=== PATIENT | female | born 1975 | race Two or more races ===

== ENCOUNTER 2020-05-09 12:37 | Outpatient (REF) | payer MEDICARE, MEDICAID, SELFPAY ==
--- NOTE | ~2020-05-09 | US_ITS ---
EXAMINATION: US PELVIS, COMPLETE CLINICAL INFORMATION: Right lower quadrant pain. History of ovarian cyst. COMPARISON: 04/09/2017 TECHNIQUE: Transabdominal and transvaginal imaging was performed. FINDINGS: LMP: 05/03/2020 Uterus is anteverted, measuring 13.8 x 5.7 x 7.1 cm. Slight heterogeneity of the uterine echotexture. Three hypoechoic foci within the uterine myometrium having a maximum measurement of 1.8 cm, 1.3 cm, and 1 cm respectively, probable fibroids. Additional fibroid seen on the prior study is not evident on today's study. Endometrial thickness 1 cm. Nabothian cysts in the cervix are noted. Right ovary measures 3.5 x 1.9 x 2.3 cm. Volume 8 mL. Left ovary measures 2.6 x 2 x 1.2 cm. Volume 3.3 mL. Bilateral ovaries appear unremarkable. No free fluid in the cul-de-sac. US/US pelvic complete IMPRESSION: Three hypoechoic foci in the uterine myometrium, largest measuring 1.8 cm, as detailed above. These probably reflect fibroids.
--- NOTE | ~2020-05-09 | US_ITS ---
EXAMINATION: US PELVIS, COMPLETE CLINICAL INFORMATION: Right lower quadrant pain. History of ovarian cyst. COMPARISON: 04/09/2017 TECHNIQUE: Transabdominal and transvaginal imaging was performed. FINDINGS: LMP: 05/03/2020 Uterus is anteverted, measuring 13.8 x 5.7 x 7.1 cm. Slight heterogeneity of the uterine echotexture. Three hypoechoic foci within the uterine myometrium having a maximum measurement of 1.8 cm, 1.3 cm, and 1 cm respectively, probable fibroids. Additional fibroid seen on the prior study is not evident on today's study. Endometrial thickness 1 cm. Nabothian cysts in the cervix are noted. Right ovary measures 3.5 x 1.9 x 2.3 cm. Volume 8 mL. Left ovary measures 2.6 x 2 x 1.2 cm. Volume 3.3 mL. Bilateral ovaries appear unremarkable. No free fluid in the cul-de-sac. US/US transvaginal IMPRESSION: Three hypoechoic foci in the uterine myometrium, largest measuring 1.8 cm, as detailed above. These probably reflect fibroids.
--- NOTE | ~2020-05-09 | US_ITS ---
EXAMINATION: US RETROPERITONEAL LIMITED (RENAL ONLY) CLINICAL INFORMATION: Malignant neoplasm of kidney. COMPARISON: Renal ultrasound 01/18/2019. CT abdomen and pelvis 11/24/2017. Ultrasound kidneys and bladder 07/19/2014. TECHNIQUE: Real-time imaging of the kidneys. FINDINGS: RIGHT KIDNEY: 11.5 x 5.2 x 6.3 cm (SAG x AP x TRV). The kidney is normal in size, contour, and echogenicity. Renal cortical thickness is normal. No calculi or focal parenchymal lesions. No hydronephrosis. LEFT KIDNEY: 10.5 x 4.9 x 4.2 cm (SAG x AP x TRV). The kidney is normal in size, contour, and echogenicity. Redemonstrated is focal cortical thinning in the upper pole of the left kidney. Similar appearance of focal hypoechoic area in the adjacent perinephric fat. These findings may reflect sequela of prior cryoablation. No renal calculi. No focal parenchymal lesions otherwise. No hydronephrosis. US/US renal BI IMPRESSION: Cortical thinning in the upper pole left kidney, with a focal hypoechoic area in the adjacent perinephric fat. No significant interval change as compared to previous, with findings suggestive of sequela of prior cryoablation. No renal mass is otherwise seen.
== END 2020-05-09 12:38 | disposition home or self-care (01) ==
LOC: HO.US 12:37
PROVIDERS: PCP Internal Medicine; Visit Provider Internal Medicine
DX: R10.31 Right lower quadrant pain (principal); C64.2 Malignant neoplasm of left kidney, except renal pelvis
CPT/HCPCS: 76775; 76830; 76856

== ENCOUNTER 2020-05-31 15:41 | Outpatient (REF) | payer MEDICARE, MEDICAID, SELFPAY ==
--- NOTE | ~2020-05-31 | US_ITS ---
EXAMINATION: US VENOUS ULTRASOUND WITH DOPPLER LOWER EXTREMITY, LEFT CLINICAL INFORMATION: Pain COMPARISON: None TECHNIQUE: Ultrasound of the deep veins is performed from the hip to the calf with compression sonography and color and pulse Doppler assessment. Spectral analysis with color-flow imaging is performed. FINDINGS: There is normal venous compression and respiratory variation and augmented flow. The visualized common femoral vein, superficial femoral vein, profunda femoral vein, popliteal vein, and the trifurcation region shows no evidence of deep venous thrombosis. There is no significant popliteal fossa cyst. US/US venous duplex LE LT IMPRESSION: No DVT demonstrated in the left lower extremity.
== END 2020-05-31 15:42 | disposition home or self-care (01) ==
LOC: HO.US 15:41
PROVIDERS: Visit Provider Nurse Practitioner Primary Care
DX: M79.662 Pain in left lower leg (principal); M79.89 Other specified soft tissue disorders; E78.5 Hyperlipidemia, unspecified; F17.200 Nicotine dependence, unspecified, uncomplicated
CPT/HCPCS: 93971

== ENCOUNTER 2020-07-13 09:06 | Outpatient (REF) | payer MEDICARE, MEDICAID, SELFPAY ==
--- NOTE | ~2020-07-13 | CT_ITS ---
EXAMINATION: CT ABDOMEN AND PELVIS WITH CONTRAST CLINICAL INFORMATION: Right lower quadrant pain COMPARISON: Previous CT of the abdomen and pelvis November 2017, renal ultrasound and pelvic ultrasound April 2020 TECHNIQUE: Multidetector volumetric images were obtained from the superior aspect of the liver through the pubic symphysis following administration 85 mL of Omnipaque 350 intravenous contrast. Sagittal and coronal reformatted images were obtained on the technologist's workstation. Oral contrast: Yes This CT examination was performed using dose optimization techniques as appropriate, variously including the following: *Automated exposure control *Adjustment of mA and/or kV according to patient size (this includes techniques or standardized protocols for targeted exams where dose is matched to indication/reason for exam; i.e. extremities or head) *Use of iterative reconstruction technique DLP: 517 mGy-cm FINDINGS: LUNG BASES: The visualized lung bases are unremarkable. LIVER, GALLBLADDER, AND BILIARY TREE: The liver is low in attenuation suggestive of fatty infiltration. The liver is otherwise normal. The gallbladder is unremarkable with no evidence of radiopaque gallstones, gallbladder wall thickening, or obvious pericholecystic inflammatory changes. There is no biliary duct dilatation. PANCREAS: Unremarkable. SPLEEN: Unremarkable. ADRENAL GLANDS: Unremarkable. KIDNEYS AND URETERS: The kidneys are normal in size, shape, and attenuation. No hydronephrosis, hydroureter, or calculi seen. No perinephric stranding. BLADDER: Unremarkable. GASTROINTESTINAL TRACT: The small and large bowel are unremarkable. The appendix is unremarkable. The stomach is unremarkable. ABDOMINAL WALL: No significant hernia is appreciated. LYMPH NODES: Normal. VASCULAR: Unremarkable. PELVIC VISCERA: The uterus is prominent. The uterus is heterogeneous in attenuation probably representing fibroids. OSSEOUS STRUCTURES: Unremarkable. CT/CT abdomen pelvis w con IMPRESSION: Fatty liver. Slightly enlarged heterogeneous appearing uterus probably related to fibroids. Otherwise unremarkable exam.
[2020-07-13] MEDS: iohexoL 350 MG/ML 100 ML INFUS..BTL IV (12:21)
== END 2020-07-13 09:07 | disposition home or self-care (01) ==
LOC: HO.CT 09:06
PROVIDERS: PCP Internal Medicine; Visit Provider Internal Medicine
DX: R10.31 Right lower quadrant pain (principal)
CPT/HCPCS: 74177; Q9967

== ENCOUNTER → 2020-07-21 10:24 | Outpatient (REF) | payer MEDICARE, MEDICAID, SELFPAY ==
--- NOTE | 2020-07-21 10:30 | CA_ITS ---
Transthoracic Echocardiogram Patient (Last, First, Middle): Laila Ortiz, Gender: Female Date of : 1975 Age: 45 Procedure Date: 07/21/2020 Procedure Type: Transthoracic Echocardiogram Location: OP Height: 154.94 cm Weight: 89.36 kg BSA: 1.88 m2 Heart Rate: bpm BP: 124 / 76 mmHg Baffle Installer: Referring MD: Chiquis Martins MD Symptoms: R06.00 [place] Study Quality: Fair ECG Rhythm: Sinus Conclusions: - The left ventricular systolic function is normal. The visually estimated ejection fraction is between 60-65%. - Evidence suggests grade I (mild) diastolic dysfunction. - No obvious valvular pathology seen on this study. Findings Left Ventricle Normal left ventricular cavity size. There is mildly increased left ventricular wall thickness. The left ventricular systolic function is normal. The visually estimated ejection fraction is between 60-65%. There is no evidence of regional wall motion abnormalities. E/E prime ratio is between 8 and 15 consistent with indeterminate filling pressures. Evidence suggests grade I (mild) diastolic dysfunction. Right Ventricle Normal right ventricular cavity size and systolic function. Atria The left atrium is normal in size. The right atrium is normal in size. Aortic Valve There is a normal trileaflet aortic valve. There is no aortic valve stenosis. There is no aortic valve regurgitation. Mitral Valve The mitral valve appears normal. There is trace mitral valve regurgitation. There is no mitral valve stenosis. Pulmonic Valve The pulmonic valve was not well visualized. There is trace pulmonic valve regurgitation. Tricuspid Valve There is trace tricuspid valve regurgitation. The pulmonary artery systolic pressure is normal. Great Vessels The aortic annulus, sinuses of valsalva, and asc aorta are normal in size. Venous The inferior vena cava is normal in size and collapses greater than 50% with inspiration. Pericardium/Pleural There is no evidence of pericardial effusion. Prior Study Comparison No prior study available for comparison. Recommendations, Care & Conclusions No obvious valvular pathology seen on this study. Measurements 2D Linear Measurements RVIDd: 2.65 RVIDd Index: 1.41 IVSd: 1.14 0.6-0.9/0.6-1.0 cm LVIDd: 5.14 3.9-5.3/4.2-5.9 cm LVIDd Index: 2.73 2.4-3.2/2.2-3.1 cm/m2 LVIDs: 3.67 2.0-3.6 cm LVPWd: 0.98 0.7-1.1 cm Ao Root: 2.90 2.1-3.5 cm LA Diam: 3.30 2.7-3.8/3.0-4.0 cm LAIDs Index: 1.76 1.5-2.3 cm/m2 LV Mass: 255.91 67-162/88-224 g LV Mass Index: 136.12 43-95/49-115 g/m2 LVOT Diam: 2.00 3.0+(-)1.3 cm 2D Systolic Function EF 4C: 64.20 >55% EF 2C: 66.40 >55% EF BiP: 64.20 >55% Mitral Valve MV Pk E: 0.64 MV PK A: 0.81 MV Decel Time: 197.00 E/A: 0.80 E'Lateral: 8.41 E'Medial: 4.84 E/E' Med: 13.20 E/E' Lat: 7.60 Aortic Valve AoV Pk Terrell: 1.21 AoV Mn Terrell: 0.94 AoV VTI: 0.21 AoV Pk Grad: 6.00 Aov Mn Grad: 4.00 YOKO Cont.VTI: 2.42 LVOT LVOT Pk Terrell: 1.12 LVOT Mn Terrell: 0.66 LVOT VTI: 0.16 LVOT Pk Grad: 5.00 LVOT Mn Grad: 2.00 LVOT Diam: 2.00 LVOT Area: 3.14 Diastolic Function MV Pk E: 0.64 MV Pk A: 0.81 E/A: 0.80 E'Medial: 4.84 E/E' Med: 13.20 E' Laterial: 8.41 E/E' Lat: 7.60 Tricuspid Valve TR Pk Terrell: 2.32 TR Pk Grad: 22.00 Great Vessels Aorta Ao Root-2D: 2.90 2.0-3.7 cm Ao Asc: 3.20 2.1-3.4 cm Ao Arch: 2.90 Updated in Other Vendor System with Status of Final True Kaur MD electronically signed on 07/22/2020 3:44:16 PM with status of Final
== END ==
LOC: HO.CARD 10:24
PROVIDERS: PCP Internal Medicine; Visit Provider Internal Medicine
DX: R06.00 Dyspnea, unspecified (principal)
CPT/HCPCS: 93306

== ENCOUNTER → 2020-08-24 11:15 | Outpatient (BNVA) | payer MEDICARE, MEDICAID, SELFPAY | PROVIDERS: PCP Internal Medicine; Visit Provider Obstetrics & Gynecology | DX: N93.9 Abnormal uterine and vaginal bleeding, unspecified (principal) | CPT/HCPCS: 99202 ==

== ENCOUNTER 2020-08-28 12:19 | Outpatient (REF) | payer MEDICARE, MEDICAID, SELFPAY ==
--- NOTE | ~2020-08-28 | MM_ITS ---
EXAMINATION: MM SCREENING DIGITAL BREAST TOMOSYNTHESIS, BILATERAL CLINICAL INFORMATION: Screening. Asymptomatic. The lifetime risk of breast cancer based on the Tyrer-Cuzick Model is 8%. COMPARISON: Mammography: 04/17/2018, 12/02/2016 (baseline). TECHNIQUE: Digital breast tomosynthesis is performed in both the craniocaudal and mediolateral oblique views along with computer-aided detection (CAD). Synthesized 2D images are generated from the tomosynthesis. FINDINGS: The breasts are heterogeneously dense, which may obscure small masses (ACR BI-RADS breast composition Category c). There are no significant masses, abnormal calcifications, or other abnormalities. Parenchymal pattern is similar to prior exams. No developing density. Skin contours are smooth. MM/MM tomosynthesis screening BI IMPRESSION: No mammographic evidence of malignancy. ASSESSMENT: BI-RADS 1: Negative RECOMMENDATION: Routine annual mammography screening. This patient's information was entered into a reminder system with a target due date for their next mammogram.
== END 2020-08-28 12:20 | disposition home or self-care (01) ==
LOC: HO.MAMMO 12:19
PROVIDERS: Visit Provider Advanced Practice Midwife
DX: Z12.31 Encounter for screening mammogram for malignant neoplasm of breast (principal)
CPT/HCPCS: 77063; 77067

== ENCOUNTER 2020-09-06 13:32 | Outpatient (REF) | payer MEDICARE, MEDICAID, SELFPAY | END 2020-09-06 13:33 | disposition home or self-care (01) | LOC: HO.LAB 13:32 | PROVIDERS: PCP Internal Medicine; Visit Provider Obstetrics & Gynecology | DX: N93.9 Abnormal uterine and vaginal bleeding, unspecified (principal) | CPT/HCPCS: 58100; 88305 ==

== ENCOUNTER → 2020-09-13 11:22 | Outpatient (BNVA) | payer MEDICARE, MEDICAID, SELFPAY | PROVIDERS: PCP Internal Medicine; Visit Provider Obstetrics & Gynecology | DX: N93.9 Abnormal uterine and vaginal bleeding, unspecified (principal) | CPT/HCPCS: Q3014 ==

== ENCOUNTER 2020-11-20 01:12 | Emergency (ER) | payer MEDICARE, MEDICAID, SELFPAY ==
--- NOTE | ~2020-11-20 | XR_ITS ---
EXAMINATION: XR CHEST CLINICAL INFORMATION: Dyspnea. Chest pain. COMPARISON: None TECHNIQUE: Frontal view of the chest was obtained. FINDINGS: No significant abnormality is noted involving the heart, lungs, mediastinum, bony thorax or soft tissues. XR/XR chest 1V IMPRESSION: Unremarkable examination.
[2020-11-20 01:33] VITALS: BP 164/104; PULSE 115; RESP 18; TEMP 36.9; O2SAT 99; BMI 36.8
--- NOTE | 2020-11-20 01:39 | ECG_ITS ---
Test Reason : CHEST PAIN Blood Pressure : / mmHG Vent. Rate : 113 BPM Atrial Rate : 113 BPM P-R Int : 130 ms QRS Dur : 086 ms QT Int : 340 ms P-R-T Axes : 057 011 068 degrees QTc Int : 466 ms Sinus tachycardia Otherwise normal ECG No previous ECGs available Referred By: Generic ED Physician Electronically Signed By:SADIA WALL
[2020-11-20 02:00] VITALS: BP 151/101; PULSE 114; RESP 16; O2SAT 100
--- NOTE | 2020-11-20 02:06 | ED_ITS ---
HPI - Chest Pain General Chief Complaint: Chest Pain Stated Complaint: SOB/chest pain Time Seen by Provider: 11/20/20 01:53 Source: patient Mode of arrival: ambulatory Limitations: no limitations History of Present Illness HPI narrative: Patient comes emergency room complaining of chest pain. Patient states she was walking up the stairs, then had sudden onset of chest pressure. All this started approximately 4 hours ago. At this time, patient states that she feels better. States that the chest pain was still present when she was in triage but now it is nearly resolved. Patient denies shortness of breath, no coughing, no vomiting or diarrhea, no recent illnesses. Patient states that prior to arrival she took a tablet of amlodipine which she usually takes at bedtime. Related Data Previous Rx's Medication Instructions Recorded ibuprofen 800 mg tablet 800 mg PO Q8H #90 tab 08/24/20 Allergies Allergy/AdvReac Type Severity Reaction Status Date / Time cat dander [CATS] Allergy Unknown UNKNOWN Verified 11/20/20 01:33 haloperidol [From HALDOL] Allergy Unknown SWELLING Verified 11/20/20 01:33 risperidone [From RISPERDAL] Allergy Unknown HIVES Verified 11/20/20 01:33 shrimp Allergy Unknown UNKNOWN Verified 11/20/20 01:33 COCKROACHES Allergy Unknown UNKNOWN Uncoded 12/02/19 14:56 Review of Systems Review of Systems: Constitutional : No Weight loss, No Fever, No Chills, No Night Sweats, No Fatigue, No Malaise ENT/Mouth : No Hearing loss, No Ear Pain, No Nasal Congestion, No Sinus Pain, No Hoarseness, No sore throat, No Rhinorrhea, No Swallowing Difficulty Eyes: No Eye Pain, No Swelling, No Redness, No Foreign Body, No Discharge, No Vision Changes Cardiovascular : Complaining of chest pressure, No SOB, No Dyspnea on Exertion, No Orthopnea, No Edema, No Palpitations Respiratory : No Cough, No Sputum, No Wheezing, No Smoke Exposure, No Dyspnea Gastrointestinal : No Nausea, No Vomiting, No Diarrhea, No Constipation, No abdominal Pain, No Hematochezia, No Melena Genitourinary : no irregular bleeding, No Dysuria, No Urinary Frequency, No Hematuria, No Urinary Incontinence, No Urgency, No Flank Pain, No Urinary Flow Changes, No Hesitancy Musculoskeletal : No joint pain, No Myalgias, No Joint Swelling Skin : No Skin Lesions, No rash Neuro : No Weakness, No Numbness, No Paresthesias, No Loss of Consciousness, No Dizziness, No Headache Psych : No Anxiety/Panic, No Depression, No SI/HI/AH/VH, No Social Issues, Heme/Lymph: No Bruising, No Bleeding,No Lymphadenopathy Endocrine : No Polyuria, No Polydipsia, No Temperature Intolerance [facility] Past Medical History Medical History Fibromyalgia High cholesterol Surgical History History of bilateral tubal ligation History of carpal tunnel surgery of right wrist History of loop electrical excision procedure (LEEP) Family History Family History Mother Kidney failure Diabetes COPD (chronic obstructive pulmonary disease) Heart disease Father Colon cancer Social History Social History Advance Directives: No Physical Exam Vital Signs: Vital Signs: Last Vital Signs Temp 98.5 F 11/20/20 01:33 Pulse 114 H 11/20/20 02:00 Resp 16 11/20/20 02:00 BP 151/101 H 11/20/20 02:00 Pulse Ox 100 11/20/20 02:00 Body Mass Index 36.8 Const: Other: Appearance: Alert. Oriented X3. No acute distress. Eyes: Pupils equal, round and reactive to light. ENT: Pharynx normal. Neck: Normal inspection. Neck supple. No lymph nodes noted. No crepitus CVS: Normal heart rate and rhythm. Pulses normal. Normal S1 and S2 Respiratory: No respiratory distress. Breath sounds normal. No Wheezing. No rales Abdomen: Soft and nontender. No rigidity. No distention. good BS x4 Skin: Skin warm and dry. Normal skin color. Normal skin turgor. Extremities: +1 nonpitting edema. No Lacerations. No Rash Neuro: Oriented X 3. No motor deficit. No sensory deficit. Moving all extermities. No slurred speech. Course Course Course Narrative: I discussed with the patient that the swelling in her legs is likely secondary a side effect from the amlodipine. I discussed with the patient that I recommend to get a 2nd set of troponin. Patient states that she does not want to wait for a 2nd set of troponin, patient will follow-up with her PCP tomorrow. At this time, patient is asymptomatic, states she feels back to normal. MDM - Chest Pain Lab Data Result diagrams: 11/20/20 02:14 11/20/20 02:14 Labs: Lab Results 11/20/20 11/20/20 11/20/20 Range/Units 02:14 02:14 02:14 WBC 9.1 (4.8-10.8) X10*3/uL RBC 3.91 L (4.20-5.50) X10*6/uL Hgb 10.3 L (12.0-16.0) g/dl Hct 32.8 L (37-47) % MCV 83.9 (80-98) fL MCH 26.3 L (27.0-33.0) pg MCHC 31.4 (31.0-35.0) g/dl RDW 13.9 (11.0-16.0) % Plt Count 321 (160-400) X10*3/uL MPV 9.4 (9.4-12.3) fL Immature Gran % (Auto) 0.3 (0.0-0.4) % Neut % (Auto) 63.0 (45-73) % Lymph % (Auto) 28.3 (20-40) % [place] % (Auto) 6.4 (2-11) % Eos % (Auto) 1.3 (0-4) % Baso % (Auto) 0.7 (0-2) % Lymph # (Auto) 2.6 (1.2-4.9) X10*3/uL [place] # (Auto) 0.6 (0.1-1.2) X10*3/uL Eos # (Auto) 0.1 (0.0-0.4) X10*3/uL Baso # (Auto) 0.1 (0.0-0.2) X10*3/uL Abs Immat Gran (auto) 0.03 (0.00-0.03) X10*3/uL Absolute Neuts (auto) 5.7 (2.0-8.3) X10*3/uL Absolute Nucleated RBC 0.000 (0.0-0.012) X10*3/uL Nucleated RBC % (auto) 0.0 (0.0-0.2) /100WBC Sodium 136 (135-145) mmol/L Potassium 4.1 (3.3-5.1) mmol/L Chloride 102 (96-108) mmol/L Carbon Dioxide 25 (22-29) mmol/L Anion Gap 13 (12-20) BUN 16 (9-16) mg/dL Creatinine 0.97 (0.5-1.4) mg/dL Estim Creat Clear Calc 74.8 Estimated GFR > 60 Random Glucose 91 (60-115) mg/dL Calcium 9.0 (8.4-10.2) mg/dL Troponin I High Sens < 3.5 (<3.5-17.0) ng/L B-Natriuretic Peptide (<100) pg/mL Urine Color Urine Appearance Urine pH (5.0-8.0) Ur Specific [place] (1.005-1.025) Urine Protein (NEG-TRACE) MG/DL Urine Glucose (UA) (NEG) MG/DL Urine Ketones (NEG) MG/DL Urine Blood (NEG) Urine Nitrite (NEG) Ur Leukocyte Esterase (NEG) 11/20/20 11/20/20 Range/Units 02:14 02:59 WBC (4.8-10.8) X10*3/uL RBC (4.20-5.50) X10*6/uL Hgb (12.0-16.0) g/dl Hct (37-47) % MCV (80-98) fL MCH (27.0-33.0) pg MCHC (31.0-35.0) g/dl RDW (11.0-16.0) % Plt Count (160-400) X10*3/uL MPV (9.4-12.3) fL Immature Gran % (Auto) (0.0-0.4) % Neut % (Auto) (45-73) % Lymph % (Auto) (20-40) % [place] % (Auto) (2-11) % Eos % (Auto) (0-4) % Baso % (Auto) (0-2) % Lymph # (Auto) (1.2-4.9) X10*3/uL [place] # (Auto) (0.1-1.2) X10*3/uL Eos # (Auto) (0.0-0.4) X10*3/uL Baso # (Auto) (0.0-0.2) X10*3/uL Abs Immat Gran (auto) (0.00-0.03) X10*3/uL Absolute Neuts (auto) (2.0-8.3) X10*3/uL Absolute Nucleated RBC (0.0-0.012) X10*3/uL Nucleated RBC % (auto) (0.0-0.2) /100WBC Sodium (135-145) mmol/L Potassium (3.3-5.1) mmol/L Chloride (96-108) mmol/L Carbon Dioxide (22-29) mmol/L Anion Gap (12-20) BUN (9-16) mg/dL Creatinine (0.5-1.4) mg/dL Estim Creat Clear Calc Estimated GFR Random Glucose (60-115) mg/dL Calcium (8.4-10.2) mg/dL Troponin I High Sens (<3.5-17.0) ng/L B-Natriuretic Peptide 15 (<100) pg/mL Urine Color YELLOW Urine Appearance CLEAR Urine pH 6.0 (5.0-8.0) Ur Specific R[place]y 1.020 (1.005-1.025) Urine Protein NEG (NEG-TRACE) MG/DL Urine Glucose (UA) NEG (NEG) MG/DL Urine Ketones NEG (NEG) MG/DL Urine Blood NEG (NEG) Urine Nitrite NEG (NEG) Ur Leukocyte Esterase NEG (NEG) ECG Data ECG #1: Attestation: I personally reviewed and interpreted this ECG as follows: (Sinus tachycardia, heart rate 113, no ST segment depression or elevation, no T- wave inversion, QTC 466) Discharge Plan Discharge Clinical Impression: Atypical chest pain Patient Disposition: Home, Self-Care Instructions: Chest Pain (ED) Additional Instructions: Please follow-up with your primary care physician tomorrow. If you have any worsening or new symptoms, please return to the emergency room or call 911 Prescriptions: No Action ibuprofen 800 mg tablet 800 mg PO Q8H Qty: 90 RF: 3
[2020-11-20 02:19] LABS: Basophils Absolute Auto 0.1 X10*3/uL (0.0-0.2); Basophils Percent Auto 0.7 % (0-2); Eosinophils Absolute Auto 0.1 X10*3/uL (0.0-0.4); Eosinophils Percent Auto 1.3 % (0-4); Hematocrit 32.8 % (37-47); Hemoglobin 10.3 g/dl (12.0-16.0); Imm Gran Abs Auto 0.03 X10*3/uL (0.00-0.03); Imm Gran Pct Auto 0.3 % (0.0-0.4); Lymphocytes Absolute Auto 2.6 X10*3/uL (1.2-4.9); Lymphocytes Percent Auto 28.3 % (20-40); MANUAL DIFF FLAG NO; Mean Corpuscular HGB Conc 31.4 g/dl (31.0-35.0); Mean Corpuscular Hemoglobin 26.3 pg (27.0-33.0); Mean Corpuscular Volume 83.9 fL (80-98); Mean Platelet Volume 9.4 fL (9.4-12.3); Monocytes Absolute Auto 0.6 X10*3/uL (0.1-1.2); Monocytes Percent Auto 6.4 % (2-11); Neutrophils Absolute Auto 5.7 X10*3/uL (2.0-8.3); Platelet Count 321 X10*3/uL (160-400); Red Blood Count 3.91 X10*6/uL (4.20-5.50); Red Cell Distribution Width 13.9 % (11.0-16.0); White Blood Count 9.1 X10*3/uL (4.8-10.8)
[2020-11-20] MEDS: Aspirin Enteric Coated 325 MG TABLET.DR PO (02:19)
[2020-11-20 02:34] LABS: Anion Gap 13 (12-20); Blood Urea Nitrogen 16 mg/dL (9-16); Carbon Dioxide 25 mmol/L (22-29); Chloride 102 mmol/L (96-108); Creatinine Clr Calc Pharmacy 74.8; Estimated Glomerular Filt Rate > 60; Glucose Random 91 mg/dL (60-115); Potassium 4.1 mmol/L (3.3-5.1); Sodium 136 mmol/L (135-145)
[2020-11-20 02:42] LABS: B Type Natriuretic Peptide 15 pg/mL (<100)
[2020-11-20 02:44] LABS: Troponin-I High Sensitivity < 3.5 ng/L (<3.5-17.0)
[2020-11-20 03:05] LABS: Glucose Urine UA NEG (NEG); Leukocyte Esterase Urine NEG (NEG); Nitrite Urine NEG (NEG); Urine Blood NEG (NEG); Urine Ketones NEG (NEG); Urine Protein NEG (NEG-TRACE)
[2020-11-20 03:06] LABS: Appearance Urine CLEAR; Color Urine YELLOW
== END 2020-11-20 03:41 | disposition home or self-care (01) ==
PROVIDERS: Emergency Provider Emergency Medicine; PCP Internal Medicine
DX: R07.89 Other chest pain (principal)
CPT/HCPCS: 36415; 71045; 80048; 81003; 83880; 84484; 85025; 93005; 99284

== ENCOUNTER 2021-01-31 12:59 | Outpatient (REF) | payer MEDICARE, MEDICAID, SELFPAY ==
--- NOTE | ~2021-01-31 | XR_ITS ---
EXAMINATION: XR KNEE, LEFT CLINICAL INFORMATION: Pain. COMPARISON: Right knee 01/31/2021 TECHNIQUE: 2 views of the left knee. FINDINGS: Bones and soft tissues are normal. No fracture or joint effusion. Alignment is anatomic. Joint spaces are well maintained. No abnormal soft tissue calcification. XR/XR knee LT 2V IMPRESSION: Normal left knee.
--- NOTE | ~2021-01-31 | XR_ITS ---
EXAMINATION: XR ELBOW, RIGHT CLINICAL INFORMATION: Pain. COMPARISON: None TECHNIQUE: AP, lateral, and oblique views of the right elbow. FINDINGS: No fracture. No dislocation. No joint effusion. Small bony exostosis /enthesopathy at the medial and lateral humeral epicondyles. XR/XR elbow RT 2V IMPRESSION: Normal right elbow.
--- NOTE | ~2021-01-31 | XR_ITS ---
EXAMINATION: XR KNEE, RIGHT CLINICAL INFORMATION: Pain. COMPARISON: Left knee 01/31/2021 TECHNIQUE: Two views of the right knee. FINDINGS: Bones and soft tissues are normal. No fracture or joint effusion. Alignment is anatomic. Joint spaces are well maintained. No abnormal soft tissue calcification. XR/XR knee RT 2V IMPRESSION: Normal right knee.
[2021-01-31 14:39] LABS: Erythrocyte Sedimentation Rate 40 MM/HR (0-20)
[2021-02-02 13:15] LABS: Lyme Abs Screen <0.90 index
[2021-02-03 12:07] LABS: Anti Nuclear Antibody Screen NEGATIVE (NEGATIVE)
== END 2021-01-31 13:00 | disposition home or self-care (01) ==
LOC: HO.XRAY 12:59
PROVIDERS: PCP Nurse Practitioner Primary Care; Visit Provider Psychiatry & Neurology Neurology
DX: M54.9 Dorsalgia, unspecified (principal); M25.561 Pain in right knee; M25.562 Pain in left knee; M25.521 Pain in right elbow
CPT/HCPCS: 36415; 73070; 73560; 82550; 85652; 86038; 86039; 86617; 86618

== ENCOUNTER 2021-02-12 01:35 | Emergency (ER) | payer MEDICARE, MEDICAID, SELFPAY ==
--- NOTE | 2021-02-12 01:39 | ECG_ITS ---
Test Reason : CP Blood Pressure : / mmHG Vent. Rate : 104 BPM Atrial Rate : 104 BPM P-R Int : 140 ms QRS Dur : 086 ms QT Int : 362 ms P-R-T Axes : 000 184 114 degrees QTc Int : 476 ms Sinus tachycardia Right superior axis deviation Abnormal ECG When compared with ECG of 20-NOV-2020 02:06, Questionable change in QRS axis suspect limb lead reversal suggest repeat study Referred By: Generic ED Physician Electronically Signed By:JORGE SHARMA MD
[2021-02-12 01:56] VITALS: BP 171/104; PULSE 103; RESP 18; TEMP 36.8; O2SAT 99; BMI 37.4
[2021-02-12 02:13] LABS: Basophils Percent Auto 0.4 % (0-2); Eosinophils Absolute Auto 0.1 X10*3/uL (0.0-0.4); Eosinophils Percent Auto 1.3 % (0-4); Hematocrit 35.4 % (37.0-47.0); Hemoglobin 11.1 g/dl (12.0-16.0); Imm Gran Abs Auto 0.02 X10*3/uL (0.00-0.03); Imm Gran Pct Auto 0.2 % (0.0-0.4); Lymphocytes Absolute Auto 2.5 X10*3/uL (1.2-4.9); Lymphocytes Percent Auto 27.5 % (20-40); MANUAL DIFF FLAG NO; Mean Corpuscular HGB Conc 31.4 g/dl (31.0-35.0); Mean Corpuscular Hemoglobin 28.2 pg (27.0-33.0); Mean Corpuscular Volume 90.1 fL (80.0-98.0); Mean Platelet Volume 9.3 fL (9.4-12.3); Monocytes Absolute Auto 0.6 X10*3/uL (0.1-1.2); Monocytes Percent Auto 6.4 % (2-11); Neutrophils Absolute Auto 5.8 x10*3/uL (2.0-8.3); Neutrophils Percent Auto 64.2 % (45-73); Platelet Count 293 X10*3/uL (160-400); Red Blood Count 3.93 X10*6/uL (4.20-5.50); Red Cell Distribution Width 16.2 % (11.0-16.0)
[2021-02-12 02:35] LABS: Anion Gap 15 (12-20); Blood Urea Nitrogen 16 mg/dL (9-16); Calcium 8.7 mg/dL (8.4-10.2); Carbon Dioxide 20 mmol/L (22-29); Chloride 105 mmol/L (96-108); Creatinine Clr Calc Pharmacy 90.5; Estimated Glomerular Filt Rate > 60; Glucose Random 121 mg/dL (60-115); Potassium 3.4 mmol/L (3.3-5.1); Sodium 137 mmol/L (135-145)
[2021-02-12 02:39] LABS: Troponin-I High Sensitivity 3.5 ng/L (<3.5-17.0)
[2021-02-12 03:03] VITALS: BP 152/91; PULSE 103; RESP 19; O2SAT 98
[2021-02-12 03:22] LABS: UPreg QC Valid YES; Urine Pregnancy NEGATIVE (NEGATIVE)
[2021-02-12 03:23] LABS: Appearance Urine CLEAR; Color Urine YELLOW; Glucose Urine UA NEG (NEG); Leukocyte Esterase Urine NEG (NEG); Nitrite Urine NEG (NEG); Specific Gravity - Urine >= 1.030 (1.005-1.025); Urine Blood NEG (NEG); Urine Ketones NEG (NEG); Urine Protein TRACE MG/DL (NEG-TRACE)
[2021-02-12 03:24] LABS: UACC Culture Trigger NO
[2021-02-12 04:00] VITALS: BP 144/96; PULSE 104; RESP 21; O2SAT 96
--- NOTE | 2021-02-12 04:35 | ED_ITS ---
HPI - Chest Pain General Chief Complaint: Chest Pain Stated Complaint: Chest pain Time Seen by Provider: 02/12/21 04:15 Source: patient Mode of arrival: ambulatory History of Present Illness HPI narrative: 46-year-old female with history of GERD/acid reflux presents after being awoken from sleep at midnight with burning tightness into her epigastric lower chest area without associated dizziness, headache, nausea, sweating, or shortness of breath. The pain has since passed and patient states that she is supposed to be taking famotidine. Otherwise, she denies any fever, chills, nausea/vomiting or symptoms. Related Data Previous Rx's Medication Instructions Recorded ibuprofen 800 mg tablet 800 mg PO Q8H #90 tab 08/24/20 sucralfate 100 mg/mL oral 10 ml PO BID #420 ml 02/12/21 suspension (Carafate) Allergies Allergy/AdvReac Type Severity Reaction Status Date / Time cat dander [CATS] Allergy Unknown UNKNOWN Verified 02/12/21 03:22 haloperidol [From HALDOL] Allergy Unknown SWELLING Verified 02/12/21 03:22 risperidone [From RISPERDAL] Allergy Unknown HIVES Verified 02/12/21 03:22 shrimp Allergy Unknown UNKNOWN Verified 02/12/21 03:22 COCKROACHES Allergy Unknown UNKNOWN Uncoded 02/12/21 03:22 Review of Systems Review of Systems: Pertinent positives and negatives as stated in HPI 10 point review systems is otherwise negative. [facility] Past Medical History Source: nursing notes reviewed Medical History Fibromyalgia High cholesterol Surgical History History of bilateral tubal ligation History of carpal tunnel surgery of right wrist History of loop electrical excision procedure (LEEP) Family History Family History Mother Kidney failure Diabetes COPD (chronic obstructive pulmonary disease) Heart disease Father Colon cancer Social History Social History Advance Directives: No Advance Directives Information Provided: No Patient : No Physical Exam Vital Signs: Vital Signs: Last Vital Signs Temp 98.3 F 02/12/21 01:56 Pulse 104 H 02/12/21 04:00 Resp 21 H 02/12/21 04:00 BP 144/96 H 02/12/21 04:00 Pulse Ox 96 02/12/21 04:00 Body Mass Index 37.4 VITAL SIGNS: Reviewed. GENERAL: Well developed, well nourished, in no acute distress. HEAD: Normocephalic/atraumatic EYES: PERRLA, EOMI OROPHARYNX: no oral lesions noted, posterior pharynx clear NECK: Supple, no adenopathy LUNGS: Normal breath sounds. No adventitious sounds or accessory muscle use. SpO2<96> CARDIOVASCULAR: Regular rate and rhythm without noted murmurs, no JVD or lower extremity edema. ABDOMEN: Soft, non-tender, non-distended with bowel sounds. NEUROLOGIC: Alert and oriented x 4. Course Course Course Narrative: This is a 46-year-old female with history and clinical presentation consistent with likely acid reflux as patient had had ibuprofen prior to going to sleep as well. Patient is currently asymptomatic and EKG does not show acute changes. On review of all investigations there are no acute findings and serial troponins are otherwise negative. Patient received a GI cocktail and had complete resolution of all discomfort and was otherwise discharged home in stable condition with instructions to follow-up with her [facility] care provider. MDM - Chest Pain Lab Data Result diagrams: 02/12/21 02:08 02/12/21 02:08 Labs: Lab Results 02/12/21 02/12/21 02/12/21 Range/Units 02:08 02:08 02:08 WBC 9.0 (4.8-10.8) X10*3/uL RBC 3.93 L (4.20-5.50) X10*6/uL Hgb 11.1 L (12.0-16.0) g/dl Hct 35.4 L (37.0-47.0) % MCV 90.1 (80.0-98.0) fL MCH 28.2 (27.0-33.0) pg MCHC 31.4 (31.0-35.0) g/dl RDW 16.2 H (11.0-16.0) % Plt Count 293 (160-400) X10*3/uL MPV 9.3 L (9.4-12.3) fL Immature Gran % (Auto) 0.2 (0.0-0.4) % Neut % (Auto) 64.2 (45-73) % Lymph % (Auto) 27.5 (20-40) % Delta % (Auto) 6.4 (2-11) % Eos % (Auto) 1.3 (0-4) % Baso % (Auto) 0.4 (0-2) % Lymph # (Auto) 2.5 (1.2-4.9) X10*3/uL Delta # (Auto) 0.6 (0.1-1.2) X10*3/uL Eos # (Auto) 0.1 (0.0-0.4) X10*3/uL Baso # (Auto) 0.0 (0.0-0.2) X10*3/uL Abs Immat Gran (auto) 0.02 (0.00-0.03) X10*3/uL Absolute Neuts (auto) 5.8 (2.0-8.3) x10*3/uL Absolute Nucleated RBC 0.000 (0.0-0.012) X10*3/uL Nucleated RBC % (auto) 0.0 (0.0-0.2) /100WBC Sodium 137 (135-145) mmol/L Potassium 3.4 (3.3-5.1) mmol/L Chloride 105 (96-108) mmol/L Carbon Dioxide 20 L (22-29) mmol/L Anion Gap 15 (12-20) BUN 16 (9-16) mg/dL Creatinine 0.80 (0.5-1.4) mg/dL Estim Creat Clear Calc 90.5 Estimated GFR > 60 Random Glucose 121 H (60-115) mg/dL Calcium 8.7 (8.4-10.2) mg/dL Troponin I High Sens 3.5 (<3.5-17.0) ng/L Urine Color Urine Appearance Urine pH (5.0-8.0) Ur Specific [place] (1.005-1.025) Urine Protein (NEG-TRACE) MG/DL Urine Glucose (UA) (NEG) MG/DL Urine Ketones (NEG) MG/DL Urine Blood (NEG) Urine Nitrite (NEG) Ur Leukocyte Esterase (NEG) Urine Test (NEGATIVE) 11/29/21 11/29/21 11/29/21 Range/Units 03:14 03:14 04:55 WBC (4.8-10.8) X10*3/uL RBC (4.20-5.50) X10*6/uL Hgb (12.0-16.0) g/dl Hct (37.0-47.0) % MCV (80.0-98.0) fL MCH (27.0-33.0) pg MCHC (31.0-35.0) g/dl RDW (11.0-16.0) % Plt Count (160-400) X10*3/uL MPV (9.4-12.3) fL Immature Gran % (Auto) (0.0-0.4) % Neut % (Auto) (45-73) % Lymph % (Auto) (20-40) % Delta % (Auto) (2-11) % Eos % (Auto) (0-4) % Baso % (Auto) (0-2) % Lymph # (Auto) (1.2-4.9) X10*3/uL Delta # (Auto) (0.1-1.2) X10*3/uL Eos # (Auto) (0.0-0.4) X10*3/uL Baso # (Auto) (0.0-0.2) X10*3/uL Abs Immat Gran (auto) (0.00-0.03) X10*3/uL Absolute Neuts (auto) (2.0-8.3) x10*3/uL Absolute Nucleated RBC (0.0-0.012) X10*3/uL Nucleated RBC % (auto) (0.0-0.2) /100WBC Sodium (135-145) mmol/L Potassium (3.3-5.1) mmol/L Chloride (96-108) mmol/L Carbon Dioxide (22-29) mmol/L Anion Gap (12-20) BUN (9-16) mg/dL Creatinine (0.5-1.4) mg/dL Estim Creat Clear Calc Estimated GFR Random Glucose (60-115) mg/dL Calcium (8.4-10.2) mg/dL Troponin I High Sens < 3.5 (<3.5-17.0) ng/L Urine Color YELLOW Urine Appearance CLEAR Urine pH 6.0 (5.0-8.0) Ur Specific [place] >= 1.030 H (1.005-1.025) Urine Protein TRACE (NEG-TRACE) MG/DL Urine Glucose (UA) NEG (NEG) MG/DL Urine Ketones NEG (NEG) MG/DL Urine Blood NEG (NEG) Urine Nitrite NEG (NEG) Ur Leukocyte Esterase NEG (NEG) Urine Test NEGATIVE (NEGATIVE) ECG Data ECG #1: Attestation: I personally reviewed and interpreted this ECG as follows: Interpretation: Sinus tachycardia, HR-104, no STEMI Discharge Plan Discharge Clinical Impression: GERD (gastroesophageal reflux disease), Atypical chest pain Patient Disposition: Home, Self-Care Instructions: Diet for Stomach Ulcers and Gastritis (ED), Gastroesophageal Reflux Disease (ED) Additional Instructions: 1. Resume all home medications, recommend limiting the use of ibuprofen, Motrin, Aleve, naproxen as this will continue to worsen your acid reflux. 2. Follow-up with your primary care provider in the next 1-2 days for re- evaluation and further outpatient management. Return to the ER for worsening symptoms. Prescriptions: New sucralfate [Carafate] 100 mg/mL suspension 10 ml PO BID Qty: 420 RF: 0 No Action ibuprofen 800 mg tablet 800 mg PO Q8H Qty: 90 RF: 3
[2021-02-12] MEDS: Magnesium Hydrox/Alum Hydrox 30 ML ORAL.SUSP PO (04:48)
[2021-02-12] MEDS: Lidocaine HCl Viscous 2 % 15 ML SOLUTION 10 ML MUCOUS MEM (04:48)
--- NOTE | 2021-02-12 05:18 | PC.NURSE ---
Pt rang in to report that that lidocaine is a miracle, stating I can move my right arm and leg now. You know how I said that I couldn't before because of fibromyalgia? Now I can.
[2021-02-12 05:37] LABS: Troponin-I High Sensitivity < 3.5 ng/L (<3.5-17.0)
[2021-02-12 07:59] VITALS: BP 119/73; PULSE 93; RESP 18; O2SAT 98
== END 2021-02-12 08:13 | disposition home or self-care (01) ==
PROVIDERS: Emergency Provider Student in an Organized Health Care Education/Training Program
DX: R07.9 Chest pain, unspecified (principal); K21.9 Gastro-esophageal reflux disease without esophagitis; Z79.899 Other long term (current) drug therapy
CPT/HCPCS: 36415; 80048; 81003; 81025; 84484; 85025; 93005; 99283; 99284

== ENCOUNTER 2021-02-14 04:05 | Emergency (ER) | payer MEDICARE, MEDICAID, SELFPAY ==
[2021-02-14 04:15] VITALS: BP 148/86; PULSE 116; RESP 16; TEMP 37; O2SAT 98; BMI 37.4
--- NOTE | 2021-02-14 04:30 | PC.NURSE ---
OBSERVED PROVIDER SPEAKING TO PT IN A RESPECTFUL MANNER AND ADDRESSING HER CONCERNS. PT BECOMING VERBALLY AGGRESSIVE, PROVIDER PROFESSION WALKING AWAY FROM BEDSIDE AND ATTENDING TO OTHER PT.
--- NOTE | 2021-02-14 04:57 | PC.NURSE ---
patient in her bed, provider dr. rodriguez attempting to evaluate patient. patient refusing to leave but refusing to be seen. i don't have a fucking ride so i am not leaving . yelling down the halls. offering to talk with patient not you, I wanna see the person for the whole fucking place patient shouting down the lopez at the md, calling out there is that bitch that fucking bi (talking about dr. rodriguez) fuck this place all i want is some fucking respect . staff attempting to deescalate patient. patient stating to this rn i will talk to you because you were nice to me (informing patient she will have to leave if not seeking treatment and just verbally abusing staff) of the fucking big one in the [facility] shirt, i am writing all of you up the nursing apartment maintenance supervisor was called to talk with the patient but due to patients behaviors patient was asked to leave the property if she was refusing to be seen by the doctor and stay for treatment. then get me a fucking wheelchair. patient leaving with security.
--- NOTE | 2021-02-14 04:58 | PC.NURSE ---
pt is rude, using abusive language, Calling the provider a fucking bi and a bitch. this field underwriter requested that she not speak in the manner due to patient being around her. Requested security help to navigate behavior and notified charge nurse.
--- NOTE | 2021-02-14 04:58 | PC.NURSE ---
Pt refusing to be seen, i don't want to be seen until I talk to nursing batch plant supervisor. pt is yelling and swearing at staff loudly. Pt states fuck this place, I get no fucking help, Im going to fucking [facility] so i can get fucking help, pt threatening staff and threatening licenses. Pt called charge nurse you are just a big one in the [place]gundy shirt. Nursing batch plant supervisor was called but d/t pt's behavior batch plant supervisor does not want to talk with pt. Pt very rude and disrespectful and yelling loudly. When security arrived pt would not listen but only talked over staff. Security escorted pt out to the waiting room.
--- NOTE | 2021-02-14 05:10 | PC.NURSE ---
PATIENT WAS SEEN BY PROVIDER DR. CUEVA AND PROVIDER PLACING ORDERS FOR LABS AND MEDICATIONS IN THE COMPUTER AFTER EVALUATING PATIENT. PATIENT BECOMING VERBALLY AGGRESSIVE AND ABUSIVE ONCE MD LEFT THE BEDSIDE. SEE ADDITIONAL NURSES NOTES ABOUT PATIENTS ACTIONS AND INTERACTIONS WITH STAFF. AT THIS TIME MD REMOVED HER NAME FROM THE CHART AND STATED SHE WAS NOT DOING A NOTE THAT SEE SAW AND SPOKE WITH PATIENT, INFORMED THIS RN TO MAKE THE PATIENT A LEFT WITHOUT BEING SEEN PATIENT AND PLACE THEM UNDER MD SLADE NAME.
== END 2021-02-14 05:00 | disposition left against medical advice (07) ==
PROVIDERS: Emergency Provider Emergency Medicine; PCP Nurse Practitioner Primary Care
DX: M25.561 Pain in right knee (principal); M25.562 Pain in left knee; M54.50 Low back pain, unspecified
CPT/HCPCS: 99281; 99282

== ENCOUNTER → 2021-04-16 14:48 | Outpatient (BNVA) | payer MEDICARE, MEDICAID, SELFPAY | PROVIDERS: PCP Nurse Practitioner Primary Care; Referring Provider Nurse Practitioner Primary Care; Visit Provider Nurse Practitioner Family | DX: K21.9 Gastro-esophageal reflux disease without esophagitis (principal); N93.9 Abnormal uterine and vaginal bleeding, unspecified; Z79.899 Other long term (current) drug therapy | CPT/HCPCS: 99202 ==

== ENCOUNTER → 2021-04-23 09:37 | Outpatient (BNVA) | payer MEDICARE, MEDICAID, SELFPAY | PROVIDERS: PCP Nurse Practitioner Primary Care; Referring Provider Nurse Practitioner Primary Care; Visit Provider Internal Medicine | DX: R07.2 Precordial pain (principal); I10 Essential (primary) hypertension; E78.00 Pure hypercholesterolemia, unspecified | CPT/HCPCS: 99202 ==

== ENCOUNTER → 2021-05-17 08:27 | Outpatient (REF) | payer MEDICARE, MEDICAID, SELFPAY ==
--- NOTE | ~2021-05-17 | NM_ITS ---
Myocardial perfusion study Indication: Precordial chest pain to evaluate for myocardial ischemia Technique: The patient was brought in for a Lexiscan perfusion study on 05/17/2021. Patient performed low-level exercise and was injected 0.4 mg of Lexiscan intravenously. Within a minute of injection, 30 mCi of sestamibi was given intravenously. Images were obtained using the SPECT gamma camera interlaced with the gating device. Images were obtained in supine position. Resting perfusion study was performed on 05/18/2021. Patient was administered 30 mCi of sestamibi intravenously at rest. Images were then obtained in supine position. Images obtained with and without CT attenuation. Total DLP 163 mGy-cm. Images were processed with the software and compared side to side in short axis, horizontal long axis and vertical long axis views. Findings: The stress perfusion study showed non attenuated images show normal uptake of radiotracer in all segments of LV myocardium. Attenuated corrected images show moderately reduced uptake in the anterior, distal septum and mildly reduced uptake in the apex of the LV myocardium.. The gated study shows normal LV systolic function with calculated LVEF of 61%. LV cavity is normal in size. The gated study shows normal systolic wall thickening and contraction of segments. Resting study shows no change in perfusion pattern compared to study. Gating at rest reveals normal systolic wall motion with ejection fraction at 57%. The findings are consistent with normal myocardial perfusion. NM/NM cardiolite stress test Impression: 1. Myocardial perfusion imaging study shows likely normal myocardial perfusion 2. Gated LVEF is 61% 3. Transient ischemic dilatation not present EKG is nondiagnostic for ischemia
--- NOTE | 2021-05-17 08:38 | CA_ITS ---
Acquisition Time: 2021-05-17 09:39:56 Total Exercise Time: 00:02:00 Test Indications: Chest Pain Medications: SEE H Protocol: LEXISCAN Max HR: 121 BPM 69% of Pred: 175 BPM Max BP: 112/074 mmHG Max Work Load: 1.0 METS Pharmacological stress test with Lexiscan injection, while sitting and kicking her legs, without anginal symptoms, without arrythmia, with mildly hypotensive response to injection with low BP 102/60, with nondiagnostic EKG for ischemia. In recovery she reported mild lightheadedness and nausea that was treated with Aminophylline 75mg IVP to reverse Lexiscan with resolution of symptoms. Nuclear images pending. Test reviewed with Dr Byers. Referred By: True Kaur Overread By: ADAN DODD
== END ==
LOC: HO.CARD 08:27
PROVIDERS: PCP Nurse Practitioner Primary Care; Visit Provider Internal Medicine
DX: R07.2 Precordial pain (principal)
CPT/HCPCS: 78452; 93017; A9500; J0280; J2785

== ENCOUNTER → 2021-05-21 08:47 | Outpatient (BNVA) | payer MEDICARE, MEDICAID, SELFPAY | PROVIDERS: PCP Nurse Practitioner Primary Care; Referring Provider Nurse Practitioner Primary Care; Visit Provider Nurse Practitioner Family | DX: Z12.11 Encounter for screening for malignant neoplasm of colon (principal); K58.2 Mixed irritable bowel syndrome; K21.9 Gastro-esophageal reflux disease without esophagitis; Z86.19 Personal history of other infectious and parasitic diseases | CPT/HCPCS: 99212 ==

== ENCOUNTER 2021-06-26 10:05 | Day surgery (SDC) | payer MEDICARE, MEDICAID, SELFPAY ==
[2021-06-21 10:07] VITALS: BMI 37.0
--- NOTE | 2021-06-21 13:04 | HO.ANESPROP2 ---
Documented by User: Viktoria Verduzco NP 06/21/21 13:06 HPI - Anesthesia Eval Consult details Narrative: 46yo F for Upper Endoscopy and Colonoscopy Recent normal echo and stress for atypical CP PMFSH Active Problems Active Problems: All Active Problems (Updated 06/21/21 @ 10:21 by Yuly Clemons, RN) Fibromyalgia (Acute) Uterine fibroid (Acute) Precordial chest pain (Acute) Hypercholesteremia (Acute) Essential hypertension (Acute) Past Medical History Medical History (Updated 06/21/21 @ 10:21 by Yuly Clemons, RN) Ambulates with cane Anxiety and depression Bipolar disorder Fibromyalgia High cholesterol History of seizure Hx of malignant neoplasm of kidney Knee pain, bilateral Low back pain Family History Family History Mother Kidney failure Diabetes COPD (chronic obstructive pulmonary disease) Heart disease Father Colon cancer Surgical History Surgical History History of bilateral tubal ligation History of carpal tunnel surgery of right wrist History of loop electrical excision procedure (LEEP) Social History Social History Are you a primary palliative care nurse practitioner to a significant other at home: No Do you presently have visiting nurse or other home services: No Patient Tobacco Use Status: Current everyday Tobacco user Tobacco use type: Cigarette Cigarettes Per Day: 4 Meds Allergies Allergy/AdvReac Type Severity Reaction Status Date / Time cat dander [CATS] Allergy Intermediate Itching Verified 06/21/21 10:05 haloperidol [From HALDOL] Allergy Intermediate SWELLING, Verified 06/21/21 10:05 hives risperidone [From RISPERDAL] Allergy Intermediate HIVES, Verified 06/21/21 10:05 swelling shrimp Allergy Intermediate Swelling Verified 06/21/21 10:05 COCKROACHES Allergy Intermediate Itching Uncoded 06/21/21 10:05 Home Medications Medication Instructions Recorded Confirmed Last Taken Type atorvastatin 20 mg tablet 20 mg PO BEDTIME 04/16/21 06/21/21 Unknown History cholecalciferol (vitamin D3) 1,250 1,250 mcg PO QWEEK 04/16/21 06/21/21 Unknown History mcg (50,000 unit) capsule duloxetine 60 mg capsule,delayed 60 mg PO BID 04/16/21 06/21/21 Unknown History release gabapentin 300 mg capsule 300 mg PO TID 04/16/21 06/21/21 Unknown History hydrochlorothiazide 25 mg tablet 25 mg PO DAILY 04/16/21 06/21/21 Unknown History lamotrigine 200 mg tablet 200 mg PO DAILY 04/16/21 06/21/21 Unknown History lamotrigine 25 mg tablet,extended 25 mg PO DAILY 04/16/21 06/21/21 Unknown History release 24 hr lisinopril 10 mg tablet 10 mg PO DAILY 04/16/21 06/21/21 Unknown History Exam Exam Date and Time: June 21, 2021 1304 Height,Weight and Vital Signs: Height 5 ft 1 in Weight 88.904 kg Narrative Narrative: EKG 01/2021 Vent. Rate : 104 BPM ? ? Atrial Rate : 104 BPM ?? P-R Int : 140 ms? QRS Dur : 086 ms ? ? QT Int : 362 ms ? ? ? P-R-T Axes : 000 184 114 degrees ?? QTc Int : 476 ms ? Sinus tachycardia Right superior axis deviation Abnormal ECG When compared with ECG of 20-NOV-2020 02:06, Questionable change in QRS axis suspect limb lead reversal suggest repeat study NM cardiolite stress test 05/2021 Impression: ? 1.? Myocardial perfusion imaging study shows likely normal myocardial perfusion 2.? Gated LVEF is 61% 3. Transient ischemic dilatation not present ? EKG is nondiagnostic for ischemia ECHO 07/2020 Conclusions: - The left ventricular systolic function is normal.? The visually estimated ejection fraction is between 60-65%. ? - Evidence suggests grade I (mild) diastolic dysfunction.? - No obvious valvular pathology seen on this study.? Assessment and Plan Assessment Anesthesia Assessment: Chart Reviewed Documented by User: Jay Tanner MD 06/26/21 17:07 [facility] Past Medical History Medical History (Updated 06/21/21 @ 10:21 by Yuly Clemons RN) Ambulates with cane Anxiety and depression Bipolar disorder Fibromyalgia High cholesterol History of seizure Hx of malignant neoplasm of kidney Knee pain, bilateral Low back pain Functional capacity: uses cane/walker Family History Family History Mother Kidney failure Diabetes COPD (chronic obstructive pulmonary disease) Heart disease Father Colon cancer Family history of problems with anesthesia: No Surgical History Surgical History History of bilateral tubal ligation History of carpal tunnel surgery of right wrist History of loop electrical excision procedure (LEEP) History of Problems with Anesthesia: No Social History Social History Are you a primary palliative care nurse practitioner to a significant other at home: No Do you presently have visiting nurse or other home services: No Patient Tobacco Use Status: Current everyday Tobacco user Tobacco use type: Cigarette Cigarettes Per Day: 4 Meds Allergies Allergy/AdvReac Type Severity Reaction Status Date / Time cat dander [CATS] Allergy Intermediate Itching Verified 06/21/21 10:05 haloperidol [From HALDOL] Allergy Intermediate SWELLING, Verified 06/21/21 10:05 hives risperidone [From RISPERDAL] Allergy Intermediate HIVES, Verified 06/21/21 10:05 swelling shrimp Allergy Intermediate Swelling Verified 06/21/21 10:05 COCKROACHES Allergy Intermediate Itching Uncoded 06/21/21 10:05 Home Medications Medication Instructions Recorded Confirmed Last Taken Type atorvastatin 20 mg tablet 20 mg PO BEDTIME 04/16/21 06/21/21 Unknown History cholecalciferol (vitamin D3) 1,250 1,250 mcg PO QWEEK 04/16/21 06/21/21 Unknown History mcg (50,000 unit) capsule duloxetine 60 mg capsule,delayed 60 mg PO BID 04/16/21 06/21/21 Unknown History release gabapentin 300 mg capsule 300 mg PO TID 04/16/21 06/21/21 Unknown History hydrochlorothiazide 25 mg tablet 25 mg PO DAILY 04/16/21 06/21/21 Unknown History lamotrigine 200 mg tablet 200 mg PO DAILY 04/16/21 06/21/21 Unknown History lamotrigine 25 mg tablet,extended 25 mg PO DAILY 04/16/21 06/21/21 Unknown History release 24 hr lisinopril 10 mg tablet 10 mg PO DAILY 04/16/21 06/21/21 Unknown History Exam Airway Mallampati Class: III Neck ROM: Full Loose/Missing/Broken Teeth: Yes (Front teeth chipped) Heart: S1, S2 Lungs: b/l breath sounds Assessment and Plan Assessment Anesthesia Assessment: Anesthesia Plan Discussed Final Anesthetic Review Family History of Problems with Anesthesia: No History of Problems with Anesthesia: No NPO: Yes ASA Class: II Final Preanesthetic Review: Meds/Allgs Chart Reviewed, Consent Obtained/Reviewed and Anes Risks/Benef Reviewed Patient Risk: Intermediate Procedure Risk: Intermediate Anesthetic Plan Anesthetic Plan: MAC: Disposition: Standard PACU
[2021-06-26 11:09] VITALS: BP 151/75; PULSE 101; RESP 16; TEMP 36.6; O2SAT 99
[2021-06-26] MEDS: Lactated Ringers 1,000 ML 100 ML IVCONT (11:17)
--- NOTE | 2021-06-26 11:17 | MHC.SHP ---
Pre-Procedural Eval Section A Date of Service: 06/26/21 Section B Chief Complaint: reflux disease, screening Details of Present Illness: father with CRC in 60's Relevant Family History (Specify if Yes): Yes Relevant Social History: Tobacco Use Present Medications: see Short Stay Collaborative assessment Medical History: Significant History (Ambulates with cane Anxiety and depression Bipolar disorder Fibromyalgia High cholesterol History of seizure Hx of malignant neoplasm of kidney Knee pain, bilateral Low back pain) History of Previous Operations: Relevant previous surgery/procedure and date(s) (History of bilateral tubal ligation History of carpal tunnel surgery of right wrist History of loop electrical excision procedure (LEEP)) Allergies: Allergies Allergy/AdvReac Type Severity Reaction Status Date / Time cat dander [CATS] Allergy Intermediate Itching Verified 06/21/21 10:05 haloperidol [From HALDOL] Allergy Intermediate SWELLING, Verified 06/21/21 10:05 hives risperidone [From RISPERDAL] Allergy Intermediate HIVES, Verified 06/21/21 10:05 swelling shrimp Allergy Intermediate Swelling Verified 06/21/21 10:05 COCKROACHES Allergy Intermediate Itching Uncoded 06/21/21 10:05 Review of Systems Sugical H&P ROS: Negative: Constitution, Cardiovascular, Respiratory, Neurological, Psychiatric, Hem-Onc, Allergic/Immunologic, Gastrointestinal, Genitourinary, Musculoskeletal, Integumentary, Endocrine and Eyes/Ears/Nose/Throat Exam Surgical H&P Exam: Normal: HEENT, Normal: Heart, Normal: Lungs, Normal: Extremities, Normal: Abdomen, Normal: Skin and Normal: Neurological Plan Diagnosis/Plan: Unchanged I have reviewed the history and physical and performed a pertinent physical examination on my patient. No changes have occurred unless specified.
--- NOTE | 2021-06-26 12:14 | PM.OP ---
Brief Operative Note Date of Service: 06/26/21 Pre-op diagnosis: gerd, screening colonoscopy Post-op diagnosis: same Procedure: see op note Surgeon: Franky Cummins MD Anesthesia: MAC Was an Marketing Regional Consultant used for this Procedure?: No Estimated blood loss (mL): 0 Condition: stable Disposition: PACU
--- NOTE | 2021-06-26 12:15 | P.OP_ITS ---
Operative Note Operative Note Date of Service: 06/26/21 Narrative: Operative Information Procedure Description: EGD, Colonoscopy Indication: gerd, screening colonoscopy Anesthesia: MAC FLEXIBLE TRANSORAL UPPER GASTROINTESTINAL ENDOSCOPY AND COLONOSCOPY PROCEDURE NOTE UPPER ENDOSCOPY Consent: Indications for the procedure and potential complications of bleeding, perforation, reaction to medications and missed diagnosis were discussed with the patient and informed consent was obtained. Instrument: Olympus GIF H 190 J mid size upper endoscope Monitoring: Vital signs and clinical assessment, continuous EKG monitoring, Pulse oximetry, Carbon Dioxide monitoring and blood pressure monitoring were done throughout the procedure. Procedure: The patient was placed in the left lateral decubitis position and pre-procedure medications were administered and a bite block was placed. The endoscope was inserted into the mouth and advanced under direct vision to the third part of duodenum. A careful inspection was made as the upper endoscope was withdrawn including a retroflexed examination of the proximal stomach; Findings and interventions are described below. Findings: Larynx:normal Esophagus: GE junction at 38 cm, diaphragm hiatus at 38 cm, LA grade B erosive esophagitis with one erosive streak seen for about 2 cm and bogginess and edema at the GEJ, bx taken. small esophageal inlet patch seen. Stomach: Mild erythema. Biopsies were obtained. Grade 2 flap valve on retroflexed examination of the cardia. Duodenum: Patchy bulbar erythema, bx taken Intervention: Biopsies as noted above COLONOSCOPY Instrument: Olympus variable stiffness pediatric scope 190L Colonoscopy Monitoring: Vital signs and clinical assessment, continuous EKG monitoring, Pulse oximetry, Carbon Dioxide monitoring and blood pressure monitoring were done throughout the procedure. Colon withdrawal time was 12 minutes. Procedure: The patient was placed in the left lateral decubitis position and pre-procedure medications were administered. After a digital rectal examination of the ano-rectum, the video colonoscope was inserted into the rectum and advanced through the colon to the cecum/TI. The colonoscope was slowly withdrawn in a retrograde panoramic fashion and the colon mucosa was carefully examined including a retroflexed view of the rectum. Findings and interventions are described below. Procedure Difficulty: easy Findings: Terminal Ileum-normal Cecum:normal Ascending Colon: normal Transverse Colon -normal Descending Colon:normal Sigmoid Colon: normal Rectum: Retroflexion with small internal hemorrhoids, grade I- x 2 sessile polyps 10 mm removed with cold snare and retrieved Anorectum - normal Colon preparation: [place] Bowel Preparation Scale Right colon; 2 Transverse colon: 2 Left colon; 2 (0 = Unprepared colon segment with mucosa not seen due to solid stool that cannot be cleared. 1 = Portion of mucosa of the colon segment seen, but other areas of the colon segment not well seen due to staining, residual stool and/or opaque liquid. 2 = Minor amount of residual staining, small fragments of stool and/or opaque liquid, but mucosa of colon segment seen well. 3 = Entire mucosa of colon segment seen well with no residual staining, small fragments of stool or opaque liquid) Impression and Post Procedure Diagnosis: Endoscopy Findings: erosive esophagitis duodenitis inlet path of esophagus Colonoscopy Findings: polyps internal hemorrhoids Plan: Await Pathology results Repeat Colonoscopy in 5 years due to polyps and FH of CRC or earlier if clinically indicated High fiber diet leaflet avoid straining at stool, epsom salts and sitz bath, anusol supps or cream review PPI usage and compliance, timing --if taking correct can consider changing PPI Above findings were reviewed with the patient and relevant handouts were provided if indicated.
[2021-06-26 12:40] VITALS: BP 116/82; PULSE 115; RESP 16; TEMP 36.7; O2SAT 96
[2021-06-26 12:54] VITALS: BP 141/97; PULSE 94; RESP 18; TEMP 36.1; O2SAT 98
== END 2021-06-26 13:16 | disposition home or self-care (01) ==
PROVIDERS: PCP Nurse Practitioner Primary Care; Visit Provider Internal Medicine Gastroenterology
PROC: (CPT 45385; principal; 2021-06-26 11:50)
DX: Z12.11 Encounter for screening for malignant neoplasm of colon (principal); Z80.0 Family history of malignant neoplasm of digestive organs; K62.1 Rectal polyp; K64.0 First degree hemorrhoids; K21.9 Gastro-esophageal reflux disease without esophagitis; K20.80 Other esophagitis without bleeding; Q39.8 Other congenital malformations of esophagus; K29.80 Duodenitis without bleeding; K44.9 Diaphragmatic hernia without obstruction or gangrene; K58.2 Mixed irritable bowel syndrome; E78.00 Pure hypercholesterolemia, unspecified; M79.7 Fibromyalgia; Z79.899 Other long term (current) drug therapy; Z88.8 Allergy status to other drugs, medicaments and biological substances; Z86.19 Personal history of other infectious and parasitic diseases; F17.210 Nicotine dependence, cigarettes, uncomplicated
CPT/HCPCS: 45385; 43239; 88305; 88342

== ENCOUNTER → 2021-07-10 11:26 | Outpatient (BNVA) | payer MEDICARE, MEDICAID, SELFPAY | PROVIDERS: PCP Nurse Practitioner Primary Care; Referring Provider Nurse Practitioner Primary Care; Visit Provider Nurse Practitioner Family | DX: K58.0 Irritable bowel syndrome with diarrhea (principal); K21.9 Gastro-esophageal reflux disease without esophagitis; Z98.890 Other specified postprocedural states | CPT/HCPCS: 99212 ==

== ENCOUNTER 2021-09-20 18:29 | Emergency (ER) | payer MEDICARE, MEDICAID, SELFPAY ==
--- NOTE | 2021-09-20 | ECG_ITS ---
Test Reason : fall Blood Pressure : / mmHG Vent. Rate : 093 BPM Atrial Rate : 093 BPM P-R Int : 142 ms QRS Dur : 084 ms QT Int : 378 ms P-R-T Axes : 047 -03 078 degrees QTc Int : 469 ms Normal sinus rhythm Normal ECG When compared with ECG of 12-FEB-2021 01:46, QRS axis Shifted right Referred By: Generic ED Physician Electronically Signed By:Ross Byers
[2021-09-20 18:36] VITALS: BP 144/79; PULSE 95; RESP 20; TEMP 36.7; O2SAT 97; BMI 34.9
[2021-09-20 19:00] LABS: MANUAL DIFF FLAG NO
[2021-09-20 19:03] LABS: Basophils Percent Auto 0.4 % (0-2); Eosinophils Absolute Auto 0.1 X10*3/uL (0.0-0.4); Eosinophils Percent Auto 0.5 % (0-4); Hematocrit 36.7 % (37.0-47.0); Hemoglobin 11.8 g/dl (12.0-16.0); Imm Gran Abs Auto 0.05 X10*3/uL (0.00-0.03); Imm Gran Pct Auto 0.5 % (0.0-0.4); Lymphocytes Absolute Auto 1.7 X10*3/uL (1.2-4.9); Lymphocytes Percent Auto 15.3 % (20-40); Mean Corpuscular HGB Conc 32.2 g/dl (31.0-35.0); Mean Corpuscular Hemoglobin 27.3 pg (27.0-33.0); Mean Platelet Volume 9.3 fL (9.4-12.3); Monocytes Absolute Auto 0.5 X10*3/uL (0.1-1.2); Monocytes Percent Auto 4.2 % (2-11); Neutrophils Absolute Auto 8.6 x10*3/uL (2.0-8.3); Neutrophils Percent Auto 79.1 % (45-73); Platelet Count 333 X10*3/uL (160-400); Red Blood Count 4.32 X10*6/uL (4.20-5.50); Red Cell Distribution Width 13.4 % (11.0-16.0); White Blood Count 10.8 X10*3/uL (4.8-10.8)
[2021-09-20 19:14] LABS: Anion Gap 15 (12-20); Blood Urea Nitrogen 10 mg/dL (9-16); Calcium 9.5 mg/dL (8.4-10.2); Carbon Dioxide 22 mmol/L (22-29); Chloride 101 mmol/L (96-108); Estimated Glomerular Filt Rate > 60; Glucose Random 86 mg/dL (60-115); Potassium 3.8 mmol/L (3.3-5.1); Sodium 134 mmol/L (135-145)
[2021-09-20 20:48] VITALS: BP 138/85; PULSE 92; RESP 18; TEMP 36.7; O2SAT 98
--- NOTE | 2021-09-20 20:48 | PC.NURSE ---
patient a&ox3, c/o generalized pain 08/24, vss, pt awaiting provider, will continue to monitor
--- NOTE | 2021-09-20 21:18 | ED.GENADULT ---
HPI - General Adult General Chief complaint: Weakness Stated complaint: fall x2 times Time Seen by Provider: 09/20/21 20:53 Source: patient Mode of arrival: ambulatory (Walker and sometimes wheelchair) History of Present Illness HPI narrative: 46-year-old female who presents with having fallen twice today without head strike but she states that her family, her daughter is her REACTOR TECHNICIAN, states she was shaking and initially was taken to [facility] by ambulance. However, patient noted that the weight was 25 hours and decided to come to the [place] [facility]. Patient states that she is feeling much better and says that she has a longstanding history fibromyalgia as well as insomnia and denies any current fever chills but states that she has continued to have difficulty with range of motion at bilateral shoulders as well as requiring a cane for walking and states that her bilateral knees have been causing her pain on the ?inner aspect as well as outer aspect?. She states that both of her lower legs feel heavy, and that her knees are at their baseline pains without noted erythema or swelling but it feels like ?a bruise when you push on it?. Patient denies any new back pain, groin numbness bowel or bladder difficulty in states she is currently on her menstrual period. She otherwise denies shortness of breath. Related Data Home Medications Medication Instructions Recorded Confirmed atorvastatin 20 mg tablet 20 mg PO BEDTIME 04/16/21 06/21/21 cholecalciferol (vitamin D3) 1,250 1,250 mcg PO QWEEK 04/16/21 06/21/21 mcg (50,000 unit) capsule duloxetine 60 mg capsule,delayed 60 mg PO BID 04/16/21 06/21/21 release gabapentin 300 mg capsule 300 mg PO TID 04/16/21 06/21/21 hydrochlorothiazide 25 mg tablet 25 mg PO DAILY 04/16/21 06/21/21 lamotrigine 200 mg tablet 200 mg PO DAILY 04/16/21 06/21/21 lamotrigine 25 mg tablet,extended 25 mg PO DAILY 04/16/21 06/21/21 release 24 hr lisinopril 10 mg tablet 10 mg PO DAILY 04/16/21 06/21/21 duloxetine 30 mg capsule,delayed 30 mg PO DAILY 07/10/21 release Previous Rx's Medication Instructions Recorded methylcellulose (laxative) 500 mg 500 mg PO DAILY #90 tabs 07/10/21 tablet (Citrucel) pantoprazole 40 mg tablet,delayed 40 mg PO BID #180 tabs 07/10/21 release sennosides 8.6 mg tablet (Natural 8.6 mg PO BEDTIME constipation #90 07/10/21 Senna Laxative) tabs sucralfate 1 gram tablet 1 g PO BEDTIME 30 days #90 tabs 07/10/21 Allergies Allergy/AdvReac Type Severity Reaction Status Date / Time cat dander [CATS] Allergy Intermediate Itching Verified 07/10/21 11:38 haloperidol [From HALDOL] Allergy Intermediate SWELLING, Verified 07/10/21 11:38 hives risperidone [From RISPERDAL] Allergy Intermediate HIVES, Verified 07/10/21 11:38 swelling shrimp Allergy Intermediate Swelling Verified 07/10/21 11:38 COCKROACHES Allergy Intermediate Itching Uncoded 07/10/21 11:38 Review of Systems Review of Systems: Pertinent positives and negatives as stated in HPI 10 review of systems is otherwise negative. [facility] Past Medical History Source: nursing notes reviewed Medical History Ambulates with cane Anxiety and depression Bipolar disorder Fibromyalgia High cholesterol History of seizure Hx of malignant neoplasm of kidney Knee pain, bilateral Low back pain Surgical History History of bilateral tubal ligation History of carpal tunnel surgery of right wrist History of esophagogastroduodenoscopy (EGD) History of loop electrical excision procedure (LEEP) Hx of colonoscopy Family History Family History Mother Kidney failure Diabetes COPD (chronic obstructive pulmonary disease) Heart disease Father Colon cancer Social History Social History Are you a primary healthcare corporate account director to a significant other at home: No Do you presently have visiting nurse or other home services: No Alcohol intake: never Patient Tobacco Use Status: Never used Tobacco Tobacco use type: Cigarette Cigarettes Per Day: 4 Use of substances other than those prescribed or required for medical reasons: No Advance Directives: No Advance Directives Information Provided: Yes Patient : No Physical Exam ED Vital Signs: Vital Signs - 24 hr 09/20/21 18:36 09/20/21 20:48 09/20/21 22:00 Temperature 98.0 F 98.0 F 98.1 F Pulse Rate 95 92 100 Respiratory Rate 20 18 18 Blood Pressure 144/79 H 138/85 128/78 Pulse Oximetry 97 98 97 Oxygen Delivery Method Room Air Room Air Room Air BMI result Body Mass Index 34.9 VITAL SIGNS: Reviewed. GENERAL: Well developed, well nourished, in no acute distress. HEAD: Normocephalic/atraumatic EYES: PERRLA, EOMI EARS: Ext canals without abnormality OROPHARYNX: no oral lesions noted, posterior pharynx clear LUNGS: Normal breath sounds. No adventitious sounds or accessory muscle use. SpO2<97> CARDIOVASCULAR: Regular rate and rhythm without noted murmurs, no JVD or lower extremity edema. ABDOMEN: Soft, non-tender, non-distended with bowel sounds. PELVIS: Stable, nontender MUSCULOSKELETAL: No tenderness, deformities, or effusions noted on gross inspection; BILATERAL KNEES: There is no erythema/induration/swelling, there is tenderness to palpation without noted deformities or ecchymosis to the MCL as well as LCL areas, palpable DP/PT symmetrical, bilateral feet are warm to touch. EXTREMITIES: No cyanosis, clubbing or edema. SKIN: Inspection of the skin reveals no rashes, ulcerations, jaundice, pallor, or petechiae. NEUROLOGIC: Alert and oriented x 4. Strength and sensation to light touch were grossly intact x 4,DTRs intact, bilateral knee flexion is symmetrical and 5/5, both plantar/dorsiflexion at the ankle is symmetrical and 5/5 there is no noted abnormality with flexion at bilateral hips although patient states she cannot lift them very high. Course Course Course Narrative: 46-year-old female with history and clinical presentation mildly suggestive of mechanical fall, although patient's reports shaking after the falls is of unclear etiology, patient does not have recent history of viral illness, no concerning symptoms for cauda equina and on repeated discussion with the patient she appears to be at her baseline status with chronic bilateral knee discomfort that is currently under investigation with the care of her primary care provider. There is no evidence of infection or history/clinical suggestion of an acute neurologic etiology. On review of all investigations there are no acute findings to otherwise explain patient's symptoms in suspect her falls are likely secondary to underlying arthralgias/fibromyalgia. Of note, both the CRP/ESR are noted to be elevated and given the distribution of patient's joint pain symptoms the possibility exists of PMR. The elevated inflammatory markers heard not consistent with fibromyalgia there is no evidence to suggest a Lyme pathology and no suspicion for gout. Patient was provided with all results and findings and otherwise discharged home in stable condition with instructions to follow-up with her primary care provider to discuss further outpatient workup. Patient on re-evaluation states that she is feeling much better and she was ambulated and noted to be at her baseline with the cane as well as relying significantly on the wheelchair. These are unchanged. Medical Decision Making Lab Data Result diagrams: 09/20/21 18:50 09/20/21 18:50 Labs: Lab Results 09/20/21 09/20/21 09/20/21 Range/Units 18:50 18:50 18:50 WBC 10.8 (4.8-10.8) X10*3/uL RBC 4.32 (4.20-5.50) X10*6/uL Hgb 11.8 L (12.0-16.0) g/dl Hct 36.7 L (37.0-47.0) % MCV 85.0 (80.0-98.0) fL MCH 27.3 (27.0-33.0) pg MCHC 32.2 (31.0-35.0) g/dl RDW 13.4 (11.0-16.0) % Plt Count 333 (160-400) X10*3/uL MPV 9.3 L (9.4-12.3) fL Immature Gran % (Auto) 0.5 H (0.0-0.4) % Neut % (Auto) 79.1 H (45-73) % Lymph % (Auto) 15.3 L (20-40) % [place] % (Auto) 4.2 (2-11) % Eos % (Auto) 0.5 (0-4) % Baso % (Auto) 0.4 (0-2) % Lymph # (Auto) 1.7 (1.2-4.9) X10*3/uL [place] # (Auto) 0.5 (0.1-1.2) X10*3/uL Eos # (Auto) 0.1 (0.0-0.4) X10*3/uL Baso # (Auto) 0.0 (0.0-0.2) X10*3/uL Abs Immat Gran (auto) 0.05 H (0.00-0.03) X10*3/uL Absolute Neuts (auto) 8.6 H (2.0-8.3) x10*3/uL Absolute Nucleated RBC 0.000 (0.0-0.012) X10*3/uL Nucleated RBC % (auto) 0.0 (0.0-0.2) /100WBC ESR 48 H (0-20) MM/HR Sodium 134 L (135-145) mmol/L Potassium 3.8 (3.3-5.1) mmol/L Chloride 101 (96-108) mmol/L Carbon Dioxide 22 (22-29) mmol/L Anion Gap 15 (12-20) BUN 10 (9-16) mg/dL Creatinine 0.84 (0.5-1.4) mg/dL Estim Creat Clear Calc 83.0 Estimated GFR > 60 Random Glucose 86 (60-115) mg/dL Calcium 9.5 D (8.4-10.2) mg/dL C-Reactive Protein 2.32 H (< or = 0.50) mg/dL Urine Color Urine Appearance Urine pH (5.0-8.0) Ur Specific Jbphh (1.005-1.025) Urine Protein (NEG-TRACE) MG/DL Urine Glucose (UA) (NEG) MG/DL Urine Ketones (NEG) MG/DL Urine Blood (NEG) Urine Nitrite (NEG) Ur Leukocyte Esterase (NEG) Urine RBC (0) /HPF Urine WBC (0-4) /HPF Ur Squamous Epith Cells /LPF Urine Bacteria /LPF 09/20/21 Range/Units 21:45 WBC (4.8-10.8) X10*3/uL RBC (4.20-5.50) X10*6/uL Hgb (12.0-16.0) g/dl Hct (37.0-47.0) % MCV (80.0-98.0) fL MCH (27.0-33.0) pg MCHC (31.0-35.0) g/dl RDW (11.0-16.0) % Plt Count (160-400) X10*3/uL MPV (9.4-12.3) fL Immature Gran % (Auto) (0.0-0.4) % Neut % (Auto) (45-73) % Lymph % (Auto) (20-40) % [place] % (Auto) (2-11) % Eos % (Auto) (0-4) % Baso % (Auto) (0-2) % Lymph # (Auto) (1.2-4.9) X10*3/uL [place] # (Auto) (0.1-1.2) X10*3/uL Eos # (Auto) (0.0-0.4) X10*3/uL Baso # (Auto) (0.0-0.2) X10*3/uL Abs Immat Gran (auto) (0.00-0.03) X10*3/uL Absolute Neuts (auto) (2.0-8.3) x10*3/uL Absolute Nucleated RBC (0.0-0.012) X10*3/uL Nucleated RBC % (auto) (0.0-0.2) /100WBC ESR (0-20) MM/HR Sodium (135-145) mmol/L Potassium (3.3-5.1) mmol/L Chloride (96-108) mmol/L Carbon Dioxide (22-29) mmol/L Anion Gap (12-20) BUN (9-16) mg/dL Creatinine (0.5-1.4) mg/dL Estim Creat Clear Calc Estimated GFR Random Glucose (60-115) mg/dL Calcium (8.4-10.2) mg/dL C-Reactive Protein (< or = 0.50) mg/dL Urine Color YELLOW Urine Appearance CLEAR Urine pH 6.0 (5.0-8.0) Ur Specific Jbphh 1.010 (1.005-1.025) Urine Protein NEG (NEG-TRACE) MG/DL Urine Glucose (UA) NEG (NEG) MG/DL Urine Ketones 5 (NEG) MG/DL Urine Blood 3+ H (NEG) Urine Nitrite NEG (NEG) Ur Leukocyte Esterase NEG (NEG) Urine RBC TNTC H (0) /HPF Urine WBC 0-2 (0-4) /HPF Ur Squamous Epith Cells TRACE /LPF Urine Bacteria NONE /LPF ECG Data Attestation: I personally reviewed and interpreted this ECG as follows: Prior ECG tracings: available for review Interpretation: Normal sinus rhythm, HR-93, no STEMI, MA/QRS/QTC are within normal limits. Discharge Plan Discharge Clinical Impression: Polyarthralgia, Bilateral knee pain Patient Disposition: Home, Self-Care Instructions: Knee Pain (ED), Arthralgia (ED) Additional Instructions: 1. Resume all home medications as prescribed. 2. Follow-up with your primary care provider to discuss the possibility of further evaluation for polymyalgia rheumatica, as well as possible referral for more in-depth workup of your knee pain. Of note both your CRP and ESR were elevated at this visit without evidence of underlying infection. Return to the ER for worsening symptoms. Prescriptions: No Action hydrochlorothiazide 25 mg tablet 25 mg PO DAILY cholecalciferol (vitamin D3) 1,250 mcg (50,000 unit) capsule 1,250 mcg PO QWEEK duloxetine 60 mg capsule,delayed release(DR/EC) 60 mg PO BID gabapentin 300 mg capsule 300 mg PO TID lamotrigine 25 mg tablet extended release 24hr 25 mg PO DAILY Label Comments: total dose 225 q am lamotrigine 200 mg tablet 200 mg PO DAILY Label Comments: total dose 225 q am lisinopril 10 mg tablet 10 mg PO DAILY atorvastatin 20 mg tablet 20 mg PO BEDTIME duloxetine 30 mg capsule,delayed release(DR/EC) 30 mg PO DAILY sucralfate 1 gram tablet 1 g PO BEDTIME 30 Days Qty: 90 3RF pantoprazole 40 mg tablet,delayed release (DR/EC) 40 mg PO BID Qty: 180 4RF Citrucel 500 mg tablet 500 mg PO DAILY Qty: 90 2RF Rx Instructions: take it with full glass of water sennosides [Natural Senna Laxative] 8.6 mg tablet 8.6 mg PO BEDTIME Qty: 90 3RF Referrals: Glendy Sutton NP [Primary Care Provider] -
[2021-09-20 21:41] LABS: C Reactive Protein 2.32 mg/dL (< or = 0.50)
[2021-09-20 21:51] LABS: Appearance Urine CLEAR; Color Urine YELLOW; Glucose Urine UA NEG (NEG); Leukocyte Esterase Urine NEG (NEG); Nitrite Urine NEG (NEG); UACC Culture Trigger NO; Urine Blood 3+ (NEG); Urine Ketones 5 MG/DL (NEG); Urine Protein NEG (NEG-TRACE)
[2021-09-20 22:00] VITALS: BP 128/78; PULSE 100; RESP 18; TEMP 36.7; O2SAT 97
[2021-09-20 22:10] LABS: Erythrocyte Sedimentation Rate 48 MM/HR (0-20)
[2021-09-20 22:13] LABS: RBC Urine TNTC /HPF (0); Squamous Epithelial Cell Urine TRACE /LPF; WBC Urine 0-2 /HPF (0-4)
== END 2021-09-20 23:12 | disposition home or self-care (01) ==
PROVIDERS: Emergency Provider Student in an Organized Health Care Education/Training Program; PCP Nurse Practitioner Primary Care
DX: M25.561 Pain in right knee (principal); M25.562 Pain in left knee; R53.1 Weakness; Z79.899 Other long term (current) drug therapy
CPT/HCPCS: 36415; 80048; 81001; 85025; 85652; 86140; 93005; 99284

== ENCOUNTER 2021-10-31 12:23 | Outpatient (REF) | payer MEDICARE, MEDICAID, SELFPAY ==
--- NOTE | ~2021-10-31 | MM_ITS ---
EXAMINATION: MM SCREENING DIGITAL BREAST TOMOSYNTHESIS, BILATERAL CLINICAL INFORMATION: Screening. Asymptomatic. The lifetime risk of breast cancer based on the Tyrer-Cuzick Model is 8%. COMPARISON: Mammography: 08/28/2020, 04/17/2018, 12/02/2016 TECHNIQUE: Digital breast tomosynthesis is performed in both the craniocaudal and mediolateral oblique views along with computer-aided detection (CAD). Synthesized 2D images are generated from the tomosynthesis. FINDINGS: The breasts are heterogeneously dense, which may obscure small masses (ACR BI-RADS breast composition Category c). There are no significant masses, abnormal calcifications, or other abnormalities. No significant changes from prior exams. No developing density or architectural abnormality. MM/MM tomosynthesis screening BI IMPRESSION: No mammographic evidence of malignancy. ASSESSMENT: BI-RADS 1: Negative RECOMMENDATION: Routine annual mammography screening. This patient's information was entered into a reminder system with a target due date for their next mammogram.
== END 2021-10-31 12:24 | disposition home or self-care (01) ==
LOC: HO.MAMMO 12:23
PROVIDERS: PCP Nurse Practitioner Primary Care; Visit Provider Registered Nurse Community Health
DX: Z12.31 Encounter for screening mammogram for malignant neoplasm of breast (principal)
CPT/HCPCS: 77063; 77067

== ENCOUNTER 2022-01-11 11:53 | Outpatient (REF) | payer MEDICARE, MEDICAID, SELFPAY ==
[2022-01-11 13:58] LABS: TSH reflex Free T4 1.46 uIU/mL (0.32-4.0)
[2022-01-11 14:23] LABS: Folate 12.1 ng/mL (> or = 4.0); Vitamin B12 236 pg/mL (200-900)
[2022-01-17 11:12] LABS: Vitamin D 25-OH, D2 9 ng/mL; Vitamin D 25-OH, D3 19 ng/mL; Vitamin D 25-OH, Total 28 ng/mL (30-100)
== END 2022-01-11 11:54 | disposition home or self-care (01) ==
LOC: HO.LAB 11:53
PROVIDERS: PCP Nurse Practitioner Primary Care; Visit Provider Nurse Practitioner Family
DX: R19.7 Diarrhea, unspecified (principal); K59.00 Constipation, unspecified; E55.9 Vitamin D deficiency, unspecified
CPT/HCPCS: 36415; 82306; 82607; 82746; 84443; 99212

== ENCOUNTER 2022-01-30 12:09 | Outpatient (REF) | payer MEDICARE, MEDICAID, SELFPAY ==
[2022-01-30 14:59] LABS: Lipase 30 U/L (8-78)
[2022-02-10 18:51] LABS: Pancreatic Elastase-1 >500 mcg/g
== END 2022-01-30 12:10 | disposition home or self-care (01) ==
LOC: HO.LAB 12:09
PROVIDERS: PCP Nurse Practitioner Primary Care; Visit Provider Nurse Practitioner Family
DX: R10.9 Unspecified abdominal pain (principal)
CPT/HCPCS: 36415; 82656; 83690

== ENCOUNTER → 2022-02-11 11:15 | Outpatient (BNVA) | payer MEDICARE, MEDICAID, SELFPAY | PROVIDERS: PCP Nurse Practitioner Primary Care; Visit Provider Nurse Practitioner Family | DX: K58.1 Irritable bowel syndrome with constipation (principal); K21.00 Gastro-esophageal reflux disease with esophagitis, without bleeding; K59.04 Chronic idiopathic constipation | CPT/HCPCS: 99212 ==

== ENCOUNTER 2022-05-22 13:26 | Outpatient (REF) | payer MEDICARE, MEDICAID, SELFPAY ==
--- NOTE | ~2022-05-22 | XR_ITS ---
EXAMINATION: XR chest 2V CLINICAL INFORMATION: Reason for Exam SHORTNESS OF BREATH COMPARISON: Chest radiograph 11/20/2020 TECHNIQUE: 2 views of the chest FINDINGS: Clear lungs. No pneumothorax or pleural effusion. Normal cardiomediastinal silhouette. XR/XR chest 2V Impression: * Clear lungs.
== END 2022-05-22 13:27 | disposition home or self-care (01) ==
LOC: HO.XRAY 13:26
PROVIDERS: PCP Nurse Practitioner Primary Care; Visit Provider Nurse Practitioner Primary Care
DX: R06.02 Shortness of breath (principal)
CPT/HCPCS: 71046

== ENCOUNTER → 2022-06-05 08:55 | Outpatient (BNVA) | payer MEDICARE, MEDICAID, SELFPAY | PROVIDERS: PCP Nurse Practitioner Primary Care; Visit Provider Nurse Practitioner Family | DX: K21.9 Gastro-esophageal reflux disease without esophagitis (principal); R10.13 Epigastric pain | CPT/HCPCS: 99212 ==

== ENCOUNTER 2022-06-12 13:41 | Outpatient (REF) | payer MEDICARE, MEDICAID, SELFPAY ==
--- NOTE | ~2022-06-12 | US_ITS ---
EXAMINATION: US RETROPERITONEAL LIMITED (RENAL ONLY) CLINICAL INFORMATION: Renal mass. Status post renal ablation/cryotherapy in 2015. COMPARISON: CT abdomen and pelvis with contrast 07/13/[address] dating back to 04/30/2013. Ultrasound retroperitoneal limited (renal only) 05/09/2020 and 01/18/2019. TECHNIQUE: Real-time imaging of the kidneys. FINDINGS: RIGHT KIDNEY: 11.8 x 5.2 x 5.7 cm (SAG x AP x TRV). The kidney is normal in size, contour, and echogenicity. Renal cortical thickness is normal. No calculi or focal parenchymal lesions. No hydronephrosis. LEFT KIDNEY: 11.2 x 5.5 x 5.0 cm (SAG x AP x TRV). The kidney is normal in size, contour, and echogenicity. Renal cortical thickness is normal. No renal calculi or focal parenchymal lesions. The small enhancing mass seen at the time of the 2013 CT scan at the left upper pole is not identified, and there is no evidence of recurrence. BLADDER: Bilateral ureteral jets are demonstrated. ADDITIONAL FINDINGS: Incidental note made of multiple benign-appearing cysts in the left ovary versus a multiseptated cyst. US/US renal BI IMPRESSION: 1. No evidence of recurrence of the previously treated mass at the upper pole of the left kidney. No renal masses are seen. 2. Incidental note made of multiple cysts in the left ovary versus a multiseptated cyst. A dedicated pelvic ultrasound is recommended for further evaluation.
== END 2022-06-12 13:42 | disposition home or self-care (01) ==
LOC: HO.US 13:41
PROVIDERS: PCP Nurse Practitioner Primary Care; Visit Provider Nurse Practitioner Primary Care
DX: N28.89 Other specified disorders of kidney and ureter (principal)
CPT/HCPCS: 76775

== ENCOUNTER 2022-08-15 15:12 | Outpatient (REF) | payer MEDICARE, MEDICAID, SELFPAY ==
--- NOTE | ~2022-08-15 | US_ITS ---
EXAMINATION: US PELVIS COMPLETE CLINICAL INFORMATION: Left ovarian cyst COMPARISON: Pelvic ultrasound 05/09/2020 TECHNIQUE: Transabdominal and transvaginal imaging was performed. FINDINGS: The uterus is mildly enlarged measuring 10.3 x 6.5 x 6.5 cm. A regular homogeneous endometrium is identified measuring 0.8 cm. Nabothian cysts in the cervix. A 1.3 cm intramural myoma in the posterior body previously measured 1.0 cm minimally increased and a 1.9 cm subserosal myoma in the fundus of the uterus previously measured 1.8 cm similar to prior. A third previously seen small myoma was not definitively identified on today's exam. Both ovaries are of normal echogenicity. The right measures 2.1 x 1.5 x 1.1 cm for a volume of 1.8 mL. The left measures 4.4 x 2.5 x 3.1 cm for a volume of 17.9 mL and is enlarged with a 3.2 cm simple unilocular cyst. There is trace simple physiologic volume pelvic free fluid. US/US pelvic and transvaginal IMPRESSION: 1. A 3.2 cm simple unilocular left ovarian cyst, almost certainly benign. No follow-up imaging recommended. 2. A 1.3 cm intramural myoma previously measured 1.0 cm minimally increased and a 1.9 cm subserosal myoma in the fundus of the uterus similar to prior. A third previously seen small myoma was not definitively identified on today's exam.
== END 2022-08-15 15:13 | disposition home or self-care (01) ==
LOC: HO.US 15:12
PROVIDERS: PCP Nurse Practitioner Primary Care; Visit Provider Nurse Practitioner Primary Care
DX: N83.202 Unspecified ovarian cyst, left side (principal)
CPT/HCPCS: 76830; 76856

== ENCOUNTER → 2022-09-05 09:01 | Outpatient (BNV) | payer MEDICARE, MEDICAID, SELFPAY | PROVIDERS: PCP Nurse Practitioner Primary Care; Visit Provider Internal Medicine Medical Oncology | DX: R79.82 Elevated C-reactive protein (CRP) (principal); M35.3 Polymyalgia rheumatica | CPT/HCPCS: 99204; 99213 ==

== ENCOUNTER 2022-09-05 10:40 | Day surgery (SDC) | payer MEDICARE, MEDICAID, SELFPAY ==
[2022-09-05 12:38] VITALS: BMI 37.6
[2022-09-05 12:39] VITALS: BP 111/66; PULSE 86; RESP 16; TEMP 36.6; O2SAT 98
--- NOTE | 2022-09-05 13:29 | P.CONAN_ITS ---
[facility] Active Problems Active Problems: All Active Problems (Updated 09/05/22 @ 12:25 by Evangelina Shell MD) Fibromyalgia (Acute) Uterine fibroid (Acute) Precordial chest pain (Acute) Hypercholesteremia (Acute) Essential hypertension (Acute) High C-reactive protein (Acute) Past Medical History Medical History Ambulates with cane Anxiety and depression Bipolar disorder Fibromyalgia High cholesterol History of seizure Hx of malignant neoplasm of kidney Knee pain, bilateral Low back pain PMR (polymyalgia rheumatica) Family History Family History Mother Kidney failure Diabetes COPD (chronic obstructive pulmonary disease) Heart disease Father Colon cancer Family history of problems with anesthesia: No Surgical History Surgical History History of bilateral tubal ligation History of carpal tunnel surgery of right wrist History of esophagogastroduodenoscopy (EGD) History of loop electrical excision procedure (LEEP) Hx of colonoscopy History of Problems with Anesthesia: No Social History Social History Are you a primary customer care professional to a significant other at home: No Do you presently have visiting nurse or other home services: No Alcohol intake: never Patient Tobacco Use Status: Current everyday Tobacco user Tobacco use type: Cigarette Cigarettes Per Day: 3 Date Education Initiated: 09/05/22 Use of substances other than those prescribed or required for medical reasons: No Are you DNR?: No Advance Directives: No Advance Directives Information Provided: Yes service: No Current occupational status: disabled Meds Allergies Allergy/AdvReac Type Severity Reaction Status Date / Time cat dander [CATS] Allergy Intermediate Itching Verified 09/05/22 09:20 haloperidol [From HALDOL] Allergy Intermediate SWELLING, Verified 09/05/22 09:20 hives risperidone [From RISPERDAL] Allergy Intermediate HIVES, Verified 09/05/22 09:20 swelling shrimp Allergy Intermediate Swelling Verified 09/05/22 09:20 COCKROACHES Allergy Intermediate Itching Uncoded 09/05/22 09:20 Home Medications Medication Instructions Recorded Confirmed Last Taken Type atorvastatin 20 mg tablet 20 mg PO BEDTIME 04/16/21 09/05/22 Unknown History duloxetine 60 mg capsule,delayed 60 mg PO BID 04/16/21 09/05/22 09/05/22 History release hydrochlorothiazide 25 mg tablet 25 mg PO DAILY 04/16/21 09/05/22 09/05/22 History lamotrigine 200 mg tablet 200 mg PO DAILY 04/16/21 09/05/22 Unknown History lamotrigine 25 mg tablet,extended 25 mg PO DAILY 04/16/21 09/05/22 09/05/22 History release 24 hr lisinopril 10 mg tablet 10 mg PO DAILY 04/16/21 09/05/22 Unknown History cholecalciferol (vitamin D3) 1,250 1,250 mcg PO QWEEK 01/30/22 09/05/22 Unknown History mcg (50,000 unit) capsule furosemide 20 mg tablet 20 mg PO QAM PRN Edema 09/05/22 09/05/22 Unknown History pregabalin 75 mg capsule 75 mg PO BID 09/05/22 09/05/22 09/05/22 History Exam Exam Date and Time: September 05, 2022 1329 Height,Weight and Vital Signs: Height 5 ft 1 in Weight 90.265 kg Last Vital Signs Temp 97.9 F 09/05/22 12:39 Pulse 86 09/05/22 12:39 Resp 16 09/05/22 12:39 BP 111/66 09/05/22 12:39 Pulse Ox 98 09/05/22 12:39 O2 Del Method Room Air 09/05/22 12:39 Airway Mallampati Class: III TM Dist: >3cm Neck ROM: Full Loose/Missing/Broken Teeth: No Heart: RRR Lungs: CTA Assessment and Plan Assessment Anesthesia Assessment: Anesthesia Plan Discussed and Chart Reviewed Final Anesthetic Review Family History of Problems with Anesthesia: No History of Problems with Anesthesia: No NPO: Yes ASA Class: II Final Preanesthetic Review: Meds/Allgs Chart Reviewed, Consent Obtained/Reviewed and Anes Risks/Benef Reviewed Patient Risk: Low Procedure Risk: Intermediate Anesthetic Plan Anesthetic Plan: MAC: Disposition: Standard PACU
--- NOTE | 2022-09-05 13:39 | MHC.SHP ---
Pre-Procedural Eval Section A Date of Service: 09/05/22 Section B Chief Complaint: GERD, Epigastric pain Details of Present Illness: PMH: Anxiety and depression Bipolar disorder Fibromyalgia High cholesterol History of seizure Hx of malignant neoplasm of kidney Knee pain, bilateral Low back pain Surgical History History of bilateral tubal ligation History of carpal tunnel surgery of right wrist History of esophagogastroduodenoscopy (EGD) History of loop electrical excision procedure (LEEP) Hx of colonoscopy Family History Mother Kidney failure Diabetes COPD (chronic obstructive pulmonary disease) Heart disease Father Colon cancer Present Medications: see Short Stay Collaborative assessment Allergies: Allergies Allergy/AdvReac Type Severity Reaction Status Date / Time cat dander [CATS] Allergy Intermediate Itching Verified 09/05/22 09:20 haloperidol [From HALDOL] Allergy Intermediate SWELLING, Verified 09/05/22 09:20 hives risperidone [From RISPERDAL] Allergy Intermediate HIVES, Verified 09/05/22 09:20 swelling shrimp Allergy Intermediate Swelling Verified 09/05/22 09:20 COCKROACHES Allergy Intermediate Itching Uncoded 09/05/22 09:20 Review of Systems Review of Systems Comment: 10 point ROS negative Exam Exam Comment: Gen appear: No acute distress HEENT: no icterus Chest: No overt resp distress Abd: soft, nontender, nondistended Psych: Stable affect, answering questions appropriately Neuro: A/Ox3 noted to move all extremities spontaneously Ext: no peripheral edema Plan Diagnosis/Plan: Unchanged I have reviewed the history and physical and performed a pertinent physical examination on my patient. No changes have occurred unless specified. Time Spent With Patient Time: Total time managing care of this patient today ____ minutes.
--- NOTE | 2022-09-05 14:08 | P.OP_ITS ---
Operative Note Operative Note Date of Service: 09/05/22 Narrative: Procedure: Esophagogastroduodenoscopy Endoscopist: Julia Roger MD Indication: Epigastric pain Anesthesia Provider: Natalia Garsia Anesthesia Type: MAC ?? EGD Procedure:?? The procedure, indications, preparation and potential complications were r eviewed with the patient, who indicated understanding and gave written informed consent to proceed. A physical exam was performed. The endoscope was introduced through the mouth, and advanced to the second part of duodenum. The mucosa was carefully examined on slow withdrawal of the endoscope. The patient tolerated the procedure well. There were no immediate complications.? ? EGD Findings:? * Esophagus:? The Z line was at 38 cm and irregular with a salmon pink mucosa extending up to 35 cm. GE junction biopsies were taken to rule out Galarza's esophagus. A small erosion was noted at GEJ consistent with grade A esophagitis. * Stomach:? Normal mucosa was noted in the stomach. * Duodenum:? Normal mucosa was noted in the whole of the examined duodenum. ? EGD Impressions:? * LA Grade A esophagitis * Irregular Z line and SCM suspicious for Galarza's esophagus * Normal stomach * Normal duodenum ?? Recommendations:?? * Follow biopsy results. Our office will call or send a letter with results within 7-10 days. * Continue PPI therapy. * Avoid NSAIDs and smoking Above has been reviewed with the patient.
[2022-09-05 14:14] VITALS: BP 102/56; PULSE 96; RESP 16; TEMP 36.3; O2SAT 96
[2022-09-05 14:29] VITALS: BP 116/84; PULSE 101; RESP 20; TEMP 36.6; O2SAT 97
== END 2022-09-05 15:19 | disposition home or self-care (01) ==
PROVIDERS: PCP Nurse Practitioner Primary Care; Visit Provider Internal Medicine
PROC: 0DJ08ZZ Inspection of Upper Intestinal Tract, Via Natural or Artificial Opening Endoscopic (ICD-10-PCS; CPT 43235; principal; 2022-09-05 14:50)
DX: K21.9 Gastro-esophageal reflux disease without esophagitis (principal); R10.13 Epigastric pain; K20.80 Other esophagitis without bleeding; K22.89 Other specified disease of esophagus; F41.8 Other specified anxiety disorders; I10 Essential (primary) hypertension; M79.7 Fibromyalgia; M35.3 Polymyalgia rheumatica; E78.00 Pure hypercholesterolemia, unspecified; R79.82 Elevated C-reactive protein (CRP); Z85.528 Personal history of other malignant neoplasm of kidney; Z79.899 Other long term (current) drug therapy; Z99.89 Dependence on other enabling machines and devices; Z88.8 Allergy status to other drugs, medicaments and biological substances; F17.210 Nicotine dependence, cigarettes, uncomplicated; Z98.890 Other specified postprocedural states
CPT/HCPCS: 43239; 88305

== ENCOUNTER 2022-11-09 18:23 | Emergency (ER) | payer MEDICARE, MEDICAID, SELFPAY ==
--- NOTE | ~2022-11-09 | CT_ITS ---
EXAMINATION: CT ABDOMEN AND PELVIS WITH CONTRAST CLINICAL INFORMATION: Right lower quadrant pain COMPARISON: 07/13/2020 TECHNIQUE: Multidetector volumetric images were obtained from the superior aspect of the liver through the pubic symphysis following administration 85 mL of Omnipaque 350 intravenous contrast. Sagittal and coronal reformatted images were obtained on the technologist's workstation. Oral contrast: No This CT examination was performed using dose optimization techniques as appropriate, variously including the following: *Automated exposure control *Adjustment of mA and/or kV according to patient size (this includes techniques or standardized protocols for targeted exams where dose is matched to indication/reason for exam; i.e. extremities or head) *Use of iterative reconstruction technique DLP: 633 mGy-cm FINDINGS: LUNG BASES: The visualized lung bases are unremarkable. LIVER, GALLBLADDER, AND BILIARY TREE: Changes of hepatic steatosis. No discrete lesion. No biliary ductal dilatation. The gallbladder is unremarkable with no evidence of radiopaque gallstones, gallbladder wall thickening, or obvious pericholecystic inflammatory changes. PANCREAS: Unremarkable. SPLEEN: Unremarkable. ADRENAL GLANDS: Unremarkable. KIDNEYS AND URETERS: The kidneys are normal in size, shape, and attenuation. No hydronephrosis, hydroureter, or calculi seen. No perinephric stranding. BLADDER: Decompressed and difficult to assess. GASTROINTESTINAL TRACT: The small and large bowel are unremarkable. The appendix is unremarkable. ABDOMINAL WALL: No significant hernia is appreciated. LYMPH NODES: Normal. VASCULAR: Unremarkable. PELVIC VISCERA: Fibroid uterus again noted. Tubal ligation rings noted. OSSEOUS STRUCTURES: Unremarkable. CT/CT abdomen pelvis w IV con IMPRESSION: Normal appendix. No focal abnormality to explain patient's symptoms. Incidental findings as above. Fleischner guidelines were followed.
[2022-11-09 18:24] VITALS: BP 148/89; PULSE 120; RESP 20; TEMP 36.6; O2SAT 99; BMI 36.7
[2022-11-09 18:37] VITALS: BP 147/96; PULSE 122; RESP 18; TEMP 37.2; O2SAT 99
--- NOTE | 2022-11-09 18:42 | PC.NURSE ---
pt a&ox3, vss, pt verbalizing 8/10 RLQ abdominal pain that started last night. denies radiation. verbalizes nausea but denies any other sx. pt states that she feels constipated and took 4, 8oz of miralax w/o any relief. abdomen tender upon palpation. normoactive bs noted upon auscultation. call sinclair placed w/in reach.
--- NOTE | 2022-11-09 19:08 | ED.ABDPAIN ---
HPI - Abdominal Pain General Chief Complaint: Abdominal Pain Stated Complaint: R lower right side pain Time Seen by Provider: 11/09/22 18:42 Source: patient Mode of arrival: ambulatory Limitations: no limitations History of Present Illness HPI narrative: 47-year-old female with history of fibromyalgia, hypertension, hyperlipidemia presents to the ER with complaints of right lower quadrant abdominal pain which began today around noon. Patient reports is associated with nausea. No vomiting. No urinary symptoms, fevers or chills. Patient reports she has not moved her bowels since yesterday and she did take some MiraLax yesterday. Related Data Home Medications Medication Instructions Recorded Confirmed atorvastatin 20 mg tablet 20 mg PO BEDTIME 04/16/21 09/05/22 duloxetine 60 mg capsule,delayed 60 mg PO BID 04/16/21 09/05/22 release hydrochlorothiazide 25 mg tablet 25 mg PO DAILY 04/16/21 09/05/22 lamotrigine 200 mg tablet 200 mg PO DAILY 04/16/21 09/05/22 lamotrigine 25 mg tablet,extended 25 mg PO DAILY 04/16/21 09/05/22 release 24 hr lisinopril 10 mg tablet 10 mg PO DAILY 04/16/21 09/05/22 cholecalciferol (vitamin D3) 1,250 1,250 mcg PO QWEEK 01/30/22 09/05/22 mcg (50,000 unit) capsule furosemide 20 mg tablet 20 mg PO QAM PRN Edema 09/05/22 09/05/22 pregabalin 75 mg capsule 75 mg PO BID 09/05/22 09/05/22 Previous Rx's Medication Instructions Recorded sucralfate 1 gram tablet 1 g PO BEDTIME 30 days #90 tabs 07/10/21 docusate sodium 100 mg capsule 100 mg PO BEDTIME #90 caps 01/11/22 sennosides 8.6 mg tablet (Natural 17.2 mg PO BEDTIME constipation 01/11/22 Senna Laxative) #180 tabs omeprazole 40 mg capsule,delayed 40 mg PO BID #60 caps 02/11/22 release Allergies Allergy/AdvReac Type Severity Reaction Status Date / Time cat dander [CATS] Allergy Intermediate Itching Verified 11/09/22 18:29 haloperidol [From HALDOL] Allergy Intermediate SWELLING, Verified 11/09/22 18:29 hives risperidone [From RISPERDAL] Allergy Intermediate HIVES, Verified 11/09/22 18:29 swelling shrimp Allergy Intermediate Swelling Verified 11/09/22 18:29 COCKROACHES Allergy Intermediate Itching Uncoded 11/09/22 18:29 Review of Systems Review of Systems Yes all other systems are reviewed and are negative Constitutional: Reports no additional constitutional complaints, Denies body ache(s), Denies chills, Denies fever(s), Denies headache(s) and Denies weakness Eyes: Reports no additional eye complaints and Denies change in vision Reports system reviewed and no additional complaints, except as documented, Denies dizziness, Denies headache(s), Denies nasal congestion, Denies nasal discharge and Denies neck pain Cardiovascular: Reports no additional cardiovascular complaints, Denies chest pain, Denies leg edema and Denies dyspnea Respiratory: Reports no additional respiratory complaints, Denies cough and Denies dyspnea Gastrointestinal: Reports no additional gastrointestinal complaints, Reports abdominal pain, Reports constipation, Denies diarrhea, Reports nausea and Denies vomiting Genitourinary: Reports no additional female genitourinary complaints and Denies urinary incontinence Musculoskeletal: Reports no additional musculoskeletal complaints, Denies back pain, Denies arthralgias, Denies joint swelling, Denies neck pain, Denies numbness and Denies tingling Skin/Breast: Reports system reviewed and no additional complaints, except as docu and Denies rash Reports system reviewed and no additional complaints, except as documented, Denies dizziness, Denies headache(s), Denies numbness, Denies tingling and Denies weakness PMFSH Past Medical History Attestation statement: The following information was validated with the patient. Source: old records reviewed and nursing notes reviewed Medical History Ambulates with cane Anxiety and depression Bipolar disorder Fibromyalgia High cholesterol History of seizure Hx of malignant neoplasm of kidney Knee pain, bilateral Low back pain PMR (polymyalgia rheumatica) Surgical History History of bilateral tubal ligation History of carpal tunnel surgery of right wrist History of esophagogastroduodenoscopy (EGD) History of loop electrical excision procedure (LEEP) Hx of colonoscopy Family History Family History Mother Kidney failure Diabetes COPD (chronic obstructive pulmonary disease) Heart disease Father Colon cancer Social History Social History Are you a primary transitions rn care coordinator to a significant other at home: No Do you presently have visiting nurse or other home services: No Alcohol intake: never Patient Tobacco Use Status: Current everyday Tobacco user Tobacco use type: Cigarette Cigarettes Per Day: 3 Smoked in Last 30 Days: Yes Advance Directives: No Advance Directives Information Provided: Yes Patient : No service: No Current occupational status: disabled Physical Exam ED Vital Signs: Vital Signs - 24 hr 11/09/22 18:24 11/09/22 18:37 11/09/22 19:54 Temperature 97.9 F 98.9 F 98.6 F Pulse Rate 120 H 122 H 110 H Respiratory Rate 20 18 16 Blood Pressure 148/89 H 147/96 H 152/84 H Pulse Oximetry 99 99 98 Oxygen Delivery Method Room Air Room Air Room Air 11/09/22 22:00 Temperature 98.5 F Pulse Rate 96 Respiratory Rate 16 Blood Pressure 127/84 Pulse Oximetry 98 Oxygen Delivery Method Room Air BMI result Body Mass Index 36.7 Const General: cooperative, healthy appearing, comfortable and no acute distress Orientation/consciousness: patient oriented x3 Limitations: no limitations HENMT Head: Yes normal to inspection Ears: hearing grossly normal bilaterally Eyes General: appearance normal, both eyes and all related structures Pupils: Equal, round and reactive pupils present Neck Neck: Yes normal visual inspection, Yes full ROM and Yes no lymphadenopathy Chest Chest palpation & inspection: normal inspection of the chest Resp Effort & Inspection: normal respiratory effort Auscultation: clear to auscultation bilaterally Cardio Rate: regular rate Rhythm: regular rhythm Peripheral pulses: Peripheral pulses 2+ throughout GI Inspection: Yes normal to inspection Palpation (GI): Soft to palpation, Tenderness to palpation present (GI) in the RLQ; with no rebound tenderness and no guarding Auscultation: normal bowel sounds General: Yes no CVA tenderness Back/Spine/Pelvis Back: no CVA tenderness Skin General skin exam: no rashes or lesions noted Neuro General: patient oriented x3 and moves all extremities Cranial nerves: Yes Equal, round and reactive pupils present Cognition (Neuro): normal cognition Gait exam (Neuro): Normal gait present Extrem General: Yes normal to inspection Course Course Course Narrative: Labs are unremarkable. UA shows no evidence of infection. CT shows no acute finding. Patient is tolerating p.o.. Plan for discharge home with recommendations return for any worsening symptoms. Reviewed worrisome signs and symptoms and when to return to the emergency room. Comfortable plan for discharge home. Medical Decision Making Medical Decision Making [facility] Narrative: 47-year-old female here with complaints of right lower quadrant abdominal pain, nausea and constipation. On exam patient has tenderness the right lower quadrant with no rebound or guarding. Vitals are stable. Will check labs, UA, CT abdomen pelvis Will give PIV, IV fluids, antiemetic analgesia Differential Diagnosis Differential Diagnoses: The differential diagnosis associated with the presentation includes Renal colic, pyelonephritis, appendicitis Ovarian torsion, ovarian cyst Admission/Observation Consideration of admission/observation: Escalation of care including admission/observation considered See course of care Lab Data [facility] Lab Attestation statement: I reviewed the patient's lab results. Unremarkable 11/09/22 19:42 11/09/22 19:42 Labs: Lab Results 11/09/22 11/09/22 11/09/22 Range/Units 19:42 19:42 19:57 WBC 9.7 (4.8-10.8) X10*3/uL RBC 4.91 (4.20-5.50) X10*6/uL Hgb 11.9 L (12.0-16.0) g/dl Hct 38.6 (37.0-47.0) % MCV 78.6 L (80.0-98.0) fL MCH 24.2 L (27.0-33.0) pg MCHC 30.8 L (31.0-35.0) g/dl RDW 17.0 H (11.0-16.0) % Plt Count 380 (160-400) X10*3/uL MPV 9.3 L (9.4-12.3) fL Immature Gran % (Auto) 0.3 (0.0-0.4) % Neut % (Auto) 69.5 (45-73) % Lymph % (Auto) 23.0 (20-40) % [place] % (Auto) 6.1 (2-11) % Eos % (Auto) 0.6 (0-4) % Baso % (Auto) 0.5 (0-2) % Lymph # (Auto) 2.2 (1.2-4.9) X10*3/uL [place] # (Auto) 0.6 (0.1-1.2) X10*3/uL Eos # (Auto) 0.1 (0.0-0.4) X10*3/uL Baso # (Auto) 0.1 (0.0-0.2) X10*3/uL Abs Immat Gran (auto) 0.03 (0.00-0.03) X10*3/uL Absolute Neuts (auto) 6.7 (2.0-8.3) x10*3/uL Absolute Nucleated RBC 0.000 (0.0-0.012) X10*3/uL Nucleated RBC % (auto) 0.0 (0.0-0.2) /100WBC Sodium 136 (135-145) mmol/L Potassium 3.9 (3.3-5.1) mmol/L Chloride 99 (96-108) mmol/L Carbon Dioxide 24 (22-29) mmol/L Anion Gap 17 (12-20) BUN 17 H (9-16) mg/dL Creatinine 0.97 (0.5-1.4) mg/dL Estim Creat Clear Calc 73.0 Estimated GFR > 60 Random Glucose 84 (60-115) mg/dL Calcium 10.2 D (8.4-10.2) mg/dL Total Bilirubin 0.3 (0.0-1.0) mg/dL Direct Bilirubin 0.1 (0.0-0.5) mg/dL AST 17 (5-31) U/L ALT 26 (0-31) U/L Alkaline Phosphatase 81 (39-117) U/L Total Protein 8.7 H (6.5-8.0) g/dL Albumin 4.6 (3.5-5.0) g/dL Urine Color Yellow Urine Appearance Clear Urine pH 5.5 (5.0-9.0) Ur Specific [place] 1.015 (1.005-1.025) Urine Protein Negative (Neg-Trace) mg/dL Urine Glucose (UA) Negative (Negative) mg/dL Urine Ketones Negative (Negative) mg/dL Urine Blood Negative (Negative) Urine Nitrite Negative (Negative) Ur Leukocyte Esterase Negative (Negative) Urine Test (NEGATIVE) 11/09/22 Range/Units 19:57 WBC (4.8-10.8) X10*3/uL RBC (4.20-5.50) X10*6/uL Hgb (12.0-16.0) g/dl Hct (37.0-47.0) % MCV (80.0-98.0) fL MCH (27.0-33.0) pg MCHC (31.0-35.0) g/dl RDW (11.0-16.0) % Plt Count (160-400) X10*3/uL MPV (9.4-12.3) fL Immature Gran % (Auto) (0.0-0.4) % Neut % (Auto) (45-73) % Lymph % (Auto) (20-40) % [place] % (Auto) (2-11) % Eos % (Auto) (0-4) % Baso % (Auto) (0-2) % Lymph # (Auto) (1.2-4.9) X10*3/uL [place] # (Auto) (0.1-1.2) X10*3/uL Eos # (Auto) (0.0-0.4) X10*3/uL Baso # (Auto) (0.0-0.2) X10*3/uL Abs Immat Gran (auto) (0.00-0.03) X10*3/uL Absolute Neuts (auto) (2.0-8.3) x10*3/uL Absolute Nucleated RBC (0.0-0.012) X10*3/uL Nucleated RBC % (auto) (0.0-0.2) /100WBC Sodium (135-145) mmol/L Potassium (3.3-5.1) mmol/L Chloride (96-108) mmol/L Carbon Dioxide (22-29) mmol/L Anion Gap (12-20) BUN (9-16) mg/dL Creatinine (0.5-1.4) mg/dL Estim Creat Clear Calc Estimated GFR Random Glucose (60-115) mg/dL Calcium (8.4-10.2) mg/dL Total Bilirubin (0.0-1.0) mg/dL Direct Bilirubin (0.0-0.5) mg/dL AST (5-31) U/L ALT (0-31) U/L Alkaline Phosphatase (39-117) U/L Total Protein (6.5-8.0) g/dL Albumin (3.5-5.0) g/dL Urine Color Urine Appearance Urine pH (5.0-9.0) Ur Specific [place] (1.005-1.025) Urine Protein (Neg-Trace) mg/dL Urine Glucose (UA) (Negative) mg/dL Urine Ketones (Negative) mg/dL Urine Blood (Negative) Urine Nitrite (Negative) Ur Leukocyte Esterase (Negative) Urine Test NEGATIVE (NEGATIVE) Independent Interpretation I performed an independent interpretation of an: CT Scan Interpretation: I indepedentely reviewed the CT scan reviewed the radiology report Radiology Impression Discussion of test interpretation with radiology: I have reviewed the radiologist's reading. Radiologist Impression: Launch?Image [place] [id number] CT Scan Report Signed Patient: Laila Ortiz MR#: [id number] : 1975 Acct:[id number] Age/Sex: 47 / F ADM Date: 11/09/22 Loc: .ED Attending Dr: Ordering Physician: Iris Sparks NP Date of Service: 11/09/22 Procedure(s): CT abdomen pelvis w IV con Accession Number(s): [id number] cc: Iris Sparks NP~ EXAMINATION: CT ABDOMEN AND PELVIS WITH CONTRAST? CLINICAL INFORMATION: Right lower quadrant pain? COMPARISON: 07/13/2020 TECHNIQUE: Multidetector volumetric images were obtained from the superior aspect of the liver through the pubic symphysis following administration 85 mL of Omnipaque 350 intravenous contrast. Sagittal and coronal reformatted images were obtained on the technologist's workstation.? Oral contrast: No This CT examination was performed using dose optimization techniques as appropriate, variously including the following: *Automated exposure control *Adjustment of mA and/or kV according to patient size (this includes techniques or standardized protocols for targeted exams where dose is matched to indication/reason for exam; i.e. extremities or head) *Use of iterative reconstruction technique DLP: 633 mGy-cm FINDINGS: LUNG BASES: The visualized lung bases are unremarkable.? LIVER, GALLBLADDER, AND BILIARY TREE: Changes of hepatic steatosis. No discrete lesion. No biliary ductal dilatation. The gallbladder is unremarkable with no evidence of radiopaque gallstones, gallbladder wall thickening, or obvious pericholecystic inflammatory changes.? PANCREAS: Unremarkable.? SPLEEN: Unremarkable.? ADRENAL GLANDS: Unremarkable.? KIDNEYS AND URETERS: The kidneys are normal in size, shape, and attenuation. No hydronephrosis, hydroureter, or calculi seen. No perinephric stranding. ? BLADDER: Decompressed and difficult to assess.? GASTROINTESTINAL TRACT: The small and large bowel are unremarkable. The appendix is unremarkable.? ABDOMINAL WALL: No significant hernia is appreciated.? LYMPH NODES: Normal. VASCULAR: Unremarkable. PELVIC VISCERA: Fibroid uterus again noted. Tubal ligation rings noted. ? OSSEOUS STRUCTURES: Unremarkable.? CT/CT abdomen pelvis w IV con IMPRESSION: Normal appendix. No focal abnormality to explain patient's symptoms. Incidental findings as above. ? Fleischner guidelines were followed. Medications Administered Discontinued Medications Generic Name Dose Route Start Last Admin Trade Name Freq PRN Reason Stop Dose Admin Sodium Chloride 1,000 mls @ 999 mls/hr 11/09/22 19:16 11/09/22 19:42 Ns IV 11/09/22 20:16 999 mls/hr .Q1H1M STA Administration Iohexol 100 ml 11/09/22 21:53 11/09/22 21:53 Iohexol 350 Mg/Ml 100 Ml Infus..Btl IV 11/09/22 21:54 85 ml ONCE ONE Administration Morphine Sulfate 4 mg 11/09/22 19:16 11/09/22 19:50 Morphine Sulfate 4 Mg/Ml Cartridge IVPUSH 11/09/22 19:17 4 mg ONCE ONE Administration Protocol Ondansetron HCl 4 mg 11/09/22 19:16 11/09/22 19:50 Ondansetron Hcl 4 Mg/2 Ml Vial IVPUSH 11/09/22 19:17 4 mg ONCE ONE Administration Discharge Plan Discharge Clinical Impression: Abdominal pain Patient Disposition: Home, Self-Care Instructions: Abdominal Pain (ED) Additional Instructions: Your CT scan shows no acute finding Your lab work and urine testing are unremarkable. You may take Motrin or Tylenol for pain as needed Return for worsening symptoms. Prescriptions: No Action furosemide 20 mg tablet 20 mg PO QAM PRN (Reason: Edema) pregabalin 75 mg capsule 75 mg PO BID hydrochlorothiazide 25 mg tablet 25 mg PO DAILY duloxetine 60 mg capsule,delayed release(DR/EC) 60 mg PO BID lamotrigine 25 mg tablet extended release 24hr 25 mg PO DAILY Patient Comments: total dose 225 q am lamotrigine 200 mg tablet 200 mg PO DAILY Patient Comments: total dose 225 q am lisinopril 10 mg tablet 10 mg PO DAILY atorvastatin 20 mg tablet 20 mg PO BEDTIME sennosides [Natural Senna Laxative] 8.6 mg tablet 17.2 mg PO BEDTIME Qty: 180 3RF docusate sodium 100 mg capsule 100 mg PO BEDTIME Qty: 90 3RF cholecalciferol (vitamin D3) 1,250 mcg (50,000 unit) capsule 1,250 mcg PO QWEEK sucralfate 1 gram tablet 1 g PO BEDTIME 30 Days Qty: 90 3RF omeprazole 40 mg capsule,delayed release(DR/EC) 40 mg PO BID Qty: 60 2RF Referrals: Glendy Sutton, [employer] [Primary Care Provider] - 1 week
[2022-11-09] MEDS: 0.9 % Sodium Chloride 1,000 ML 999 ML IV (19:42)
[2022-11-09] MEDS: ondansetron HCL 4 MG/2 ML VIAL IVPUSH (19:50)
[2022-11-09] MEDS: Morphine Sulfate 4 MG/ML CARTRIDGE IVPUSH (19:50)
[2022-11-09 19:54] VITALS: BP 152/84; PULSE 110; RESP 16; TEMP 37; O2SAT 98
[2022-11-09 19:54] LABS: MANUAL DIFF FLAG NO
[2022-11-09 19:58] LABS: Basophils Absolute Auto 0.1 X10*3/uL (0.0-0.2); Basophils Percent Auto 0.5 % (0-2); Eosinophils Absolute Auto 0.1 X10*3/uL (0.0-0.4); Eosinophils Percent Auto 0.6 % (0-4); Hematocrit 38.6 % (37.0-47.0); Hemoglobin 11.9 g/dl (12.0-16.0); Imm Gran Abs Auto 0.03 X10*3/uL (0.00-0.03); Imm Gran Pct Auto 0.3 % (0.0-0.4); Lymphocytes Absolute Auto 2.2 X10*3/uL (1.2-4.9); Mean Corpuscular HGB Conc 30.8 g/dl (31.0-35.0); Mean Corpuscular Hemoglobin 24.2 pg (27.0-33.0); Mean Corpuscular Volume 78.6 fL (80.0-98.0); Mean Platelet Volume 9.3 fL (9.4-12.3); Monocytes Absolute Auto 0.6 X10*3/uL (0.1-1.2); Monocytes Percent Auto 6.1 % (2-11); Neutrophils Absolute Auto 6.7 x10*3/uL (2.0-8.3); Neutrophils Percent Auto 69.5 % (45-73); Platelet Count 380 X10*3/uL (160-400); Red Blood Count 4.91 X10*6/uL (4.20-5.50); White Blood Count 9.7 X10*3/uL (4.8-10.8)
--- NOTE | 2022-11-09 19:58 | PC.NURSE ---
IV # 20 placed in L-arm, fluids running and meds given as ordered. Labs drawn and urine sent
--- NOTE | 2022-11-09 20:02 | MHC.EDTECH ---
PT URINE SAMPLE COLLECTED AND SENT TO LAB ,VITALS SIGN TAKEN PT RESTING WAITING TO GO TO CT -SCAN .
[2022-11-09 20:06] LABS: Appearance Urine Clear; Color Urine Yellow; Glucose Urine UA Negative (Negative); Leukocyte Esterase Urine Negative (Negative); Nitrite Urine Negative (Negative); PH 5.5 (5.0-9.0); Specific Gravity - Urine 1.015 (1.005-1.025); Urine Blood Negative (Negative); Urine Ketones Negative (Negative); Urine Protein Negative (Neg-Trace)
[2022-11-09 20:08] LABS: UPreg QC Valid YES; Urine Pregnancy NEGATIVE (NEGATIVE)
[2022-11-09 20:12] LABS: Alanine Aminotransferase 26 U/L (0-31); Albumin Level 4.6 g/dL (3.5-5.0); Alkaline Phosphatase 81 U/L (39-117); Anion Gap 17 (12-20); Aspartate Amino Transferase 17 U/L (5-31); Bilirubin Direct 0.1 mg/dL (0.0-0.5); Bilirubin Total 0.3 mg/dL (0.0-1.0); Blood Urea Nitrogen 17 mg/dL (9-16); Calcium 10.2 mg/dL (8.4-10.2); Carbon Dioxide 24 mmol/L (22-29); Chloride 99 mmol/L (96-108); Estimated Glomerular Filt Rate > 60; Glucose Random 84 mg/dL (60-115); Potassium 3.9 mmol/L (3.3-5.1); Sodium 136 mmol/L (135-145); Total Protein 8.7 g/dL (6.5-8.0)
[2022-11-09] MEDS: iohexoL 350 MG/ML 100 ML INFUS..BTL IV (21:53)
[2022-11-09 22:00] VITALS: BP 127/84; PULSE 96; RESP 16; TEMP 36.9; O2SAT 98
--- NOTE | 2022-11-09 22:01 | MHC.EDTECH ---
2200 rounding done ,vitals sign taken pt resting quietly in bed .
== END 2022-11-09 23:38 | disposition home or self-care (01) ==
PROVIDERS: Nurse Practitioner Family; Emergency Provider Emergency Medicine; PCP Nurse Practitioner Primary Care
DX: R10.31 Right lower quadrant pain (principal); I10 Essential (primary) hypertension; E78.00 Pure hypercholesterolemia, unspecified; F17.210 Nicotine dependence, cigarettes, uncomplicated
CPT/HCPCS: 36415; 74177; 80048; 80076; 81003; 81025; 85025; 96374; 96375; 99284; J2270; J2405; Q9967

== ENCOUNTER 2022-12-30 15:00 | Outpatient (REF) | payer MEDICARE, MEDICAID, SELFPAY ==
[2022-12-31 07:53] LABS: HIV AB/AG Nonreactive (Nonreactive); HIV Num 1 0.05 S/CO (0.00-0.99); ~HepC Num1 0.05 S/CO (0.00-0.79); ~Hepatitis C Antibody Nonreactive (Nonreactive)
[2022-12-31 07:56] LABS: Syphilis Screen Nonreactive (Nonreactive)
[2023-01-01 16:49] LABS: TS Negative Control Passed; TS Panel A 0; TS Panel B 0; TS Positive Control Passed; TSpotTB Negative (Negative)
== END 2022-12-30 15:01 | disposition home or self-care (01) ==
LOC: HO.LAB 15:00
PROVIDERS: PCP Nurse Practitioner Primary Care; Visit Provider Internal Medicine
DX: Z11.1 Encounter for screening for respiratory tuberculosis (principal); Z11.4 Encounter for screening for human immunodeficiency virus [HIV]; R79.82 Elevated C-reactive protein (CRP)
CPT/HCPCS: 36415; 86481; 86780; 86803; 87389

== ENCOUNTER 2022-12-30 15:00 | Outpatient (AMB) | payer MEDICARE, MEDICAID, SELFPAY ==
[2022-12-30 15:28] VITALS: BP 156/90; PULSE 120; O2SAT 98; BMI 38.2
--- NOTE | 2022-12-30 15:28 | A.OFFVIS_ITS ---
Intake Vital Signs 12/30/22 15:28 Height 5 ft 1 in Weight 202 lb BMI 38.2 BP 156/90 H Blood Pressure Location Lt brachial Position Sitting Pulse 120 H Pulse Source Pulse Oximeter Pulse Oximetry (%) 98 Intake Visit Reasons: Ref., elevated sed& CPR levels Allergies cat dander [CATS] Allergy (Intermediate, Verified 12/30/22 15:29) Itching haloperidol [From HALDOL] Allergy (Intermediate, Verified 12/30/22 15:29) SWELLING, hives risperidone [From RISPERDAL] Allergy (Intermediate, Verified 12/30/22 15:29) HIVES, swelling shrimp Allergy (Intermediate, Verified 12/30/22 15:29) Swelling COCKROACHES Allergy (Intermediate, Uncoded 12/06/22 14:58) Itching HPI Ref., elevated sed& CPR levels HPI Details She has fatigue and lower extremity numbness over last several years. She has had elevated ESR but most are in 30s. Lyme serology is negative. She has lived in [place] and [place]. She has no ill pets . No one else is ill. [facility], [facility] Medical History PMR (polymyalgia rheumatica) Knee pain, bilateral Low back pain Ambulates with cane Hx of malignant neoplasm of kidney History of seizure Bipolar disorder Anxiety and depression Fibromyalgia High cholesterol Surgical History History of esophagogastroduodenoscopy (EGD) Hx of colonoscopy History of loop electrical excision procedure (LEEP) History of carpal tunnel surgery of right wrist History of bilateral tubal ligation Family History Mother Kidney failure Diabetes COPD (chronic obstructive pulmonary disease) Heart disease Father Colon cancer Social History Are you a primary rn managed care to a significant other at home: No Do you presently have visiting nurse or other home services: No Alcohol intake: never Patient Tobacco Use Status: Current everyday Tobacco user Tobacco use type: Cigarette service: No Current occupational status: disabled Review of Systems Const All systems reviewed & are unremarkable except as noted in HPI and below Physical Exam Vital Signs: Last Vital Signs Pulse 120 H 12/30/22 15:28 BP 156/90 H 12/30/22 15:28 Pulse Ox 98 12/30/22 15:28 BMI result Body Mass Index 38.2 Const General: cooperative Orientation/consciousness: patient oriented x3 HEENT Head: Yes normal to inspection Mouth: Normal oral and palatal mucosa present Eyes General: appearance normal, both eyes and all related structures Pupils: Equal, round and reactive pupils present Resp Effort & Inspection: normal respiratory effort Cardio Rate: regular rate Rhythm: regular rhythm GI Palpation (GI): Soft to palpation and nontender Back/Spine/Pelvis Other: weakness LE ,walks with cane Skin General skin exam: no rashes or lesions noted Neuro General: patient oriented x3 Cranial nerves: Yes CN's II-XII intact bilaterally and Yes Equal, round and reactive pupils present Extrem General: Yes normal to inspection Psych Appearance: grossly normal Assessment & Plan Assessment & Plan (1) High C-reactive protein: Comment: Most elevations are low Code(s): R79.82 - Elevated C-reactive protein (CRP) Plan Check for common chronic infection. Re see Neurology. See back if needed. Orders: Orders HIV Ab/Ag Today R79.82 - Elevated C-reactive protein (CRP) Hepatitis C Antibody Today R79.82 - Elevated C-reactive protein (CRP) Syphilis Screen Today R79.82 - Elevated C-reactive protein (CRP) T Spot TB Today R79.82 - Elevated C-reactive protein (CRP) Coding Level of Care Code New Pt Level 3 (93412) Diagnoses High C-reactive protein R79.82
== END 2022-12-30 16:55 | disposition home or self-care (01) ==
PROVIDERS: PCP Nurse Practitioner Primary Care; Visit Provider Internal Medicine
DX: R79.82 Elevated C-reactive protein (CRP) (principal)
CPT/HCPCS: 99203

== ENCOUNTER 2023-01-14 10:02 | Outpatient (REF) | payer MEDICARE, MEDICAID, SELFPAY | END 2023-01-14 10:03 | disposition home or self-care (01) | LOC: HO.MAMMO 10:02 | PROVIDERS: Visit Provider Advanced Practice Midwife | DX: Z12.31 Encounter for screening mammogram for malignant neoplasm of breast (principal) | CPT/HCPCS: 77063; 77067; 93005; 99212 ==

== ENCOUNTER → 2023-01-14 10:15 | Outpatient (BNV) | payer MEDICARE, MEDICAID, SELFPAY | PROVIDERS: Visit Provider Radiology Diagnostic Radiology | DX: Z12.31 Encounter for screening mammogram for malignant neoplasm of breast (principal) | CPT/HCPCS: 77063; 77067 ==

== ENCOUNTER 2023-01-14 15:32 | Outpatient (AMB) | payer MEDICARE, MEDICAID, SELFPAY ==
--- NOTE | 2023-01-14 15:34 | A.OFFVIS_ITS ---
Intake Vital Signs 01/14/23 15:35 Height 5 ft 1 in Weight 197 lb 8.547 oz BMI 37.3 BP 148/90 H Blood Pressure Location Lt brachial Position Sitting Pulse 111 H Pulse Source Pulse Oximeter Pulse Oximetry (%) 97 Oxygen Delivery Method Room Air Intake Visit Reasons: F/U Intake Note: Pt presents to the office today for a follow up. Pt states she is feeling well and denies any cardiac concerns at this time. Allergies cat dander [CATS] Allergy (Intermediate, Verified 01/15/23 15:45) Itching haloperidol [From HALDOL] Allergy (Intermediate, Verified 01/15/23 15:45) SWELLING, hives risperidone [From RISPERDAL] Allergy (Intermediate, Verified 01/15/23 15:45) HIVES, swelling shrimp Allergy (Intermediate, Verified 01/15/23 15:45) Swelling COCKROACHES Allergy (Intermediate, Uncoded 01/15/23 15:45) Itching Medication List - Last Reconciled 01/14/23 by ALICIA Miranda atorvastatin 20 mg PO BEDTIME cholecalciferol (vitamin D3) 1,250 mcg PO QWEEK docusate sodium 100 mg PO BEDTIME duloxetine 60 mg PO BID furosemide 20 mg PO QAM PRN hydrochlorothiazide 25 mg PO DAILY lamotrigine 200 mg PO DAILY lamotrigine ER 25 mg PO DAILY lisinopril 10 mg PO DAILY omeprazole 40 mg PO BID pregabalin 75 mg PO BID sennosides (Natural Senna Laxative) 17.2 mg (2 x 8.6 mg) PO BEDTIME sucralfate 10 mL PO DAILY HPI F/U HPI Details Laila is a 47-year-old female with past medical history of hypertension, hyperlipidemia, obesity, fibromyalgia, chest discomfort who presents for follow-up. Her last prior visit to cardiology was 04/23/2021. Today read she reports that she still has been getting intermittent pains in her chest. She has had recent episodes with stair climbing, once with sitting and twice when waking up in the morning. She cannot bring on the discomfort with physical activity. She expresses concern as her mother had an OK in her 50s. No shortness of breath, palpitations, presyncope, syncope, PND, orthopnea or edema. Good activity tolerance. Taking meds as directed. [facility] Medical History PMR (polymyalgia rheumatica) Knee pain, bilateral Low back pain Ambulates with cane Hx of malignant neoplasm of kidney History of seizure Bipolar disorder Anxiety and depression Fibromyalgia High cholesterol Surgical History History of esophagogastroduodenoscopy (EGD) Hx of colonoscopy History of loop electrical excision procedure (LEEP) History of carpal tunnel surgery of right wrist History of bilateral tubal ligation Family History Mother Kidney failure Diabetes COPD (chronic obstructive pulmonary disease) Heart disease Father Colon cancer Social History Are you a primary children's zoo caretaker to a significant other at home: No Do you presently have visiting nurse or other home services: No Alcohol intake: never Patient Tobacco Use Status: Current everyday Tobacco user Tobacco use type: Cigarette Cigarettes Per Day: 3 service: No Current occupational status: disabled Review of Systems Const All systems reviewed & are unremarkable except as noted in HPI and below Card Reports chest pain, Reports chest pain at rest, Reports chest pain with activity and Reports dyspnea on exertion Resp Reports dyspnea on exertion Musc Details: body pain - fibromyalgia Reports abnormal gait (uses cane) Neuro Reports abnormal gait (uses cane) Physical Exam Vital Signs: Last Vital Signs Pulse 111 H 01/14/23 15:35 BP 148/90 H 01/14/23 15:35 Pulse Ox 97 01/14/23 15:35 Oxygen Delivery Method Room Air 01/14/23 15:35 BMI result Body Mass Index 37.3 Const General: cooperative, healthy appearing, comfortable and no acute distress Orientation/consciousness: patient oriented x3 Neck Neck: Yes normal visual inspection Resp Effort & Inspection: normal respiratory effort Auscultation: clear to auscultation bilaterally, no crackles, no rales, no rhonchi and no wheezes Cardio Jugular venous distension: no JVD Rate: regular rate Rhythm: regular rhythm Heart sounds: S1 normal heart sound present, S2 normal heart sound present, no murmurs and no rubs Skin General skin exam: no rashes or lesions noted Neuro General: patient oriented x3 Extrem General: Yes normal to inspection Psych Appearance: grossly normal Mental Status: mental status grossly normal Speech and movement: Normal speech and movement present Office Procedures EKG Details: Today, read by me sinus tach, possible left atrial enlargement, T-wave abnormality, unchanged from prior EKG, rate 103, QTC 476 milliseconds [id number], Complete Assessment & Plan Assessment & Plan (1) Precordial chest pain: Code(s): R07.2 - Precordial pain Plan: Reports of sharp anterior chest discomfort lasting several minutes on various occasions including activity and rest. Overall atypical for angina. Prior nuclear stress test done 05/17/2022 showed normal myocardial perfusion imaging. Echocardiogram done 07/21/2020 showed EF 60-65%, no regional wall motion abn ormalities. She does have cardiac risk factors of hypertension, hyperlipidemia, obesity and family history. Mother had OK in her 50s. She does have history of fibromyalgia which may contribute to her symptoms. Will further evaluate with repeat echocardiogram and a CTA of the coronary arteries. She does have a shrimp allergy but tells me last time she had a CT scan she did not require premedication. Verified with the CT scan department. Signs and symptoms of angina reviewed. Cardiology follow-up in 4-6 weeks to go over results. Emergency care if ever needed for symptoms. (2) Essential hypertension: Code(s): I10 - Essential (primary) hypertension Plan: Elevated initially this visit. Recheck 140/90. Remains elevated. She is on hydrochlorothiazide and lisinopril 10 mg daily. Labs done 12/06/2022 shows potassium 3.7, creatinine 0.81. Will increase her lisinopril up to 20 mg daily. Plan for recheck of blood pressure next visit. Orders: Orders CT Cardiac Coronary Angio 01/14/23 E78.00 - Pure hypercholesterolemia, unspecified, I10 - Essential (primary) hypertension, R07.2 - Precordial pain CA echo transthoracic complete 01/14/23 I10 - Essential (primary) hypertension, R07.2 - Precordial pain Basic Metabolic Panel 01/14/23 R07.2 - Precordial pain Medications: New lisinopril 20 mg PO DAILY 90 days 90 tabs 1RF Coding Level of Care Code Est Pt Level 4 (46967) Diagnoses Precordial chest pain R07.2 Essential hypertension I10 CPT Codes EKG - CPT: 44749-[id number], Complete ([id number]) Time Spent (min) 26
[2023-01-14 15:35] VITALS: BP 148/90; PULSE 111; O2SAT 97; BMI 37.3
== END 2023-01-14 16:29 | disposition home or self-care (01) ==
PROVIDERS: PCP Nurse Practitioner Primary Care; Visit Provider Nurse Practitioner Family
DX: R00.0 Tachycardia, unspecified (principal); R94.31 Abnormal electrocardiogram [ECG] [EKG]
CPT/HCPCS: 93010; 99214

== ENCOUNTER → 2023-01-15 15:42 | Outpatient (BNVA) | payer MEDICARE, MEDICAID, SELFPAY | PROVIDERS: PCP Nurse Practitioner Primary Care; Visit Provider Nurse Practitioner Family | DX: K21.00 Gastro-esophageal reflux disease with esophagitis, without bleeding (principal); R10.13 Epigastric pain; Z79.899 Other long term (current) drug therapy | CPT/HCPCS: 99212 ==

== ENCOUNTER 2023-01-15 15:43 | Outpatient (AMB) | payer MEDICARE, MEDICAID, SELFPAY ==
[2023-01-15 15:44] VITALS: BP 169/83; PULSE 101; O2SAT 98; BMI 37.2
--- NOTE | 2023-01-15 15:44 | A.OFFVIS_ITS ---
Intake Vital Signs 01/15/23 15:44 Height 5 ft 1 in Weight 197 lb BMI 37.2 BP 169/83 H Blood Pressure Location Lt brachial Position Sitting Pulse 101 H Pulse Source Pulse Oximeter Pulse Oximetry (%) 98 Oxygen Delivery Method Room Air Intake Visit Reasons: Abd. Pain Intake Note: Pt presents to the office today for a follow up. Pt states she is feeling better and denies any GI concerns at this time. Allergies cat dander [CATS] Allergy (Intermediate, Verified 01/15/23 15:45) Itching haloperidol [From HALDOL] Allergy (Intermediate, Verified 01/15/23 15:45) SWELLING, hives risperidone [From RISPERDAL] Allergy (Intermediate, Verified 01/15/23 15:45) HIVES, swelling shrimp Allergy (Intermediate, Verified 01/15/23 15:45) Swelling COCKROACHES Allergy (Intermediate, Uncoded 01/15/23 15:45) Itching HPI Abd. Pain HPI Details LAST VISIT GERD (gastroesophageal reflux disease) Discussed with patient the importance of avoiding dietary triggers and late night snacking. Staying upright for minimum 3 hours after meals discussed with patient. Continue current treatment. Patient will be sent for upper endoscopy. She has been on the same treatment for almost a year and she continues to have occasional symptoms. If patient continues with symptoms and gastritis, esophagitis identified patient maybe should go for Tomas study Epigastric discomfort Epigastric discomfort postprandially. Patient reports that it does not happen all the time only occasionally. Upper endoscopy will be ordered. Patient will be seen after the procedure. She verbalizes understanding of instructions and is agreeable to plan of care. She was given the opportunity to ask questions and all questions answered. ? UPPER ENDOSCOPY: EGD Findings:? * Esophagus:? The Z line was at 38 cm and irregular with a salmon pink mucosa extending up to 35 cm. GE junction biopsies were taken to rule out Galarza's esophagus. A small erosion was noted at GEJ consistent with grade A esophagitis. * Stomach:? Normal mucosa was noted in the stomach. * Duodenum:? Normal mucosa was noted in the whole of the examined duodenum. ? EGD Impressions:? * LA Grade A esophagitis * Irregular Z line and SCM suspicious for Galarza's esophagus * Normal stomach * Normal duodenum ?? Recommendations:?? * Follow biopsy results. Our office will call or send a letter with results within 7-10 days. * Continue PPI therapy. * Avoid NSAIDs and smoking PATHOLOGY RESULTS: Diagnosis Gastroesophageal junction, biopsy: Squamous mucosa with hyperplasia and focal intraepithelial neutrophils consistent with reflux esophagitis, and columnar mucosa with mild chronic inflammation; negative for intestinal metaplasia and dysplasia TODAY'S VISIT Patient is here today for follow-up and to discuss upper endoscopy results. Patient reports that since the procedure she has been feeling well. She states that she was taking omeprazole twice a day, however she reports that she takes it once a day now. Patient denies any dyspepsia, dysphagia odynophagia. Denies any nausea or vomiting. Patient also is avoiding dietary triggers. Avoiding food that it spicy or fried. Patient denies any other GI concerning symptoms. [facility] Medical History PMR (polymyalgia rheumatica) Knee pain, bilateral Low back pain Ambulates with cane Hx of malignant neoplasm of kidney History of seizure Bipolar disorder Anxiety and depression Fibromyalgia High cholesterol Surgical History History of esophagogastroduodenoscopy (EGD) Hx of colonoscopy History of loop electrical excision procedure (LEEP) History of carpal tunnel surgery of right wrist History of bilateral tubal ligation Family History Mother Kidney failure Diabetes COPD (chronic obstructive pulmonary disease) Heart disease Father Colon cancer Social History Are you a primary child care coordinator to a significant other at home: No Do you presently have visiting nurse or other home services: No Alcohol intake: never Patient Tobacco Use Status: Current everyday Tobacco user Tobacco use type: Cigarette Cigarettes Per Day: 3 service: No Current occupational status: disabled Physical Exam Vital Signs: Last Vital Signs Pulse 101 H 01/15/23 15:44 BP 169/83 H 01/15/23 15:44 Pulse Ox 98 01/15/23 15:44 Oxygen Delivery Method Room Air 01/15/23 15:44 BMI result Body Mass Index 37.2 Const General: healthy appearing, no acute distress and well developed Nutritional Appearance: obese Orientation/consciousness: patient oriented x3 HEENT Head: Yes normal to inspection, Yes normocephalic and Yes atraumatic Face and sinus: Yes normal facial exam Mouth: Normal oral and palatal mucosa present Throat: Yes posterior oropharynx normal, Yes tonsils normal and Yes uvula midline Eyes General: appearance normal, both eyes and all related structures Neck Neck: Yes normal visual inspection, Yes full ROM and Yes trachea midline Thyroid: Thyroid normal Resp Effort & Inspection: normal respiratory effort, able to speak in complete sentences, no tracheal deviation and symmetric chest movement Auscultation: clear to auscultation bilaterally Cardio Rate: regular rate Heart sounds: S1 normal heart sound present and S2 normal heart sound present GI Inspection: Yes normal to inspection, No distended and Yes obesity Palpation (GI): Soft to palpation, not firm, nontender and No hepatosplenomegaly present Auscultation: normal bowel sounds General: Yes no CVA tenderness Back/Spine/Pelvis Back: no CVA tenderness Skin General skin exam: elasticity normal, turgor normal and dry skin Neuro General: patient oriented x3 Psych Appearance: grossly normal Mental Status: mental status grossly normal Assessment & Plan Assessment & Plan (1) GERD (gastroesophageal reflux disease): Code(s): K21.9 - Gastro-esophageal reflux disease without esophagitis Qualifiers: Esophagitis presence: with esophagitis Esophagitis bleeding: without hemorrhage Qualified Code(s): K21.00 - Gastro-esophageal reflux disease with esophagitis, without bleeding (2) Epigastric discomfort: Code(s): R10.13 - Epigastric pain Plan Continue current treatment with omeprazole 40 mg half an hour before breakfast. Discussed with patient the importance of avoiding dietary triggers in late night snacking. Staying upright for minimum 3 hours after meals discussed with patient. Patient was encouraged to avoid NSAIDs. I will see patient in 6 months, sooner on as needed basis. She is agreeable to this plan and verbalizes understanding of instructions. She was given the opportunity to ask questions and all questions answered. Thank you for allowing me to participate in her care Medications: Changed From omeprazole 40 mg PO BID 60 caps 2RF K21.9 - Gastro-esophageal reflux disease without esophagitis To omeprazole 40 mg PO DAILY 90 caps 2RF K21.9 - Gastro-esophageal reflux disease without esophagitis Coding Level of Care Code Est Pt Level 3 (43870) Diagnoses Gastroesophageal reflux disease with esophagitis without hemorrhage K21.00 Esophagitis presence: with esophagitis Esophagitis bleeding: without hemorrhage Epigastric discomfort R10.13 Time Spent (min) 25 Comment 15 minutes spent with patient and additional 10 minutes spent reviewing her records
== END 2023-01-15 16:15 | disposition home or self-care (01) ==
PROVIDERS: PCP Nurse Practitioner Primary Care; Visit Provider Nurse Practitioner Family
DX: K21.00 Gastro-esophageal reflux disease with esophagitis, without bleeding (principal); R10.13 Epigastric pain
CPT/HCPCS: 99213

== ENCOUNTER → 2023-02-13 10:03 | Outpatient (REF) | payer MEDICARE, MEDICAID, SELFPAY ==
--- NOTE | 2023-02-13 10:05 | CA_ITS ---
Transthoracic Echocardiogram Patient (Last, First, Middle): Laila Ortiz, Gender: Female Date of : 1975 Age: 48 Procedure Date: 02/13/2023 Procedure Type: Transthoracic Echocardiogram Location: OP Height: 154.94 cm Weight: 90.72 kg BSA: 1.89 m2 Heart Rate: bpm BP: 140 / 88 mmHg Tennis Centre Manager: TO Referring MD: Federica VARGAS Cooky Machine Operator: Anand Mendez MD Symptoms: R07.2 - Precordial pain Study Quality: Fair/Contrast ECG Rhythm: Sinus Conclusions: - 1. Normal LV ejection fraction 55-60% with impaired relaxation filling pattern 2. Normal cardiac valvular Doppler 3. Upper limits of normal ascending aortic size 4. Normal RV systolic pressure 5. No gross pericardial effusion Findings Procedure Information Contrast agent, definity, is being given per protocol without apparent complications. Left Ventricle Normal left ventricular size, thickness, and systolic function. The visually estimated ejection fraction is between 55-60%. Spectral Doppler is indicative of an impaired relaxation filling pattern. E/E prime ratio is between 8 and 15 consistent with indeterminate filling pressures. Possible basal inferior and basal inferoseptal wall motion abnormality, could be accentuated because of slightly off axis views Right Ventricle Normal right ventricular cavity size and systolic function. Atria The left atrium is normal in size. Interatrial shunt cannot be excluded. The right atrium is normal in size. Aortic Valve Normal aortic valve structure and function. There is no aortic valve stenosis. There is no aortic valve regurgitation. Mitral Valve Normal mitral valve structure and function. There is trace mitral valve regurgitation. There is no mitral valve stenosis. Pulmonic Valve The pulmonic valve is likely normal. Tricuspid Valve Normal tricuspid valve structure. There is trace tricuspid valve regurgitation. The right ventricular systolic pressure is normal. The right ventricular systolic pressure is 18 mmHg. Normal right atrial pressure. There is no evidence of pulmonary hypertension. Great Vessels The pulmonary artery was not well visualized. Venous The inferior vena cava is normal in size and collapses greater than 50% with inspiration. Pericardium/Pleural There is no evidence of pericardial effusion. Prior Study Comparison No significant change compared to prior study dated: 07/21/2020. Measurements 2D Linear Measurements IVSd: 0.95 0.6-0.9/0.6-1.0 cm LVIDd: 4.98 3.9-5.3/4.2-5.9 cm LVIDd Index: 2.63 2.4-3.2/2.2-3.1 cm/m2 LVIDs: 3.21 2.0-3.6 cm LVPWd: 0.83 0.7-1.1 cm LA Diam: 2.90 2.7-3.8/3.0-4.0 cm LAIDs Index: 1.53 1.5-2.3 cm/m2 LV Mass: 193.97 67-162/88-224 g LV Mass Index: 102.63 43-95/49-115 g/m2 LVOT Diam: 2.00 3.0+(-)1.3 cm 2D Systolic Function EF 4C: 55.10 >55% EF 2C: 55.60 >55% EF BiP: 55.60 >55% Mitral Valve MV VTI: 0.18 MV Pk Terrell: 0.89 MV Mn Terrell: 0.62 MV Pk Grad: 3.00 MV Mn Grad: 2.00 MV Pk E: 0.72 MV PK A: 0.75 MV Decel Time: 151.00 E/A: 1.00 E'Lateral: 7.18 E'Medial: 5.11 E/E' Med: 14.00 E/E' Lat: 10.00 PHT: 44.00 MVA PHT: 5.00 MVA Continuity: 3.14 Decel [place]: 4.75 Aortic Valve AoV Pk Terrell: 1.23 AoV Mn Terrell: 0.82 AoV VTI: 0.24 AoV Pk Grad: 6.00 Aov Mn Grad: 3.00 YOKO Cont.VTI: 2.35 LVOT LVOT Pk Terrell: 0.99 LVOT Mn Terrell: 0.64 LVOT VTI: 0.18 LVOT Pk Grad: 4.00 LVOT Mn Grad: 2.00 LVOT Diam: 2.00 LVOT Area: 3.14 Diastolic Function MV Pk E: 0.72 MV Pk A: 0.75 E/A: 1.00 E'Medial: 5.11 E/E' Med: 14.00 E' Laterial: 7.18 E/E' Lat: 10.00 Right Ventricle TAPSE (mm): 18.40 TVS' Terrell: 10.40 Tricuspid Valve TR Pk Terrell: 1.91 TR Pk Grad: 15.00 RA Press: 3.00 RVSP: 18.00 Great Vessels Aorta Sinus of Valsalva: 3.34 2.0-3.5 cm Ao Asc: 3.60 2.1-3.4 cm Ao Arch: 3.00 Updated in Other Vendor System with Status of Final Anand Mendez MD electronically signed on 02/14/2023 3:26:23 PM with status of Final
== END ==
LOC: HO.CARD 10:03
PROVIDERS: Visit Provider Nurse Practitioner Family
DX: R07.2 Precordial pain (principal); I10 Essential (primary) hypertension
CPT/HCPCS: 93306; Q9957

== ENCOUNTER → 2023-02-13 10:05 | Outpatient (BNV) | payer MEDICARE, MEDICAID, SELFPAY | PROVIDERS: Visit Provider Internal Medicine Cardiovascular Disease | DX: R07.2 Precordial pain (principal) | CPT/HCPCS: 93306 ==

== ENCOUNTER 2023-02-18 10:57 | Outpatient (REF) | payer MEDICARE, MEDICAID, SELFPAY ==
--- NOTE | ~2023-02-18 | XR_ITS ---
EXAMINATION: XR ABDOMEN COMPLETE CLINICAL INDICATION: Abdominal distention, fatigue and cramping COMPARISON: None available. TECHNIQUE: 2 views of the abdomen. FINDINGS: No radiographic evidence of bowel obstruction. Solid visceral outlines are obscured. Pelvic soft tissue density likely bladder. Phleboliths. Possible basilar opacities. Bony structures are intact. XR/XR abdomen 3V IMPRESSION: Nonobstructive bowel pattern. Possible increased markings lung bases, right greater than left. Consider chest radiograph.
[2023-02-18 13:27] LABS: MANUAL DIFF FLAG NO
[2023-02-18 13:33] LABS: Basophils Absolute Auto 0.1 X10*3/uL (0.0-0.2); Basophils Percent Auto 0.7 % (0-2); Eosinophils Percent Auto 0.3 % (0-4); Hematocrit 40.5 % (37.0-47.0); Hemoglobin 11.9 g/dl (12.0-16.0); Imm Gran Abs Auto 0.02 X10*3/uL (0.00-0.03); Imm Gran Pct Auto 0.2 % (0.0-0.4); Lymphocytes Absolute Auto 1.8 X10*3/uL (1.2-4.9); Lymphocytes Percent Auto 21.1 % (20-40); Mean Corpuscular HGB Conc 29.4 g/dl (31.0-35.0); Mean Corpuscular Hemoglobin 23.9 pg (27.0-33.0); Mean Corpuscular Volume 81.5 fL (80.0-98.0); Monocytes Absolute Auto 0.5 X10*3/uL (0.1-1.2); Neutrophils Absolute Auto 6.3 x10*3/uL (2.0-8.3); Neutrophils Percent Auto 71.7 % (45-73); Platelet Count 429 X10*3/uL (160-400); Red Blood Count 4.97 X10*6/uL (4.20-5.50); Red Cell Distribution Width 16.1 % (11.0-16.0); White Blood Count 8.7 X10*3/uL (4.8-10.8)
[2023-02-18 14:31] LABS: Alanine Aminotransferase 35 U/L (0-31); Albumin Level 4.5 g/dL (3.5-5.0); Alkaline Phosphatase 91 U/L (39-117); Anion Gap 15 (12-20); Aspartate Amino Transferase 21 U/L (5-31); Bilirubin Total 0.3 mg/dL (0.0-1.0); Blood Urea Nitrogen 19 mg/dL (9-16); Carbon Dioxide 26 mmol/L (22-29); Chloride 98 mmol/L (96-108); Estimated Glomerular Filt Rate > 60; Glucose Random 75 mg/dL (60-115); Potassium 3.9 mmol/L (3.3-5.1); Sodium 135 mmol/L (135-145); Total Protein 8.8 g/dL (6.5-8.0)
== END 2023-02-18 10:58 | disposition home or self-care (01) ==
LOC: HO.HHCL 10:57
PROVIDERS: Visit Provider Internal Medicine
DX: R14.0 Abdominal distension (gaseous) (principal)
CPT/HCPCS: 36415; 74021; 80053; 85025

== ENCOUNTER 2023-02-19 17:40 | Emergency (ER) | payer MEDICARE, MEDICAID, SELFPAY ==
--- NOTE | ~2023-02-19 | CT_ITS ---
EXAMINATION: CT ABDOMEN AND PELVIS WITHOUT CONTRAST CLINICAL INFORMATION: Abdominal pain COMPARISON: CT abdomen and pelvis 11/09/2022 TECHNIQUE: Multidetector volumetric imaging was performed from the superior aspect of the liver through the pubic symphysis. Sagittal and coronal reformatted images were obtained on the technologist's workstation. This CT examination was performed using dose optimization techniques as appropriate, variously including the following: *Automated exposure control *Adjustment of mA and/or kV according to patient size (this includes techniques or standardized protocols for targeted exams where dose is matched to indication/reason for exam; i.e. extremities or head) *Use of iterative reconstruction technique DLP: 646 mGy-cm FINDINGS: LUNG BASES: The visualized lung bases are unremarkable. There is noncalcified 2 mm subpleural calcified nodules in both lower lobes likely small heart size is normal. Granulomas. LIVER, GALLBLADDER, AND BILIARY TREE: The liver is normal in size, shape, and attenuation. No focal hepatic lesion or biliary ductal dilatation is present. The gallbladder is unremarkable with no evidence of radiopaque gallstones, gallbladder wall thickening, or obvious pericholecystic inflammatory changes. PANCREAS: Unremarkable. SPLEEN: Unremarkable. ADRENAL GLANDS: Unremarkable. KIDNEYS AND URETERS: The kidneys are normal in size, shape, and attenuation. No hydronephrosis, hydroureter, or calculi seen. No perinephric stranding. BLADDER: Unremarkable. GASTROINTESTINAL TRACT: The small and large bowel are unremarkable. The appendix is unremarkable. ABDOMINAL WALL: No significant hernia is appreciated. LYMPH NODES: Normal. VASCULAR: Unremarkable. PELVIC VISCERA: The uterus is anteverted with 4 cm left ovarian cyst posterior to the uterus. There is no free fluid. No abnormal adenopathy or mass OSSEOUS STRUCTURES: Unremarkable. CT/CT abdomen pelvis wo IV con IMPRESSION: 1. No acute intra-abdominal process seen. 2. 4 cm left ovarian cyst. 3. There is noncalcified 2 mm subpleural calcified nodules in both lower lobes likely small heart size is normal. Fleischner guidelines were followed.
--- NOTE | 2023-02-19 18:28 | ED_ITS ---
HPI - Abdominal Pain General Chief Complaint: Abdominal Pain Stated Complaint: fluid rtn in stomach, contractions? meds no work Related Data Home Medications Medication Instructions Recorded Confirmed atorvastatin 20 mg tablet 20 mg PO BEDTIME 04/16/21 01/14/23 duloxetine 60 mg capsule,delayed 60 mg PO BID 04/16/21 01/14/23 release hydrochlorothiazide 25 mg tablet 25 mg PO DAILY 04/16/21 01/14/23 lamotrigine 200 mg tablet 200 mg PO DAILY 04/16/21 01/14/23 lamotrigine 25 mg tablet,extended 25 mg PO DAILY 04/16/21 01/14/23 release 24 hr cholecalciferol (vitamin D3) 1,250 1,250 mcg PO QWEEK 01/30/22 01/14/23 mcg (50,000 unit) capsule sucralfate 100 mg/mL oral 10 ml PO DAILY 12/06/22 01/14/23 suspension pregabalin 75 mg capsule 150 mg PO BID 01/15/23 Previous Rx's Medication Instructions Recorded docusate sodium 100 mg capsule 100 mg PO BEDTIME #90 caps 01/11/22 sennosides 8.6 mg tablet (Natural 17.2 mg (2 x 8.6 mg) PO BEDTIME 01/11/22 Senna Laxative) constipation #180 tabs omeprazole 40 mg capsule,delayed 40 mg PO DAILY #90 caps 01/15/23 release lisinopril 20 mg tablet 20 mg PO DAILY 90 days #90 tabs 01/17/23 metoprolol succinate 25 mg 25 mg PO DAILY #30 tabs 02/04/23 tablet,extended release 24 hr furosemide 20 mg tablet 20 mg PO QAM PRN Edema #7 tabs 02/10/23 Allergies Allergy/AdvReac Type Severity Reaction Status Date / Time cat dander [CATS] Allergy Intermediate Itching Verified 02/19/23 18:32 haloperidol [From HALDOL] Allergy Intermediate SWELLING, Verified 02/19/23 18:32 hives risperidone [From RISPERDAL] Allergy Intermediate HIVES, Verified 02/19/23 18:32 swelling shrimp Allergy Intermediate Swelling Verified 02/19/23 18:32 COCKROACHES Allergy Intermediate Itching Uncoded 01/15/23 15:45 PMFSH Past Medical History Medical History PMR (polymyalgia rheumatica) Knee pain, bilateral Low back pain Ambulates with cane Hx of malignant neoplasm of kidney History of seizure Bipolar disorder Anxiety and depression Fibromyalgia High cholesterol Surgical History History of esophagogastroduodenoscopy (EGD) Hx of colonoscopy History of loop electrical excision procedure (LEEP) History of carpal tunnel surgery of right wrist History of bilateral tubal ligation Family History Family History Mother Kidney failure Diabetes COPD (chronic obstructive pulmonary disease) Heart disease Father Colon cancer Social History Social History Are you a primary animal care attendant to a significant other at home: No Do you presently have visiting nurse or other home services: No Alcohol intake: never Patient Tobacco Use Status: Current everyday Tobacco user Tobacco use type: Cigarette Cigarettes Per Day: 3 Advance Directives: No Advance Directives Information Provided: No service: No Current occupational status: disabled Physical Exam ED Vital Signs: BMI result Body Mass Index 36.1 Course Course Course Narrative: This is an RME: Additional HPI, ROS, PE not included below will be deferred to primary provider. This is a 48-year-old female, with a history of PMR, seizure disorder, bipolar disorder, presenting to the emergency department, complaints of abdominal distension and abdominal pain. Plan: Labs, CT abdomen, UA Reevaluation(s) Reevaluation #1: pt eloped prior to completing treatment Medical Decision Making Lab Data 02/19/23 19:11 02/19/23 19:11 Labs: Lab Results 02/19/23 Range/Units 19:11 WBC 10.1 (4.8-10.8) X10*3/uL RBC 4.97 (4.20-5.50) X10*6/uL Hgb 11.9 L (12.0-16.0) g/dl Hct 39.0 (37.0-47.0) % MCV 78.5 L (80.0-98.0) fL MCH 23.9 L (27.0-33.0) pg MCHC 30.5 L (31.0-35.0) g/dl RDW 15.7 (11.0-16.0) % Plt Count 415 H (160-400) X10*3/uL MPV 9.3 L (9.4-12.3) fL Immature Gran % (Auto) 0.2 (0.0-0.4) % Neut % (Auto) 68.7 (45-73) % Lymph % (Auto) 24.6 (20-40) % [place] % (Auto) 5.0 (2-11) % Eos % (Auto) 0.7 (0-4) % Baso % (Auto) 0.8 (0-2) % Lymph # (Auto) 2.5 (1.2-4.9) X10*3/uL [place] # (Auto) 0.5 (0.1-1.2) X10*3/uL Eos # (Auto) 0.1 (0.0-0.4) X10*3/uL Baso # (Auto) 0.1 (0.0-0.2) X10*3/uL Abs Immat Gran (auto) 0.02 (0.00-0.03) X10*3/uL Absolute Neuts (auto) 6.9 (2.0-8.3) x10*3/uL Absolute Nucleated RBC 0.000 (0.0-0.012) X10*3/uL Nucleated RBC % (auto) 0.0 (0.0-0.2) /100WBC Sodium 137 (135-145) mmol/L Potassium 3.9 (3.3-5.1) mmol/L Chloride 101 (96-108) mmol/L Carbon Dioxide 26 (22-29) mmol/L Anion Gap 14 (12-20) BUN 14 (9-16) mg/dL Creatinine 0.85 (0.5-1.4) mg/dL Estim Creat Clear Calc 81.8 Estimated GFR > 60 Random Glucose 84 (60-115) mg/dL Calcium 10.1 (8.4-10.2) mg/dL Total Bilirubin 0.2 (0.0-1.0) mg/dL Direct Bilirubin < 0.2 (0.0-0.5) mg/dL AST 20 (5-31) U/L ALT 38 H (0-31) U/L Alkaline Phosphatase 93 (39-117) U/L Total Protein 8.7 H (6.5-8.0) g/dL Albumin 4.5 (3.5-5.0) g/dL Lipase 22 (8-78) U/L Urine Color Yellow Urine Appearance Clear Urine pH 6.5 (5.0-9.0) Ur Specific [place] 1.010 (1.005-1.025) Urine Protein Negative (Neg-Trace) mg/dL Urine Glucose (UA) Negative (Negative) mg/dL Urine Ketones Negative (Negative) mg/dL Urine Blood Large (3+) H (Negative) Urine Nitrite Negative (Negative) Ur Leukocyte Esterase Negative (Negative) Urine RBC >20 H (0-2) /HPF Urine WBC 0-5 (0-5) /HPF Ur Squamous Epith Cells 3-5 (0-2) /HPF Urine Bacteria None Seen (None Seen) Hyaline Casts 0-2 (0-2) /LPF Discharge Plan Discharge Clinical Impression: Abdominal pain Patient Disposition: Left W/O Completing Treatment Prescriptions: No Action metoprolol succinate 25 mg tablet extended release 24 hr 25 mg PO DAILY Qty: 30 2RF furosemide 20 mg tablet 20 mg PO QAM PRN (Reason: Edema) Qty: 7 0RF sucralfate 100 mg/mL suspension 10 ml PO DAILY pregabalin 75 mg capsule 150 mg PO BID hydrochlorothiazide 25 mg tablet 25 mg PO DAILY duloxetine 60 mg capsule,delayed release(DR/EC) 60 mg PO BID lamotrigine 25 mg tablet extended release 24hr 25 mg PO DAILY Patient Comments: total dose 225 q am lamotrigine 200 mg tablet 200 mg PO DAILY Patient Comments: total dose 225 q am atorvastatin 20 mg tablet 20 mg PO BEDTIME sennosides [Natural Senna Laxative] 8.6 mg tablet 17.2 mg PO BEDTIME Qty: 180 3RF docusate sodium 100 mg capsule 100 mg PO BEDTIME Qty: 90 3RF cholecalciferol (vitamin D3) 1,250 mcg (50,000 unit) capsule 1,250 mcg PO QWEEK lisinopril 20 mg tablet 20 mg PO DAILY 90 Days Qty: 90 1RF omeprazole 40 mg capsule,delayed release(DR/EC) 40 mg PO DAILY Qty: 90 2RF Discharge Date/Time: 02/20/23 01:03
[2023-02-19 18:29] VITALS: BP 144/86; PULSE 82; RESP 20; TEMP 36.7; O2SAT 99; BMI 36.1
--- NOTE | 2023-02-19 19:13 | MHC.EDTECH ---
Patient brought in from waiting room,labs and a urine were obtained and sent to lab. Patient brought back to .
[2023-02-19 19:18] LABS: MANUAL DIFF FLAG NO
[2023-02-19 19:19] LABS: Basophils Absolute Auto 0.1 X10*3/uL (0.0-0.2); Basophils Percent Auto 0.8 % (0-2); Eosinophils Absolute Auto 0.1 X10*3/uL (0.0-0.4); Eosinophils Percent Auto 0.7 % (0-4); Hemoglobin 11.9 g/dl (12.0-16.0); Imm Gran Abs Auto 0.02 X10*3/uL (0.00-0.03); Imm Gran Pct Auto 0.2 % (0.0-0.4); Lymphocytes Absolute Auto 2.5 X10*3/uL (1.2-4.9); Lymphocytes Percent Auto 24.6 % (20-40); Mean Corpuscular HGB Conc 30.5 g/dl (31.0-35.0); Mean Corpuscular Hemoglobin 23.9 pg (27.0-33.0); Mean Corpuscular Volume 78.5 fL (80.0-98.0); Mean Platelet Volume 9.3 fL (9.4-12.3); Monocytes Absolute Auto 0.5 X10*3/uL (0.1-1.2); Neutrophils Absolute Auto 6.9 x10*3/uL (2.0-8.3); Neutrophils Percent Auto 68.7 % (45-73); Platelet Count 415 X10*3/uL (160-400); Red Blood Count 4.97 X10*6/uL (4.20-5.50); Red Cell Distribution Width 15.7 % (11.0-16.0); White Blood Count 10.1 X10*3/uL (4.8-10.8)
[2023-02-19 19:23] LABS: Appearance Urine Clear; Color Urine Yellow; Glucose Urine UA Negative (Negative); Leukocyte Esterase Urine Negative (Negative); Nitrite Urine Negative (Negative); PH 6.5 (5.0-9.0); UMIC TRIGGER UACC YES; Urine Blood Large (3+) (Negative); Urine Ketones Negative (Negative); Urine Protein Negative (Neg-Trace)
[2023-02-19 19:28] LABS: Bacteria Urine None Seen (None Seen); Hyaline Casts Urine 0-2 /LPF (0-2); RBC Urine >20 /HPF (0-2); WBC Urine 0-5 /HPF (0-5)
[2023-02-19 19:54] LABS: Alanine Aminotransferase 38 U/L (0-31); Albumin Level 4.5 g/dL (3.5-5.0); Alkaline Phosphatase 93 U/L (39-117); Anion Gap 14 (12-20); Aspartate Amino Transferase 20 U/L (5-31); Bilirubin Direct < 0.2 mg/dL (0.0-0.5); Bilirubin Total 0.2 mg/dL (0.0-1.0); Blood Urea Nitrogen 14 mg/dL (9-16); Calcium 10.1 mg/dL (8.4-10.2); Carbon Dioxide 26 mmol/L (22-29); Chloride 101 mmol/L (96-108); Creatinine Clr Calc Pharmacy 81.8; Estimated Glomerular Filt Rate > 60; Glucose Random 84 mg/dL (60-115); Lipase 22 U/L (8-78); Potassium 3.9 mmol/L (3.3-5.1); Sodium 137 mmol/L (135-145); Total Protein 8.7 g/dL (6.5-8.0)
== END 2023-02-20 01:03 | disposition left against medical advice (07) ==
PROVIDERS: Physician Assistant Medical; Emergency Provider Emergency Medicine; PCP Nurse Practitioner Primary Care
DX: R10.9 Unspecified abdominal pain (principal); I10 Essential (primary) hypertension; E78.00 Pure hypercholesterolemia, unspecified; F17.210 Nicotine dependence, cigarettes, uncomplicated; Z79.899 Other long term (current) drug therapy; Z79.02 Long term (current) use of antithrombotics/antiplatelets
CPT/HCPCS: 36415; 74176; 80048; 80076; 81001; 83690; 85025; 99282; 99284

== ENCOUNTER 2023-03-20 09:08 | Outpatient (AMB) | payer MEDICARE, MEDICAID, SELFPAY ==
[2023-03-20 09:34] VITALS: BP 120/72; PULSE 80; BMI 36.2
--- NOTE | 2023-03-20 09:34 | MHC.OFFVIS ---
Intake Vital Signs 03/20/23 09:34 Height 5 ft 1 in Weight 191 lb 12.835 oz BMI 36.2 BP 120/72 Blood Pressure Location Lt brachial Position Sitting Pulse 80 Pulse Source Pulse Oximeter Intake Visit Reasons: Follow up post echo & CTA Intake Note: f/up post echo & Cta pt its feeling fine. Computational Biologist Required: No Accompanied by: Self / Same As Patient Allergies cat dander [CATS] Allergy (Intermediate, Verified 02/19/23 18:32) Itching haloperidol [From HALDOL] Allergy (Intermediate, Verified 02/19/23 18:32) SWELLING, hives risperidone [From RISPERDAL] Allergy (Intermediate, Verified 02/19/23 18:32) HIVES, swelling shrimp Allergy (Intermediate, Verified 02/19/23 18:32) Swelling COCKROACHES Allergy (Intermediate, Uncoded 01/15/23 15:45) Itching Medication List - Last Reconciled 03/20/23 by DENZEL MirandaC atorvastatin 20 mg PO BEDTIME cholecalciferol (vitamin D3) 1,250 mcg PO QWEEK docusate sodium 100 mg PO BEDTIME duloxetine 60 mg PO BID furosemide 20 mg PO QAM PRN hydrochlorothiazide 25 mg PO DAILY lamotrigine 200 mg PO DAILY lamotrigine ER 25 mg PO DAILY lisinopril 20 mg PO DAILY 90 days metoprolol succinate ER 25 mg PO DAILY omeprazole 40 mg PO DAILY pregabalin 150 mg PO BID sennosides (Natural Senna Laxative) 17.2 mg (2 x 8.6 mg) PO BEDTIME sucralfate 10 mL PO DAILY HPI Follow up post echo & CTA HPI Details Laila is a 48-year-old female with past medical history hypertension, hyperlipidemia, obesity, fibromyalgia who had reported sharp chest discomfort and underwent a CTA of the coronary arteries as well as echocardiogram and now presents for follow-up. Today she reports the sharp pains in her chest have lessened. She only has had it on a few occasions but it does cause her much concern. She has no clear chest discomfort brought on by physical activity. She has various joint and muscle pains over her body which she relates to her fibromyalgia. She is currently using a cane for steady ambulation. Mild shortness of breath with activity but admits to being mostly sedentary. No concerning palpitations, presyncope, syncope, PND, orthopnea or edema. Taking all meds as directed. [facility]LY [facility] Medical History PMR (polymyalgia rheumatica) Knee pain, bilateral Low back pain Ambulates with cane Hx of malignant neoplasm of kidney History of seizure Bipolar disorder Anxiety and depression Fibromyalgia High cholesterol Surgical History History of esophagogastroduodenoscopy (EGD) Hx of colonoscopy History of loop electrical excision procedure (LEEP) History of carpal tunnel surgery of right wrist History of bilateral tubal ligation Family History Mother Kidney failure Diabetes COPD (chronic obstructive pulmonary disease) Heart disease Father Colon cancer Social History Are you a primary healthcare recruiter to a significant other at home: No Do you presently have visiting nurse or other home services: No Alcohol intake: never Patient Tobacco Use Status: Current everyday Tobacco user Tobacco use type: Cigarette Cigarettes Per Day: 3 service: No Current occupational status: disabled Review of Systems Const All systems reviewed & are unremarkable except as noted in HPI and below Denies chills, Denies fatigue, Denies fever(s), Denies frequent falls, Denies weakness, Denies weight gain and Denies weight loss ENT Denies dizziness Card Denies chest pain, Denies leg edema, Denies lightheadedness, Denies palpitations, Denies dyspnea and Denies dyspnea on exertion Resp Reports cough, Denies dyspnea and Denies dyspnea on exertion GI Reports hematochezia Musc Details: joint aches and pains - which she relates to fibromyalgia. uses cane for ambulation Reports abnormal gait, Reports myalgias, Reports arthralgias, Denies muscle weakness, Denies numbness, Denies radiating pain into limb and Denies tingling Neuro Reports abnormal gait, Denies dizziness, Denies frequent falls, Denies numbness, Denies tingling and Denies weakness Endo Denies fatigue and Denies palpitations Physical Exam Vital Signs: Last Vital Signs Pulse 80 03/20/23 09:34 BP 120/72 03/20/23 09:34 BMI result Body Mass Index 36.2 Const General: cooperative, healthy appearing, comfortable and no acute distress Orientation/consciousness: patient oriented x3 Neck Neck: Yes normal visual inspection and Yes no JVD Chest Chest palpation & inspection: normal inspection of the chest Resp Effort & Inspection: normal respiratory effort Auscultation: clear to auscultation bilaterally, no rales and no rhonchi Cardio Jugular venous distension: no JVD Rate: regular rate Rhythm: regular rhythm Heart sounds: S1 normal heart sound present, S2 normal heart sound present, no murmurs and no rubs Neuro General: patient oriented x3 Extrem General: Yes normal to inspection, No no pedal edema and No calf tenderness Psych Appearance: grossly normal Mental Status: mental status grossly normal Speech and movement: Normal speech and movement present Assessment & Plan Assessment & Plan (1) Precordial chest pain: Code(s): R07.2 - Precordial pain Plan: On last visit Reported of sharp anterior chest discomfort lasting several minutes on various occasions including activity and rest. Overall atypical for angina. Prior nuclear stress test done 05/17/2022 showed normal myocardial perfusion imaging. Echocardiogram done 07/21/2020 showed EF 60-65%, no regional wall motion abnormalities. She does have cardiac risk factors of hypertension, hyperlipidemia, obesity and family history. Mother had [place] in her 50s. She does have history of fibromyalgia which may contribute to her symptoms. For further evaluation she had an echocardiogram done on 02/13/2023 showing EF 55-60%, no valve abnormalities. A CTA of the coronary arteries was done on 03/12/2023 showing no significant coronary artery disease, incidentall finding of patent [place]. Reviewed results with her. Has not had this sharp chest discomfort recently. Informed this is likely noncardiac in nature. Offered reassurance. Signs and symptoms of true angina reviewed. Cardiology follow-up as needed. (2) Essential hypertension: Code(s): I10 - Essential (primary) hypertension Plan: Well controlled at this time. No medication changes made. Continue hydrochlorothiazide, lisinopril and metoprolol. Labs 02/19/2023 showed potassium 3.9, creatinine 0.85. Can be further managed by her PCP. Plan Time spent on chart review, documentation, interview and assessment Coding Level of Care Code Est Pt Level 3 (54585) Diagnoses Precordial chest pain R07.2 Essential hypertension I10 Time Spent (min) 22
== END 2023-03-20 10:00 | disposition home or self-care (01) ==
PROVIDERS: PCP Nurse Practitioner Primary Care; Visit Provider Nurse Practitioner Family
DX: R07.2 Precordial pain (principal); I10 Essential (primary) hypertension
CPT/HCPCS: 99213

== ENCOUNTER → 2023-03-20 09:08 | Outpatient (BNVA) | payer MEDICARE, MEDICAID, SELFPAY | PROVIDERS: PCP Nurse Practitioner Primary Care; Visit Provider Nurse Practitioner Family | DX: R07.2 Precordial pain (principal); I10 Essential (primary) hypertension | CPT/HCPCS: 99212 ==

== ENCOUNTER 2023-03-21 09:48 | Outpatient (REF) | payer MEDICARE, MEDICAID, SELFPAY | END 2023-03-21 09:49 | disposition home or self-care (01) | LOC: HO.US 09:48 | PROVIDERS: PCP Nurse Practitioner Primary Care; Visit Provider Internal Medicine | DX: R14.0 Abdominal distension (gaseous) (principal) | CPT/HCPCS: 76700 ==

== ENCOUNTER 2023-05-08 09:36 | Outpatient (REF) | payer MEDICARE, MEDICAID, SELFPAY ==
[2023-05-08 11:57] LABS: Anion Gap 13 (12-20); Blood Urea Nitrogen 26 mg/dL (9-16); Calcium 10.6 mg/dL (8.4-10.2); Carbon Dioxide 29 mmol/L (22-29); Chloride 102 mmol/L (96-108); Estimated Glomerular Filt Rate > 60; Glucose Random 93 mg/dL (60-115); Potassium 4.3 mmol/L (3.3-5.1); Sodium 140 mmol/L (135-145)
[2023-05-08 12:13] LABS: Creatinine Urine 183.52 mg/dL; Microalbum/Creatinine Ratio Ur 10.8 ug/mg cr (<30)
== END 2023-05-08 09:37 | disposition home or self-care (01) ==
LOC: HO.HHCL 09:36
PROVIDERS: Visit Provider Nurse Practitioner Primary Care
DX: I10 Essential (primary) hypertension (principal); N17.9 Acute kidney failure, unspecified
CPT/HCPCS: 36415; 80048; 82043; 82570

== ENCOUNTER 2024-01-18 03:01 | Emergency (ER) | payer MEDICARE, MEDICAID, SELFPAY ==
[2024-01-18 03:02] VITALS: BP 136/94; PULSE 113; RESP 20; TEMP 36.7; O2SAT 99; BMI 35.9
--- NOTE | 2024-01-18 03:23 | ED_ITS ---
HPI - General Adult General Chief complaint: Fall Stated complaint: Fall Time Seen by Provider: 01/18/24 03:22 Source: patient Mode of arrival: ambulatory Limitations: no limitations History of Present Illness ED Provider: andi GARCIA narrative: Patient with History of fibromyalgia polymyalgia rheumatica limited mobility use his cane because of pain woke up from sleep get of the bed and fell to the floor landed on the right side picked up by the EMS and taken to [facility] left against medical last advised as because of poor care complaining of pain in the right shoulder lower extremity and lower back Related Data Home Medications ?Medication ?Instructions ?Recorded ?Confirmed atorvastatin 20 mg tablet 20 mg PO BEDTIME 04/16/21 03/20/23 duloxetine 60 mg capsule,delayed 60 mg PO BID 04/16/21 03/20/23 release hydrochlorothiazide 25 mg tablet 25 mg PO DAILY 04/16/21 03/20/23 lamotrigine 200 mg tablet 200 mg PO DAILY 04/16/21 03/20/23 lamotrigine 25 mg tablet,extended 25 mg PO DAILY 04/16/21 03/20/23 release 24 hr cholecalciferol (vitamin D3) 1,250 1,250 mcg PO QWEEK 01/30/22 03/20/23 mcg (50,000 unit) capsule sucralfate 100 mg/mL oral 10 ml PO DAILY 12/06/22 03/20/23 suspension pregabalin 75 mg capsule 150 mg PO BID 01/15/23 03/20/23 Previous Rx's ?Medication ?Instructions ?Recorded docusate sodium 100 mg capsule 100 mg PO BEDTIME #90 caps 01/11/22 omeprazole 40 mg capsule,delayed 40 mg PO DAILY #90 caps 01/15/23 release furosemide 20 mg tablet 20 mg PO QAM PRN Edema #7 tabs 02/10/23 sennosides 8.6 mg tablet (Natural 17.2 mg (2 x 8.6 mg) PO BEDTIME 03/20/23 Senna Laxative) constipation #180 tabs metoprolol succinate 25 mg 25 mg PO DAILY #90 tabs 05/01/23 tablet,extended release 24 hr lisinopril 20 mg tablet 20 mg PO DAILY 90 days #90 tabs 08/21/23 Allergies Allergy/AdvReac Type Severity Reaction Status Date / Time cat dander [CATS] Allergy Intermediate Itching Verified 01/18/24 03:07 haloperidol [From HALDOL] Allergy Intermediate SWELLING, Verified 01/18/24 03:07 hives risperidone [From RISPERDAL] Allergy Intermediate HIVES, Verified 01/18/24 03:07 swelling shrimp Allergy Intermediate Swelling Verified 01/18/24 03:07 COCKROACHES Allergy Intermediate Itching Uncoded 01/15/23 15:45 Review of Systems Review of Systems: Yes all other systems are reviewed and are negative PMFSH Past Medical History Medical History PMR (polymyalgia rheumatica) Knee pain, bilateral Low back pain Ambulates with cane Hx of malignant neoplasm of kidney History of seizure Bipolar disorder Anxiety and depression Fibromyalgia High cholesterol Surgical History History of esophagogastroduodenoscopy (EGD) Hx of colonoscopy History of loop electrical excision procedure (LEEP) History of carpal tunnel surgery of right wrist History of bilateral tubal ligation Family History Family History Mother Kidney failure Diabetes COPD (chronic obstructive pulmonary disease) Heart disease Father Colon cancer Social History Social History Are you a primary career transition specialist to a significant other at home: No Do you presently have visiting nurse or other home services: No Alcohol intake: never Patient Tobacco Use Status: Current everyday Tobacco user Tobacco use type: Cigarette Cigarettes Per Day: 3 Smoked in Last 30 Days: Yes Use of substances other than those prescribed or required for medical reasons: No Advance Directives: No Advance Directives Information Provided: No Do you have a plan to hurt others: No Plan service: No Current occupational status: disabled Physical Exam ED Vital Signs: Vital Signs - 24 hr 01/18/24 03:02 Temperature 98.1 F Pulse Rate 113 H Respiratory Rate 20 Blood Pressure 136/94 H Pulse Oximetry 99 Oxygen Delivery Method Room Air BMI result Body Mass Index 35.9 Appearance: Alert. Oriented X3. No acute distress. Sleepy Eyes: PERRLA, No Nystagmus ENT: Pharynx normal. Oral Mucosa moist Neck: Normal inspection. Neck supple. CVS: Normal heart rate and rhythm. Pulses normal. Respiratory: No respiratory distress. Equal air entry bilateral, no wheezing/rales/rhonchi Abdomen: Soft and nontender. Bowel sounds are present, no mass palpable, no CVA tenderness Skin: Skin warm and dry. Normal skin color. Normal skin turgor. Extremities: No lower extremity edema. No calf tenderness diffuse muscular pain in right shoulder with good range of movement lower spine nontender tenderness around the and right paraspinal area SLR negative patient able to stand and walk Neuro: Oriented X 3. No motor deficit. No sensory deficit.No cerebellar signs , cranial nerves II-XII intact Medications Administered Discontinued Medications Generic Name Dose Route Start Last Admin Trade Name Freq PRN Reason Stop Dose Admin Ketorolac Tromethamine 60 mg 01/18/24 03:46 01/18/24 03:52 Ketorolac Tromethamine 60 Mg/2 Ml Vial IM 01/18/24 03:47 60 mg ONCE ONE Administration Medical Decision Making Medical Decision Making [facility] Narrative: Patient is status post mechanical fall asking for alcohol or drug screening test as her DOCUMENT IMAGING SPECIALIST care needs to be sure that she not using alcohol or drug which was negative no signs of significant injury patient is ambulatory will discharge patient home Lab Data [facility] Lab Attestation statement: I reviewed the patient's lab results. Labs: Lab Results 01/18/24 01/18/24 Range/Units 03:51 04:27 Urine Opiates Screen Not Detected (Not Detect) Ur Buprenorphine Scrn Not Detected (Not Detect) ng/mL Ur Oxycodone Screen Not Detected (Not Detect) ng/mL Urine Methadone Screen Not Detected (Not Detect) ng/mL Urine Fentanyl Screen Not Detected (Not Detect) Ur Barbiturates Screen Not Detected (Not Detect) Ur Phencyclidine Scrn Not Detected (Not Detect) Ur Amphetamines Screen Not Detected (Not Detect) U Benzodiazepines Scrn Not Detected (Not Detect) Urine Cocaine Screen Not Detected (Not Detect) U Marijuana (THC) Screen Not Detected (Not Detect) Ethyl Alcohol < 10 mg/dL Discharge Plan Discharge Clinical Impression: Contusion, Fibromyalgia Patient Disposition: Home, Self-Care Instructions: Fibromyalgia (ED), Musculoskeletal Pain (ED) Additional Instructions: Continue take your medication as prescribed by your PCP Care and cautions as advised Prescriptions: No Action furosemide 20 mg tablet 20 mg PO QAM PRN (Reason: Edema) Qty: 7 0RF sennosides [Natural Senna Laxative] 8.6 mg tablet 17.2 mg PO BEDTIME Qty: 180 3RF metoprolol succinate 25 mg tablet extended release 24 hr 25 mg PO DAILY Qty: 90 3RF lisinopril 20 mg tablet 20 mg PO DAILY 90 Days Qty: 90 1RF sucralfate 100 mg/mL suspension 10 ml PO DAILY pregabalin 75 mg capsule 150 mg PO BID hydrochlorothiazide 25 mg tablet 25 mg PO DAILY duloxetine 60 mg capsule,delayed release(DR/EC) 60 mg PO BID lamotrigine 25 mg tablet extended release 24hr 25 mg PO DAILY Patient Comments: total dose 225 q am lamotrigine 200 mg tablet 200 mg PO DAILY Patient Comments: total dose 225 q am atorvastatin 20 mg tablet 20 mg PO BEDTIME docusate sodium 100 mg capsule 100 mg PO BEDTIME Qty: 90 3RF cholecalciferol (vitamin D3) 1,250 mcg (50,000 unit) capsule 1,250 mcg PO QWEEK omeprazole 40 mg capsule,delayed release(DR/EC) 40 mg PO DAILY Qty: 90 2RF Interventions: ED Discharge Assessment Last Done: 01/18/24 04:56 Discharge Date/Time: 01/18/24 04:58 Print Language: Indonesian
[2024-01-18 03:25] VITALS: BP 140/84; PULSE 102; RESP 18; TEMP 36.7; O2SAT 98
[2024-01-18] MEDS: Ketorolac Tromethamine 60 MG/2 ML VIAL IM (03:52)
[2024-01-18 04:24] LABS: Ethanol < 10 mg/dL
[2024-01-18 04:45] LABS: Amphetamine Screen Urine Not Detected (Not Detect); Barbiturates, Urine Not Detected (Not Detect); Benzodiazepines Screen Urine Not Detected (Not Detect); Buprenorphine Scr Not Detected (Not Detect); Cannabinoid Screen Urine Not Detected (Not Detect); Cocaine Screen Urine Not Detected (Not Detect); Fentanyl, urine Not Detected (Not Detect); Methadone Screen, Urine Not Detected (Not Detect); Opiate Screen Urine Not Detected (Not Detect); Oxycodone Screen Urine Not Detected (Not Detect); Phencyclidine Screen Urine Not Detected (Not Detect)
[2024-01-18 04:56] VITALS: BP 138/78; PULSE 95; RESP 18; TEMP 36.8; O2SAT 98
== END 2024-01-18 04:58 | disposition home or self-care (01) ==
PROVIDERS: Emergency Provider Internal Medicine; PCP Nurse Practitioner Primary Care
DX: S39.92XA Unspecified injury of lower back, initial encounter (principal); W01.0XXA Fall on same level from slipping, tripping and stumbling without subsequent striking against object, initial encounter; Y93.89 Activity, other specified; Y92.89 Other specified places as the place of occurrence of the external cause; Y99.8 Other external cause status; Z51.81 Encounter for therapeutic drug level monitoring; Z79.899 Other long term (current) drug therapy
CPT/HCPCS: 36415; 80307; 96372; 99284; J1885

== ENCOUNTER 2024-01-19 10:15 | Outpatient (REF) | payer MEDICARE, MEDICAID, SELFPAY ==
--- NOTE | ~2024-01-19 | MM_ITS ---
EXAMINATION: MM SCREENING DIGITAL BREAST TOMOSYNTHESIS, BILATERAL CLINICAL INFORMATION: Screening. Asymptomatic. COMPARISON: Mammography: Comparison is made with available priors TECHNIQUE: Digital breast mammography with tomosynthesis is performed in both the craniocaudal and mediolateral oblique views along with computer-aided detection (CAD). FINDINGS: The breasts are heterogeneously dense, which may obscure small masses (ACR BI-RADS breast composition Category c). There are no significant masses, abnormal calcifications, or other abnormalities. MM/MM tomosynthesis screening BI IMPRESSION: No mammographic evidence of malignancy. ASSESSMENT: BI-RADS BI-RADS 1 - Negative RECOMMENDATION: Routine annual mammography screening. 1 year F/U This examination should not preclude the clinical evaluation of a suspicious palpable abnormality. This patient's information was entered into a reminder system with a target due date for their next mammogram. Electronically signed by: Michaela Alejo DO 01/27/2024 02:05 PM [facility]
== END 2024-01-19 10:16 | disposition home or self-care (01) ==
LOC: HO.MAMMO 10:15
PROVIDERS: PCP Nurse Practitioner Primary Care; Visit Provider Nurse Practitioner Primary Care
DX: Z12.31 Encounter for screening mammogram for malignant neoplasm of breast (principal)
CPT/HCPCS: 77063; 77067

== ENCOUNTER → 2024-01-19 10:30 | Outpatient (BNV) | payer MEDICARE, MEDICAID, SELFPAY | PROVIDERS: PCP Nurse Practitioner Primary Care; Visit Provider Internal Medicine | DX: Z12.31 Encounter for screening mammogram for malignant neoplasm of breast (principal) | CPT/HCPCS: 77063; 77067 ==

== ENCOUNTER 2024-03-19 11:13 | Outpatient (REF) | payer MEDICARE, MEDICAID, SELFPAY ==
[2024-03-19 13:44] LABS: Anion Gap 11 (12-20); Blood Urea Nitrogen 17 mg/dL (9-16); Carbon Dioxide 24 mmol/L (22-29); Chloride 107 mmol/L (96-108); Estimated Glomerular Filt Rate > 60; Glucose Random 75 mg/dL (60-115); Potassium 4.1 mmol/L (3.3-5.1); Sodium 138 mmol/L (135-145)
[2024-03-19 13:53] LABS: Creatinine Urine 42.75 mg/dL; Microalbumin Urine < 5.0 mg/L
== END 2024-03-19 11:14 | disposition home or self-care (01) ==
LOC: HO.HHCL 11:13
PROVIDERS: Visit Provider Nurse Practitioner Primary Care
DX: N17.9 Acute kidney failure, unspecified (principal)
CPT/HCPCS: 36415; 80048; 82043; 82570

== ENCOUNTER 2024-03-25 09:57 | Outpatient (AMB) | payer MEDICARE, MEDICAID, SELFPAY ==
[2024-03-25 10:15] VITALS: BP 142/80; PULSE 85; O2SAT 98; BMI 34.5
--- NOTE | 2024-03-25 10:15 | A.OFFVIS_ITS ---
Vital Signs 03/25/24 10:15 Height 5 ft 1 in Weight 182 lb 8 oz BMI 34.5 BP 142/80 H Blood Pressure Location Lt brachial Position Sitting Pulse 85 Pulse Source Pulse Oximeter Pulse Oximetry (%) 98 Oxygen Delivery Method Room Air Intake Visit Reasons: Shoulder Pain Intake Note: Patient presents for l shoulder pain today, the right one hurts, too but not as much. Allergies cat dander [CATS] Allergy (Intermediate, Verified 03/25/24 10:18) Itching haloperidol [From HALDOL] Allergy (Intermediate, Verified 03/25/24 10:18) SWELLING, hives risperidone [From RISPERDAL] Allergy (Intermediate, Verified 03/25/24 10:18) HIVES, swelling shrimp Allergy (Intermediate, Verified 03/25/24 10:18) Swelling COCKROACHES Allergy (Intermediate, Uncoded 03/25/24 10:18) Itching HPI HPI Shoulder Pain: Details: She was tackled January 20 by police officers in her building during a manic episode. Her [facility] meds have been adjusted. Celebrex d/c due to PILAR per patient due to dehydration. 03/19/2024 labs with normal creatinine. [facility] Medical History PMR (polymyalgia rheumatica) Knee pain, bilateral Low back pain Ambulates with cane Hx of malignant neoplasm of kidney History of seizure Bipolar disorder Anxiety and depression Fibromyalgia High cholesterol Surgical History History of esophagogastroduodenoscopy (EGD) Hx of colonoscopy History of loop electrical excision procedure (LEEP) History of carpal tunnel surgery of right wrist History of bilateral tubal ligation Family History Mother Kidney failure Diabetes COPD (chronic obstructive pulmonary disease) Heart disease Father Colon cancer Social History Are you a primary client care manager to a significant other at home: No Do you presently have visiting nurse or other home services: No Alcohol intake: never Patient Tobacco Use Status: Current everyday Tobacco user Tobacco use type: Cigarette Cigarettes Per Day: 3 service: No Current occupational status: disabled Review of Systems Const All systems reviewed & are unremarkable except as noted in HPI and below Physical Exam Vital Signs: Last Vital Signs Pulse 85 03/25/24 10:15 BP 142/80 H 03/25/24 10:15 Pulse Ox 98 03/25/24 10:15 Oxygen Delivery Method Room Air 03/25/24 10:15 BMI result Body Mass Index 34.5 Const Other: General: Comfortable Skin: No lesions seen MSK: Left anterior shoulder tenderness on palpation. No effusion seen. Left shoulder abduction 90 degrees actively, passive shoulder range of motion is intact 170 degrees with pain. She has limited internal and external rotation actively but it is preserved with passive range of motion. Right shoulder abduction actively is 110 degrees with pain with limited internal and external rotation but preserved with passive range of motion. Assessment & Plan Assessment & Plan (1) Tendinopathy of rotator cuff: Comment: Chronic with left shoulder pain exacerbation after an altercation with police when she was manic. We discussed conservative management. Code(s): M67.919 - Unspecified disorder of synovium and tendon, unspecified shoulder Category: Medical Qualifiers: Laterality: left Qualified Code(s): M67.912 - Unspecified disorder of synovium and tendon, left shoulder Plan: X-rays of bilateral shoulders ordered to evaluate for joint pathology contributing to her pain She agreed to start PT for strengthening and to improve range of motion Recent creatinine is normal. Start NSAID diclofenac 50 mg twice a day with food Return to clinic in 3 months Orders: Orders PT Evaluation and Treatment 03/25/24 M67.919 - Unspecified disorder of synovium and tendon, unspecified shoulder XR shoulder RT min 2V 03/25/24 M67.919 - Unspecified disorder of synovium and tendon, unspecified shoulder XR shoulder LT min 2V 03/25/24 M67.919 - Unspecified disorder of synovium and tendon, unspecified shoulder Medications: New diclofenac potassium Take with food 50 mg PO BID 60 tabs 2RF Coding Level of Care Code Est Pt Level 3 (42820) Complex EM visit Add On G2211 Diagnoses Tendinopathy of left rotator cuff M67.912 Laterality: left
== END 2024-03-25 11:02 | disposition home or self-care (01) ==
PROVIDERS: PCP Nurse Practitioner Primary Care; Visit Provider Internal Medicine Rheumatology
DX: M67.912 Unspecified disorder of synovium and tendon, left shoulder (principal)
CPT/HCPCS: 99213; G2211

== ENCOUNTER → 2024-03-25 09:57 | Outpatient (BNVA) | payer MEDICARE, MEDICAID, SELFPAY | PROVIDERS: PCP Nurse Practitioner Primary Care; Visit Provider Internal Medicine Rheumatology | DX: M67.912 Unspecified disorder of synovium and tendon, left shoulder (principal) | CPT/HCPCS: 99212 ==

== ENCOUNTER → 2024-04-14 12:05 | Outpatient (BNV) | payer MEDICARE, MEDICAID, SELFPAY | PROVIDERS: PCP Nurse Practitioner Primary Care; Visit Provider Radiology Diagnostic Radiology | DX: M67.911 Unspecified disorder of synovium and tendon, right shoulder (principal); M67.912 Unspecified disorder of synovium and tendon, left shoulder | CPT/HCPCS: 73030 ==

== ENCOUNTER 2024-05-05 14:00 | Outpatient (RCR) | payer MEDICARE, MEDICAID, SELFPAY ==
--- NOTE | 2024-04-14 17:27 | MHC.PT.EP ---
[facility] [place] Office [place] Office [place] Office [address] Kaila Leavitt [address] [phone] F: [phone] F: [phone] F: [phone] F: [phone] Physical Therapy Plan of Care Date of Evaluation: 04/14/24 Date of Surgery: Diagnosis: Unspecified disorder of synovium and tendon, unspecified shoulder, tendinopathy of RTC, Assessment: Pt is a 49 RHD y/o female with PMHx significant for PMR (polymyalgia rheumatica), B Knee pain, LBP, Hx of malignant neoplasm of kidney, History of seizure, Bipolar disorder, Fibromyalgia who is referred to PT for eval and treat of Unspecified disorder of synovium and tendon, unspecified shoulder, tendinopathy of RTC which is resulting in decreased tolerance for for reaching, lifting, performing HH chores, dressing pullovers, washing her hair and neck, as well as disturbed sleep secondary to multiple pain generators and syndromes, decreased B shoulder ROM and strength, sedentary lifestyle, and pain. Pt is deemed an appropriate candidate to receive skilled PT services to address their physical impairments in order to improve their functional ability. Frequency and Duration: The patient will be seen 2 x / wk x 4 wks. Short Term Goals: Initiate home program. Pt will improve B AROM flexion to at least 120 degrees; initial: 90 B. Retirement Goals: I with home program. Pt will improve SPADI outcome measure by at least 9 points. Pt will improve B ER strength by at least 1/2 MMT grade. Pt will be be able to wash her hair with at most 6/10 difficulty; initial: 10/10. Treatment Plan: Modalities to reduce pain, spasms and effusion. Manual therapy to restore motion and function. Therapeutic exercise to improve strength and flexibility. Neuromuscular re-education for posture and balance. Therapeutic activities to return to functional activities of daily living. Electronically signed by: David West PT. Please sign and return to therapist. Thank you for your referral.
--- NOTE | 2024-06-11 08:20 | MHC.PT.DC ---
[facility] [place] Office [place] Office [place] Office [address] Kaila Leavitt [address] [facility] [phone] F: [phone] F: [phone] F: [phone] F: [phone] Physical Therapy Discharge Report Diagnosis: Unspecified disorder of synovium and tendon, unspecified shoulder, tendinopathy of RTC, Date of Surgery: Date of Evaluation: 04/14/24 Date of Discharge: 06/11/24 Treatments to Date: 4 Cancellations to Date: 4 No Shows to Date: 2 Discharge Status: Visit Non-compliance Discharge Summary: . Electronically signed by: David West PT. Please sign and return to therapist. Thank you for your referral.
== END 2024-06-11 08:18 | disposition home or self-care (01) ==
LOC: HO.PT 14:00
PROVIDERS: PCP Nurse Practitioner Primary Care; Visit Provider Internal Medicine Rheumatology
DX: M67.919 Unspecified disorder of synovium and tendon, unspecified shoulder (principal)
CPT/HCPCS: 97014; 97110; 97161

== ENCOUNTER 2024-05-25 10:45 | Outpatient (REF) | payer MEDICARE, MEDICAID, SELFPAY ==
[2024-05-25 12:41] LABS: Erythrocyte Sedimentation Rate 21 MM/HR (0-20)
[2024-05-25 12:42] LABS: Rheumatoid Factor < 13.0 IU/mL (<15.0)
--- OUTSIDE RECORDS SUMMARY | 2024-05-25 13:01 | XMS_ITS | Encounter Summary ---
Author Organization [employer] Address [address] [facility] [address]t [place] [address] Care Team Providers Care Optimization Analyst Name Role Phone Glendy Sutton Primary Care Provider [phone] Encounter Details Date Type Department Care Team (Latest Contact Info) Description 05/20/2024 Travel Social History Tobacco Use Types Packs/Day Years Used Date Smoking Tobacco: Every Day Cigarettes Smokeless Tobacco: Never Alcohol Use Standard Drinks/Week Comments Not Currently 0 (1 standard drink = 0.6 oz pur e alcohol) Depression Answer Date Recorded Patient Health Questionnaire-9 Score 4 12/11/2023 Patient Health Questionnaire-9 Score 4 12/11/2023 Last PHQ-9: Questionnaire Data Not on file 0 12/11/2023 Housing Stability Answer Date Recorded What is your housing situation today? I have billy dixon 12/11/[address] you li ve. Do you have problems with any of the following? No or not working smoke detectors;None of the above 12/11/2023 Food Insecurity Answer Date Recorded Within the past 12 months, y ou worried that your food would run out before you got money to buy more: Never True 12/11/2023 Within the past 12 months,th e food you bought just didn't last and you didn't have enough money to get more: Never True Transportation Answer Date Recorded In the past 12 months, has l ack of transportation kept you from medical appts, meetings, work or from getting things needed for daily living? No 12/11/2023 Utilities Answer Date Recorded In the past 12 months, has t he electric, gas, oil or water company threatened to shut off services in your home? No 12/11/2023 Depression Answer Date Recorded Patient Health Questionnaire-2 Score 1 12/11/2023 Internet Access Answer Date Recorded Internet Access Q1 Yes 12/11/2023 Internet Access Q2 Not on file 12/11/2023 Comments No Sex and Gender Information Value Date Recorded Sex Assigned at Female 01/14/2022 10:14 AM EDT Legal Sex Female 10:14 AM EDT Gender Identity Female 01/14/2022 10:14 AM EDT Sexual Orientation Choose not to disclose 2021 10:14 AM EDT documented as of this encounter Plan of Treatment Not on file documented as of this encounter Visit Diagnoses Not on filedocumented in this encounter Additional Health Concerns Assessment Noted Time PHQ-9 Depression Total Score: 4 12/11/19 24 9:48 AM EDT documented as of this encounter Care Teams Optimization Analyst Relationship Specialty Start Date End Date Glendy Sutton ANP [address] [place] [address] PCP - General Family Medicine 11/28/20 documented as of this encounter
--- OUTSIDE RECORDS SUMMARY | 2024-05-25 13:01 | XMS_ITS | Encounter Summary ---
Author Organization [employer] Address [address] [facility] 7t [place] [address] Care Team Providers Care Hedge Fund Manager Name Role Phone Glendy Sutton Primary Care Provider [phone] Encounter Details Date Type Department Care Team (Late st Contact Info) Description 05/20/2024 10:00 AM EST Office Visit [facility] [address] [place], [place] [phone] Glendy Sutton ANP [address] [place] [address] PMR (polymyalgia rheumatica) ([facility]) (Primary Dx); Chronic pain of both shoulders; Limited range of motion (ROM) of shoulder; Polyarthralgia; Chronic fatigue; Vitamin D deficiency Social History Tobacco Use Types Packs/Day Years [...] your housing situation today? I have billy destiny 12/11/[address] you li [...] AM EDT documented as of this encounter Last Filed Vital Signs Vital Sign Reading Time Taken Comments Blood Pressure 122/88 05/20/2024 10:15 AM EST Pulse 92 05/20/2024 9:59 AM EST Temperature 36.8 ??C (98.2 ??F) 05/20/2024 9:59 AM ES T Respiratory Rate 21 05/20/2024 9:59 AM EST Oxygen Saturation 94% 05/20/2024 9:59 AM EST Inhaled Oxygen Concentration - - Weight 88.9 kg (196 lb) 05/20/2024 9:59 AM EST Height 154.9 cm (5' 1 ) 05/20/2024 9:59 AM EST Body Mass Index 37.03 05/20/2024 9:59 AM EST documented in this encounter Plan of Treatment Scheduled Orders Name Type Priority Associated Diagnoses Orde r Schedule Cyclic Citrullinated Peptide (CCP) Antibody (IgG) Lab Routine Polyarthralgia Expected: 05/20/2024 (Approximate), Expires: 05/20/2025 BANDAR Screen,IFA, with Reflex to Titer and Pattern Lab Routine Polyarthralgia Expected: 05/20/2024 (Approximate), Expires: 05/20/2025 TSH W/Reflex to FT4 Lab Routine Chronic fatigue Expected: 05/20/2024 (Approximate), Expires: 05/20/2025 Vitamin D, 25-Hydroxy, Total, Immunoassay Lab Routine Polyarthralgia Vitamin D deficiency Expected: 05/20/2024 (Approximate), Expires: 05/20/2025 documented as of this encounter Procedures Procedure Name Priority Date/Time Associated Diagnosis Comments SED RATE BY MODIFIED WESTERGREN Routine 05/25/2024 11:14 AM EDT PMR (polymyalgia rheumatica) ([facility]) RHEUMATOID FACTOR Routine 05/25/2024 11: 14 AM EDT Polyarthralgia documented in this encounter Results * Rheumatoid Factor (05/25/2024 11:14 AM EDT) Rheumatoid Factor <13.0 <15.0 IU/mL [facility] Blood Venous blood specimen / Unknown 05/25/2024 11:14 AM EDT 05/25/2024 11:14 AM EDT Glendy Sutton [facility] BLOOD ORDERABLES Final Resul t Performing Organization Address [facility] Co de Phone Number [facility] [address] [place] [phone] * (ABNORMAL) Sed Rate by Modified Hakeem (05/25/2024 11:14 AM EDT) Erythrocyte Sedimentation Rate 21(H) 0 - 20 MM/HR [facility] Comment:Patients with polycy themia and many hemoglobin abnormalitiesmay have depressed sed rates whereas patients with anemiamay have elevated sed rates. Blood Venous blood specimen / Unknown 05/25/2024 11:14 AM EDT 05/25/2024 11:14 AM EDT Glendy Sutton [facility] BLOOD ORDERABLES Final Resul t Performing Organization Address City/[facility]/ZIP Co de Phone Number [facility] [address] [place] [phone] documented in this encounter Visit Diagnoses Diagnosis PMR (polymyalgia rheumatica) (CMS/HCC)- Primary Polymyalgia rheumatica Chronic pain of both shoulders Limited range of motion (ROM) of shoulder Polyarthralgia Pain in joint, multiple sites Chronic fatigue Other malaise and fatigue Vitamin D deficiency documented in this encounter Additional Health Concerns Assessment Noted Time PHQ-9 Depression Total Score: 4 12/11/19 24 9:48 AM EDT documented as of this encounter Care Teams Hedge Fund Manager Relationship Specialty Start Date End Date Glendy Sutton ANP [address] [place] [address] PCP - General Family Medicine 11/28/20 documented as of this encounter
--- OUTSIDE RECORDS SUMMARY | 2024-05-25 13:01 | XMS_ITS | Encounter Summary ---
Author Organization [employer] Address [address] [facility] 7t [place] [address] Care Team Providers Care Auxiliary Powerplant Operator Name Role Phone Glendy Sutton Primary Care Provider [phone] Encounter Details Date Type Department Care Team (Late st Contact Info) Description 05/14/2023 Orders Only [facility]INE [address] [place], [place] [phone] Glendy Sutton ANP [address] [place], [place] [phone] Social History Tobacco Use Types Packs/Day Years Used Date Smoking Tobacco: Every Day Cigarettes Smokeless Tobacco: Never Alcohol Use Standard Drinks/Week Comments Not Currently 0 (1 standard drink = 0.6 oz pur e alcohol) Depression Answer Date Recorded Patient Health Questionnaire-9 Score 0 10/03/2022 Housing Stability Answer Date Recorded What is your housing situation today? I have billy dixon 12/30/[address] you li ve. Do you have problems with any of the following? None of the above 12/30/2022 Food Insecurity Answer Date Recorded Within the past 12 months, y ou worried that your food would run out before you got money to buy more: Never True 12/30/2022 Within the past 12 months,th e food you bought just didn't last and you didn't have enough money to get more: Never True Transportation Answer Date Recorded In the past 12 months, has l ack of transportation kept you from medical appts, meetings, work or from getting things needed for daily living? No 12/30/2022 Utilities Answer Date Recorded In the past 12 months, has t he electric, gas, oil or water company threatened to shut off services in your home? No 12/30/2022 Depression Answer Date Recorded Patient Health Questionnaire-2 Score 0 10/03/2022 Comments No Sex and Gender Information Value [...] Assessment Noted Time PHQ-9 Depression Total Score: 0 10/04/19 23 9:29 AM EDT documented as of this encounter Care Teams Auxiliary Powerplant Operator Relationship Specialty Start Date End Date Glendy Sutton ANP [address] [place] [address] PCP - General Family Medicine 11/28/20 documented as of this encounter
--- OUTSIDE RECORDS SUMMARY | 2024-05-25 13:01 | XMS_ITS | Encounter Summary ---
Author Organization [employer] Address [address] [facility] [address] [place] [address] Care Team Providers Care Christmas Bell Ringer Name Role Phone Glendy Sutton Primary Care Provider [phone] Reason for Visit * Reason Comments Care Coordination CHW outreach for SDO H PT-1 and food needs-LVM Encounter Details Date Type Department Care Team (Latest Contact Info) Description 05/05/2024 Patient Outreach [facility] [address] [place], [place] [phone] Glendy Sutton ANP [address] [place] [address] Care Coordination (CHW outreach for SDOH PT-1 and food needs-LVM ) Social History Tobacco Use Types Packs/Day Years [...] your housing situation today? I have billy sing 12/11/[address] you li [...] AM EDT documented as of this encounter Progress Notes * Enrique Sol - 05/05/2024 11:01 AM EST CHW Enrique Sol, placed outbound call to patient for assistance with SDOH as a referral was placed by the provider. Patient had screened positive for the following SDOH insecurities. No answer atthis time. Patient's name and were not confirmed. CHW left detailed message and provided contact information requesting return call for assistance. Patient educated on extended clinic hours on Mondays through Wednesdays, and Walk-In Urgent Care Located in [facility]. Patient provided with after-hours line for [facility], , which offer night time triage service and option to transfer toon call provider if needed. documented in this encounter Plan of Treatment Not on file documented as of this encounter Visit Diagnoses Not on filedocumented in this encounter Additional Health Concerns Assessment Noted Time PHQ-9 Depression Total Score: 4 12/11/19 24 9:48 AM EDT documented as of this encounter Care Teams Christmas Bell Ringer Relationship Specialty Start Date End Date Glendy Sutton ANP [address] [place] [address] PCP - General Family Medicine 11/28/20 documented as of this encounter
--- OUTSIDE RECORDS SUMMARY | 2024-05-25 13:01 | XMS_ITS | Encounter Summary ---
Author Organization [email or web address] Address [address] [facility] 7t [place] [address] Care Team Providers Care Glacing Machine Tender Name Role Phone Glendy Sutton Primary Care Provider [phone] Reason for Visit * Reason Onset Date Comments Hospital Follow-up 02/24/2024 Encounter Details Date Type Department Care Team ([facility] Contact Info) Description 02/24/2024 Telephone [facility] [address] [place], [place] [phone] Glendy Sutton ANP [address] [place] [address] Hospital Follow-up Social History Tobacco Use Types Packs/Day Years [...] AM EDT documented as of this encounter Miscellaneous Notes * Telephone Encounter - Javier Bardales - 02/24/2024 11:05 AM EST Tc from pt requesting a HDF appt. Hospital: [facility] Date of admission: 02/15 Discharge date: 02/17 Diagnosed: Crisis, Dehydrated, Kidney Damage. Contact pt at [phone] *Send message to [facility] Clinical Care Coordinators documented in this encounter Plan of Treatment Not on file documented as of this encounter Visit Diagnoses Not on filedocumented in this encounter Additional Health Concerns Assessment Noted Time PHQ-9 Depression Total Score: 4 12/11/19 24 9:48 AM EDT documented as of this encounter Care Teams Glacing Machine Tender Relationship Specialty Start Date End Date Glendy Sutton ANP [address] [place] [address] PCP - General Family Medicine 11/28/20 documented as of this encounter
--- OUTSIDE RECORDS SUMMARY | 2024-05-25 13:01 | XMS_ITS | Encounter Summary ---
Author Organization [employer] Address [address] [facility] [address]t [place] [address] Care Team Providers Care Bilingual Hr Generalist Name Role Phone Glendy Sutton Primary Care Provider [phone] Reason for Visit * Reason Comments Med Refill Encounter Details Date Type Department Care Team ([facility] st Contact Info) Description 04/25/2024 Refill [facility] [address] [place], [place] [phone] Glendy Sutton ANP [address] [place] [address] Essential hypertension Social History Tobacco Use Types Packs/Day Years [...] documented as of this encounter Visit Diagnoses Diagnosis Essential hypertension Unspecified essential hypertension documented in this encounter Additional Health Concerns Assessment Noted Time PHQ-9 Depression Total Score: 4 12/11/19 24 9:48 AM EDT documented as of this encounter Care Teams Bilingual Hr Generalist Relationship Specialty Start Date End Date Glendy Sutton ANP [address] [place] [address] PCP - General Family Medicine 11/28/20 documented as of this encounter
--- OUTSIDE RECORDS SUMMARY | 2024-05-25 13:01 | XMS_ITS | Encounter Summary ---
Author Organization [employer] Address [address] [facility] 7t [place] [address] Care Team Providers Care Med Asst Name Role Phone Glendy Sutton Primary Care Provider [phone] Reason for Visit * Reason Onset Date Comments Nurse Triage 07/08/2023 Encounter Details Date Type Department Care Team ([facility] st Contact Info) Description 07/08/2023 Telephone [facility] [address] [place], [place] [phone] Glendy Sutton ANP [address] [place] [address] Nurse Triage Social History Tobacco Use Types Packs/Day Years [...] encounter Miscellaneous Notes * Telephone Encounter - EVAN Alfaro - 07/14/2023 5:59 PM EDT Noted, have sent separate communication to team and increased lyrica dose * Telephone Encounter - So Valero RN - 07/08/2023 10:38 AM EDT Called pt. She states that she is requesting an increase on her Lyrica. She states that hip is increasing in pain and she uses cane but hip pain is increasiing again. Pt was increased on 06/05/23 to Lyrica 150mg Twice daily and is requesting dose increase. Please advise. * Telephone Encounter - Sherri Carrillo - 07/08/2023 10:31 AM EDT Tc from pt returning call and requesting a call back. * Telephone Encounter - iM Valderrama RN - 07/08/2023 9:07 AM EDT Call returned to Laila Ortiz for triage. No answer LVM to return call to [facility] triage line [phone]. * Telephone Encounter - Sherri Carrillo - 07/08/2023 8:40 AM EDT Symptom: Body Aches Outcome: Schedule an appointment to be seen within 3 days Reason: Pt is requesting to speak with PCP stated for body aches and something else, no further details provided. The caller accepted this outcome documented in this encounter Plan of Treatment Not on file documented as of this encounter Visit Diagnoses Not on filedocumented in this encounter Additional Health Concerns Assessment Noted Time PHQ-9 Depression Total Score: 0 10/04/19 23 9:29 AM EDT documented as of this encounter Care Teams Med Asst Relationship Specialty Start Date End Date Glendy Sutton ANP [address] [place] [address] PCP - General Family Medicine 11/28/20 documented as of this encounter
--- OUTSIDE RECORDS SUMMARY | 2024-05-25 13:01 | XMS_ITS | Encounter Summary ---
Author Organization [employer] Address [address] [facility] [address] [place] [address] Care Team Providers Care Director Of Learning Name Role Phone Glendy Sutton Primary Care Provider [phone] Reason for Visit * Reason Onset Date Comments Results 02/19/2023 Encounter Details Date Type Department Care Team ([facility] Contact Info) Description 02/19/2023 Telephone [facility] MEDICINE [address] [place], [place] [phone] Glendy Sutton ANP [address] [place] [address] Results Social History Tobacco Use Types Packs/Day Years [...] encounter Miscellaneous Notes * Telephone Encounter - Melissa Berry RN - 02/20/2023 9:54 AM EST T/C placed to pt for status check. Pt reports that she experienced some symptoms relief with Bentylwhich she has been taking tid. States severe cramps returned last night and she was evaluated in [facility] ED. States she left ED prior to receiving text results d/t long wait times. Pt states she is stillbloated and miserable and it is difficult to sleep. Reports that she hasn't menstruated x 3 months and is spotting now. Reassured pt that imaging did not indicate bowel obstruction. Pt reports BM daily with last BM this morning. States she is still having abdominal cramps but pain is improving. Denies severe pain now. Agrees to ED f/u with pcp 03/04/23 at 11:15a. Agrees to come to [facility] for evaluation if symptoms return. Advised request has been sent to ordering provider [facility] RN will attempt to obtain [facility] ED records. * Telephone Encounter - Anju Hawley - 02/19/2023 11:36 AM EST Tc from pt requesting a call in regards to lab results done yesterday (02/18). Please contact pt at [phone] documented in this encounter Plan of Treatment Not on file documented as of this encounter Visit Diagnoses Not on filedocumented in this encounter Additional Health Concerns Assessment Noted Time PHQ-9 Depression Total Score: 0 10/04/19 23 9:29 AM EDT documented as of this encounter Care Teams Director Of Learning Relationship Specialty Start Date End Date Glendy Sutton ANP [address] [place] [id number] PCP - General Family Medicine 11/28/20 documented as of this encounter
--- OUTSIDE RECORDS SUMMARY | 2024-05-25 13:01 | XMS_ITS | Encounter Summary ---
Author Organization [employer] Address [address] [facility] [address] [place] [address] Care Team Providers Care Academic Interventionist Name Role Phone Glendy Sutton Primary Care Provider [phone] Reason for Visit * Reason Comments Med Refill Encounter Details Date Type Department Care Team ([facility] st Contact Info) Description 04/02/2022 Refill [facility] MED & PEDS [address] [place] [address] Glendy Sutton ANP [address] [place] [address] Anemia, unspecified type Social History Tobacco Use Types Packs/Day Years Used Date Smoking Tobacco: Never Assessed Comments Unknown Sex and Gender Information Value Date Recorded Sex Assigned at Female 01/14/2022 10:14 AM EDT Legal Sex Female 10:14 AM EDT Gender Identity Female 01/14/2022 10:14 AM EDT Sexual Orientation Choose not to disclose 2021 10:14 AM EDT documented as of this encounter Plan of Treatment Not on file documented as of this encounter Visit Diagnoses Diagnosis Anemia, unspecified type documented in this encounter Care Teams Academic Interventionist Relationship Specialty Start Date End Date Glendy Sutton ANP [address] [place], [place] [phone] PCP - General Family Medicine 11/28/20 documented as of this encounter
--- OUTSIDE RECORDS SUMMARY | 2024-05-25 13:01 | XMS_ITS | Encounter Summary ---
Author Organization [employer] Address [address] [facility] [address] [place] [address] Care Team Providers Care Chainstitch Sewing Machine Operator Name Role Phone Glendy Sutton Primary Care Provider [phone] Reason for Visit * Reason Onset Date Comments Requested Call Back 07/23/2022 Encounter Details Date Type Department Care Team ([facility] st Contact Info) Description 07/23/2022 Telephone [facility] MEDICINE [address] [place], [place] [phone] Glendy Sutton ANP [address] [place] [address] Requested Call Back Social History Tobacco Use Types Packs/Day Years Used Date Smoking Tobacco: Some Days Cigarettes Smokeless Tobacco: Never Alcohol Use Standard Drinks/Week Comments Not Currently 0 (1 standard drink = 0.6 oz pur e alcohol) Comments Unknown Sex and Gender Information Value Date Recorded Sex Assigned at Female 01/14/2022 10:14 AM EDT Legal Sex Female 10:14 AM EDT Gender Identity Female 01/14/2022 10:14 AM EDT Sexual Orientation Choose not to disclose 2021 10:14 AM EDT documented as of this encounter Miscellaneous Notes * Telephone Encounter - Carie Cox - 07/29/2022 9:06 AM EDT Tc from pt requesting status on US order. Please contact at [phone] * Telephone Encounter - Licha Flor - 07/23/2022 12:31 PM EDT Tc from patient calling in regards to US order for left ovary. States [facility] doesn't have one. Technical Writer didn't see the order. documented in this encounter Plan of Treatment Not on file documented as of this encounter Visit Diagnoses Not on filedocumented in this encounter Care Teams Chainstitch Sewing Machine Operator Relationship Specialty Start Date End Date Glendy Sutton ANP [address] [place] [id number] PCP - General Family Medicine 11/28/20 documented as of this encounter
--- OUTSIDE RECORDS SUMMARY | 2024-05-25 13:01 | XMS_ITS | Clinical Summary ---
Author Organization [employer] Address [address] [place] [address] Care Team Providers Care Electromedical Equipment Repairer Name Role Phone Jory Lala EVAN Primary Care Provider [phone] Allergies Active Allergy Reactions Criticality Noted Date Comments Haloperidol 07/19/2020 Other reaction(s): tongue swells Other Reaction(s): Oral dystonia, tongue swells Meloxicam Swelling Medium 01/28/2023 facial swelling Risperidone Swelling 05/29/2010 Other reaction(s): tongue swells Flavoring Agent (Non-Screening) 11/14/2022 Medications cyclobenzaprine (Flexeril) 5 MG tablet TAKE 1 TABLET BY MOUTH AT BEDTIME 023 Active docusate sodium (Colace) 100 MG capsule TAKE 1 CAPSULE BY MOUTH AT BEDTIME 023 Active lamoTRIgine (LaMICtal) 200 MG tablet TAKE ONE TABLET BY MOUTH DAILY AT 9PM AT BEDTIME 023 Active senna (Senokot) 8.6 MG tablet TAKE 2 TABLETS BY MOUTH AT BEDTIME FOR CONSTIPATION 023 Active atorvastatin (Lipitor) 20 MG tablet TAKE 1 TABLET BY MOUTH EVERY DAY 90 tablet 1 023 Active DULoxetine (Cymbalta) [address] capsule Take 60 mg by mouth 2 times daily. 023 Active omeprazole (PriLOSEC) [address] capsule TAKE 1 CAPSULE BY MOUTH TWICE A DAY 180 capsule 1 023 Active sucralfate (Carafate) 1 g tablet TAKE ONE TABLET BY MOUTH DAILY AT 9PM AT BEDTIME 90 tablet 1 023 Active acetaminophen (Tylenol 8 Hour) 650 MG ER tablet TAKE 1 TO 2 TABLETS BY MOUTH EVERY 8 HOURS NEEDED. DO NOT BREAK, CRUSH, DISSOLVE OR CHEW Active metoprolol succinate XL (Toprol-XL) 25 MG 24 hr tablet Take 25 mg by mouth. 023 Active FeroSul 325 (65 Fe) MG tabletIndicatio ns:Anemia, unspecified type TAKE 1 TABLET BY MOUTH EVERY DAY WITH ORANGE JUICE 90 tablet 1 024 Active pregabalin (Lyrica) 200 MG capsuleIndicati ons:Other chronic pain Take 1 capsule (200 mg) by mouth 3 times daily. 90 capsule 5 024 Active lisinopril 20 MG tablet Take 20 mg by mouth Once per day. 024 Active zolpidem (Ambien) 10 MG tablet Take 10 mg by mouth if needed at bedtime for sleep. 024 Active sucralfate (Carafate) 1 GM/10ML suspension TAKE 10 ML BY MOUTH AT BEDTIME, MAY INCREASE TO 4 TIMES DAILY NEEDED 1260 mL 2 025 Active hydroCHLOROthia zide (HYDRODiuril) 25 MG tabletIndicatio ns:Essential hypertension TAKE 1 TABLET BY MOUTH EVERY DAY 90 tablet 1 025 Active diclofenac (Cataflam) 50 MG tablet Take 50 mg by mouth with breakfast and with evening meal. 025 Active ARIPiprazole (Abilify) 30 MG tablet Take 1 tablet by mouth Once per day. 025 Active lamoTRIgine (LaMICtal) 100 MG tablet Take 1 tablet by mouth Once per day. 025 Active prazosin (Minipress) 2 MG capsule Take 4 mg by mouth at bedtime. 025 Active QUEtiapine (SEROquel) 100 MG tablet Take 150 mg by mouth at bedtime. prn 025 Active ARIPiprazole (Abilify) 20 MG tablet TAKE 1 TABLET BY MOUTH AT NIGHT 023 2024 Discontinued(D ose adjustment) lamoTRIgine (LaMICtal) 25 MG tablet TAKE 1 TABLET BY MOUTH AT BEDTIME WITH 200mg TABLET 023 2024 Discontinued(D ose adjustment) meloxicam (Mobic) 15 MG tablet TAKE 1 TABLET BY MOUTH EVERY DAY WITH FOOD 023 2024 Discontinued(I neffective) prazosin (Minipress) 1 MG capsule 024 2024 Discontinued(D ose adjustment) QUEtiapine (SEROquel) 50 MG tablet 024 2024 Discontinued(D ose adjustment) hydroCHLOROthia zide (HYDRODiuril) 25 MG tabletIndicatio ns:Essential hypertension TAKE 1 TABLET BY MOUTH EVERY DAY 90 tablet 1 024 2024 Discontinued Active Problems Problem Noted Date Diagnosed Date Abdominal distension 02/17/2023 Assessment & Plan (02/17/2023 7:26 PM EST): ro intestinal obstruction/costipation? Order Abd Xray, labs to ro electrolyte abn. Only clear liquids tonight and advanced to Soups, soft diet tomorrow Use bentyl tid prn. I told her that both Lyrica and aripiprazole can cause Edema or weight gain, should fu with PCP. No evidence of leg or abd wall edema today. Polyarthralgia 10/03/2022 Overview (12/11/2023): Increased lyrica to 200mg BID, had been doing better w/ this, will plan to increase to TID pending renal lab review Did briefly have lock-jaw at initiation of lyrica but this resolved after we took hiatus and then re-started Gastroesophageal reflux dise ase with esophagitis without hemorrhage 10/03/2022 Overview (01/10/2023): Better w/ Omeprazole 40mg BID plus PO liquid carafate - has been helping a lot vs tabs. She follows w/ [facility] and has appt upcoming. Hypertensive heart disease with heart failure Assessment & Plan (09/03/2022 9:46 AM EDT): RO CHF, BP is slightly elevated and patient is sxs. Order BMP/BNP and start lasix x 5d, she will hold hczt, continue lisinopril Check BP at home and will rs cardio fu. Avoid salt intake, loose some weight. Swelling 09/03/2022 Assessment & Plan (09/03/2022 9:46 AM EDT): LE ro CHF PMR (polymyalgia rheumatica) 05/20/2022 Bipolar affective disorder, current episode depr essed 07/16/2018 Essential hypertension 07/16/2018 Overview (03/19/2024): Suspect elevated d/t pain. Remains elevated on repeat. Will monitor at home and call if remains > 150/90 Low salt diet Smoking cessation encouraged Cont hydrochlorothiazide 25mg daily Lisinopril 10mg daily (from cards) Metoprolol succinate 25 mg XL (from cards) BMI 36.0-36.9,adult 04/07/2018 Overview (03/19/2024): Weight loss medications would now be covered by insurance, however patient is not a good candidate for phentermine given bipolar disorder with frequent agitation. May benefit from GLP-1 however given recent instability in mental health and depression would not like to chance worsening this depression at all. Will discuss with her at follow-up. Tobacco dependence syndrome 04/07/2018 Anxiety 08/25/2017 Carpal tunnel syndrome 08/25/2017 Iron deficiency anemia 12/09/2016 Renal mass 09/21/2014 Overview (10/03/2022): US 05/2022: IMPRESSION: 1. No evidence of recurrence of the previously treated mass at the upper pole of the left kidney. No renal masses are seen. 2. Incidental note made of multiple cysts in the left ovary versus a multiseptated cyst. A dedicated pelvic ultrasound is recommended for further evaluation. (NOTE: f/u US on this showed L ovarian cyst and myomas without recommendation for additional imaging) Vitamin D deficiency 06/16/2013 Bipolar disorder 01/02/2012 Encounters Date Type Department Care Team Description 05/20/2024 10:00 AM EST Office Visit [facility] [address] [place] [phone] Jory Lala, EVAN PMR (polymyalgia rheumatica) ([facility]) (Primary Dx); Chronic pain of both shoulders; Limited range of motion (ROM) of shoulder; Polyarthralgia; Chronic fatigue; Vitamin D deficiency 05/20/2024 Travel 05/05/2024 Patient Outreach [facility] [address] [place] [phone] Jory Lala ANP Care Coordination (CHW outreach for SDOH PT-1 and food needs-LVM ) 05/04/[address] [address] Jory Lala ANP Prior Authorization 05/04/[address] [address] Jory Lala ANP PT-1 04/25/[address] [address] Jory Lala ANP Essential hypertension 04/16/2024 10:00 AM EST Telemedicine [address] [phone] Isamar Lakhani RN Essential hypertension 04/16/2024 Travel 04/16/[address] [address] Jory Lala ANP Appointment Confirmation 04/14/2024 Orders Only [facility] External Provider, [facility] 03/31/[address] [address] Jory Lala ANP 03/23/[address] [address] Jory Lala ANP 03/19/2024 10:30 AM EST Office Visit [address] [address] Jory Lala ANP PILAR (acute kidney injury) (CMS/HCC) (Primary Dx); Essential hypertension; Bipolar disorder, current episode mixed, moderate (CMS/HCC); BMI 36.0-36.9,adult; Hypertensive urgency 03/19/2024 Travel from Last 3 Months Immunizations Name Administration Dates Next Due Hep B, adult 04/16/2002,10/01/1996,08/05/1996 Influenza injectable quadriv alent preservative free 11/28/2022,01/19/2022,12/28/2020,08/18 Moderna Covid-19 Vaccine 12+ 10/15/2021,09/05/19 21,08/10/2020 Moderna Covid-19 Vaccine 6+ Bivalent 01/19/2022 Pneumococcal Conjugate PCV 20 05/20/2022 Pneumococcal Polysaccharide PPSV23 08/18/2014 TD (adult), 2 Lf tetanus tox oid, preservative free, adsorbed 10/03/2022,06/30/2002 Td (adult), 5 Lf tetanus tox oid, preservative free, adsorbed 10/03/2022 Tdap 10/08/2012 Varicella 08/16/1983 Family History Medical History Relation Name Comments Ovarian cancer Maternal Grandmother Ovarian cancer Paternal Grandmother Relation Name Status Comments Maternal Grandmother Paternal Grandmother Social History Tobacco Use Types Packs/Day Years Used Date Smoking Tobacco: Every Day Cigarettes Smokeless Tobacco: Never Tobacco Cessation:Ready to Q uit: Not Asked; Counseling Given: Not Answered Alcohol Use Standard Drinks/Week Comments Not Currently [...] not to disclose 2021 10:14 AM EDT Last Filed Vital Signs Vital Sign Reading [...] Mass Index 37.03 05/20/2024 9:59 AM EST Plan of Treatment Health Maintenance Due Date Last Done Comments CT Colonography 1975 FIT DNA/Cologuard 1975 FIT 1975 FOBT 1975 Sigmoidoscopy 1975 Family Planning (PISQ) 01/24/1991 COVID-19 Vaccine ( season) 2024 01/19/2022, 10/15/2021, 09/04/2020, Additional history exists Postponed from 11/16/2023 (Patient Refused) Depression Screening 12/10/2024 12/11/2023, 12/11/19 24 SDOH Screening 12/10/2024 12/11/2023 Alcohol/Substance Use Screening 05/20/2025 05/20/2024 Tobacco Screening 05/20/2025 05/20/2024 Cervical Cancer Screening 08/09/2025 HPV/Cotest 08/09/2025 08/09/2020 Pap Smear 08/09/2025 08/09/2020 Lipid Panel 11/29/2025 11/29/2020, 02/2 04/2020, 10/20/2019 Mammogram 01/18/2026 01/19/2024, 1106/2023, 01/14/2023, Additional history exists Zoster Vaccines (1 of 2) 01/24/2026 Colonoscopy 07/04/2026 07/04/2021 Colorectal Cancer Screening 07/04/2026 DTaP/Tdap/Td Vaccines (4 - Td or Tdap) 10/03/2032 10/03/2022, 10/03/2022, 10/08/2012, Additional history exists RSV Patients and Patients Aged 60 years or older (1 - 1-dose 75+ series) 01/24/2051 Hepatitis B Vaccines Completed 04/16/2002, 10/01/1996, 08/05/1996 Pneumococcal Vaccine: Pediatrics (0 to 5 Years) and At-Risk Patients (6 to 49) Years) Completed 05/20/2022, 08/18/2014 HIV Screening Completed 12/30/2022 Hepatitis C Screening Completed 12/30/2022, 021 Influenza Vaccine Completed 01/23/2024, , 11/28/2022, Additional history exists HIB Vaccines Aged Out No longer eligi ble based on patient's age to complete this topic HPV Vaccines Aged Out No longer eligi ble based on patient's age to complete this topic Hepatitis A Vaccines Aged Out No long er eligible based on patient's age to complete this topic IPV Vaccines Aged Out No longer eligi ble based on patient's age to complete this topic Meningococcal Vaccine Aged Out No renny richa eligible based on patient's age to complete this topic RSV under 20 months Aged Out No longe r eligible based on patient's age to complete this topic Rotavirus Vaccines Aged Out No longer eligible based on patient's age to complete this topic Procedures Procedure Name Priority Date/Time Associated Diagnosis Comments RHEUMATOID FACTOR Routine 05/25/2024 11: 14 AM EDT Polyarthralgia SED RATE BY MODIFIED WESTERGREN Routine 05/25/2024 11:14 AM EDT PMR (polymyalgia rheumatica) ([facility]) XR SHOULDER 2+ VIEWS RIGHT Routine 04/14/2024 12:15 PM EST XR SHOULDER 2+ VIEWS LEFT Routine 04/14/2024 12:15 PM EST BASIC METABOLIC PANEL Routine 03/19/2024 11:15 AM EST PILAR (acute kidney injury) (CMS/HCC) ALBUMIN, RANDOM URINE W/CREATININE Routine 03/19/2024 11:15 AM EST PILAR (acute kidney injury) (CMS/HCC) BI MAMMOGRAM SCREENING TOMOSYNTHESIS BILATERAL Routine 01/19/2024 10:30 AM EST HEPATITIS C ANTIBODY Routine 12/30/2022 4:01 PM EDT HIV ANTIBODY/ANTIGEN ([facility]) Routine 12/30/2022 4:01 PM EDT HM COLONOSCOPY Routine 07/04/2021 LIPID PANEL, STANDARD Routine 11/29/2020 10:01 AM EDT HPV MRNA E6/E7 Routine 08/09/2020 2:03 PM EDT THINPREP PAP Routine 08/09/2020 2:03 PM EDT from Last 3 Months or Most Recently Relevant to Health Maintenance Results * (ABNORMAL) Sed Rate by Modified Westergren (05/25/2024 11:14 AM EDT) Erythrocyte Sedimentation Rate 21(H) 0 - 20 MM/HR [facility] Comment:Patients with polycy themia and many hemoglobin abnormalitiesmay have depressed sed rates whereas patients with anemiamay have elevated sed rates. Blood Venous blood specimen / Unknown 05/25/2024 11:14 AM EDT 05/25/2024 11:14 AM EDT [facility] LAB BLOOD ORDERABLES Final Resul t Performing Organization Address [facility] de Phone Number [facility] [address] [place] [address] [phone] * Rheumatoid Factor (05/25/2024 11:14 AM EDT) Rheumatoid Factor <13.0 <15.0 IU/mL [facility] Blood Venous blood specimen / Unknown 05/25/2024 11:14 AM EDT 05/25/2024 11:14 AM EDT [facility] LAB BLOOD ORDERABLES Final Resul t Performing Organization Address [facility] de Phone Number [facility] [address] [place] [address] [phone] * XR Shoulder 2+ Views Right (04/14/2024 12:15 PM EST) Anatomical Region Laterality Modality Upper Extremities, Shoulder Right Radi ographic Imaging 04/14/2024 12:1 5 PM EST Narrative 04/15/2024 9:00 AM EST ? [facility] ?[address] ?[place] [address] ?XRay Report ? Signed ? Patient: Laila Ortiz ?MR#: [id number] ?? [id number] ? : 1975 ?Acct:[id number] ? Age/Sex: 49 / F ?ADM Date: 04/14/24 ? Loc: HO.XRAY ? Attending Dr: Abel Tee MD ? Ordering Physician: Abel Tee MD ?? Date of Service: 04/14/24 ?? Procedure(s): XR shoulder RT min 2V ?? Accession Number(s): [id number] ? cc: JORY LALA NP; Abel Tee MD ? EXAMINATION: ?? XR SHOULDER, RIGHT ? CLINICAL INFORMATION: ?? M67.919 - Unspecified disorder of synovium and tendon, unspecified ?? shoulder ? COMPARISON: ?? None available. ? TECHNIQUE: ?? Three views of the right shoulder. ? FINDINGS: ?? Normal bone mineralization. No fracture, dislocation, or suspicious ?? bone lesion. Normal alignment. ?? Mild osteoarthrosis in the glenohumeral joint with undersurface tiny ?? marginal osteophytes, but gross preservation of joint space. ?? Mild widening of the AC joint, possibly on the basis of prior ?? subacromial decompression procedure. Mild superior spurring of the ?? distal clavicle. No undersurface spurs. ?? Minimally downsloping lateral acromion without significant subacromial ?? spurring. ?? Preservation of the subacromial space. ? Remainder of the bony and soft tissue structures appear normal. ? XR/XR shoulder RT min 2V ?? IMPRESSION: ?? 1. No acute findings right shoulder. ?? 2. Mild glenohumeral joint osteoarthrosis. ?? 3. Widened AC joint suggesting prior postoperative changes. ? Electronically signed by: ??Enrique Vaca MD ??04/15/2024 08:57 AM EST RP ? Dictated By: ?Enrique Vaca MD ? Signed By: ?<Electronically signed by Enrique Vaca MD in OV> ?04/15/24 0857 ? DD/ 1215 ? TD/TT: 04/14/24 1226 ? Home Health Care Provider: ? Procedure Note Jelly, Birgit - 04/15/2024 [place] [address] XRay Report Signed Patient: Aury Ortiz#: [id number] : 1975Acct:[id number] Age/Sex: 49 / FADM Date: 04/14/24 Loc: [facility] Attending Dr: Abel Tee MD Ordering Physician: Abel Tee MD Date of Service: 04/14/24 Procedure(s): XR shoulder RT min 2V Accession Number(s): [id number] cc: JORY LALA NP; Abel Tee MD EXAMINATION: XR SHOULDER, RIGHT CLINICAL INFORMATION: M67.919 - Unspecified disorder of synovium and tendon, unspecified shoulder COMPARISON: None available. TECHNIQUE: Three views of the right shoulder. FINDINGS: Normal bone mineralization. No fracture, dislocation, or suspicious bone lesion. Normal alignment. Mild osteoarthrosis in the glenohumeral joint with undersurface tiny marginal osteophytes, but gross preservation of joint space. Mild widening of the AC joint, possibly on the basis of prior subacromial decompression procedure. Mild superior spurring of the distal clavicle. No undersurface spurs. Minimally downsloping lateral acromion without significant subacromial spurring. Preservation of the subacromial space. Remainder of the bony and soft tissue structures appear normal. XR/XR shoulder RT min 2V IMPRESSION: 1. No acute findings right shoulder. 2. Mild glenohumeral joint osteoarthrosis. 3. Widened AC joint suggesting prior postoperative changes. Electronically signed by: Enrique Vaca MD 04/15/2024 08:57 AM EST Dictated By: Enrique Vaca MD Signed By: <Electronically signed by Enrique Vaca MD in OV> 04/15/24 0857 DD/ 1215 TD/TT: 04/14/24 1226 Home Health Care Provider: [facility] External Provider IMG XR PROCEDURES Edited Result - Final * XR Shoulder 2+ Views Left (04/14/2024 12:15 PM EST) Anatomical Region Laterality Modality Upper Extremities, Shoulder Left Radi ographic Imaging 04/14/2024 12:1 5 PM EST Narrative 04/15/2024 8:58 AM EST ? [facility] ?[address] ?[place] [address] ?XRay Report ? Signed ? Patient: Angel,Laila ?MR#: [id number] ?? [id number] ? : 1975 ?Acct:[id number] ? Age/Sex: 49 / F ?ADM Date: 01/29/25 ? Loc: HO.XRAY ? Attending Dr: Abel Tee MD ? Ordering Physician: Abel Tee MD ?? Date of Service: 04/14/24 ?? Procedure(s): XR shoulder LT min 2V ?? Accession Number(s): [id number] ? cc: JORY LALA NP; Abel Tee MD ? EXAMINATION: ?? XR SHOULDER, LEFT ? CLINICAL INFORMATION: ?? M67.919 - Unspecified disorder of synovium and tendon, unspecified ?? shoulder ? COMPARISON: ?? None available. ? TECHNIQUE: ?? Three views of the left shoulder. ? FINDINGS: ?? Normal bone mineralization. No fracture, dislocation, or suspicious ?? bone lesion. Normal alignment. ?? Mild to moderate osteoarthrosis in the glenohumeral joint with ?? undersurface marginal osteophytes, and mild joint space narrowing. ?? Mild superior and undersurface spurring of the AC joint. ?? Minimally downsloping lateral acromion without significant subacromial ?? spurring. ?? Preservation of the subacromial space. ? Remainder of the bony and soft tissue structures appear normal. ? XR/XR shoulder LT min 2V ?? IMPRESSION: ?? 1. No acute findings left shoulder. ?? 2. [id number] glenohumeral joint and AC joint osteoarthrosis. ? Electronically signed by: ??Enrique Vaca MD ??04/15/2024 08:55 AM EST RP ? Dictated By: ?Enrique Vaca MD ? Signed By: ?<Electronically signed by Enrique Vaca MD in OV> ?04/15/24 0855 ? DD/ 1215 ? TD/TT: 04/14/24 1226 ? Home Health Care Provider: ? Procedure Note Donmacieter, Image - 04/15/2024 [place] [address] XRay Report Signed Patient: Aury Ortiz#: [id number] : 1975Acct:[id number] Age/Sex: 49 / FADM Date: 04/14/24 Loc: [facility] Attending Dr: Abel Tee MD Ordering Physician: Abel Tee MD Date of Service: 04/14/24 Procedure(s): XR shoulder LT min 2V Accession Number(s): [id number] cc: JORY LALA NP; Abel Tee MD EXAMINATION: XR SHOULDER, LEFT CLINICAL INFORMATION: M67.919 - Unspecified disorder of synovium and tendon, unspecified shoulder COMPARISON: None available. TECHNIQUE: Three views of the left shoulder. FINDINGS: Normal bone mineralization. No fracture, dislocation, or suspicious bone lesion. Normal alignment. Mild to moderate osteoarthrosis in the glenohumeral joint with undersurface marginal osteophytes, and mild joint space narrowing. Mild superior and undersurface spurring of the AC joint. Minimally downsloping lateral acromion without significant subacromial spurring. Preservation of the subacromial space. Remainder of the bony and soft tissue structures appear normal. XR/XR shoulder LT min 2V IMPRESSION: 1. No acute findings left shoulder. 2. [id number] glenohumeral joint and AC joint osteoarthrosis. Electronically signed by: Enrique Vaca MD 04/15/2024 08:55 AM EST RP Dictated By: Enrique Vaca MD Signed By: <Electronically signed by Enrique Vaca MD in OV> 04/15/24 0855 DD/ 1215 TD/TT: 04/14/24 1226 Home Health Care Provider: [facility] External Provider IMG XR PROCEDURES Edited Result - Final * Albumin, Random Urine W/Creatinine (03/19/2024 11:15 AM EST) Creatinine, Urine 42.75 mg/dL [facility] Microalbumin Urine <5.0 mg/L [facility] Microalbum Creatinine Ratio Ur TNP <30 ug/mg cr [facility] Comment:Unable to calculate albumin/creatinine ratio due to lowmicroalbumin or creatinine result. Urine 03/19/2024 11:1 5 AM EST 03/19/2024 12:52 PM EST [facility] LAB URINE ORDERABLES Final Resul t [facility] [address] [place] [address] [phone] * (ABNORMAL) Basic Metabolic Panel (03/19/2024 11:15 AM EST) Sodium 138 135 - 145 mmol/L [facility] Potassium 4.1 3.3 - 5.1 mmol/L [facility] Chloride 107 96 - 108 mmol/L [facility] Carbon Dioxide 24 22 - 29 mmol/L [facility] Anion Gap 11(L) 12 - 20 [facility] Urea Nitrogen (BUN) 17(H) 9 - 16 mg/dL [facility] Creatinine, Serum 0.83 0.5 - 1.4 mg/dL [facility] Estimated Glomerular Filt Rate >60 [facility] Comment:Chronic Kidney Disea se: Estimated GFR < 60 mL/min/1.88v4Hjmlyv Kidney Disease: Estimated GFR < 15 mL/min/1.73m2 Glucose 75 60 - 115 mg/dL [facility] Calcium 9.0 8.4 - 10.2 mg/dL [facility] Blood Venous blood specimen / Unknown 03/19/2024 11:15 AM EST 03/19/2024 1:07 PM EST us Jory Lala ANP LAB BLOOD ORDERABLES Final Resul t [facility] [address] [place] [phone] * BI Mammogram Screening Tomosynthesis Bilateral (01/19/2024 10:30 AM EST) Anatomical Region Laterality Modality Breast Bilateral Mammography 01/19/2024 10:3 0 AM EST Narrative 01/27/2024 2:08 PM EST ? [facility] [place] ? [address] ?[place] [address] ? Mammography Report ? Signed ? Patient: Angel,Laila ?MR#: [id number] ?? [id number] ? : 1975 ?Acct:[id number] ? Age/Sex: 48 / F ?ADM Date: 11/04/24 ? Loc: HO.MAMMO ? Attending Dr: Jory Lala RAILWAY SIGNALLING ENGINEER ? Ordering Physician: JORY LALA NP ?Results: 1Negative ? Date of Service: 01/19/24 ?Follow Up: 1 Year From Orig ?? inal Mammogram ? Procedure(s): MM tomosynthesis screening BI ?? Accession Number(s): [id number] ? cc: JORY LALA NP ? EXAMINATION: ?? MM SCREENING DIGITAL BREAST TOMOSYNTHESIS, BILATERAL ? CLINICAL INFORMATION: ? Screening. Asymptomatic. ? COMPARISON: ?? Mammography: Comparison is made with available priors ? TECHNIQUE: ?? Digital breast mammography with tomosynthesis is performed in both the ?? craniocaudal and mediolateral oblique views along with computer-aided ?? detection (CAD). ? FINDINGS: ?? The breasts are heterogeneously dense, which may obscure small masses ?? (ACR BI-RADS breast composition Category c). ? There are no significant masses, abnormal calcifications, or other ?? abnormalities. ? MM/MM tomosynthesis screening BI ?? IMPRESSION: ?? No mammographic evidence of malignancy. ? ASSESSMENT: ? BI-RADS BI-RADS 1 - Negative ? RECOMMENDATION: ?? Routine annual mammography screening. ? 1 year F/U ? This examination should not preclude the clinical evaluation of a ?? suspicious palpable abnormality. ? This patient's information was entered into a reminder system with a ?? target due date for their next mammogram. ? Electronically signed by: ??Michaela Alejo DO ??01/27/2024 02:05 PM EST ?? RP ? Dictated By: ?Michaela Alejo DO ? Signed By: ?<Electronically signed by Michaela Alejo, DO in OV> ? 01/27/24 1405 ? DD/ 1030 ? TD/TT: 01/19/24 1100 ? Home Health Care Provider: ? Procedure Note Donotuseinterpreter, Image - 01/27/2024 [facility] [address] [place] [address] Mammography Report Signed Patient: Aury Ortiz#: [id number] : 1975Acct:[id number] Age/Sex: 48 / FADM Date: 01/19/24 Loc: HO.MAMMO Attending Dr: Jory Lala NP Ordering Physician: JORY LALA NPResults: 1Negative Date of Service: 01/19/24Follow Up: 1 Year From Orig inal Mammogram Procedure(s): MM tomosynthesis screening BI Accession Number(s): [id number] cc: JORY LALA NP EXAMINATION: MM SCREENING DIGITAL BREAST TOMOSYNTHESIS, BILATERAL CLINICAL INFORMATION: Screening. Asymptomatic. COMPARISON: Mammography: Comparison is made with available priors TECHNIQUE: Digital breast mammography with tomosynthesis is performed in both the craniocaudal and mediolateral oblique views along with computer-aided detection (CAD). FINDINGS: The breasts are heterogeneously dense, which may obscure small masses (ACR BI-RADS breast composition Category c). There are no significant masses, abnormal calcifications, or other abnormalities. MM/MM tomosynthesis screening BI IMPRESSION: No mammographic evidence of malignancy. ASSESSMENT: BI-RADS BI-RADS 1 - Negative RECOMMENDATION: Routine annual mammography screening. 1 year F/U This examination should not preclude the clinical evaluation of a suspicious palpable abnormality. This patient's information was entered into a reminder system with a target due date for their next mammogram. Electronically signed by: Michaela Alejo DO 01/27/2024 02:05 PM [facility] Dictated By: Michaela Alejo DO Signed By: <Electronically signed by Michaela Alejo DO in OV> 01/27/24 1405 DD/ 1030 TD/TT: 01/19/24 1100 Home Health Care Provider: Jory GORDON IMArminda BI PROCEDURES Final Result * Hepatitis C Ab (12/30/2022 4:01 PM EDT) Hepatitis C Antibody Nonreactive Nonreactive [facility] Comment:Antibodies to HCV no t detected; does not exclude early acuteHCV infection. 12/30/2022 4:01 PM EDT 12/30/2022 4:01 PM EDT [facility] External Provider LAB BLO OD ORDERABLES Final Result Performing Organization Address [facility]/ZIP Co de Phone Number [facility] [address] [place] [phone] * HIV Ab/Ag ([facility]) (12/30/2022 4:01 PM EDT) HIV AB/AG Nonreactive Nonreactive [facility] Comment:HIV-1 p24 Ag and/or HIV-1/HIV-2 Ab not detected.A test result that is nonreactive does not exclude thepossibility of exposure to or infection with HIV-1 and/orHIV-2. Nonreactive results in this assay for individualswith prior exposure to HIV-1 and/or HIV-2 may be due toantigen and antibody levels that are below the limit ofdetection of this assay.[employer] HIV Ag/Ab Combo assay result andsupplemental assay results should be interpreted inconjunction with the patient's clinical presentation,history and other laboratory results. If the results areinconsistent with clinical evidence, additional testing issuggested to confirm the result. 12/30/2022 4:01 PM EDT 12/30/2022 4:01 PM EDT Generic External Data Provider LAB BLOOD ORDERAB LES Final Result Performing Organization Address City/[facility]/ZIP Co de Phone Number [facility] [address] [place] [address] [phone] * (ABNORMAL) Colonoscopy (07/04/2021) Pathologist [facility] Colonoscopy Abnormal(A ) Normal Historical Provider HEALTH MAINTENANCE Final Result * (ABNORMAL) LIPID PANEL, STANDARD (11/29/2020 10:01 AM EDT) Pathologist [facility] Chol/HDLC Ratio 5.6(H) <5.0 (calc) [facility] Cholesterol, Total 237(H) <200 mg/dL [facility] HDL Cholesterol 42(L) > OR = 50 mg/dL [facility] LDL Cholesterol 161(H) mg/dL (calc) [facility] Comment: Reference range: <100 ?? Desirable range <100 mg/dL for primary prevention; ?? <70 mg/dL for patients with CHD or diabetic patients ?? with > or = 2 CHD risk factors. ?? LDL-C is now calculated using the Cassandra ?? calculation, which is a validated novel method providing ?? better accuracy than the Friedewald equation in the ?? estimation of LDL-C. ?? Ed SS et al. MATTIE. 2013;310(19): 4004-2651 ?? (http://education.Patronpath/faq/VUH535) Non-HDL Cholesterol 195(H) <130 mg/dL (calc) [facility] Comment: For patients with diabetes plus 1 major ASCVD risk ?? factor, treating to a non-HDL-C goal of <100 mg/dL ?? (LDL-C of <70 mg/dL) is considered a therapeutic ?? option. Triglycerides 182(H) <150 mg/dL [facility] 11/29/2020 10:[address] [facility] Lala [facility] LAB BLOOD ORDERABLES Final Resul t [facility] [address] * THINPREP PAP (08/09/2020 2:03 PM EDT) Clinical Information: None given [facility] COMMENT SEE COMMENT [facility] Comment: EXPLANATORY NOTE: ? The Pap is a screening test for cervical cancer. It is ?? not a diagnostic test and is subject to false negative ?? and false positive results. It is most reliable when a ?? satisfactory sample, regularly obtained, is submitted ?? with relevant clinical findings and history, and when ?? the Pap result is evaluated along with historic and ?? current clinical information. ?? Antichecking Iron Worker : SEE COMMENT [facility] Comment: RK, CT(ASCP) CT screening location: [address] ??[address] Interpretation/R esult: Negative for intraepithelial lesion or malignancy. [facility] LMP: 07/29/20 [facility] Prev. BX: LEEP 2000 [facility] Prev. PAP: NIL 09/2015 [facility] SOURCE: None given [facility] Statement Of Adequacy: SEE COMMENT [facility] Comment: Satisfactory for evaluation. Endocervical/transformation zone component absent. 08/09/2020 2:0 3 PM EDT Yuly MURPHY LAB PATHOLOGY ORDERABLES Final Result [facility] [address] * HPV mRNA E6/E7 (08/09/2020 2:03 PM EDT) HPV nRNA E6/E7 Not Detected Not Detected [facility] Comment: Methodology: Assistant Toddler Teacher-Mediated Amplification This assay detects E6/E7 viral messenger RNA (mRNA) from 14 high-risk HPV types (16,18,31,33,35,39,45,51,52,56,58,59,66,68). ? The analytical performance characteristics of this assay have been determined by [employer]. The modifications have not been cleared or approved by the FDA. This assay has been validated pursuant to the CLIA regulations and is used for clinical purposes. ?? For additional information, please refer to http://education.Alt[employer].EntreMed/faq/FQS189z2 (This link if provided for information/ educational purposes only.) 08/09/2020 2:03 PM EDT us Yuly Mcfarlane CNM LAB BLOOD ORDERABLES Verena solomon Result [facility] [address] from Last 3 Months or Most Recently Relevant to Health Maintenance Insurance MEDICARE Member Subscriber Plan / Payer (Ef fective 2022-Present) Name:Laila Ortiz Member ID:[id number] Relation to Subscriber:Self Name:Laila Ortiz Subscriber ID:[id number] Payer ID:[id number] Group ID:Not on file Type:Medicare Address: [facility], [facility] [address] [address] [facility] STANDARD Care Teams Electromedical Equipment Repairer Relationship Specialty Start Date End Date Jory Lala ANP [address] [place] [address] PCP - General Family Medicine 11/28/20
--- OUTSIDE RECORDS SUMMARY | 2024-05-25 13:01 | XMS_ITS | Encounter Summary ---
Author Organization [employer] Address [address] [facility] [address] [place] [address] Care Team Providers Care Client Technologies Analyst Name Role Phone Glendy Sutton Primary Care Provider [phone] Reason for Visit * Reason Onset Date Comments PT-1 05/04/2024 Encounter Details Date Type Department Care Team ([facility] st Contact Info) Description 05/04/2024 Telephone [facility] MEDICINE [address] [place], [place] [phone] Glendy Sutton ANP [address] [place], [place] [phone] PT-1 Social History Tobacco Use Types Packs/Day Years [...] encounter Miscellaneous Notes * Telephone Encounter - Dhiraj Ortiz - 05/04/2024 10:24 AM EST Patient calling requesting PT1 1.)Home Address verified: Y/N: Yes Provider name or facility name: [facility] Facility Address: [address] [facility] Escort needed: Y/N: No Do you have a wheelchair: Y/N: No If yes- Manual or electric: Visits: 2-3 visits a month 2.)Home Address verified: Y/N: Yes Provider name or facility name: [facility] ([place]) Facility Address: [address] [place] [address] [address] [place] [address] Escort needed: Y/N: No Do you have a wheelchair: Y/N: No If yes- Manual or electric: Visits: Once a month 3.)Home Address verified: Y/N: Yes Provider name or facility name: [facility] (labs , [place], MRI) Facility Address: [address] [place] [address] Escort needed: Y/N: No Do you have a wheelchair: Y/N: No If yes- Manual or electric: Visits: 2-3 x a month documented in this encounter Plan of Treatment Not on file documented as of this encounter Visit Diagnoses Not on filedocumented in this encounter Additional Health Concerns Assessment Noted Time PHQ-9 Depression Total Score: 4 12/11/19 24 9:48 AM EDT documented as of this encounter Care Teams Client Technologies Analyst Relationship Specialty Start Date End Date Glendy Sutton ANP [address] [place] [address] PCP - General Family Medicine 11/28/20 documented as of this encounter
--- OUTSIDE RECORDS SUMMARY | 2024-05-25 13:01 | XMS_ITS | Encounter Summary ---
Author Organization [employer] Address [address] [facility] [address] [address] Care Team Providers Care Lens Shaper Grinder Name Role Phone Glendy Sutton Primary Care Provider [phone] Reason for Visit * Reason Onset Date Comments Prior Authorization 05/04/2024 Encounter Details Date Type Department Care Team ([facility] Contact Info) Description 05/04/2024 Telephone [facility] MEDICINE [address] [place], [place] [phone] Glendy Sutton ANP [address] [place], [place] [phone] Prior Authorization Social History Tobacco Use Types Packs/Day Years [...] encounter Miscellaneous Notes * Telephone Encounter - Subha Montilla - 05/12/2024 12:00 PM EST PA approval for Sucralfate received and scanned into media. * Telephone Encounter - Subha Montilla - 05/07/2024 3:59 PM EST PA initiated on Covermymeds for sucralfate (Carafate) 1 GM/10ML suspension. Approval/denial pending. * Telephone Encounter - Dhiraj Ortiz - 05/04/2024 10:27 AM EST Tc from pt stating sucralfate (Carafate) 1 GM/10ML suspension needs a PA. If any questions you can contact pt at [phone]. documented in this encounter Plan of Treatment Not on file documented as of this encounter Visit Diagnoses Not on filedocumented in this encounter Additional Health Concerns Assessment Noted Time PHQ-9 Depression Total Score: 4 12/11/19 24 9:48 AM EDT documented as of this encounter Care Teams Lens Shaper Grinder Relationship Specialty Start Date End Date Glendy Sutton ANP [address] [place] [address] PCP - General Family Medicine 11/28/20 documented as of this encounter
--- OUTSIDE RECORDS SUMMARY | 2024-05-25 13:01 | XMS_ITS | Encounter Summary ---
Author Organization [employer] Address [address] [facility] [address] [place] [address] Care Team Providers Care Gun Perforator Loader Name Role Phone Glendy Sutton Primary Care Provider [phone] Encounter Details Date Type Department Care Team (Late st Contact Info) Description 03/20/2022 Orders Only [facility] [address] [place], [place] [phone] Rachael Holguin LPN Social History Tobacco Use Types Packs/Day Years [...] on filedocumented in this encounter Care Teams Gun Perforator Loader Relationship Specialty Start Date End Date Glendy Sutton ANP [address] [place] [address] PCP - General Family Medicine 11/28/20 documented as of this encounter
[2024-05-25 13:13] LABS: TSH reflex Free T4 1.37 uIU/mL (0.32-4.0); Vitamin D 25-OH Total 14.6 ng/mL (>30)
[2024-05-27 11:37] LABS: Cyclic Citrullinated Peptide <16 UNITS
[2024-05-30 10:19] LABS: Anti Nuclear Antibody Pattern Nuclear, Homogeneous; Anti Nuclear Antibody Screen POSITIVE (NEGATIVE); Anti Nuclear Antibody Titer 1:40 titer
== END 2024-05-25 10:46 | disposition home or self-care (01) ==
LOC: HO.LAB 10:45
PROVIDERS: PCP Nurse Practitioner Primary Care; Visit Provider Nurse Practitioner Primary Care
DX: M25.50 Pain in unspecified joint (principal); M35.3 Polymyalgia rheumatica; R53.82 Chronic fatigue, unspecified; E55.9 Vitamin D deficiency, unspecified
CPT/HCPCS: 36415; 82306; 84443; 85652; 86038; 86039; 86200; 86431

== ENCOUNTER 2024-06-06 11:55 | Emergency (ER) | payer MEDICARE, MEDICAID, SELFPAY ==
--- NOTE | ~2024-06-06 | XR_ITS ---
CLINICAL HISTORY: sob Chest Radiographs, 2 views Comparison: 05/22/22 Findings: Enlarged cardiac silhouette, new. Normal mediastinal contours. No pneumothorax. Interstitial prominence versus peribronchial thickening. No pleural effusion. Normal upper abdomen. No acute fracture. Impression: New enlargement of the cardiac silhouette could be secondary to cardiomegaly or a pericardial effusion. Mild pulmonary edema is favored over bronchitis. This document has been electronically signed by: Shraddha Andrews MD on 06/06/2024 13:53:37
[2024-06-06 11:58] VITALS: BP 145/92; PULSE 85; RESP 18; TEMP 36.2; O2SAT 96; BMI 38.0
--- NOTE | 2024-06-06 12:02 | ECG_ITS ---
Test Reason : short of breath Blood Pressure : */* mmHG Vent. Rate : 85 BPM Atrial Rate : 85 BPM P-R Int : 168 ms QRS Dur : 92 ms QT Int : 390 ms P-R-T Axes : 49 -1 67 degrees QTcB Int : 464 ms Normal sinus rhythm Normal ECG When compared with ECG of 20-Sep-2021 18:39, No significant change was found Referred By: Sri Herrera Electronically Signed By: ANTHONY FISHER MD
--- NOTE | 2024-06-06 12:04 | ED_ITS ---
HPI - SOB/Dyspnea General Chief Complaint: General Medical Stated Complaint: SOB, nausea Time Seen by Provider: 06/06/24 13:21 Related Data Home Medications ?Medication ?Instructions ?Recorded ?Confirmed atorvastatin 20 mg tablet 20 mg PO BEDTIME 04/16/21 03/20/23 duloxetine 60 mg capsule,delayed 60 mg PO BID 04/16/21 03/20/23 release hydrochlorothiazide 25 mg tablet 25 mg PO DAILY 04/16/21 03/20/23 lamotrigine 200 mg tablet 200 mg PO DAILY 04/16/21 03/20/23 lamotrigine 25 mg tablet,extended 25 mg PO DAILY 04/16/21 03/20/23 release 24 hr cholecalciferol (vitamin D3) 1,250 1,250 mcg PO QWEEK 01/30/22 03/20/23 mcg (50,000 unit) capsule sucralfate 100 mg/mL oral 10 ml PO DAILY 12/06/22 03/20/23 suspension pregabalin 75 mg capsule 150 mg PO BID 01/15/23 03/20/23 Previous Rx's ?Medication ?Instructions ?Recorded docusate sodium 100 mg capsule 100 mg PO BEDTIME #90 caps 01/11/22 omeprazole 40 mg capsule,delayed 40 mg PO DAILY #90 caps 01/15/23 release furosemide 20 mg tablet 20 mg PO QAM PRN Edema #7 tabs 02/10/23 lisinopril 20 mg tablet 20 mg PO DAILY 90 days #90 tabs 08/21/23 diclofenac potassium 50 mg tablet 50 mg PO BID #60 tabs 03/25/24 metoprolol succinate 25 mg 25 mg PO DAILY #30 tabs 04/26/24 tablet,extended release 24 hr sennosides 8.6 mg tablet (senna) 17.2 mg (2 x 8.6 mg) PO BEDTIME 05/31/24 for constipation #180 tabs Allergies Allergy/AdvReac Type Severity Reaction Status Date / Time cat dander [CATS] Allergy Intermediate Itching Verified 06/06/24 12:03 haloperidol [From HALDOL] Allergy Intermediate SWELLING, Verified 06/06/24 12:03 hives risperidone [From RISPERDAL] Allergy Intermediate HIVES, Verified 06/06/24 12:03 swelling shrimp Allergy Intermediate Swelling Verified 06/06/24 12:03 COCKROACHES Allergy Intermediate Itching Uncoded 06/06/24 12:03 PMFSH Past Medical History Medical History PMR (polymyalgia rheumatica) Knee pain, bilateral Low back pain Ambulates with cane Hx of malignant neoplasm of kidney History of seizure Bipolar disorder Anxiety and depression Fibromyalgia High cholesterol Surgical History History of esophagogastroduodenoscopy (EGD) Hx of colonoscopy History of loop electrical excision procedure (LEEP) History of carpal tunnel surgery of right wrist History of bilateral tubal ligation Family History Family History Mother Kidney failure Diabetes COPD (chronic obstructive pulmonary disease) Heart disease Father Colon cancer Social History Social History Are you a primary special needs child caregiver to a significant other at home: No Do you presently have visiting nurse or other home services: No Alcohol intake: never Patient Tobacco Use Status: Current everyday Tobacco user Tobacco use type: Cigarette Cigarettes Per Day: 3 Advance Directives: No Advance Directives Information Provided: Yes service: No Current occupational status: disabled Physical Exam 2 Vital Signs: Vital Signs: Last Vital Signs Temp 97.9 F 06/06/24 13:55 Pulse 82 06/06/24 13:55 Resp 16 06/06/24 13:55 BP 125/79 06/06/24 13:55 Pulse Ox 97 06/06/24 13:55 O2 Del Method Room Air 06/06/24 13:55 BMI result Body Mass Index 38.0 Course Course Course Narrative: This is a Rapid Medical Examination (RME) performed by Sushil Herrera PA-C in triage. Full HPI, ROS, assessment and treatment plan per primary provider in the Main ED. Hx: 49 yo female current tobacco smoker (4-5 cigarettes daily), hx fibromyalgia, HTN, HDL here for eval of shortness of breath x5 days. assoc nausea and drooling which began today. no sick contacts. no recent travel. assoc chest tightness, no pain. PE/vitals: hypertensive. exam is nonfocal. no drooling noted. lungs clear. no respiratory distress. ambulating w/ steady gait assisted by cane. no calf tenderness. Plan: ekg, labs, cxr, further eval in back. Medical Decision Making Lab Data 06/06/24 12:32 06/06/24 12:32 Labs: Lab Results 06/06/24 06/06/24 Range/Units 12:32 14:00 WBC 6.0 (4.8-10.8) X10*3/uL RBC 4.30 (4.20-5.50) X10*6/uL Hgb 12.6 (12.0-16.0) g/dl Hct 37.9 (37.0-47.0) % MCV 88.1 (80.0-98.0) fL MCH 29.3 (27.0-33.0) pg MCHC 33.2 (31.0-35.0) g/dl RDW 12.9 (11.0-16.0) % Plt Count 239 D (160-400) X10*3/uL MPV 9.8 (9.4-12.3) fL Immature Gran % (Auto) 0.7 H (0.0-0.4) % Neut % (Auto) 63.3 (45-73) % Lymph % (Auto) 29.0 (20-40) % [place] % (Auto) 5.5 (2-11) % Eos % (Auto) 0.8 (0-4) % Baso % (Auto) 0.7 (0-2) % Lymph # (Auto) 1.7 (1.2-4.9) X10*3/uL [place] # (Auto) 0.3 (0.1-1.2) X10*3/uL Eos # (Auto) 0.1 (0.0-0.4) X10*3/uL Baso # (Auto) 0.0 (0.0-0.2) X10*3/uL Abs Immat Gran (auto) 0.04 H (0.00-0.03) X10*3/uL Absolute Neuts (auto) 3.8 (2.0-8.3) x10*3/uL Absolute Nucleated RBC 0.000 (0.0-0.012) X10*3/uL Nucleated RBC % (auto) 0.0 (0.0-0.2) /100WBC D-Dimer High Sensitivty < 150 NG/ML Sodium 139 (135-145) mmol/L Potassium 4.3 (3.3-5.1) mmol/L Chloride 108 (96-108) mmol/L Carbon Dioxide 24 (22-29) mmol/L Anion Gap 11 L (12-20) BUN 18 H (9-16) mg/dL Creatinine 0.67 (0.5-1.4) mg/dL Estim Creat Clear Calc 105.6 Estimated GFR > 60 Random Glucose 87 (60-115) mg/dL Calcium 9.1 (8.4-10.2) mg/dL Magnesium 2.2 (1.6-2.6) mg/dL Total Bilirubin 0.3 (0.0-1.0) mg/dL AST 23 (5-31) U/L ALT 35 H (0-31) U/L Alkaline Phosphatase 61 (39-117) U/L Troponin I High Sens < 2.7 (<3.5-17.0) ng/L B-Natriuretic Peptide 14 (<100) pg/mL Total Protein 7.7 (6.5-8.0) g/dL Albumin 4.0 (3.5-5.0) g/dL Lipase 27 (8-78) U/L Influenza Type A (PCR) NEGATIVE (Negative) Influenza Type B (PCR) NEGATIVE (Negative) RSV RNA Qual (PCR) NEGATIVE (Negative) SARS-CoV-2 RNA (RT-PCR) NEGATIVE (Negative) Discharge Plan Discharge Prescriptions: No Action furosemide 20 mg tablet 20 mg PO QAM PRN (Reason: Edema) Qty: 7 0RF lisinopril 20 mg tablet 20 mg PO DAILY 90 Days Qty: 90 1RF metoprolol succinate 25 mg tablet extended release 24 hr 25 mg PO DAILY Qty: 30 0RF Rx Instructions: If you are not returning to cardiology, please have pcp fill scripts. If you are then please make a follow up appointment to continue refills. Any questions please call. [phone] option 1 sennosides [senna] 8.6 mg tablet 17.2 mg PO BEDTIME Qty: 180 3RF sucralfate 100 mg/mL suspension 10 ml PO DAILY pregabalin 75 mg capsule 150 mg PO BID hydrochlorothiazide 25 mg tablet 25 mg PO DAILY duloxetine 60 mg capsule,delayed release(DR/EC) 60 mg PO BID lamotrigine 25 mg tablet extended release 24hr 25 mg PO DAILY Patient Comments: total dose 225 q am lamotrigine 200 mg tablet 200 mg PO DAILY Patient Comments: total dose 225 q am atorvastatin 20 mg tablet 20 mg PO BEDTIME docusate sodium 100 mg capsule 100 mg PO BEDTIME Qty: 90 3RF cholecalciferol (vitamin D3) 1,250 mcg (50,000 unit) capsule 1,250 mcg PO QWEEK diclofenac potassium 50 mg tablet 50 mg PO BID Qty: 60 2RF Rx Instructions: Take with food omeprazole 40 mg capsule,delayed release(DR/EC) 40 mg PO DAILY Qty: 90 2RF Print Language: Argentine
[2024-06-06 12:38] LABS: MANUAL DIFF FLAG NO
[2024-06-06 12:40] LABS: Basophils Percent Auto 0.7 % (0-2); Eosinophils Absolute Auto 0.1 X10*3/uL (0.0-0.4); Eosinophils Percent Auto 0.8 % (0-4); Hematocrit 37.9 % (37.0-47.0); Hemoglobin 12.6 g/dl (12.0-16.0); Imm Gran Abs Auto 0.04 X10*3/uL (0.00-0.03); Imm Gran Pct Auto 0.7 % (0.0-0.4); Lymphocytes Absolute Auto 1.7 X10*3/uL (1.2-4.9); Mean Corpuscular HGB Conc 33.2 g/dl (31.0-35.0); Mean Corpuscular Hemoglobin 29.3 pg (27.0-33.0); Mean Corpuscular Volume 88.1 fL (80.0-98.0); Mean Platelet Volume 9.8 fL (9.4-12.3); Monocytes Absolute Auto 0.3 X10*3/uL (0.1-1.2); Monocytes Percent Auto 5.5 % (2-11); Neutrophils Absolute Auto 3.8 x10*3/uL (2.0-8.3); Neutrophils Percent Auto 63.3 % (45-73); Platelet Count 239 X10*3/uL (160-400); Red Cell Distribution Width 12.9 % (11.0-16.0)
[2024-06-06 12:58] LABS: Alanine Aminotransferase 35 U/L (0-31); Alkaline Phosphatase 61 U/L (39-117); Anion Gap 11 (12-20); Aspartate Amino Transferase 23 U/L (5-31); Bilirubin Total 0.3 mg/dL (0.0-1.0); Blood Urea Nitrogen 18 mg/dL (9-16); Calcium 9.1 mg/dL (8.4-10.2); Carbon Dioxide 24 mmol/L (22-29); Chloride 108 mmol/L (96-108); Creatinine Clr Calc Pharmacy 105.6; Estimated Glomerular Filt Rate > 60; Glucose Random 87 mg/dL (60-115); Lipase 27 U/L (8-78); Magnesium 2.2 mg/dL (1.6-2.6); Potassium 4.3 mmol/L (3.3-5.1); Sodium 139 mmol/L (135-145); Total Protein 7.7 g/dL (6.5-8.0)
[2024-06-06 13:04] LABS: B Type Natriuretic Peptide 14 pg/mL (<100)
[2024-06-06 13:18] LABS: Influenza A PCR NEGATIVE (Negative); Influenza B PCR NEGATIVE (Negative); Resp Syncy Virus RNA Qual PCR NEGATIVE (Negative); SARS COV2 PCR INHOUSE NEGATIVE (Negative)
[2024-06-06 13:24] LABS: Troponin-I High Sensitivity < 2.7 ng/L (<3.5-17.0)
--- NOTE | 2024-06-06 13:32 | ED.GENADULT ---
HPI - General Adult General Chief complaint: General Medical Stated complaint: SOB, nausea Time Seen by Provider: 06/06/24 13:21 Source: patient Mode of arrival: ambulatory Limitations: no limitations History of Present Illness HPI narrative: This is 49 years old the patient with a history of fibromyalgia, BP MR, bipolar disorder, smoker presented to the emergency department complaining of nausea shortness of breath for about 5 days. Denies any fever chills vomiting. She is ambulatory to the emergency department Onset (ago): day(s) (5) Radiation: non-radiation Severity: mild Pain Consistency: constant Relieving factors: none Exacerbating factors: none Related Data Home Medications ?Medication ?Instructions ?Recorded ?Confirmed atorvastatin 20 mg tablet 20 mg PO BEDTIME 04/16/21 03/20/23 duloxetine 60 mg capsule,delayed 60 mg PO BID 04/16/21 03/20/23 release hydrochlorothiazide 25 mg tablet 25 mg PO DAILY 04/16/21 03/20/23 lamotrigine 200 mg tablet 200 mg PO DAILY 04/16/21 03/20/23 lamotrigine 25 mg tablet,extended 25 mg PO DAILY 04/16/21 03/20/23 release 24 hr cholecalciferol (vitamin D3) 1,250 1,250 mcg PO QWEEK 01/30/22 03/20/23 mcg (50,000 unit) capsule sucralfate 100 mg/mL oral 10 ml PO DAILY 12/06/22 03/20/23 suspension pregabalin 75 mg capsule 150 mg PO BID 01/15/23 03/20/23 Previous Rx's ?Medication ?Instructions ?Recorded docusate sodium 100 mg capsule 100 mg PO BEDTIME #90 caps 01/11/22 omeprazole 40 mg capsule,delayed 40 mg PO DAILY #90 caps 01/15/23 release furosemide 20 mg tablet 20 mg PO QAM PRN Edema #7 tabs 02/10/23 lisinopril 20 mg tablet 20 mg PO DAILY 90 days #90 tabs 08/21/23 diclofenac potassium 50 mg tablet 50 mg PO BID #60 tabs 03/25/24 metoprolol succinate 25 mg 25 mg PO DAILY #30 tabs 04/26/24 tablet,extended release 24 hr sennosides 8.6 mg tablet (senna) 17.2 mg (2 x 8.6 mg) PO BEDTIME 05/31/24 for constipation #180 tabs Allergies Allergy/AdvReac Type Severity Reaction Status Date / Time cat dander [CATS] Allergy Intermediate Itching Verified 06/06/24 12:03 haloperidol [From HALDOL] Allergy Intermediate SWELLING, Verified 06/06/24 12:03 hives risperidone [From RISPERDAL] Allergy Intermediate HIVES, Verified 06/06/24 12:03 swelling shrimp Allergy Intermediate Swelling Verified 06/06/24 12:03 COCKROACHES Allergy Intermediate Itching Uncoded 06/06/24 12:03 Review of Systems Constitutional: Constitutional: Reports no additional constitutional complaints Cardiovascular: Cardiovascular: Reports dyspnea Respiratory: Respiratory: Reports dyspnea Musculoskeletal: Musculoskeletal: Reports no additional musculoskeletal complaints PMFSH Past Medical History Medical History PMR (polymyalgia rheumatica) Knee pain, bilateral Low back pain Ambulates with cane Hx of malignant neoplasm of kidney History of seizure Bipolar disorder Anxiety and depression Fibromyalgia High cholesterol Surgical History History of esophagogastroduodenoscopy (EGD) Hx of colonoscopy History of loop electrical excision procedure (LEEP) History of carpal tunnel surgery of right wrist History of bilateral tubal ligation Family History Family History Mother Kidney failure Diabetes COPD (chronic obstructive pulmonary disease) Heart disease Father Colon cancer Social History Social History Are you a primary managed care provider to a significant other at home: No Do you presently have visiting nurse or other home services: No Alcohol intake: never Patient Tobacco Use Status: Current everyday Tobacco user Tobacco use type: Cigarette Cigarettes Per Day: 3 Advance Directives: No Advance Directives Information Provided: Yes service: No Current occupational status: disabled Physical Exam ED Vital Signs: Vital Signs - 24 hr 06/06/24 11:58 06/06/24 13:55 Temperature 97.2 F 97.9 F Pulse Rate 85 82 Respiratory Rate 18 16 Blood Pressure 145/92 H 125/79 Pulse Oximetry 96 97 Oxygen Delivery Method Room Air BMI result Body Mass Index 38.0 Not acute distress comfortable in the stretcher Const General: cooperative Nutritional Appearance: obese Orientation/consciousness: patient oriented x3 Limitations: no limitations HENMT Head: Yes normal to inspection General nose exam: Normal external nose present Face and sinus: Yes normal facial exam Mouth: Normal oral and palatal mucosa present Throat: Yes posterior oropharynx normal Neck Neck: Yes normal visual inspection Chest Chest palpation & inspection: normal inspection of the chest Resp Effort & Inspection: normal respiratory effort Auscultation: clear to auscultation bilaterally Cardio Jugular venous distension: no JVD Rate: regular rate Rhythm: regular rhythm GI Inspection: Yes normal to inspection Palpation (GI): Soft to palpation, not firm, nontender and no guarding Percussion: Yes normal to percussion Skin General skin exam: no rashes or lesions noted and elasticity normal Lesions: no lesions Rashes: no rashes Neuro General: patient oriented x3 Cranial nerves: Yes CN's II-XII intact bilaterally Course Reevaluation(s) Reevaluation #1: WORKUP HAS BEEN COMPLETED LABS ESSENTIALLY NORMAL INCLUDING D-DIMER BNP HIGH SENSITIVE TROPONIN. CHEST X-RAY WAS READ POSSIBLE PULMONARY EDEMA AND PERICARDIAL EFFUSION HOWEVER CLINICALLY THE PATIENT HAS NO IN PULMONARY EDEMA THE BNP IS NORMAL, I DID A BEDSIDE ECHO THERE IS NO PERICARDIAL EFFUSION WHATSOEVER. AT THIS POINT I THINK THE PATIENT CAN BE DISCHARGED SHE HAS STABLE VITAL SIGNS O2 SAT IS 97% ON ROOM AIR SHE IS BREATHING AT 16 MINUTES Time: 15:53 Medical Decision Making Medical Decision Making [facility] Narrative: Patient presented with shortness of breath we will obtain a chest x-ray labs EKG 15:57 THE PATIENT IS DOING WELL, LABS NORMAL TROPONIN NEGATIVE, D-DIMER NEGATIVE BNP NORMAL. CHEST X-RAY WAS READ BY THE RADIOLOGY A POSSIBLE CHF CARDIOMEGALY. HOWEVER THE BNP IS NORMAL I DO NOT THINK THE PATIENT IS IS IN CHF. I DID A BEDSIDE ECHO THERE IS NO EVIDENCE OF PERICARDIAL EFFUSION, GOOD WALL MOTION Differential Diagnosis Differential Diagnoses: The differential diagnosis associated with the presentation includes Pneumonia/anxiety/pneumothorax Admission/Observation Consideration of admission/observation: Escalation of care including admission/observation considered Lab Data MDM Lab Attestation statement: I reviewed the patient's lab results. 06/06/24 12:32 06/06/24 12:32 Labs: Lab Results 06/06/24 06/06/24 Range/Units 12:32 14:00 WBC 6.0 (4.8-10.8) X10*3/uL RBC 4.30 (4.20-5.50) X10*6/uL Hgb 12.6 (12.0-16.0) g/dl Hct 37.9 (37.0-47.0) % MCV 88.1 (80.0-98.0) fL MCH 29.3 (27.0-33.0) pg MCHC 33.2 (31.0-35.0) g/dl RDW 12.9 (11.0-16.0) % Plt Count 239 D (160-400) X10*3/uL MPV 9.8 (9.4-12.3) fL Immature Gran % (Auto) 0.7 H (0.0-0.4) % Neut % (Auto) 63.3 (45-73) % Lymph % (Auto) 29.0 (20-40) % [place] % (Auto) 5.5 (2-11) % Eos % (Auto) 0.8 (0-4) % Baso % (Auto) 0.7 (0-2) % Lymph # (Auto) 1.7 (1.2-4.9) X10*3/uL [place] # (Auto) 0.3 (0.1-1.2) X10*3/uL Eos # (Auto) 0.1 (0.0-0.4) X10*3/uL Baso # (Auto) 0.0 (0.0-0.2) X10*3/uL Abs Immat Gran (auto) 0.04 H (0.00-0.03) X10*3/uL Absolute Neuts (auto) 3.8 (2.0-8.3) x10*3/uL Absolute Nucleated RBC 0.000 (0.0-0.012) X10*3/uL Nucleated RBC % (auto) 0.0 (0.0-0.2) /100WBC D-Dimer High Sensitivty < 150 NG/ML Sodium 139 (135-145) mmol/L Potassium 4.3 (3.3-5.1) mmol/L Chloride 108 (96-108) mmol/L Carbon Dioxide 24 (22-29) mmol/L Anion Gap 11 L (12-20) BUN 18 H (9-16) mg/dL Creatinine 0.67 (0.5-1.4) mg/dL Estim Creat Clear Calc 105.6 Estimated GFR > 60 Random Glucose 87 (60-115) mg/dL Calcium 9.1 (8.4-10.2) mg/dL Magnesium 2.2 (1.6-2.6) mg/dL Total Bilirubin 0.3 (0.0-1.0) mg/dL AST 23 (5-31) U/L ALT 35 H (0-31) U/L Alkaline Phosphatase 61 (39-117) U/L Troponin I High Sens < 2.7 (<3.5-17.0) ng/L B-Natriuretic Peptide 14 (<100) pg/mL Total Protein 7.7 (6.5-8.0) g/dL Albumin 4.0 (3.5-5.0) g/dL Lipase 27 (8-78) U/L Influenza Type A (PCR) NEGATIVE (Negative) Influenza Type B (PCR) NEGATIVE (Negative) RSV RNA Qual (PCR) NEGATIVE (Negative) SARS-CoV-2 RNA (RT-PCR) NEGATIVE (Negative) Independent Interpretation I performed an independent interpretation of an: EKG and Plain X-Ray Interpretation: Normal sinus rhythm rate [address]-T changes normal EKG TO MY REVIEW OF THE CHEST X-RAY IS ESSENTIALLY NORMAL Radiology Impression Discussion of test interpretation with radiology: I have reviewed the radiologist's reading. Radiologist Impression: RADIOLOGY INTERPRETED THE CHEST X-RAY A PULMONARY EDEMA AND CARDIOMEGALY Discharge Plan Discharge Clinical Impression: Shortness of breath Patient Disposition: Home, Self-Care Instructions: Shortness of Breath (ED) Additional Instructions: PLEASE FOLLOW-UP WITH YOUR PRIMARY CARE PHYSICIAN CALL IN A.M. AND MAKE AN APPOINTMENT RETURN TO THE EMERGENCY ROOM IF YOU WORSE YOUR BLOOD WORK WAS NORMAL INCLUDING THE BLOOD TEST FOR HEART ATTACK AND THE BLOOD TEST FOR BLOOD CLOT Prescriptions: No Action furosemide 20 mg tablet 20 mg PO QAM PRN (Reason: Edema) Qty: 7 0RF lisinopril 20 mg tablet 20 mg PO DAILY 90 Days Qty: 90 1RF metoprolol succinate 25 mg tablet extended release 24 hr 25 mg PO DAILY Qty: 30 0RF Rx Instructions: If you are not returning to cardiology, please have pcp fill scripts. If you are then please make a follow up appointment to continue refills. Any questions please call. [phone] option 1 sennosides [senna] 8.6 mg tablet 17.2 mg PO BEDTIME Qty: 180 3RF sucralfate 100 mg/mL suspension 10 ml PO DAILY pregabalin 75 mg capsule 150 mg PO BID hydrochlorothiazide 25 mg tablet 25 mg PO DAILY duloxetine 60 mg capsule,delayed release(DR/EC) 60 mg PO BID lamotrigine 25 mg tablet extended release 24hr 25 mg PO DAILY Patient Comments: total dose 225 q am lamotrigine 200 mg tablet 200 mg PO DAILY Patient Comments: total dose 225 q am atorvastatin 20 mg tablet 20 mg PO BEDTIME docusate sodium 100 mg capsule 100 mg PO BEDTIME Qty: 90 3RF cholecalciferol (vitamin D3) 1,250 mcg (50,000 unit) capsule 1,250 mcg PO QWEEK diclofenac potassium 50 mg tablet 50 mg PO BID Qty: 60 2RF Rx Instructions: Take with food omeprazole 40 mg capsule,delayed release(DR/EC) 40 mg PO DAILY Qty: 90 2RF Referrals: Glendy Sutton PROJECT CONTROL OFFICER [Primary Care Provider] - 1 day Print Language: Croatian
[2024-06-06 13:55] VITALS: BP 125/79; PULSE 82; RESP 16; TEMP 36.6; O2SAT 97
[2024-06-06 14:20] LABS: D Dimer High Sensitivity < 150 NG/ML
[2024-06-06 16:00] VITALS: BP 133/90; PULSE 77; RESP 18; TEMP 36.8; O2SAT 97
== END 2024-06-06 16:06 | disposition home or self-care (01) ==
PROVIDERS: Physician Assistant Medical; Emergency Provider Emergency Medicine; PCP Nurse Practitioner Primary Care
DX: R06.02 Shortness of breath (principal); R11.0 Nausea; M35.3 Polymyalgia rheumatica; Z79.899 Other long term (current) drug therapy
CPT/HCPCS: 0241U; 36415; 71046; 80053; 83690; 83735; 83880; 84484; 85025; 85379; 93005; 99283

== ENCOUNTER → 2024-06-06 12:02 | Outpatient (BNV) | payer MEDICARE, MEDICAID, SELFPAY | PROVIDERS: Emergency Provider Emergency Medicine; PCP Nurse Practitioner Primary Care; Visit Provider Radiology Diagnostic Radiology | DX: R06.02 Shortness of breath (principal) | CPT/HCPCS: 71046 ==

== ENCOUNTER → 2024-06-06 12:02 | Outpatient (BNV) | payer MEDICARE, MEDICAID, SELFPAY | PROVIDERS: Emergency Provider Emergency Medicine; PCP Nurse Practitioner Primary Care; Visit Provider Internal Medicine Cardiovascular Disease | DX: R06.02 Shortness of breath (principal) | CPT/HCPCS: 93010 ==

== ENCOUNTER 2024-06-14 07:48 | Outpatient (AMB) | payer MEDICARE, MEDICAID, SELFPAY ==
[2024-06-14 07:51] VITALS: BP 106/66; PULSE 84; O2SAT 97; BMI 37.2
--- NOTE | 2024-06-14 07:51 | MHC.OFFVIS ---
Vital Signs 06/14/24 07:51 Height 5 ft 1 in Weight 197 lb BMI 37.2 BP 106/66 Blood Pressure Location Lt brachial Position Sitting Pulse 84 Pulse Oximetry (%) 97 Oxygen Delivery Method Room Air Intake Visit Reasons: Gastroesophageal reflux disease (GERD) Intake Note: Patient follow up for GERD last ov was 01/2023. Patient cc: GERD on and off, gassy, abdominal bloating, and swallowing difficulty with solid food. 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 Accompanied by: Self / Same As Patient Allergies cat dander [CATS] Allergy (Intermediate, Verified 06/14/24 07:50) Itching haloperidol [From HALDOL] Allergy (Intermediate, Verified 06/14/24 07:50) SWELLING, hives risperidone [From RISPERDAL] Allergy (Intermediate, Verified 06/14/24 07:50) HIVES, swelling shrimp Allergy (Intermediate, Verified 06/14/24 07:50) Swelling COCKROACHES Allergy (Intermediate, Uncoded 06/06/24 12:03) Itching HPI HPI Gastroesophageal reflux disease (GERD): Details: LAST VISIT 01/15/2023 GERD (gastroesophageal reflux disease) Epigastric discomfort Plan Continue current treatment with omeprazole 40 mg half an hour before breakfast. Discussed with patient the importance of avoiding dietary triggers in late night snacking. Staying upright for minimum 3 hours after meals discussed with patient. Patient was encouraged to avoid NSAIDs. I will see patient in 6 months, sooner on as needed basis. She is agreeable to this plan and verbalizes understanding of instructions. She was given the opportunity to ask questions and all questions answered. ? Thank you for allowing me to participate in her care Medications Changed Changed From omeprazole 40 mg PO BID 60 caps 2RF K21.9 Changed To omeprazole 40 mg PO DAILY 90 caps 2RF K21.9 TODAY'S VISIT Patient is here today for requested visit. Last visit in January of 2023. Patient had suffers from PTSD and had couple outbreaks where she had to be hospitalized. Some of her medications were changed. She was placed on Abilify 30 mg and since last seen patient has been reporting of trouble swallowing. Patient reports that she feels like solid food gets stuck in her throat. Has to frequently clear her throat. Feels mucus in her throat. Patient has to drink liquid whenever she eats solid food. Patient no longer is taking omeprazole. She is taking sucralfate 4 times a day and reports that it has been helpful. Patient denies dyspepsia or odynophagia. Reports that she is moving her bowels well without any issues. Recently was placed on vitamin-D 3 56489 units weekly as her vitamin-D level was low. Patient denies any melena, hematochezia. She continues to smoke cigarettes with patient denies any nausea or vomiting. [facility] Medical History PMR (polymyalgia rheumatica) Knee pain, bilateral Low back pain Ambulates with cane Hx of malignant neoplasm of kidney History of seizure Bipolar disorder Anxiety and depression Fibromyalgia High cholesterol Surgical History History of esophagogastroduodenoscopy (EGD) Hx of colonoscopy History of loop electrical excision procedure (LEEP) History of carpal tunnel surgery of right wrist History of bilateral tubal ligation Family History Mother Kidney failure Diabetes COPD (chronic obstructive pulmonary disease) Heart disease Father Colon cancer Social History Are you a primary care transition manager to a significant other at home: No Do you presently have visiting nurse or other home services: No Alcohol intake: never Patient Tobacco Use Status: Current everyday Tobacco user Tobacco use type: Cigarette Cigarettes Per Day: 3 service: No Current occupational status: disabled Review of Systems Const Denies weight gain and Denies weight loss ENT Reports no additional complaints, Reports dysphagia and Denies odynophagia Card Reports no additional complaints Resp Reports no additional complaints GI Denies abdominal pain, Denies belching, Denies melena, Denies bloating, Denies change in bowel habits, Reports dysphagia, Denies excessive flatus, Denies dyspepsia, Reports heartburn, Denies diarrhea, Denies loose stools, Denies nausea, Denies odynophagia and Denies vomiting Reports no additional complaints Musc Reports no additional complaints Neuro Reports no additional complaints Psych Reports no additional complaints Endo Reports no additional complaints Physical Exam Vital Signs: Oxygen Delivery Method Room Air 06/14/24 07:51 Const General: healthy appearing, no acute distress and well developed Nutritional Appearance: well nourished Orientation/consciousness: patient oriented x3 Resp Effort & Inspection: normal respiratory effort, able to speak in complete sentences, no tracheal deviation and symmetric chest movement Auscultation: clear to auscultation bilaterally Cardio Rate: regular rate GI Inspection: Yes normal to inspection and No distended Palpation (GI): Soft to palpation, not firm, nontender and No hepatosplenomegaly present Auscultation: normal bowel sounds General: Yes no CVA tenderness Back/Spine/Pelvis Back: no CVA tenderness Skin General skin exam: elasticity normal, turgor normal and dry skin Neuro General: patient oriented x3 Psych Appearance: grossly normal Mental Status: mental status grossly normal Assessment & Plan Assessment & Plan (1) GERD (gastroesophageal reflux disease): Code(s): K21.9 - Gastro-esophageal reflux disease without esophagitis Qualifiers: Esophagitis presence: esophagitis presence not specified Qualified Code(s): K21.9 - Gastro-esophageal reflux disease without esophagitis (2) Epigastric discomfort: Code(s): R10.13 - Epigastric pain (3) Dysphagia: Code(s): R13.10 - Dysphagia, unspecified Qualifiers: Dysphagia type: pharyngoesophageal phase Qualified Code(s): R13.14 - Dysphagia, pharyngoesophageal phase Plan Patient will start taking Nexium every morning half an hour before breakfast. Continue taking sucralfate twice a day at 14:00 and at bedtime. Avoid dietary triggers and late night snacking. Staying upright for minimum 3 hours after meals discussed with patient. Patient will go for upper GI with barium swallow. Patient continues to smoke cigarettes. Smoking cessation advised. Follow-up in 3 months, sooner on as needed basis. Patient is agreeable to this plan and verbalizes understanding of instructions. She was given the opportunity to ask questions and all questions answered. Thank you for allowing me to participate in her care Orders: Orders [place] upper GI w Ba Swallow Today K21.9 - Gastro-esophageal reflux disease without esophagitis Medications: New esomeprazole magnesium (Nexium) 40 mg PO DAILY 30 caps 3RF K21.9 - Gastro-esophageal reflux disease without esophagitis Changed From sucralfate 10 mL PO DAILY To sucralfate At 14:00 and at bedtime 10 mL PO BID 1,000 mL 0RF Refilled docusate sodium 100 mg PO BEDTIME 90 caps 3RF K59.00 - Constipation, unspecified Discontinued omeprazole Discontinued Reason: Doctor's Order 40 mg PO DAILY 90 caps 2RF K21.9 - Gastro-esophageal reflux disease without esophagitis Coding Level of Care Code Est Pt Level 4 (18116) Complex EM visit Add On G2211 Diagnoses Gastroesophageal reflux disease, unspecified whether esophagitis present K21.9 Esophagitis presence: esophagitis presence not specified Epigastric discomfort R10.13 Pharyngoesophageal dysphagia R13.14 Dysphagia type: pharyngoesophageal phase Time Spent (min) 40 Comment 30 minutes spent with patient and additional 10 minutes spent reviewing her records
== END 2024-06-14 08:33 | disposition home or self-care (01) ==
LOC: HO.HGI 07:49
PROVIDERS: PCP Nurse Practitioner Primary Care; Visit Provider Nurse Practitioner Family
DX: K21.9 Gastro-esophageal reflux disease without esophagitis (principal); R10.13 Epigastric pain; R13.14 Dysphagia, pharyngoesophageal phase
CPT/HCPCS: 99214; G2211

== ENCOUNTER → 2024-06-14 07:48 | Outpatient (BNVA) | payer MEDICARE, MEDICAID, SELFPAY | PROVIDERS: PCP Nurse Practitioner Primary Care; Visit Provider Nurse Practitioner Family | DX: K21.9 Gastro-esophageal reflux disease without esophagitis (principal); K59.00 Constipation, unspecified; R10.13 Epigastric pain; R13.14 Dysphagia, pharyngoesophageal phase | CPT/HCPCS: 99212 ==

== ENCOUNTER 2024-06-22 08:26 | Outpatient (AMB) | payer MEDICARE, MEDICAID, SELFPAY ==
[2024-06-22 08:29] VITALS: BP 100/62; PULSE 85; BMI 38.7
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
--- OUTSIDE RECORDS SUMMARY | 2024-06-22 08:47 | XMS_ITS | Encounter Summary ---
Author Organization [employer] Address [address] [facility] [address] [place] [address] Care Team Providers Care Assurance Manager Name Role Phone Glendy Sutton Primary Care Provider [phone] Reason for Visit * Reason Onset Date Comments Nurse Triage 07/08/2023 Encounter Details Date Type Department Care Team ([facility] st Contact Info) Description 07/08/2023 Telephone [facility] MEDICINE [address] [place], [place] [phone] Glendy Sutton ANP [address] [place] [address] Nurse Triage Social History Tobacco Use Types [...] a call back. * Telephone Encounter - Mi Valderrama RN - 07/08/2023 9:07 AM EDT Call returned to Laila Ortiz for triage. No answer LVM to return call to [facility] triage line [phone]. * Telephone Encounter - Sherri Carrillo - 07/08/2023 8:40 AM EDT Symptom: Body Aches Outcome: Schedule an appointment to be seen within 3 days Reason: Pt is requesting to speak with PCP stated for body aches and something else, no further details provided. The caller accepted this outcome documented in this encounter Plan of Treatment Upcoming Encounters Date Type Department Care Team (Late st Contact Info) Description 10/01/2024 10:00 AM EDT Office Visit [facility] OPTOMETRY [address] [place] [address] Vishnu, Kerline, OD [address] [place] [address] documented as of this encounter Visit Diagnoses Not on filedocumented in this encounter Additional Health Concerns Assessment Noted Time PHQ-9 Depression Total Score: 0 10/04/19 23 9:29 AM EDT documented as of this encounter Care Teams Assurance Manager Relationship Specialty Start Date End Date Glendy Sutton ANP [address] [place] [address] PCP - General Family Medicine 11/28/20 documented as of this encounter
--- OUTSIDE RECORDS SUMMARY | 2024-06-22 08:47 | XMS_ITS | Encounter Summary ---
Author Organization [employer] Address [address] [facility] [address] [place] [address] Care Team Providers Care Inletter Name Role Phone Glendy Sutton Primary Care Provider [phone] Reason for Visit * Reason Comments Med Refill Encounter Details Date Type Department Care Team ([facility] Contact Info) Description 04/02/2022 Refill [facility] CHC MED & PEDS [address] [place] [address] Glendy Sutton ANP [address] [place] [address] Anemia, unspecified type Social History Tobacco Use [...] as of this encounter Plan of Treatment Upcoming Encounters Date Type Department Care Team ([facility] Contact Info) Description 10/01/2024 10:00 AM EDT Office Visit [facility] OPTOMETRY [address] [place] [address] Vishnu, Kerline, OD [address] [place] [address] documented as of this encounter Visit Diagnoses Diagnosis Anemia, unspecified type documented in this encounter Care Teams Inletter Relationship Specialty Start Date End Date Glendy Sutton ANP [address] [place] [address] PCP - General Family Medicine 11/28/20 documented as of this encounter
--- OUTSIDE RECORDS SUMMARY | 2024-06-22 08:47 | XMS_ITS | Encounter Summary ---
Author Organization [employer] Address [address] [facility] [address] [place] [address] Care Team Providers Care Set Up Mechanic Name Role Phone Glendy Sutton Primary Care Provider [phone] Reason for Visit * Reason Onset Date Comments Hospital Follow-up 02/24/2024 Encounter Details Date Type Department Care Team ([facility] Contact Info) Description 02/24/2024 Telephone [facility] MEDICINE [address] [place], [place] [phone] Glendy Sutton ANP [address] [place] [address] Hospital Follow-up Social History Tobacco Use Types [...] from pt requesting a HDF appt. Hospital: [facility] Date of admission: 02/15 Discharge date: 02/17 Diagnosed: Crisis, Dehydrated, Kidney Damage. Contact pt at [phone] *Send message to [place] Clinical Care Coordinators documented in this encounter Plan of Treatment Upcoming Encounters Date Type Department Care Team (Late st Contact Info) Description 10/01/2024 10:00 AM EDT Office Visit [facility] OPTOMETRY [address] [place] [address] Kerline Mares, OD [address] [place] [address] documented as of this encounter Visit Diagnoses Not on filedocumented in this encounter Additional Health Concerns Assessment Noted Time PHQ-9 Depression Total Score: 4 12/11/19 24 9:48 AM EDT documented as of this encounter Care Teams Set Up Mechanic Relationship Specialty Start Date End Date Glendy Sutton ANP [address] [place] [address] PCP - General Family Medicine 11/28/20 documented as of this encounter
--- OUTSIDE RECORDS SUMMARY | 2024-06-22 08:47 | XMS_ITS | Encounter Summary ---
Author Organization [employer] Address [address] [facility] [address] [place] [address] Care Team Providers Care Wad Blanking Press Adjuster Name Role Phone Glendy Sutton Primary Care Provider [phone] Encounter Details Date Type Department Care Team (Late st Contact Info) Description 03/20/2022 Orders Only [facility] CHC MED & PEDS [address] [place] [address] Rachael Holguin LPN Social History Tobacco Use [...] Description 10/01/2024 10:00 AM EDT Office Visit [facility] OPTOMETRY [address] [place] [address] Kerline Mares, OD [address] [place] [address] documented as of this encounter Visit Diagnoses Not on filedocumented in this encounter Care Teams Wad Blanking Press Adjuster Relationship Specialty Start Date End Date Glendy Sutton ANP [address] [place] [address] PCP - General Family Medicine 11/28/20 documented as of this encounter
--- OUTSIDE RECORDS SUMMARY | 2024-06-22 08:47 | XMS_ITS | Encounter Summary ---
Author Organization [employer] Address [address] [facility] [address] [place] [address] Care Team Providers Care Family Program Specialist Name Role Phone Glendy Sutton Primary Care Provider [phone] Reason for Visit * Reason Onset Date Comments PT-1 05/04/2024 Encounter Details Date Type Department Care Team ([facility] st Contact Info) Description 05/04/2024 Telephone [facility] MEDICINE [address] [place], [place] [phone] Glendy Sutton ANP [address] [place], [place] [phone] PT-1 Social History Tobacco Use Types Packs/Day [...] Y/N: Yes Provider name or facility name: [facility] Facility Address: [address] [facility] Escort needed: Y/N: No Do you have a wheelchair: Y/N: No If yes- Manual or electric: Visits: 2-3 visits a month 2.)Home Address verified: Y/N: Yes Provider name or facility name: [facility] ([place] Facility Address: [address] [place] [address] [address] [place] [address] Escort needed: Y/N: No Do you have a wheelchair: Y/N: No If yes- Manual or electric: Visits: Once a month 3.)Home Address verified: Y/N: Yes Provider name or facility name: [facility] (labs , [place], [facility]) Facility Address: [address] [place] [address] Escort needed: Y/N: No Do you have a wheelchair: Y/N: No If yes- Manual or electric: Visits: 2-3 x a month documented in this encounter Plan of Treatment Upcoming Encounters Date Type Department Care Team ([facility] st Contact Info) Description 10/01/2024 10:00 AM EDT Office Visit [facility] OPTOMETRY [address] [place] [address] Kerline Mares OD [address] [place] [address] documented as of this encounter Visit Diagnoses Not on filedocumented in this encounter Additional Health Concerns Assessment Noted Time PHQ-9 Depression Total Score: 4 12/11/19 24 9:48 AM EDT documented as of this encounter Care Teams Family Program Specialist Relationship Specialty Start Date End Date Glendy Sutton ANP [address] [place] [address] PCP - General Family Medicine 11/28/20 documented as of this encounter
--- OUTSIDE RECORDS SUMMARY | 2024-06-22 08:47 | XMS_ITS | Clinical Summary ---
Author Organization [employer] Address [address] [facility] 7[address] [place] [address] Care Team Providers Care Lithopone Charger Name Role Phone Jory Lala EVAN Primary Care Provider [phone] Allergies Active Allergy Reactions Criticality Noted Date [...] DO NOT BREAK, CRUSH, DISSOLVE OR CHEW 024 Active pregabalin (Lyrica) 200 MG capsuleIndicati ons:Other chronic pain Take 1 capsule (200 mg) by mouth 3 times daily. 90 capsule 5 024 Active zolpidem (Ambien) 10 MG tablet Take 10 mg by mouth if needed at bedtime for sleep. 024 Active sucralfate (Carafate) 1 GM/10ML suspension TAKE 10 ML BY MOUTH AT BEDTIME, MAY INCREASE TO 4 TIMES DAILY NEEDED 1260 mL 2 025 Active diclofenac (Cataflam) 50 MG tablet [...] by mouth at bedtime. prn 025 Active cholecalciferol (Vitamin D-3) 1.25 MG (37497 UT) capsuleIndicati ons:Vitamin D deficiency Take 1 capsule (50,000 Units) by mouth 1 (one) time per week. 12 capsule 025 Active Ferrous Sulfate (iron) 325 (65 Fe) MG tabletIndicatio ns:Anemia, unspecified type TAKE 1 TABLET BY MOUTH EVERY DAY WITH ORANGE JUICE 90 tablet 1 025 Active metoprolol succinate XL (Toprol-XL) 25 MG 24 hr tabletIndicatio ns:Essential hypertension Take 1 tablet (25 mg) by mouth Once per day. 90 tablet 3 025 Active lisinopril-hydr oCHLOROthiazide 20-25 MG tabletIndicatio ns:Essential hypertension Take 1 tablet by mouth Once per day. 90 tablet 3 025 2025 Active metoprolol succinate XL (Toprol-XL) 25 MG 24 hr tablet Take 25 mg by mouth. 023 2024 Discontinued(R eorder (will not trigger notification to Pharmacy)) FeroSul 325 (65 Fe) MG tabletIndicatio ns:Anemia, unspecified type TAKE 1 TABLET BY MOUTH EVERY DAY WITH ORANGE JUICE 90 tablet 1 024 2024 Discontinued lisinopril 20 MG tablet Take 20 mg by mouth Once per day. 024 2024 Discontinued(A lternate therapy) hydroCHLOROthia zide (HYDRODiuril) 25 MG tabletIndicatio ns:Essential hypertension TAKE 1 TABLET BY MOUTH EVERY DAY 90 tablet 1 025 2024 Discontinued(A lternate therapy) Active Problems Problem Noted Date Diagnosed Date Family history of myocardial infarction 06/11/19 History of seizure 06/10/2024 Posttraumatic stress disorder 06/10/2024 Severe obesity (BMI 35.0-39.9) with comorbidity 06/10/2024 Fibromyalgia 05/27/2024 Chronic fatigue 05/27/2024 Chronic pain of both shoulders 05/27/2024 Abdominal distension 02/17/2023 Assessment & Plan (02/17/2023 [...] helping a lot vs tabs. She follows / [facility] and has appt upcoming. Hypertensive heart [...] Encounters Date Type Department Care Team Description 06/15/2024 Patient Outreach [facility] [place] [address] Enrique Sol Care Coordination (CHW outreach for SDOH PT-1 - LVM ) 06/15/2024 Telephone [facility] [place] [address] Jory Lala ANP PT1 06/14/2024 Telephone [facility] [place] [address] Jory Lala ANP Referral 06/10/2024 11:30 AM EDT Office Visit [facility] [place] [address] Jory Lala ANP Cardiomegaly (Primary Dx); Shortness of breath; [place] (dyspnea on exertion); Tear of left glenoid labrum, subsequent encounter; Chronic pain of both shoulders 06/10/2024 Telephone [facility] [place] [address] Jory Lala ANP Appointment Request 06/10/2024 Travel 06/07/2024 Telephone [facility] [place] [address] Jory Lala ANP Nurse Triage; ER Follow-up 06/06/2024 Orders Only GENERIC EXTERNAL DATA DEPARTMENT Provider, Generic External Data 05/31/2024 Telephone [facility] [address] Jory Lala ANP FYI 05/30/2024 Refill [facility] [place] [address] Jory Lala ANP Anemia, unspecified type 05/28/2024 Refill [facility] [place] [address] Jory Lala ANP 05/28/2024 Population Health Risk Score Community [facility] ([facility]) Department [address] [place] [phone] Provider, Population Health Generic 05/25/[address] [address] Jory Lala ANP Results 05/25/2024 Orders Only [facility] [place] [address] Jory Lala ANP Vitamin D deficiency (Primary Dx) 05/20/2024 10:00 AM EST Office Visit [facility] [place] [address] Jory Lala ANP PMR (polymyalgia rheumatica) ([facility]) (Primary Dx); Chronic pain of both shoulders; Limited range of motion (ROM) of shoulder; Polyarthralgia; Chronic fatigue; Vitamin D deficiency; Fibromyalgia 05/20/2024 Travel 05/05/2024 Patient Outreach [facility] [place] [address] Jory Lala ANP Care Coordination (CHW outreach for SDOH PT-1 and food needs-LVM ) 05/04/[address] [address] Jory Lala ANP Prior Authorization 05/04/2024 [address] [place] [address] Jory Lala ANP PT-1 04/25/2024 Refill [facility] [place] [address] Jory Lala ANP Essential hypertension 04/16/2024 10:00 AM EST Telemedicine [facility] [place] [address] Isamar Lakhani RN Essential hypertension 04/16/2024 Travel 04/16/[address] [address] Jory Lala ANP Appointment Confirmation 04/14/2024 Orders Only [facility] External Provider, [facility] 03/31/2024 Refill [facility] [place] [address] Jory Lala ANP from Last 3 Months Immunizations Name Administration [...] Sign Reading Time Taken Comments Blood Pressure 132/94 06/10/2024 11:35 AM EDT Pulse 78 06/10/2024 11:35 AM EDT Temperature 36.7 ??C (98.1 ??F) 06/10/2024 11:35 AM E DT Respiratory Rate 18 06/10/2024 11:35 AM EDT Oxygen Saturation 97% 06/10/2024 11:35 AM EDT Inhaled Oxygen Concentration - - Weight 92.6 kg (204 lb 3.2 oz) 06/10/2024 11:35 AM EDT Height 154.9 cm (5' 1 ) 06/10/2024 11:35 AM EDT Body Mass Index 38.58 06/10/2024 11:35 AM EDT Plan of Treatment Upcoming Encounters Date Type Department Care Team (Late st Contact Info) Description 10/01/2024 10:00 AM EDT Office Visit [facility] OPTOMETRY [address] [place] [address] Vishnu, Kerline, OD [address] [place] [address] Health Maintenance Due Date Last Done Comments CT Colonography 1975 FIT DNA/Cologuard 1975 FIT 1975 FOBT 1975 Sigmoidoscopy 1975 Family Planning (PISQ) 01/24/1991 COVID-19 Vaccine ( season) 2024 01/19/2022, 10/15/2021, 09/04/2020, Additional history exists Postponed from 11/16/2023 (Patient Refused) Depression Screening 12/10/2024 12/11/2023, 12/11/19 SDOH Screening 12/10/2024 12/11/2023 Alcohol/Substance Use Screening 05/20/2025 05/20/2024 Tobacco Screening 06/10/2025 06/10/2024 Cervical Cancer Screening 08/09/2025 HPV/Cotest 08/09/2025 08/09/2020 Pap Smear 08/09/2025 08/09/2020 Lipid Panel 11/29/2025 11/29/2020, 04/18, 10/20/2019 Mammogram 01/18/2026 01/19/2024, 1106/2023, 01/14/2023, Additional [...] Procedure Name Priority Date/Time Associated Diagnosis Comments D DIMER HIGH SENSITIVITY Routine 06/06/2024 2:00 PM EDT XR CHEST 2 VIEWS Routine 06/06/2024 1:53 PM EDT HIGH SENSITIVITY TROPONIN I Routine 06/06/2024 12:32 PM EDT B TYPE NATRIURETIC PEPTIDE (BNP) Routine 06/06/2024 12:32 PM EDT LIPASE Routine 06/06/2024 12:32 PM EDT MAGNESIUM Routine 06/06/2024 12:32 PM EDT COMPREHENSIVE METABOLIC PANEL Routine 06/06/2024 12:32 PM EDT CBC WITH AUTO DIFFERENTIAL Routine 06/06/2024 12:32 PM EDT SARS COV2/INFLUENZA A/B AND RSV RNA QL NAAT Routine 06/06/2024 12:32 PM EDT VITAMIN D,25-OH,TOTAL,IA Routine 05/25/2024 11:14 AM EDT Polyarthralgia Vitamin D deficiency TSH W/REFLEX TO FT4 Routine 05/25/2024 1 1:14 AM EDT Chronic fatigue BANDAR SCREEN, IFA, W/REFL TITER AND PATTERN Routine 05/25/2024 11:14 AM EDT Polyarthralgia RHEUMATOID FACTOR Routine 05/25/2024 11: 14 AM EDT Polyarthralgia CYCLIC CITRULLINATED PEPTIDE (CCP) AB (IGG) Routine 05/25/2024 11:14 AM EDT Polyarthralgia SED RATE BY MODIFIED WESTERGREN Routine 05/25/2024 11:14 AM EDT PMR (polymyalgia rheumatica) ([facility]) XR SHOULDER 2+ VIEWS RIGHT Routine 04/14/2024 12:15 PM EST XR SHOULDER 2+ VIEWS LEFT Routine 04/14/2024 12:15 PM EST BI MAMMOGRAM SCREENING TOMOSYNTHESIS BILATERAL Routine 01/19/2024 [...] Recently Relevant to Health Maintenance Results * D Dimer High Sensitivity (06/06/2024 2:00 PM EDT) D Dimer High Sensitivity <150 NG/ML [facility] Comment:D-DIMER HS REFERENCE RANGENote: Our assay reports D-Dimer Units (D- DU).The cut-off value for venous thromboembolic (VTE) disease is230 ng/mL. This value has a very high negative predictivevalue when the patient has a low to moderate clinicalprobability of VTE.The upper limit of normal is 243 ng/mL. 06/06/2024 2:00 PM EDT 06/06/2024 2:06 PM EDT us Generic External Data Provider LAB BLOOD ORDERAB LES Final Result [facility] [address] [place] [phone] * XR Chest 2 Views (06/06/2024 1:53 PM EDT) Anatomical Region Laterality Modality Chest Radiographic Miranda ging 06/06/2024 1:53 PM EDT Narrative 06/06/2024 1:55 PM EDT ? [facility] ?[address] ?[place] [address] ?XRay Report ? Signed ? Patient: Angel,Laila ?MR#: [id number] ?? [id number] ? : 1975 ?Acct:[id number] ? Age/Sex: 49 / F ?ADM Date: 06/06/24 ? Loc: HO.ED ? Attending Dr: ? Ordering Physician: Sri Herrera ?? Date of Service: 06/06/24 ?? Procedure(s): XR chest 2V ?? Accession Number(s): [id number] ? cc: Sri Herrera; JORY LALA NP ? CLINICAL HISTORY: sob ? Chest Radiographs, 2 views ? Comparison: 05/22/22 ? Findings: ?? Enlarged cardiac silhouette, new. ?? Normal mediastinal contours. ?? No pneumothorax. Interstitial prominence versus peribronchial thickening. ?? No pleural effusion. ?? Normal upper abdomen. ?? No acute fracture. ? Impression: ?? New enlargement of the cardiac silhouette could be secondary to ?? cardiomegaly or a pericardial effusion. ?? Mild pulmonary edema is favored over bronchitis. ? This document has been electronically signed by: Shraddha Andrews MD ?? on 06/06/2024 13:53:37 ? Dictated By: ?Shraddha Flores MD ? Signed By: ?<Electronically signed by Shraddha Flores MD in OV> ? 06/06/24 1354 ? DD/ ? TD/TT: 06/06/243 ? Treadle Cut Off Saw Operator: ? Procedure Note Birgit Reaves - 06/06/2024 [facility] [address] [place] [address] XRay Report Signed Patient: Jessica OrtizStoney#: [id number] : 1975Acct:[id number] Age/Sex: 49 / FADM Date: 06/06/24 Loc: HO.ED Attending Dr: Ordering Physician: Sri Herrera Date of Service: 06/06/24 Procedure(s): XR chest 2V Accession Number(s): [id number] cc: Sri Herrera; JORY LALA NP CLINICAL HISTORY: sob Chest Radiographs, 2 views Comparison: 05/22/22 Findings: Enlarged cardiac silhouette, new. Normal mediastinal contours. No pneumothorax. Interstitial prominence versus peribronchial thickening. No pleural effusion. Normal upper abdomen. No acute fracture. Impression: New enlargement of the cardiac silhouette could be secondary to cardiomegaly or a pericardial effusion. Mild pulmonary edema is favored over bronchitis. This document has been electronically signed by: Shraddha Andrews MD on 06/06/2024 13:53:37 Dictated By: Shraddha Flores MD Signed By: <Electronically signed by Shraddha Flores MD in OV> 06/06/24 1354 DD/ 1353 TD/TT: 06/06/24 1353 Treadle Cut Off Saw Operator: [facility] External Provider IMG XR PROCEDURES Edited Result - Final * High Sensitivity Troponin I (06/06/2024 12:32 PM EDT) TROPONIN I HIGH SENSITIVITY <2.7 <3.5 - 17.0 ng/L [facility] Comment:The Wolfe high sens itivity Troponin-I results should beused in conjunction with other diagnostic information suchas ECG, clinical observations and information, and patientsymptoms to aid in the diagnosis of [place]. 06/06/2024 12:3 2 PM EDT 06/06/2024 12:36 PM EDT Generic External Data Provider LAB BLOOD ORDERAB LES Final Result [facility] [address] [place] [phone] * SARS-CoV-2 RNA, Influenza A/B, and RSV RNA, Ql NAAT (06/06/2024 12:32 PM EDT) Pathologist [facility] Influenza A PCR NEGATIVE Negative [facility] Influenza B PCR NEGATIVE Negative [facility] Resp Syncy Virus RNA Qual PCR NEGATIVE Negative [facility] SARS COV2 PCR NEGATIVE Negative [facility] Comment:All test results mus t be correlated with clinical findings.Negative results do not preclude SARS-CoV2, influenza Avirus, influenza B virus and/or RSV infectionand should not be used as the sole basis for treatment orother patient management decisions. Negative results must becombined with clinical observations, patient history, andepidemiological information.This test has not been evaluated for monitoring treatment ofinfection.This test has been authorized by the FDA under an EmergencyUse Authorization (EUA) for use by authorized laboratories.Testing performed on the EdynXpert utilizingreal-time RT-PCR.All SARS CoV2 and positive influenza A/B results arereported to [facility]. 06/06/2024 12:3 2 PM EDT 06/06/2024 12:36 PM EDT us Generic External Data Provider LAB MICROBIOLOGY - GENERAL ORDERABLES Final Result [facility] [address] [place] [phone] * (ABNORMAL) CBC auto differential (06/06/2024 12:32 PM EDT) Pathologist [facility] White Blood Count 6.0 4.8 - 10.8 X10*3/uL [facility] Red Blood Count 4.30 4.20 - 5.50 X10*6/uL [facility] Hemoglobin 12.6 12.0 - 16.0 g/dl [facility] Hematocrit 37.9 37.0 - 47.0 % [facility] Mean Corpuscular Volume 88.1 80.0 - 98.0 fL [facility] Mean Corpuscular Hemoglobin 29.3 27.0 - 33.0 pg [facility] Mean Corpuscular HGB Conc 33.2 31.0 - 35.0 g/dl [facility] Red Cell Distribution Width 12.9 11.0 - 16.0 % [facility] Platelet Count 239 160 - 400 X10*3/uL [facility] Mean Platelet Volume 9.8 9.4 - 12.3 fL [facility] Neutrophils Percent Auto 63.3 45 - 73 % [facility] Imm Gran Pct Auto 0.7(H) 0.0 - 0.4 % [facility] Lymphocytes Percent Auto 29.0 20 - 40 % [facility] Monocytes Percent Auto 5.5 2 - 11 % [facility] Eosinophils Percent Auto 0.8 0 - 4 % [facility] Basophils Percent Auto 0.7 0 - 2 % [facility] NRBC Pct Auto 0.0 0.0 - 0.2 /100WBC [facility] Neutrophils Absolute Auto 3.8 2.0 - 8.3 x10*3/uL [facility] Imm Gran Abs Auto 0.04(H) 0.00 - 0.03 X10*3/uL [facility] Lymphocytes Absolute Auto 1.7 1.2 - 4.9 X10*3/uL [facility] Monocytes Absolute Auto 0.3 0.1 - 1.2 X10*3/uL [facility] Eosinophils Absolute Auto 0.1 0.0 - 0.4 X10*3/uL [facility] Basophils Absolute Auto 0.0 0.0 - 0.2 X10*3/uL [facility] NRBC Abs Auto 0.000 0.0 - 0.012 X10*3/uL [facility] 06/06/2024 12:3 2 PM EDT 06/06/2024 12:36 PM EDT us Generic External Data Provider LAB BLOOD ORDERAB LES Final Result [facility] [address] [place] [phone] * B Type Natriuretic Peptide (BNP) (06/06/2024 12:32 PM EDT) Pathologist [facility] B Type Natriuretic Peptide 14 <100 pg/mL [facility] 06/06/2024 12:3 2 PM EDT 06/06/2024 12:36 PM EDT Generic External Data Provider LAB BLOOD ORDERAB LES Final Result Performing Organization Address [facility]/ZIP Co de Phone Number [facility] [address] [place] [phone] * Magnesium (06/06/2024 12:32 PM EDT) [facility] Magnesium 2.2 1.6 - 2.6 mg/dL [facility] 06/06/2024 12:3 2 PM EDT 06/06/2024 12:36 PM EDT Generic External Data Provider LAB BLOOD ORDERAB LES Final Result Performing Organization Address [facility] Co de Phone Number [facility] [address] [place] [phone] * Lipase (06/06/2024 12:32 PM EDT) [facility] Lipase 27 8 - 78 U/L [facility] 06/06/2024 12:3 2 PM EDT 06/06/2024 12:36 PM EDT Generic External Data Provider LAB BLOOD ORDERAB LES Final Result Performing Organization Address [facility] de Phone Number [facility] [address] [place] [phone] * (ABNORMAL) Comprehensive Metabolic Panel (06/06/2024 12:32 PM EDT) [facility] Sodium 139 135 - 145 mmol/L [facility] Potassium 4.3 3.3 - 5.1 mmol/L [facility] Chloride 108 96 - 108 mmol/L [facility] Carbon Dioxide 24 22 - 29 mmol/L [facility] Anion Gap 11(L) 12 - 20 [facility] Urea Nitrogen (BUN) 18(H) 9 - 16 mg/dL [facility] Creatinine, Serum 0.67 0.5 - 1.4 mg/dL [facility] Creatinine Clr Calc Pharmacy 105.6 [facility] Comment:Provided height and weight: 154.94 cm,91.2 kg.eGFR (calculated from the MDRD study equation) and eCrCl(calculated from the Cockcroft-Gault equation) are based ondifferent parameters and may not yield comparable results.If eCrCl result is absurd, please check patient'sheight/weight. Estimated Glomerular Filt Rate >60 [facility] Comment:Chronic Kidney Disea se: Estimated GFR < 60 mL/min/1.29v4Qfjhhy Kidney Disease: Estimated GFR < 15 mL/min/1.73m2 Glucose 87 60 - 115 mg/dL [facility] Calcium 9.1 8.4 - 10.2 mg/dL [facility] Bilirubin, Total 0.3 0.0 - 1.0 mg/dL [facility] Aspartate Amino Transferase 23 5 - 31 U/L [facility] Alanine Aminotransferase 35(H) 0 - 31 U/L [facility] Total Protein 7.7 6.5 - 8.0 g/dL [facility] Albumin Level 4.0 3.5 - 5.0 g/dL [facility] Alkaline Phosphatase 61 39 - 117 U/L [facility] 06/06/2024 12:3 2 PM EDT 06/06/2024 12:36 PM EDT us Generic External Data Provider LAB BLOOD ORDERAB LES Final Result [facility] [address] [place] [phone] [phone] * (ABNORMAL) Vitamin D, 25-Hydroxy, Total, Immunoassay (05/25/2024 11:14 AM EDT) Vitamin D 25-OH Total 14.6(L) >30 ng/mL [facility] Comment:Health Based Referen ce Values*< 20 ng/mL Toqdhmmps29-20 ng/mL Insufficient> 30 ng/mL Sufficient*Troy RAMACHANDRAN. N Engl J Med. 2007;357:266-280Care must be taken in interpreting Vitamin D results fromdifferent laboratories and methodologies. Published datademonstrated that results from patients undergoinghemodialysis may show a negative bias when tested withvarious automated 25-OH vitamin D assays when compared toLC-MS/MS.When testing samples from patients whose predominant form ofVitamin D is Vitamin D2, such as patients receiving VitaminD2 supplementation, results that are subtherapeutic shouldbe confirmed with another method such as LC-MS/MS. Blood Venous blood specimen / Unknown 05/25/2024 11:14 AM EDT 05/25/2024 11:14 AM EDT Jory Lala [facility] LAB BLOOD ORDERABLES Final Resul t Performing Organization Address City/[facility] Hospital/ZIP Co de Phone Number [facility] [address] [place] [phone] * TSH W/Reflex to FT4 (05/25/2024 11:14 AM EDT) Pathologist [facility] TSH reflex Free T4 1.37 0.32 - 4.0 uIU/mL [facility] Blood Venous blood specimen / Unknown 05/25/2024 11:14 AM EDT 05/25/2024 11:14 AM EDT Jory Lala [facility] LAB BLOOD ORDERABLES Final Resul t Performing Organization Address City/[facility] Co de Phone Number [facility] [address] [place] [phone] * Cyclic Citrullinated Peptide (CCP) Antibody (IgG) (05/25/2024 11:14 AM EDT) Pathologist [facility] Cyclic Citrullinated Peptide <16 UNITS [facility] Comment:Reference RangeNegat adriana: <20Weak Positive: 20-39Moderate Positive: 40-59Strong Positive: >59THIS TEST WAS PERFORMED AT:[employer] [address] [phone] GOLDBERG MD Blood Venous blood specimen / Unknown 05/25/2024 11:14 AM EDT 05/25/2024 11:14 AM EDT Jory Lala ANP LAB BLOOD ORDERABLES Final Resul t Performing Organization Address [facility] Co de Phone Number [facility] [address] [place] [phone] * (ABNORMAL) Sed Rate by Modified Lashondaren (05/25/2024 11:14 AM EDT) Pathologist [facility] Erythrocyte Sedimentation Rate 21(H) 0 - 20 MM/HR [facility] Comment:Patients with polycy themia and many hemoglobin abnormalitiesmay have depressed sed rates whereas patients with anemiamay have elevated sed rates. Blood Venous blood specimen / Unknown 05/25/2024 11:14 AM EDT 05/25/2024 11:14 AM EDT Jory Lala ANP LAB BLOOD ORDERABLES Final Resul t Performing Organization Address [facility] Co de Phone Number [facility] [address] [place] [phone] * Rheumatoid Factor (05/25/2024 11:14 AM EDT) Pathologist [facility] Rheumatoid Factor <13.0 <15.0 IU/mL [facility] Blood Venous blood specimen / Unknown 05/25/2024 11:14 AM EDT 05/25/2024 11:14 AM EDT Jory Lala ANP LAB BLOOD ORDERABLES Final Resul t Performing Organization Address [facility] Co de Phone Number [facility] [address] [place] [phone] * (ABNORMAL) BANDAR Screen,IFA, with Reflex to Titer and Pattern (05/25/2024 11:14 AM EDT) Anti Nuclear Antibody Screen POSITIV E(A) NEGATIVE [facility] Comment:BANDAR IFA is a first l ine screen for detecting thepresence of up to approximately 150 autoantibodies invarious autoimmune diseases. A positive BANDAR IFA resultis suggestive of autoimmune disease and reflexes totiter and pattern. Further laboratory testing may beconsidered if clinically indicated.For additional information, please refer [email or web address]/faq/KMH324(This link is being provided for informational/educational purposes only.) BANDAR Titer 1:40(A) titer [facility] Comment:A low level BANDAR tite r may be present in pre-clinicalautoimmune diseases and normal individuals. Reference Range <1:40 Negative 1:40-1:80 Low Antibody Level >1:80 Elevated Antibody Level BANDAR Pattern Nuclear , Homogen eous(A) [facility] Comment:Homogeneous pattern is associated with systemic lupuserythematosus (SLE), drug-induced lupus and juvenileidiopathic arthritis.AC-1: HomogeneousInternational Consensus on BANDAR Patterns(https://doi.org/10.1515/qghu-5386-7081)THIS TEST WAS PERFORMED AT:[employer] [place] [phone] GOLDBERG MD BANDAR TITER 2 (REF LAB) [facility] BANDAR Pattern 2 [facility] BANDAR TITER 3 [facility] BANDAR PATTERN 3 [facility] Blood Venous blood specimen / Unknown 05/25/2024 11:14 AM EDT 05/25/2024 11:14 AM EDT us Jory Lala [facility] LAB BLOOD ORDERABLES Final Resul t [facility] [address] [place] [phone] * XR Shoulder 2+ Views Right (04/14/2024 12:15 PM EST) Anatomical Region Laterality Modality Upper Extremities, Shoulder Right Radi ographic Imaging 04/14/2024 12:1 5 PM EST Narrative 04/15/2024 9:00 AM EST ? [facility] ?[address] ?[place] [address] ?XRay Report ? Signed ? Patient: Angel,Laila ?MR#: [id number] ?? [id number] ? : 1975 ?Acct:[id number] ? Age/Sex: 49 / F ?ADM Date: 04/14/24 ? Loc: HO.XRAY ? Attending Dr: Abel Tee MD ? Ordering Physician: Abel Tee MD ?? Date of Service: 04/14/24 ?? Procedure(s): XR shoulder RT min 2V ?? Accession Number(s): [id number] ? cc: JORY LALA NP; Abel Tee [...] DD/ 1215 ? TD/TT: 04/14/24 1226 ? Treadle Cut Off Saw Operator: ? Procedure Note Donotuseinterpreter, Image - 04/15/2024 [place] [address] XRay Report Signed Patient: Aury Ortiz#: [id number] : 1975Acct:[id number] Age/Sex: 49 / FADM Date: 04/14/24 Loc: [facility] Attending Dr: Abel Tee MD Ordering Physician: Abel Tee MD Date of Service: 04/14/24 Procedure(s): XR shoulder RT min 2V Accession Number(s): [id number] cc: JORY LALA NP; Abel Tee MD [...] 04/15/24 0857 DD/ 1215 TD/TT: 04/14/24 1226 Treadle Cut Off Saw Operator: [facility] External Provider IMG XR PROCEDURES Edited Result - Final * XR Shoulder 2+ Views Left (04/14/2024 12:15 PM EST) Anatomical Region Laterality Modality Upper Extremities, Shoulder Left Radi ographic Imaging 04/14/2024 12:1 5 PM EST Narrative 04/15/2024 8:58 AM EST ? [facility] ?[address] ?[place] [address] ?XRay Report ? Signed ? Patient: Angel,Laila ?MR#: [id number] ?? [id number] ? : 1975 ?Acct:[id number] ? Age/Sex: 49 / F ?ADM Date: 04/14/24 ? Loc: HO.XRAY ? Attending Dr: Abel Tee MD ? Ordering Physician: Abel Tee MD ?? Date of Service: 04/14/24 ?? Procedure(s): XR shoulder LT min 2V ?? Accession Number(s): [id number] ? cc: JORY LALA NP; Abel Tee [...] No acute findings left shoulder. ?? 2. Kxpj-yy-trzrgizl glenohumeral joint and AC joint osteoarthrosis. ? Electronically signed by: ??Enrique Vaca MD ??04/15/2024 08:55 AM EST RP ? Dictated By: ?Enrique Vaca MD ? Signed By: ?<Electronically signed by Enrique Vaca MD in OV> ?04/15/24 0855 ? DD/ 1215 ? TD/TT: 04/14/24 1226 ? Treadle Cut Off Saw Operator: ? Procedure Note Donyuri, Image - 04/15/[address] [address] XRay Report Signed Patient: Aury Ortiz#: [id number] : 1975Acct:[id number] Age/Sex: 49 / FADM Date: 04/14/24 Loc: [facility] Attending Dr: Abel Tee MD Ordering Physician: Abel eTe MD Date of Service: 04/14/24 Procedure(s): XR shoulder LT min 2V Accession Number(s): [id number] cc: JORY LALA NP; Abel Tee MD [...] 1. No acute findings left shoulder. 2. Dfmi-nl-gdvikayg glenohumeral joint and AC joint osteoarthrosis. Electronically signed by: Enrique Vaca MD 04/15/2024 08:55 AM EST Dictated By: Enrique Vaca MD Signed By: <Electronically signed by Enrique Vaca MD in OV> 04/15/24 0855 DD/ 1215 TD/TT: 04/14/24 1226 Treadle Cut Off Saw Operator: [facility] External Provider IMG XR PROCEDURES Edited Result - Final * BI Mammogram Screening Tomosynthesis Bilateral (01/19/2024 10:30 AM EST) Anatomical Region Laterality Modality Breast Bilateral Mammography 01/19/2024 10:3 0 AM EST Narrative 01/27/2024 2:08 PM EST ? [facility] [place] ? [address] ?[place] [address] ? Mammography Report ? Signed ? Patient: Angel,Laila ?MR#: [id number] ?? [id number] ? : 1975 ?Acct:[id number] ? Age/Sex: 48 / F ?ADM Date: 01/19/24 ? Loc: HO.MAMMO ? Attending Dr: Jory Lala CITY TREASURER ? Ordering Physician: JORY LALA NP ?Results: 1Negative ? Date of Service: 01/19/24 ?Follow Up: 1 Year From Orig ?? inal Mammogram ? Procedure(s): MM tomosynthesis screening BI ?? Accession Number(s): [id number] ? cc: DAI,JORY PATRICIA ? EXAMINATION: ?? MM SCREENING DIGITAL BREAST [...] ??Michaela Alejo DO ??01/27/2024 02:05 PM EST ? Dictated By: ?Michaela Alejo DO ? Signed By: ?<Electronically signed by Michaela Alejo, DO in OV> ? 01/27/24 1405 ? DD/ 1030 ? TD/TT: 01/19/24 1100 ? Treadle Cut Off Saw Operator: ? Procedure Note Jelly, Birgit - 01/27/2024 [facility] [address] [place] [address] [place] [address] Mammography Report Signed Patient: Aury Ortiz#: [id number] : 1975Acct:[id number] Age/Sex: 48 / FADM Date: 01/19/24 Loc: [facility] Attending Dr: Jory Lala CITY TREASURER Ordering Physician: JORY LALAults: 1Negative Date of Service: 01/19/24Follow Up: 1 Year From Orig inal Mammogram Procedure(s): MM tomosynthesis screening BI Accession Number(s): [id number] cc: JORY LALA NP EXAMINATION: MM SCREENING [...] by: Michaela Alejo DO 01/27/2024 02:05 PM [facility] Dictated By: Michaela Alejo DO Signed By: <Electronically signed by Michaela Alejo DO in OV> 01/27/24 1405 DD/ 1030 TD/TT: 01/19/24 1100 Treadle Cut Off Saw Operator: Jory Lala ANP IMG BI PROCEDURES Final Result * Hepatitis C Ab (12/30/2022 4:01 PM EDT) Pathologist [facility] Hepatitis C Antibody Nonreactive Nonreactive [facility] Comment:Antibodies to HCV no t detected; does not exclude early acuteHCV infection. 12/30/2022 4:01 PM EDT 12/30/2022 4:01 PM EDT [facility] External Provider LAB BLO OD ORDERABLES Final Result [facility] [address] [place] [phone] * HIV Ab/Ag (YVETTE HARRY) (12/30/2022 4:01 PM EDT) HIV AB/AG Nonreactive Nonreactive [facility] Comment:HIV-1 p24 Ag and/or HIV-1/HIV-2 Ab not detected.A test result that is nonreactive does not exclude thepossibility of exposure to or infection with HIV-1 and/orHIV-2. Nonreactive results in this assay for individualswith prior exposure to HIV-1 and/or HIV-2 may be due toantigen and antibody levels that are below the limit ofdetection of this assay.The [employer] HIV Ag/Ab Combo assay result andsupplemental assay results should be interpreted inconjunction with the patient's clinical presentation,history and other laboratory results. If the results areinconsistent with clinical evidence, additional testing issuggested to confirm the result. 12/30/2022 4:01 PM EDT 12/30/2022 4:01 PM EDT Generic External Data Provider LAB BLOOD ORDERAB LES Final Result [facility] [address] [place] [phone] * (ABNORMAL) Colonoscopy (07/04/2021) [facility] Colonoscopy Abnormal(A ) Normal Historical Provider MD HEALTH MAINTENANCE Final Result * (ABNORMAL) LIPID PANEL, STANDARD (11/29/2020 10:01 AM EDT) [facility] Chol/HDLC Ratio 5.6(H) <5.0 (calc) [facility] ?? LDL-C is now calculated using the Ed-Villafana ?? calculation, which is a validated novel method providing ?? better accuracy than the Friedewald equation in the ?? estimation of LDL-C. ?? Ed SS et al. MATTIE. 2013;310(19): 6463-9748 ?? (http://education.Zapya/faq/EDK933) Non-HDL Cholesterol 195(H) <130 mg/dL (calc) [facility] Comment: For patients with diabetes plus 1 major ASCVD risk ?? factor, treating to a non-HDL-C goal of <100 mg/dL ?? (LDL-C of <70 mg/dL) is considered a therapeutic ?? option. Triglycerides 182(H) <150 mg/dL [facility] 11/29/2020 10:0 1 AM EDT [facility] LAB BLOOD ORDERABLES Final Resul t [facility] [address] [place] [address], * THINPREP PAP (08/09/2020 2:03 PM EDT) Clinical Information: None given [facility] COMMENT SEE COMMENT [facility] [...] historic and ?? current clinical information. ?? Wildlife Removal Specialist : SEE COMMENT [facility] Comment: RK, CT(ASCP) CT screening location: [address] ??[address] Interpretation/R esult: Negative for intraepithelial lesion or malignancy. [facility] LMP: 07/29/20 [facility] Prev. BX: LEEP 2000 [facility] Prev. PAP: NIL 09/2015 [facility] SOURCE: None given [facility] Statement Of Adequacy: SEE COMMENT [facility] Comment: Satisfactory for evaluation. Endocervical/transformation zone component absent. 08/09/2020 2:03 PM EDT Yuly Denys [facility] LAB PATHOLOGY ORDERABLES Final Result Performing Organization Address [facility] Co de Phone Number [facility] [address] * HPV mRNA E6/E7 (08/09/2020 2:03 PM EDT) HPV nRNA E6/E7 Not Detected Not Detected [facility] Comment: Methodology: Microbiology Manager-Mediated Amplification This assay detects E6/E7 viral messenger RNA (mRNA) from 14 high-risk HPV types (16,18,31,33,35,39,45,51,52,56,58,59,66,68). ? The analytical performance characteristics of this assay have been determined by [employer]. The modifications have not been cleared or approved by the FDA. This assay has been validated pursuant to the CLIA regulations and is used for clinical purposes. ?? For additional information, please refer to http://education.CafeMom/faq/IUV026d3 (This link if provided for information/ educational purposes only.) 08/09/2020 2:03 PM EDT Yuly Denys [facility] LAB BLOOD ORDERABLES Verena l Result Performing Organization Address [facility] de Phone Number [facility] [address] from Last 3 Months or Most Recently Relevant to Health Maintenance Insurance [place] [address] [place] [phone] [place] Care Teams Lithopone Charger Relationship Specialty Start Date End Date Jory Lala ANP [address] [place] [phone] PCP - General Family Medicine 11/28/20
--- OUTSIDE RECORDS SUMMARY | 2024-06-22 08:47 | XMS_ITS | Encounter Summary ---
Author Organization [employer] Address [address] [facility] 7t [place] [address] Care Team Providers Care Production Gear Cutter Name Role Phone Glendy Sutton Primary Care Provider [phone] Reason for Visit * Reason Onset Date Comments Results 02/19/2023 Encounter Details Date Type Department Care Team ([facility] Contact Info) Description 02/19/2023 Telephone [facility] MEDICINE [address] [place], [place] [phone] Glendy Sutton ANP [address] [place] [address] Results Social History Tobacco Use Types Packs/Day [...] last night and she was evaluated in [facility] ED. States she left ED prior to [...] 03/04/23 at 11:15a. Agrees to come to [facility] for evaluation if symptoms return. Advised request has been sent to ordering provider [facility] RN will attempt to obtain [facility] ED records. * Telephone Encounter - Anju Hawley - 02/19/2023 11:36 AM EST Tc from pt requesting a call in regards to lab results done yesterday (02/18). Please contact pt at [phone] documented in this encounter Plan of Treatment Upcoming Encounters Date Type Department Care Team ([facility] st Contact Info) Description 10/01/2024 10:00 AM EDT Office Visit [facility] OPTOMETRY [address] [place] [address] Kerline Mares, OD [address] [place] [address] documented as of this encounter Visit Diagnoses Not on filedocumented in this encounter Additional Health Concerns Assessment Noted Time PHQ-9 Depression Total Score: 0 10/04/19 23 9:29 AM EDT documented as of this encounter Care Teams Production Gear Cutter Relationship Specialty Start Date End Date Glendy Sutton ANP [address] [place] [address] PCP - General Family Medicine 11/28/20 documented as of this encounter
--- OUTSIDE RECORDS SUMMARY | 2024-06-22 08:47 | XMS_ITS | Encounter Summary ---
Author Organization [employer] Address [address] [facility] 7t [place] [address] Care Team Providers Care Facilities Operations Technician Name Role Phone Glendy Sutton Primary Care Provider [phone] Reason for Visit * Reason Onset Date Comments PT1 06/15/2024 Encounter Details Date Type Department Care Team ([facility] st Contact Info) Description 06/15/2024 Telephone [facility] MEDICINE [address] [place], [place] [phone] Glendy Sutton ANP [address] [place] [address] PT1 Social History Tobacco Use Types Packs/Day Years [...] encounter Miscellaneous Notes * Telephone Encounter - Millie Cleaning - 06/15/2024 11:59 AM EDT 1 of 2 Patient calling requesting PT1 Home Address verified: Y/N: Yes Provider name or facility name: [address] [place], [place] Escort needed: Y/N: No Do you have a wheelchair: Y/N: No (cane) If yes- Manual or electric: N/A Visits: (2x monthly) 2 of 2 Home Address verified: Y/N: Yes Provider [facility] or facility name: [facility] Facility Address: [address] [place] [address] Escort needed: Y/N: No Do you have a wheelchair: Y/N: No (cane) If yes- Manual or electric: Visits: 2-3x monthly documented in this encounter Plan of Treatment Upcoming Encounters Date Type Department Care Team (Late st Contact Info) Description 10/01/2024 10:00 AM EDT Office Visit [facility] OPTOMETRY [address] [place] [address] Vishnu, Kerline, OD [address] [place] [address] documented as of this encounter Visit Diagnoses Not on filedocumented in this encounter Additional Health Concerns Assessment Noted Time PHQ-9 Depression Total Score: 4 12/11/19 24 9:48 AM EDT documented as of this encounter Care Teams Facilities Operations Technician Relationship Specialty Start Date End Date Glendy Sutton ANP [address] [place] [address] PCP - General Family Medicine 11/28/20 documented as of this encounter
--- OUTSIDE RECORDS SUMMARY | 2024-06-22 08:47 | XMS_ITS | Encounter Summary ---
Author Organization [employer] Address [address] [facility] 7t [place] [address] Care Team Providers Care Dynamometer Tester Engine Name Role Phone Glendy Sutton Primary Care Provider [phone] Reason for Visit * Reason Comments Med Refill Encounter Details Date Type Department Care Team ([facility] st Contact Info) Description 05/28/2024 Refill [facility] MEDICINE [address] [place], [place] [phone] Glendy Sutton ANP [address] [place], [place] [phone] Social History Tobacco Use Types Packs/Day Years [...] Description 10/01/2024 10:00 AM EDT Office Visit [facility] OPTOMETRY [address] [place] [address] Kerline Mares, OD [address] [place] [address] documented as of this encounter Visit Diagnoses Not on filedocumented in this encounter Additional Health Concerns Assessment Noted Time PHQ-9 Depression Total Score: 4 12/11/19 24 9:48 AM EDT documented as of this encounter Care Teams Dynamometer Tester Engine Relationship Specialty Start Date End Date Glendy Sutton ANP [address] [place] [address] PCP - General Family Medicine 11/28/20 documented as of this encounter
--- OUTSIDE RECORDS SUMMARY | 2024-06-22 08:47 | XMS_ITS | Encounter Summary ---
Author Organization [employer] Address [address] [facility] 7t [place] [address] Care Team Providers Care Service Station Operator Name Role Phone Glendy Sutton Primary Care Provider [phone] Reason for Visit * Reason Onset Date Comments Requested Call Back 07/23/2022 Encounter Details Date Type Department Care Team ([facility] st Contact Info) Description 07/23/2022 Telephone [facility] MEDICINE [address] [place], [place] [phone] Glendy Sutton ANP [address] [place] [address] Requested Call Back Social History Tobacco Use [...] status on US order. Please contact at [phone] * Telephone Encounter - Licha Flor - 07/23/2022 12:31 PM EDT Tc from patient calling in regards to US order for left ovary. States [facility]'t [facility] one. Back Hand didn't see the order. documented in this encounter Plan of Treatment Upcoming Encounters Date Type Department Care Team (Late st Contact Info) Description 10/01/2024 10:00 AM EDT Office Visit [facility] OPTOMETRY [address] [place], [place] [phone] Kerline Mares, OD [address] [place] [address] documented as of this encounter Visit Diagnoses Not on filedocumented in this encounter Care Teams Service Station Operator Relationship Specialty Start Date End Date Glendy Sutton ANP [address] [place], [place] [phone] PCP - General Family Medicine 11/28/20 documented as of this encounter
--- OUTSIDE RECORDS SUMMARY | 2024-06-22 08:47 | XMS_ITS | Encounter Summary ---
Author Organization [employer] Address [address] [facility] [address]t [place] [address] Care Team Providers Care [employer] Principal Name Role Phone Glendy Sutton Primary Care Provider [phone] Encounter Details Date Type Department Care Team (Late st Contact Info) Description 05/14/[address] [facility] MEDICINE [address] [place], [place] [phone] Glendy Sutton ANP [address] [place], [place] [phone] Social History Tobacco Use Types Packs/Day Years [...] Description 10/01/2024 10:00 AM EDT Office Visit [facility] OPTOMETRY [address] [place] [address] Kerline Mares, OD [address] [place] [address] documented as of this encounter Visit Diagnoses Not on filedocumented in this encounter Additional Health Concerns Assessment Noted Time PHQ-9 Depression Total Score: 0 10/04/19 23 9:29 AM EDT documented as of this encounter Care Teams [employer] Principal Relationship Specialty Start Date End Date Glendy Sutton ANP [address] [place] [address] PCP - General Family Medicine 11/28/20 documented as of this encounter
== END 2024-06-22 09:11 | disposition home or self-care (01) ==
LOC: HO.HCS 08:26
PROVIDERS: PCP Nurse Practitioner Primary Care; Visit Provider Nurse Practitioner Family
DX: R93.89 Abnormal findings on diagnostic imaging of other specified body structures (principal); R07.2 Precordial pain; I10 Essential (primary) hypertension
CPT/HCPCS: 99213; G2211

== ENCOUNTER → 2024-06-22 08:26 | Outpatient (BNVA) | payer MEDICARE, MEDICAID, SELFPAY | PROVIDERS: PCP Nurse Practitioner Primary Care; Visit Provider Nurse Practitioner Family | DX: R93.89 Abnormal findings on diagnostic imaging of other specified body structures (principal); R07.2 Precordial pain; I10 Essential (primary) hypertension | CPT/HCPCS: 99212 ==

== ENCOUNTER 2024-06-24 10:01 | Outpatient (AMB) | payer MEDICARE, MEDICAID, SELFPAY ==
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
[2024-06-24 10:38] VITALS: BP 120/86; PULSE 85; O2SAT 96; BMI 38.4
--- OUTSIDE RECORDS SUMMARY | 2024-06-24 11:38 | XMS_ITS | Encounter Summary ---
Author Organization [employer] Address [address] [facility] 7t [place] [address] Care Team Providers Care Talent Management Manager Name Role Phone Glendy Sutton Primary Care Provider [phone] Reason for Visit * Reason Onset Date Comments PT-1 05/04/2024 Encounter Details Date Type Department Care Team ([facility] st Contact Info) Description 05/04/2024 Telephone [facility] MEDICINE [address] [place], [place] [phone] Glendy Sutton ANP [address] [place], [place] [phone] PT-1 Social History Tobacco Use Types Packs/Day [...] Y/N: Yes Provider name or facility name: [facility] Facility Address: [address] [facility] Escort needed: Y/N: No Do you have a wheelchair: Y/N: No If yes- Manual or electric: Visits: 2-3 visits a month 2.)Home Address verified: Y/N: Yes Provider name or facility name: [facility] ([place]) Facility Address: [address] [place] [address] 3rd [place] [address] Escort needed: Y/N: No Do you have a wheelchair: Y/N: No If yes- Manual or electric: Visits: Once a month 3.)Home Address verified: Y/N: Yes Provider name or facility name: [facility] (labs , US, MRI) Facility Address: [address] [place] [address] Escort needed: Y/N: No Do you have a wheelchair: Y/N: No If yes- Manual or electric: Visits: 2-3 x a month documented in this encounter Plan of Treatment Upcoming Encounters Date Type Department Care Team ([facility] st Contact Info) Description 10/01/2024 10:00 AM EDT Office Visit [facility] OPTOMETRY [address] [place] [address] Kerline Mares OD [address] [place] [address] documented as of this encounter Visit Diagnoses Not on filedocumented in this encounter Additional Health Concerns Assessment Noted Time PHQ-9 Depression Total Score: 4 12/11/19 24 9:48 AM EDT documented as of this encounter Care Teams Talent Management Manager Relationship Specialty Start Date End Date Glendy Sutton ANP [address] [place] [address] PCP - General Family Medicine 11/28/20 documented as of this encounter
--- OUTSIDE RECORDS SUMMARY | 2024-06-24 11:38 | XMS_ITS | Encounter Summary ---
Author Organization [employer] Address 75 [facility] 7t [place] [address] Care Team Providers Care Commuter Train Operator Name Role Phone Glendy Sutton Primary Care Provider [phone] Reason for Visit * Reason Comments Med Refill Encounter Details Date Type Department Care Team ([facility] Contact Info) Description 04/02/2022 Refill [facility] CHC MED & PEDS [address] [place] [address] Glendy Sutton ANP [address] [place] [address] Anemia, unspecified type Social History Tobacco Use [...] Upcoming Encounters Date Type Department Care Team ([facility] Contact Info) Description 10/01/2024 10:00 AM EDT Office Visit [facility] OPTOMETRY [address] [place] [address] Vishnu, Kerline, OD [address] [place] [address] documented as of this encounter Visit Diagnoses Diagnosis Anemia, unspecified type documented in this encounter Care Teams Commuter Train Operator Relationship Specialty Start Date End Date Glendy Sutton ANP [address] [place] [address] PCP - General Family Medicine 11/28/20 documented as of this encounter
--- OUTSIDE RECORDS SUMMARY | 2024-06-24 11:38 | XMS_ITS | Encounter Summary ---
Author Organization [employer] Address 75 [facility] 7t [place] [address] Care Team Providers Care Mold Engraver Name Role Phone Glendy Sutton Primary Care Provider [phone] Encounter Details Date Type Department Care Team (Late st Contact Info) Description 05/14/2023 Orders Only [facility] MEDICINE [address] [place], [place] [phone] Glendy Sutton ANP [address] [place], [place] [phone] Social History Tobacco Use Types Packs/Day Years [...] Description 10/01/2024 10:00 AM EDT Office Visit [facility] OPTOMETRY [address] [place] [address] Kerline Mares, OD [address] [place] [address] documented as of this encounter Visit Diagnoses Not on filedocumented in this encounter Additional Health Concerns Assessment Noted Time PHQ-9 Depression Total Score: 0 10/04/19 23 9:29 AM EDT documented as of this encounter Care Teams Mold Engraver Relationship Specialty Start Date End Date Glendy Sutton ANP [address] [place] [address] PCP - General Family Medicine 11/28/20 documented as of this encounter
--- OUTSIDE RECORDS SUMMARY | 2024-06-24 11:38 | XMS_ITS | Encounter Summary ---
Author Organization [employer] Address [address] [facility] 7t [place] [address] Care Team Providers Care Nozzle And Sleeve Worker Name Role Phone Glendy Sutton Primary Care Provider [phone] Reason for Visit * Reason Onset Date Comments Results 02/19/2023 Encounter Details Date Type Department Care Team ([facility] Contact Info) Description 02/19/[address] [facility] MEDICINE [address] [place], [place] [phone] Glendy Sutton ANP [address] [place] [address] Results Social History Tobacco Use Types Packs/Day [...] last night and she was evaluated in [facility] ED. States she left ED prior to [...] 03/04/23 at 11:15a. Agrees to come to [facility] for evaluation if symptoms return. Advised request has been sent to [facility]. RN will attempt to obtain [facility] ED records. * Telephone Encounter - Anju Hawley - 02/19/2023 11:36 AM EST Tc from pt requesting a call in regards to lab results done yesterday (02/18). Please contact pt at [phone] documented in this encounter Plan of Treatment Upcoming Encounters Date Type Department Care Team ([facility] st Contact Info) Description 10/01/2024 10:00 AM EDT Office Visit [facility] OPTOMETRY [address] [place] [address] Kerline Mares, OD [address] [place] [address] documented as of this encounter Visit Diagnoses Not on filedocumented in this encounter Additional Health Concerns Assessment Noted Time PHQ-9 Depression Total Score: 0 10/04/19 23 9:29 AM EDT documented as of this encounter Care Teams Nozzle And Sleeve Worker Relationship Specialty Start Date End Date Glendy Sutton ANP [address] [place] [address] PCP - General Family Medicine 11/28/20 documented as of this encounter
--- OUTSIDE RECORDS SUMMARY | 2024-06-24 11:38 | XMS_ITS | Encounter Summary ---
Author Organization [employer] Address [address] [facility] 7t [place] [address] Care Team Providers Care Service Observer Name Role Phone Glendy Sutton Primary Care Provider [phone] Reason for Visit * Reason Onset Date Comments Nurse Triage 07/08/2023 Encounter Details Date Type Department Care Team ([facility] st Contact Info) Description 07/08/2023 Telephone [facility] MEDICINE [address] [place], [place] [phone] Glendy Sutton ANP [address] [place] [address] Nurse Triage Social History Tobacco Use Types [...] No answer LVM to return call to [facility] triage line [phone]. * Telephone Encounter - Sherri Carrillo - [...] Description 10/01/2024 10:00 AM EDT Office Visit [facility] OPTOMETRY [address] [place] [address] Vishnu, Kerline, OD [address] [place] [address] documented as of this encounter Visit Diagnoses Not on filedocumented in this encounter Additional Health Concerns Assessment Noted Time PHQ-9 Depression Total Score: 0 10/04/19 23 9:29 AM EDT documented as of this encounter Care Teams Service Observer Relationship Specialty Start Date End Date Glendy Sutton ANP [address] [place] [address] PCP - General Family Medicine 11/28/20 documented as of this encounter
--- OUTSIDE RECORDS SUMMARY | 2024-06-24 11:38 | XMS_ITS | Encounter Summary ---
Author Organization [employer] Address [address] [facility] [address]t [place] [address] Care Team Providers Care Hogshead Weigher Name Role Phone Glendy Sutton Primary Care Provider [phone] Encounter Details Date Type Department Care Team (Late st Contact Info) Description 03/20/2022 Orders Only [facility] CHC MED & PEDS [address] [place] [address] Rachael Holguin LPN Social History Tobacco Use [...] Description 10/01/2024 10:00 AM EDT Office Visit [facility] OPTOMETRY [address] [place] [address] Kerline Mares, OD [address] [place] [address] documented as of this encounter Visit Diagnoses Not on filedocumented in this encounter Care Teams Hogshead Weigher Relationship Specialty Start Date End Date Glendy Sutton ANP [address] [place] [address] PCP - General Family Medicine 11/28/20 documented as of this encounter
--- OUTSIDE RECORDS SUMMARY | 2024-06-24 11:38 | XMS_ITS | Encounter Summary ---
Author Organization [employer] Address [address] [facility] [address] [place] [address] Care Team Providers Care Medical Assistant Cardiology Name Role Phone Glendy Sutton Primary Care Provider [phone] Reason for Visit * Reason Onset Date Comments Requested Call Back 07/23/2022 Encounter Details Date Type Department Care Team ([facility] st Contact Info) Description 07/23/2022 Telephone [facility] MEDICINE [address] [place], [place] [phone] Glendy Sutton ANP [address] [place] [address] Requested Call Back Social History Tobacco Use [...] status on US order. Please contact at [phone] * Telephone Encounter - Licha Flor - 07/23/2022 12:31 PM EDT Tc from patient calling in regards to US order for left ovary. States [facility] [place] [facility] one. Lead Worker Of Housekeeping And Laundry didn't see the order. documented in this encounter Plan of Treatment Upcoming Encounters Date Type Department Care Team (Late st Contact Info) Description 10/01/2024 10:00 AM EDT Office Visit [facility] OPTOMETRY [address] [place], [place] [phone] Kerline Mares, OD [address] [place] [address] documented as of this encounter Visit Diagnoses Not on filedocumented in this encounter Care Teams Medical Assistant Cardiology Relationship Specialty Start Date End Date Glendy Sutton ANP [address] [place], [place] [phone] PCP - General Family Medicine 11/28/20 documented as of this encounter
--- OUTSIDE RECORDS SUMMARY | 2024-06-24 11:38 | XMS_ITS | Encounter Summary ---
Author Organization [employer] Address [address] [facility] [address]t [place] [address] Care Team Providers Care Operations Agent Name Role Phone Glendy Sutton Primary Care Provider [phone] Reason for Visit * Reason Onset Date Comments PT1 06/15/2024 Encounter Details Date Type Department Care Team ([facility] st Contact Info) Description 06/15/2024 Telephone [facility] MEDICINE [address] [place], [place] [phone] Glendy Sutton ANP [address] [place] [address] PT1 Social History Tobacco Use Types Packs/Day [...] Yes Provider name or facility name: [address] [place], [place] Escort needed: Y/N: No Do you have a wheelchair: Y/N: No (cane) If yes- Manual or electric: N/A Visits: (2x monthly) 2 of 2 Home Address verified: Y/N: Yes Provider name or facility name: [facility] Facility Address: [address] [place] [address] Escort needed: Y/N: No Do you have a wheelchair: Y/N: No (cane) If yes- Manual or electric: Visits: 2-3x monthly documented in this encounter Plan of Treatment Upcoming Encounters Date Type Department Care Team (Late st Contact Info) Description 10/01/2024 10:00 AM EDT Office Visit [facility] OPTOMETRY [address] [place] [address] Vishnu, Kerline, OD [address] [place] [address] documented as of this encounter Visit Diagnoses Not on filedocumented in this encounter Additional Health Concerns Assessment Noted Time PHQ-9 Depression Total Score: 4 12/11/19 24 9:48 AM EDT documented as of this encounter Care Teams Operations Agent Relationship Specialty Start Date End Date Glendy Sutton ANP [address] [place] [address] PCP - General Family Medicine 11/28/20 documented as of this encounter
--- OUTSIDE RECORDS SUMMARY | 2024-06-24 11:38 | XMS_ITS | Encounter Summary ---
Author Organization [employer] Address [address] [facility] [address]t [place] [address] Care Team Providers Care Account Coordinator Name Role Phone Glendy Sutton Primary Care Provider [phone] Reason for Visit * Reason Onset Date Comments Hospital Follow-up 02/24/2024 Encounter Details Date Type Department Care Team ([facility] Contact Info) Description 02/24/2024 Telephone [facility] MEDICINE [address] [place], [place] [phone] Glendy Sutton ANP [address] [place] [address] Hospital Follow-up Social History Tobacco Use Types [...] from pt requesting a HDF appt. Hospital: [facility] Date of admission: 02/15 Discharge date: 02/17 Diagnosed: Crisis, Dehydrated, Kidney Damage. Contact pt at [phone] *Send message to [place] Clinical Care Coordinators documented in this encounter Plan of Treatment Upcoming Encounters Date Type Department Care Team (Late st Contact Info) Description 10/01/2024 10:00 AM EDT Office Visit [facility] OPTOMETRY [address] [place] [address] Kerline Mares, OD [address] [place] [address] documented as of this encounter Visit Diagnoses Not on filedocumented in this encounter Additional Health Concerns Assessment Noted Time PHQ-9 Depression Total Score: 4 12/11/19 24 9:48 AM EDT documented as of this encounter Care Teams Account Coordinator Relationship Specialty Start Date End Date Glendy Sutton ANP [address] [place] [address] PCP - General Family Medicine 11/28/20 documented as of this encounter
--- OUTSIDE RECORDS SUMMARY | 2024-06-24 11:38 | XMS_ITS | Clinical Summary ---
Author Organization [id number] Address [address] [facility] 7t [place] [address] Care Team Providers Care Refinery Operator Crude Unit Name Role Phone Jory Lala EVNA Primary Care Provider [phone] Allergies Active Allergy Reactions Criticality Noted Date [...] 025 Active cholecalciferol (Vitamin D-3) 1.25 MG (12916 UT) capsuleIndicati ons:Vitamin D deficiency Take 1 [...] a lot vs tabs. She follows / [facility] and has appt upcoming. Hypertensive heart [...] Department Care Team Description 06/15/2024 Patient Outreach [facility] [place] [address] Enrique Sol Care Coordination (CHW outreach for SDOH PT-1 - LVM ) 06/15/2024 Telephone [facility] [place] [address] Jory Lala ANP PT1 06/14/2024 Telephone [facility] [place] [address] Jory Lala ANP Referral 06/10/2024 11:30 AM EDT Office Visit [facility] [place] [address] Jory Lala ANP Cardiomegaly (Primary Dx); Shortness of breath; [place] (dyspnea on exertion); Tear of left glenoid labrum, subsequent encounter; Chronic pain of both shoulders 06/10/2024 Telephone [facility] [place] [address] Jory Lala ANP Appointment Request 06/10/2024 Travel 06/07/2024 Telephone [facility] [place] [address] Jory Lala ANP Nurse Triage; ER Follow-up 06/06/2024 Orders Only GENERIC EXTERNAL DATA DEPARTMENT Provider, Generic External Data 05/31/2024 Telephone [facility] [place] [address] Jory Lala ANP FYI 05/30/2024 Refill [facility] [place] [address] Jory Lala ANP Anemia, unspecified type 05/28/2024 Refill [facility] [place] [address] Jory Lala ANP 05/28/2024 Population Health Risk Score Community [facility] (C3) Department [address] [place] [phone] Provider, Population Health Generic 05/25/[address] [address] Jory Lala ANP Results 05/25/2024 Orders Only [facility] [place] [address] Jory Lala ANP Vitamin D deficiency (Primary Dx) 05/20/2024 10:00 AM EST Office Visit [facility] [place] [address] Jory Lala ANP PMR (polymyalgia rheumatica) ([facility]) (Primary Dx); Chronic pain of both shoulders; Limited range of motion (ROM) of shoulder; Polyarthralgia; Chronic fatigue; Vitamin D deficiency; Fibromyalgia 05/20/2024 Travel 05/05/2024 Patient Outreach [facility] [place] [address] Jory Lala ANP Care Coordination (CHW outreach for SDOH PT-1 and food needs-LVM ) 05/04/[address] [address] Jory Lala ANP Prior Authorization 05/04/2024 [address] [place] [place] [address] Jory Lala ANP PT-1 04/25/2024 Refill [facility] [place] [address] Jory Lala ANP Essential hypertension 04/16/2024 10:00 AM EST Telemedicine [facility] [place] [address] Isamar Lakhani RN Essential hypertension 04/16/2024 Travel 04/16/[address] [address] Jory Lala ANP Appointment Confirmation 04/14/2024 Orders Only [facility] External Provider, [facility] 03/31/2024 Refill [facility] [place] [address] Jory Lala ANP from Last 3 Months [...] Description 10/01/2024 10:00 AM EDT Office Visit [facility]OM[facility] [address] [place] [address] Vishnu, Kerilne, OD [address] [place] [address] Health Maintenance Due Date Last Done Comments [...] 05/25/2024 11:14 AM EDT PMR (polymyalgia rheumatica) ([facility]/HCC) XR SHOULDER 2+ VIEWS RIGHT Routine 04/14/2024 [...] EDT) D Dimer High Sensitivity <150 NG/ML [facility] Comment:D-DIMER HS REFERENCE RANGENote: Our [...] Provider LAB BLOOD ORDERAB LES Final Result [facility] [address] [place] [phone] * XR Chest 2 Views (06/06/2024 1:53 PM EDT) Anatomical Region Laterality Modality Chest Radiographic Miranda ging 06/06/2024 1:53 PM EDT Narrative 06/06/2024 1:55 PM EDT ? [facility] ?[address] ?[place] [address] ?XRay Report ? Signed ? Patient: Angel,Laila ?MR#: [id number] ?? [id number] ? : 1975 ?Acct:[id number] ? Age/Sex: 49 / F ?ADM Date: 06/06/24 ? Loc: HO.ED ? Attending Dr: ? Ordering Physician: Sri Herrera ?? Date of Service: 06/06/24 ?? Procedure(s): XR chest 2V ?? Accession Number(s): [id number] ? cc: Sri Herrera; JORY LALA NP [...] 1354 ? DD/ ? TD/TT: 06/06/243 ? Tool Planer Set Up Operator: ? Procedure Note Birgit Reaves - 06/06/2024 [facility] [address] [place] [address] XRay Report Signed Patient: Jessica OrtizStoney#: [id number] : 1975Acct:[id number] Age/Sex: 49 / FADM Date: 06/06/24 Loc: HO.ED Attending Dr: Ordering Physician: Sri Herrera Date of Service: 06/06/24 Procedure(s): XR chest 2V Accession Number(s): [id number] cc: Sri Herrera; JORY LALA NP CLINICAL [...] 06/06/24 1354 DD/ 1353 TD/TT: 06/06/24 1353 Tool Planer Set Up Operator: [facility] External Provider IMG XR PROCEDURES Edited Result - Final * High Sensitivity Troponin I (06/06/2024 12:32 PM EDT) TROPONIN I HIGH SENSITIVITY <2.7 <3.5 - 17.0 ng/L [facility] Comment:The Wolfe high sens itivity Troponin-I results should beused in conjunction with other diagnostic information suchas ECG, clinical observations and information, and patientsymptoms to aid in the diagnosis of [place]. 06/06/2024 12:3 2 PM EDT 06/06/2024 12:36 PM EDT Generic External Data Provider LAB BLOOD ORDERAB LES Final Result [facility] [address] [place] [phone] * SARS-CoV-2 RNA, Influenza A/B, and RSV RNA, Ql NAAT (06/06/2024 12:32 PM EDT) Pathologist [facility] Influenza A PCR NEGATIVE Negative [facility] Influenza B PCR NEGATIVE Negative [facility] Resp Syncy Virus RNA Qual PCR NEGATIVE Negative [facility] SARS COV2 PCR NEGATIVE Negative [facility] Comment:All test results mus t be [...] use by authorized laboratories.Testing performed on the Soccer ManagerXpert utilizingreal-time RT-PCR.All SARS CoV2 and positive influenza A/B results arereported to [facility]. 06/06/2024 12:3 2 PM EDT 06/06/2024 12:36 PM EDT us Generic External Data Provider LAB MICROBIOLOGY - GENERAL ORDERABLES Final Result [facility] [address] [place] [phone] * (ABNORMAL) CBC auto differential (06/06/2024 12:32 PM EDT) Pathologist [facility] White Blood Count 6.0 4.8 - 10.8 X10*3/uL [facility] Red Blood Count 4.30 4.20 - 5.50 X10*6/uL [facility] Hemoglobin 12.6 12.0 - 16.0 g/dl [facility] Hematocrit 37.9 37.0 - 47.0 % [facility] Mean Corpuscular Volume 88.1 80.0 - 98.0 fL [facility] Mean Corpuscular Hemoglobin 29.3 27.0 - 33.0 pg [facility] Mean Corpuscular HGB Conc 33.2 31.0 - 35.0 g/dl [facility] Red Cell Distribution Width 12.9 11.0 - 16.0 % [facility] Platelet Count 239 160 - 400 X10*3/uL [facility] Mean Platelet Volume 9.8 9.4 - 12.3 fL [facility] Neutrophils Percent Auto 63.3 45 - 73 % [facility] Imm Gran Pct Auto 0.7(H) 0.0 - 0.4 % [facility] Lymphocytes Percent Auto 29.0 20 - 40 % [facility] Monocytes Percent Auto 5.5 2 - 11 % [facility] Eosinophils Percent Auto 0.8 0 - 4 % [facility] Basophils Percent Auto 0.7 0 - 2 % [facility] NRBC Pct Auto 0.0 0.0 - 0.2 /100WBC [facility] Neutrophils Absolute Auto 3.8 2.0 - 8.3 x10*3/uL [facility] Imm Gran Abs Auto 0.04(H) 0.00 - 0.03 X10*3/uL [facility] Lymphocytes Absolute Auto 1.7 1.2 - 4.9 X10*3/uL [facility] Monocytes Absolute Auto 0.3 0.1 - 1.2 X10*3/uL [facility] Eosinophils Absolute Auto 0.1 0.0 - 0.4 X10*3/uL [facility] Basophils Absolute Auto 0.0 0.0 - 0.2 X10*3/uL [facility] NRBC Abs Auto 0.000 0.0 - 0.012 X10*3/uL [facility] 06/06/2024 12:3 2 PM EDT 06/06/2024 12:36 PM EDT us Generic External Data Provider LAB BLOOD ORDERAB LES Final Result [facility] [address] [place] [phone] [phone] * B Type Natriuretic Peptide (BNP) (06/06/2024 12:32 PM EDT) Pathologist [facility] B Type Natriuretic Peptide 14 <100 pg/mL [facility] 06/06/2024 12:3 2 PM EDT 06/06/2024 12:36 PM EDT Generic External Data Provider LAB BLOOD ORDERAB LES Final Result Performing Organization Address [facility]/ZIP Co de Phone Number [facility] [address] [place] [phone] * Magnesium (06/06/2024 12:32 PM EDT) [facility] Magnesium 2.2 1.6 - 2.6 mg/dL [facility] 06/06/2024 12:3 2 PM EDT 06/06/2024 12:36 PM EDT Generic External Data Provider LAB BLOOD ORDERAB LES Final Result Performing Organization Address [facility] Co de Phone Number [facility] [address] [place] [phone] * Lipase (06/06/2024 12:32 PM EDT) [facility] Lipase 27 8 - 78 U/L [facility] 06/06/2024 12:3 2 PM EDT 06/06/2024 12:36 PM EDT Generic External Data Provider LAB BLOOD ORDERAB LES Final Result Performing Organization Address [facility] de Phone Number [facility] [address] [place] [phone] * (ABNORMAL) Comprehensive Metabolic Panel (06/06/2024 12:32 PM EDT) [facility] Sodium 139 135 - 145 mmol/L [facility] Potassium 4.3 3.3 - 5.1 mmol/L [facility] Chloride 108 96 - 108 mmol/L [facility] Carbon Dioxide 24 22 - 29 mmol/L [facility] Anion Gap 11(L) 12 - 20 [facility] Urea Nitrogen (BUN) 18(H) 9 - 16 mg/dL [facility] Creatinine, Serum 0.67 0.5 - 1.4 mg/dL [facility] Creatinine Clr Calc Pharmacy 105.6 [facility] Comment:Provided height and weight: 154.94 cm,91.2 kg.eGFR (calculated from the MDRD study equation) and eCrCl(calculated from the Cockcroft-Gault equation) are based ondifferent parameters and may not yield comparable results.If eCrCl result is absurd, please check patient'sheight/weight. Estimated Glomerular Filt Rate >60 [facility] Comment:Chronic Kidney Disea se: Estimated GFR < 60 mL/min/1.88n7Cjwxqn Kidney Disease: Estimated GFR < 15 mL/min/1.73m2 Glucose 87 60 - 115 mg/dL [facility] Calcium 9.1 8.4 - 10.2 mg/dL [facility] Bilirubin, Total 0.3 0.0 - 1.0 mg/dL [facility] Aspartate Amino Transferase 23 5 - 31 U/L [facility] Alanine Aminotransferase 35(H) 0 - 31 U/L [facility] Total Protein 7.7 6.5 - 8.0 g/dL [facility] Albumin Level 4.0 3.5 - 5.0 g/dL [facility] Alkaline Phosphatase 61 39 - 117 U/L [facility] 06/06/2024 12:3 2 PM EDT 06/06/2024 12:36 PM EDT us Generic External Data Provider LAB BLOOD ORDERAB LES Final Result [facility] [address] [place] [phone] [phone] * (ABNORMAL) Vitamin D, 25-Hydroxy, Total, Immunoassay (05/25/2024 11:14 AM EDT) Vitamin D 25-OH Total 14.6(L) >30 ng/mL [facility] Comment:Health Based Referen ce Values*< 20 ng/mL [id number] ng/mL Insufficient> 30 ng/mL Sufficient*Troy RAMACHANDRAN. N [...] EDT 05/25/2024 11:14 AM EDT Jory Lala [facility] LAB BLOOD ORDERABLES Final Resul t Performing Organization Address City/[facility]/ZIP Co de Phone Number [facility] [address] [place] [phone] * TSH W/Reflex to FT4 (05/25/2024 11:14 AM EDT) Pathologist [facility] TSH reflex Free T4 1.37 0.32 - 4.0 uIU/mL [facility] Blood Venous blood specimen / Unknown 05/25/2024 11:14 AM EDT 05/25/2024 11:14 AM EDT Jory Lala [facility] LAB BLOOD ORDERABLES Final Resul t Performing Organization Address City/[facility] Co de Phone Number [facility] [address] [place] [phone] * Cyclic Citrullinated Peptide (CCP) Antibody (IgG) (05/25/2024 11:14 AM EDT) Pathologist [facility] Cyclic Citrullinated Peptide <16 UNITS [facility] Comment:Reference RangeNegat adriana: <20Weak Positive: 20-39Moderate Positive: 40-59Strong Positive: >59THIS TEST WAS PERFORMED AT:[employer] [address] [phone] GOLDBERG MD Blood Venous blood specimen / Unknown 05/25/2024 11:14 AM EDT 05/25/2024 11:14 AM EDT Jory Lala ANP LAB BLOOD ORDERABLES Final Resul t Performing Organization Address [facility] Co de Phone Number [facility] [address] [place] [phone] * (ABNORMAL) Sed Rate by Modified Lashondaren (05/25/2024 11:14 AM EDT) Pathologist [facility] Erythrocyte Sedimentation Rate 21(H) 0 - 20 MM/HR [facility] Comment:Patients with polycy themia and many hemoglobin abnormalitiesmay have depressed sed rates whereas patients with anemiamay have elevated sed rates. Blood Venous blood specimen / Unknown 05/25/2024 11:14 AM EDT 05/25/2024 11:14 AM EDT Jory Lala ANP LAB BLOOD ORDERABLES Final Resul t Performing Organization Address [facility] Co de Phone Number [facility] [address] [place] [phone] * Rheumatoid Factor (05/25/2024 11:14 AM EDT) Pathologist [facility] Rheumatoid Factor <13.0 <15.0 IU/mL [facility] Blood Venous blood specimen / Unknown 05/25/2024 11:14 AM EDT 05/25/2024 11:14 AM EDT Jory Lala ANP LAB BLOOD ORDERABLES Final Resul t Performing Organization Address [facility] Co de Phone Number [facility] [address] [place] [phone] * (ABNORMAL) BANDAR Screen,IFA, with Reflex to Titer and Pattern (05/25/2024 11:14 AM EDT) Anti Nuclear Antibody Screen POSITIV E(A) NEGATIVE [facility] Comment:BANDAR IFA is a first l ine screen for detecting thepresence of up to approximately 150 autoantibodies invarious autoimmune diseases. A positive BANDAR IFA resultis suggestive of autoimmune disease and reflexes totiter and pattern. Further laboratory testing may beconsidered if clinically indicated.For additional information, please refer tohttp://education.UrbnDesignz/faq/CBY937(This link is being provided for informational/educational purposes only.) BANDAR Titer 1:40(A) titer [facility] Comment:A low level BANDAR tite r may be present in pre-clinicalautoimmune diseases and normal individuals. Reference Range <1:40 Negative 1:40-1:80 Low Antibody Level >1:80 Elevated Antibody Level BANDAR Pattern Nuclear , Homogen eous(A) [facility] Comment:Homogeneous pattern is associated with systemic lupuserythematosus (SLE), drug-induced lupus and juvenileidiopathic arthritis.AC-1: HomogeneousInternational Consensus on BANDAR Patterns(https://doi.org/10.1515/oghg-7464-1032)THIS TEST WAS PERFORMED AT:[facility] [place] [phone] GOLDBERG MD BANDAR TITER 2 (REF LAB) [facility] BANDAR Pattern 2 [facility] BANDAR TITER 3 [facility] BANDAR PATTERN 3 [facility] Blood Venous blood specimen / Unknown 05/25/2024 11:14 AM EDT 05/25/2024 11:14 AM EDT us Jory Lala [facility] LAB BLOOD ORDERABLES Final Resul t [facility] [address] [place] [phone] * XR Shoulder 2+ Views Right (04/14/2024 12:15 PM EST) Anatomical Region Laterality Modality Upper Extremities, Shoulder Right Radi ographic Imaging 04/14/2024 12:1 5 PM EST Narrative 04/15/2024 9:00 AM EST ? [facility] ?[address] ?[place] [address] ?XRay Report ? Signed ? Patient: Angel,Laila ?MR#: [id number] ?? [id number] ? : 1975 ?Acct:[id number] ? Age/Sex: 49 / F ?ADM Date: 04/14/24 ? Loc: HO.XRAY ? Attending Dr: Abel Tee MD ? Ordering Physician: Abel Tee MD ?? Date of Service: 04/14/24 ?? Procedure(s): XR shoulder RT min 2V ?? Accession Number(s): [id number] ? cc: JORY LALA NP; Abel Tee [...] DD/ 1215 ? TD/TT: 04/14/24 1226 ? Tool Planer Set Up Operator: ? Procedure Note Donotuseinterpreter, Image - 04/15/2024 [place] [address] XRay Report Signed Patient: Aury Ortiz#: [id number] : 1975Acct:[id number] Age/Sex: 49 / FADM Date: 04/14/24 Loc: [facility] Attending Dr: Abel Tee MD Ordering Physician: Abel Tee MD Date of Service: 04/14/24 Procedure(s): XR shoulder RT min 2V Accession Number(s): [id number] cc: JORY LALA NP; Abel Tee MD [...] 04/15/24 0857 DD/ 1215 TD/TT: 04/14/24 1226 Tool Planer Set Up Operator: [facility] External Provider IMG XR PROCEDURES Edited Result - Final * XR Shoulder 2+ Views Left (04/14/2024 12:15 PM EST) Anatomical Region Laterality Modality Upper Extremities, Shoulder Left Radi ographic Imaging 04/14/2024 12:1 5 PM EST Narrative 04/15/2024 8:58 AM EST ? [facility] ?[address] ?[place] [address] ?XRay Report ? Signed ? Patient: Angel,Laila ?MR#: [id number] ?? [id number] ? : 1975 ?Acct:[id number] ? Age/Sex: 49 / F ?ADM Date: 04/14/24 ? Loc: HO.XRAY ? Attending Dr: Abel Tee MD ? Ordering Physician: Abel Tee MD ?? Date of Service: 04/14/24 ?? Procedure(s): XR shoulder LT min 2V ?? Accession Number(s): [id number] ? cc: JORY LALA NP; Abel Tee [...] No acute findings left shoulder. ?? 2. Vspc-zf-bwpvxjnr glenohumeral joint and AC joint osteoarthrosis. ? Electronically signed by: ??Enrique Vaca MD ??04/15/2024 08:55 AM EST RP ? Dictated By: ?Enrique Vaca MD ? Signed By: ?<Electronically signed by Enrique Vaca MD in OV> ?04/15/24 0855 ? DD/ 1215 ? TD/TT: 04/14/24 1226 ? Tool Planer Set Up Operator: ? Procedure Note Donyuri, Image - 04/15/[address] [address] XRay Report Signed Patient: Aury Ortiz#: [id number] : 1975Acct:[id number] Age/Sex: 49 / FADM Date: 04/14/24 Loc: ROME[facility] Attending Dr: Abel Tee MD Ordering Physician: Abel Tee MD Date of Service: 04/14/24 Procedure(s): XR shoulder LT min 2V Accession Number(s): [id number] cc: JORY LALA NP; Abel Tee MD [...] 1. No acute findings left shoulder. 2. Mnka-yp-ijcinimc glenohumeral joint and AC joint osteoarthrosis. Electronically signed by: Enrique Vaca MD 04/15/2024 08:55 AM EST Dictated By: Enrique Vaca MD Signed By: <Electronically signed by Enrique Vaca MD in OV> 04/15/24 0855 DD/ 1215 TD/TT: 04/14/24 1226 Tool Planer Set Up Operator: [facility] External Provider IMG XR PROCEDURES Edited Result - Final * BI Mammogram Screening Tomosynthesis Bilateral (01/19/2024 10:30 AM EST) Anatomical Region Laterality Modality Breast Bilateral Mammography 01/19/2024 10:3 0 AM EST Narrative 01/27/2024 2:08 PM EST ? [facility] ? [address] ?[place] [address] ? Mammography Report ? Signed ? Patient: Angel,Laila ?MR#: [id number] ?? [id number] ? : 1975 ?Acct:[id number] ? Age/Sex: 48 / F ?ADM Date: 01/19/24 ? Loc: HO.MAMMO ? Attending Dr: Jory Lala LIAISON PLANNER ? Ordering Physician: JORY LALA NP ?Results: 1Negative ? Date of Service: 01/19/24 ?Follow Up: 1 Year From Orig ?? inal Mammogram ? Procedure(s): MM tomosynthesis screening BI ?? Accession Number(s): [id number] ? cc: DAI,JORY PATRICIA ? EXAMINATION: ?? [...] DD/ 1030 ? TD/TT: 01/19/24 1100 ? Tool Planer Set Up Operator: ? Procedure Note Jelly, Birgit - 01/27/2024 [facility] [address] [place] [address] [place] [address] Mammography Report Signed Patient: Aury Ortiz#: [id number] : 1975Acct:[id number] Age/Sex: 48 / FADM Date: 01/19/24 Loc: [facility] Attending Dr: Jory Lala LIAISON PLANNER Ordering Physician: JORY LALAults: 1Negative Date of Service: 01/19/24Follow Up: 1 Year From Orig inal Mammogram Procedure(s): MM tomosynthesis screening BI Accession Number(s): [id number] cc: JORY LALA NP EXAMINATION: MM SCREENING [...] DO 01/27/2024 02:05 PM [facility] Dictated By: Michaela Alejo DO Signed By: <Electronically signed by Michaela Alejo DO in OV> 01/27/24 1405 DD/ 1030 TD/TT: 01/19/24 1100 Tool Planer Set Up Operator: Jory Lala ANP IMG BI PROCEDURES Final Result * Hepatitis C Ab (12/30/2022 4:01 PM EDT) Pathologist [facility] Hepatitis C Antibody Nonreactive Nonreactive [facility] Comment:Antibodies to HCV no t detected; does not exclude early acuteHCV infection. 12/30/2022 4:01 PM EDT 12/30/2022 4:01 PM EDT [facility] External Provider LAB BLO OD ORDERABLES Final Result [facility] [address] [place] [phone] * HIV Ab/Ag (YVETTE HARRY) (12/30/2022 4:01 PM EDT) HIV AB/AG Nonreactive Nonreactive [facility] Comment:HIV-1 p24 Ag and/or HIV-1/HIV-2 Ab not detected.A test result that is nonreactive does not exclude thepossibility of exposure to or infection with HIV-1 and/orHIV-2. Nonreactive results in this assay for individualswith prior exposure to HIV-1 and/or HIV-2 may be due toantigen and antibody levels that are below the limit ofdetection of this assay.The [employer] HIV Ag/Ab Combo assay result andsupplemental assay results should be interpreted inconjunction with the patient's clinical presentation,history and other laboratory results. If the results areinconsistent with clinical evidence, additional testing issuggested to confirm the result. 12/30/2022 4:01 PM EDT 12/30/2022 4:01 PM EDT Generic External Data Provider LAB BLOOD ORDERAB LES Final Result [facility] [address] [place] [address] [phone] * (ABNORMAL) Colonoscopy (07/04/2021) [facility] Colonoscopy Abnormal(A ) Normal Historical Provider MD HEALTH MAINTENANCE Final Result * (ABNORMAL) LIPID PANEL, STANDARD (11/29/2020 10:01 AM EDT) [facility] Chol/HDLC Ratio 5.6(H) <5.0 (calc) [facility] ?? Ed SS et al. MATTIE. 2013;310(19): 4904-7163 ?? (http://education.[employer]rb[employer]/faq/AAN019) Non-HDL Cholesterol 195(H) <130 mg/dL (calc) [facility] Comment: For patients with diabetes plus 1 major ASCVD risk ?? factor, treating to a non-HDL-C goal of <100 mg/dL ?? (LDL-C of <70 mg/dL) is considered a therapeutic ?? option. Triglycerides 182(H) <150 mg/dL [facility] 11/29/2020 10:0 1 AM EDT [facility] LAB BLOOD ORDERABLES Final Resul t [facility] [address] [place] [address], * THINPREP PAP (08/09/2020 2:03 PM EDT) Clinical Information: None given [facility] COMMENT SEE COMMENT [facility] [...] historic and ?? current clinical information. ?? Surgeon Chief : SEE COMMENT [facility] Comment: RK, CT(ASCP) CT screening location: [address] ??[address] Interpretation/R esult: Negative for intraepithelial lesion or malignancy. [facility] LMP: 07/29/20 [facility] Prev. BX: LEEP 2000 [facility] Prev. PAP: NIL 09/2015 [facility] SOURCE: None given [facility] Statement Of Adequacy: SEE COMMENT [facility] Comment: Satisfactory for evaluation. Endocervical/transformation zone component absent. 08/09/2020 2:03 PM EDT Yuly Denys [facility] LAB PATHOLOGY ORDERABLES Final Result Performing Organization Address [facility] Co de Phone Number [facility] [address] * HPV mRNA E6/E7 (08/09/2020 2:03 PM EDT) HPV nRNA E6/E7 Not Detected Not Detected [facility] Comment: Methodology: Collar Trimmer-Mediated Amplification This assay detects E6/E7 viral messenger RNA (mRNA) from 14 high-risk HPV types (16,18,31,33,35,39,45,51,52,56,58,59,66,68). ? The analytical performance characteristics of this assay have been determined by [employer]. The modifications have not been cleared or approved by the FDA. This assay has been validated pursuant to the CLIA regulations and is used for clinical purposes. ?? For additional information, please refer to http://education.[employer]/faq/GYW814a5 (This link if provided for information/ educational purposes only.) 08/09/2020 2:03 PM EDT Yuly Denys [facility] LAB BLOOD ORDERABLES Verena l Result Performing Organization Address [facility] de Phone Number [facility] [address] from Last 3 Months or Most Recently Relevant to Health Maintenance Insurance [place] [address] [place] [id number] [place] [employer] Care Teams Refinery Operator Crude Unit Relationship Specialty Start Date End Date Jory Lala ANP [address] [place] [id number] PCP - General Family Medicine 11/28/20
--- OUTSIDE RECORDS SUMMARY | 2024-06-24 11:38 | XMS_ITS | Encounter Summary ---
Author Organization [employer] Address [address] [facility] 7t [place] [address] Care Team Providers Care Civil Engineer Helper Name Role Phone Glendy Sutton Primary Care Provider [phone] Reason for Visit * Reason Comments Med Refill Encounter Details Date Type Department Care Team ([facility] st Contact Info) Description 05/28/2024 Refill [facility] MEDICINE [address] [place], [place] [phone] Glendy Sutton ANP [address] [place], [place] [phone] Social History Tobacco Use Types Packs/Day Years [...] Description 10/01/2024 10:00 AM EDT Office Visit [facility] OPTOMETRY [address] [place] [address] Kerline Mares, OD [address] [place] [address] documented as of this encounter Visit Diagnoses Not on filedocumented in this encounter Additional Health Concerns Assessment Noted Time PHQ-9 Depression Total Score: 4 12/11/19 24 9:48 AM EDT documented as of this encounter Care Teams Civil Engineer Helper Relationship Specialty Start Date End Date Glendy Sutton ANP [address] [place] [address] PCP - General Family Medicine 11/28/20 documented as of this encounter
== END 2024-06-24 11:26 | disposition home or self-care (01) ==
LOC: HO.RHES 10:02
PROVIDERS: PCP Nurse Practitioner Primary Care; Visit Provider Internal Medicine Rheumatology
DX: M25.511 Pain in right shoulder (principal); M25.512 Pain in left shoulder; G89.29 Other chronic pain; M19.011 Primary osteoarthritis, right shoulder; M19.012 Primary osteoarthritis, left shoulder
CPT/HCPCS: 99213; G2211

== ENCOUNTER → 2024-06-24 10:01 | Outpatient (BNVA) | payer MEDICARE, MEDICAID, SELFPAY | PROVIDERS: PCP Nurse Practitioner Primary Care; Visit Provider Internal Medicine Rheumatology | DX: M19.011 Primary osteoarthritis, right shoulder (principal); M19.012 Primary osteoarthritis, left shoulder | CPT/HCPCS: 99212 ==

== ENCOUNTER → 2024-07-15 12:48 | Outpatient (REF) | payer MEDICARE, MEDICAID, SELFPAY ==
--- OUTSIDE RECORDS SUMMARY | 2024-07-15 15:23 | XMS_ITS | Encounter Summary ---
Author Organization [employer] Address [address] [facility] 7t [place] [address] Care Team Providers Care Classification Case Manager Name Role Phone Glendy Sutton Primary Care Provider [phone] Reason for Visit * Reason Onset Date Comments Hospital Follow-up 02/24/2024 Encounter Details Date Type Department Care Team ([facility] Contact Info) Description 02/24/2024 Telephone [facility] MEDICINE [address] [place], [place] [phone] Glendy Sutton ANP [address] [place] [address] Hospital Follow-up Social History Tobacco Use Types [...] from pt requesting a HDF appt. Hospital: [facility] Date of admission: 02/15 Discharge date: 02/17 Diagnosed: Crisis, Dehydrated, Kidney Damage. Contact pt at [phone] *Send message to [place] Clinical Care Coordinators documented in this encounter Plan of Treatment Upcoming Encounters Date Type Department Care Team (Late st Contact Info) Description 10/01/2024 10:00 AM EDT Office Visit [facility] OPTOMETRY [address] [place] [address] Kerline Mares, OD [address] [place] [address] documented as of this encounter Visit Diagnoses Not on filedocumented in this encounter Additional Health Concerns Assessment Noted Time PHQ-9 Depression Total Score: 4 12/11/19 24 9:48 AM EDT documented as of this encounter Care Teams Classification Case Manager Relationship Specialty Start Date End Date Glendy Sutton ANP [address] [place] [address] PCP - General Family Medicine 11/28/20 documented as of this encounter
--- OUTSIDE RECORDS SUMMARY | 2024-07-15 15:23 | XMS_ITS | Encounter Summary ---
Author Organization [employer] Address [address] [facility] 7t [place] [address] Care Team Providers Care Assembler Movement Name Role Phone Glendy Sutton Primary Care Provider [phone] Reason for Visit * Reason Comments Med Refill Encounter Details Date Type Department Care Team ([facility] Contact Info) Description 04/02/2022 Refill [facility] CHC MED & PEDS [address] [place] [address] Glendy Sutton ANP [address] [place] [address] Anemia, unspecified type Social History Tobacco Use [...] Encounters Date Type Department Care Team (Late Contact Info) Description 10/01/2024 10:00 AM EDT Office Visit [facility] OPTOMETRY [address] [place] [address] Vishnu, Kerline, OD [address] [place] [address] documented as of this encounter Visit Diagnoses Diagnosis Anemia, unspecified type documented in this encounter Care Teams Assembler Movement Relationship Specialty Start Date End Date Glendy Sutton ANP [address] [place] [address] PCP - General Family Medicine 11/28/20 documented as of this encounter
--- OUTSIDE RECORDS SUMMARY | 2024-07-15 15:23 | XMS_ITS | Encounter Summary ---
Author Organization [employer] Address [address] [facility] 7t [place] [address] Care Team Providers Care Bone Char Operator Name Role Phone Glendy Sutton Primary Care Provider [phone] Reason for Visit * Reason Onset Date Comments PT-1 05/04/2024 Encounter Details Date Type Department Care Team ([facility] st Contact Info) Description 05/04/2024 Telephone [facility] MEDICINE [address] [place], [place] [phone] Glendy Sutton ANP [address] [place], [place] [phone] PT-1 Social History Tobacco Use Types Packs/Day [...] Y/N: Yes Provider name or facility name: [facility] Facility Address: [address] [facility] Escort needed: Y/N: No Do you have a wheelchair: Y/N: No If yes- Manual or electric: Visits: 2-3 visits a month 2.)Home Address verified: Y/N: Yes Provider name or facility name: [facility] ([place] Facility Address: [address] [place] [address] [address] [address] Escort needed: Y/N: No Do you have a wheelchair: Y/N: No If yes- Manual or electric: Visits: Once a month 3.)Home Address verified: Y/N: Yes Provider name or facility name: [facility] (labs , [place], MRI) Facility Address: [address] [place] [address] Escort needed: Y/N: No Do you have a wheelchair: Y/N: No If yes- Manual or electric: Visits: 2-3 x a month documented in this encounter Plan of Treatment Upcoming Encounters Date Type Department Care Team ([facility] st Contact Info) Description 10/01/2024 10:00 AM EDT Office Visit [facility] OPTOMETRY [address] [place] [address] Kerline Mares OD [address] [place] [address] documented as of this encounter Visit Diagnoses Not on filedocumented in this encounter Additional Health Concerns Assessment Noted Time PHQ-9 Depression Total Score: 4 12/11/19 24 9:48 AM EDT documented as of this encounter Care Teams Bone Char Operator Relationship Specialty Start Date End Date Glendy Sutton ANP [address] [place] [address] PCP - General Family Medicine 11/28/20 documented as of this encounter
--- OUTSIDE RECORDS SUMMARY | 2024-07-15 15:23 | XMS_ITS | Encounter Summary ---
Author Organization [employer] Address [address] [facility] 7t [place] [address] Care Team Providers Care Airport Operations Officer Name Role Phone Glendy Sutton Primary Care Provider [phone] Reason for Visit * Reason Onset Date Comments PT1 06/15/2024 Encounter Details Date Type Department Care Team ([facility] st Contact Info) Description 06/15/2024 Telephone [facility] MEDICINE [address] [place], [place] [phone] Glendy Sutton ANP [address] [place] [address] PT1 Social History Tobacco Use Types Packs/Day [...] Yes Provider name or facility name: [address] [place], [place] Escort needed: Y/N: No Do you have a wheelchair: Y/N: No (cane) If yes- Manual or electric: N/A Visits: (2x monthly) 2 of 2 Home Address verified: Y/N: Yes Provider name or facility name: [facility] Facility Address: [address] [place] [address] Escort needed: Y/N: No Do you have a wheelchair: Y/N: No (cane) If yes- Manual or electric: Visits: 2-3x monthly documented in this encounter Plan of Treatment Upcoming Encounters Date Type Department Care Team (Late st Contact Info) Description 10/01/2024 10:00 AM EDT Office Visit [facility] OPTOMETRY [address] [place] [address] Vishnu, Kerline, OD [address] [place] [address] documented as of this encounter Visit Diagnoses Not on filedocumented in this encounter Additional Health Concerns Assessment Noted Time PHQ-9 Depression Total Score: 4 12/11/19 24 9:48 AM EDT documented as of this encounter Care Teams Airport Operations Officer Relationship Specialty Start Date End Date Glendy Sutton ANP [address] [place] [address] PCP - General Family Medicine 11/28/20 documented as of this encounter
--- OUTSIDE RECORDS SUMMARY | 2024-07-15 15:23 | XMS_ITS | Clinical Summary ---
Author Organization [employer] Address [address] [facility] [address] [place] [address] Care Team Providers Care Plant Electrical Engineer Name Role Phone Jory Lala EVAN Primary Care Provider [phone] Allergies Active Allergy Reactions Criticality Noted Date [...] NOT BREAK, CRUSH, DISSOLVE OR CHEW Active zolpidem (Ambien) 10 MG tablet Take 10 mg by mouth if needed at bedtime for sleep. Active sucralfate (Carafate) 1 GM/10ML suspension TAKE 10 ML BY MOUTH AT BEDTIME, MAY INCREASE TO 4 TIMES DAILY NEEDED 1260 mL 2 Active diclofenac (Cataflam) 50 MG tablet Take 50 mg by mouth with breakfast and with evening meal. 025 Active ARIPiprazole (Abilify) 30 MG tablet Take 1 tablet by mouth Once per day. 025 Active lamoTRIgine (LaMICtal) 100 MG tablet Take 1 tablet by mouth Once per day. Active prazosin (Minipress) 2 MG capsule Take 4 mg by mouth at bedtime. Active QUEtiapine (SEROquel) 100 MG tablet Take 150 mg by mouth at bedtime. prn 025 Active cholecalciferol (Vitamin D-3) 1.25 MG (80159 UT) capsuleIndicati ons:Vitamin D deficiency Take 1 [...] day. 90 tablet 3 025 2025 Active pregabalin (Lyrica) 200 MG capsuleIndicati ons:Other chronic pain Take 1 capsule (200 mg) by mouth 3 times daily. 90 capsule 5 025 Active pregabalin (Lyrica) 200 MG capsuleIndicati ons:Other chronic pain Take 1 capsule (200 mg) by mouth 3 times daily. 90 capsule 5 024 2024 Discontinued(R eorder (will not trigger notification to Pharmacy)) Active Problems Problem Noted Date Diagnosed Date Family history of myocardial infarction 06/11/19 History of seizure 06/10/2024 Posttraumatic stress disorder 06/10/2024 Severe obesity (BMI 35.0-39.9) with comorbidity 06/10/2024 Fibromyalgia 05/27/2024 Assessment & Plan (07/12/2024 3:01 PM EDT): Continue Lyrica, refill sent by her PCP this morning and evaluate the pharmacy for pickup. Discussed about taking Tylenol as needed for mild symptoms whenever she is out of Lyrica, follow-up closely with mental health provider Advised against prolonged rest in bed for more than 8 hours Advised regarding physical activity as tolerated Chronic fatigue 05/27/2024 Chronic pain of both [...] a lot vs tabs. She follows w/ [facility] and has appt upcoming. Hypertensive heart [...] Encounters Date Type Department Care Team Description 07/12/2024 3:40 PM EDT Office Visit [facility] [address] [place] [phone] Bandar Snyder MD Fibromyalgia (Primary Dx); Cough in adult patient 07/12/[address] [address] Jory Lala ANP Med Refill 07/12/[address] [address] Jory Lala ANP Other chronic pain 06/15/2024 Patient Outreach [address] [address] Enrique Sol Care Coordination (CHW outreach for SDOH PT-1 - LVM ) 06/15/[address] [address] Jory Lala ANP PT1 06/14/[address] [address] Jory Lala ANP Referral 06/10/2024 11:30 AM EDT Office Visit [address] [address] Jory Lala ANP Cardiomegaly (Primary Dx); Shortness of breath; [place] (dyspnea on exertion); Tear of left glenoid labrum, subsequent encounter; Chronic pain of both shoulders 06/10/[address] [address] Jory Lala ANP Appointment Request 06/10/2024 Travel 06/07/[address] [address] Jory Lala ANP Nurse Triage; ER Follow-up 06/06/2024 Orders Only GENERIC EXTERNAL DATA DEPARTMENT Provider, Generic External Data 05/31/[address] [address] Jory Lala ANP FYI 05/30/[address] [address] Jory Lala ANP Anemia, unspecified type 05/28/2024 Refill [facility] [address] [place] [address] Jory Lala ANP 05/28/2024 Population Health Risk Score [facility] () [address] [phone] Provider, Population Health Generic 05/25/2024 Telephone [facility] [address] [place] [address] Jory Lala ANP Results 05/25/2024 Orders Only [facility] [address] [place] [phone] Jory Lala ANP Vitamin D deficiency (Primary Dx) 05/20/2024 10:00 AM EST Office Visit [address] [address] Jory Lala ANP PMR (polymyalgia rheumatica) ([facility]) (Primary Dx); Chronic pain of both shoulders; Limited range of motion (ROM) of shoulder; Polyarthralgia; Chronic fatigue; Vitamin D deficiency; Fibromyalgia 05/20/2024 Travel 05/05/2024 Patient Outreach [address] [address] Jory Lala ANP Care Coordination (CHW outreach for SDOH PT-1 and food needs-LVM ) 05/04/[address] [address] Jory Lala ANP Prior Authorization 05/04/[address] [address] Jory Lala ANP PT-1 04/25/[address] [address] Jory Lala ANP Essential hypertension from Last 3 Months Immunizations Name Administration [...] Sign Reading Time Taken Comments Blood Pressure 112/77 07/12/2024 2:47 PM EDT Pulse 82 07/12/2024 2:47 PM EDT Temperature 36.7 ??C (98.1 ??F) 07/12/2024 2:47 PM ED T Respiratory Rate 18 07/12/2024 2:47 PM EDT Oxygen Saturation 98% 07/12/2024 2:47 PM EDT Inhaled Oxygen Concentration - - Weight 93 kg (205 lb) 07/12/2024 2:47 PM EDT Height 154.9 cm (5' 1 ) 06/10/2024 11:35 AM EDT Body Mass Index 38.73 06/10/2024 11:35 AM EDT Plan of Treatment Upcoming Encounters Date Type Department Care Team (Late st Contact Info) Description 10/01/2024 10:00 AM EDT Office Visit [facility] [address] [place] [address] Vishnu, Kerline, OD [address] [place] [address] Health Maintenance Due Date Last Done Comments [...] Smear 08/09/2025 08/09/2020 Lipid Panel 11/29/2025 11/29/2020, /04/2020, 10/20/2019 Mammogram 01/18/2026 01/19/2024, 1106/2023, 01/14/2023, Additional [...] Procedure Name Priority Date/Time Associated Diagnosis Comments POCT RAPID COVID ANTIGEN Routine 07/12/2024 2:56 PM EDT Cough in adult patient POCT INFLUENZA B (ID NOW RAPID MOLECULAR) Routine 07/12/2024 2:56 PM EDT Cough in adult patient POCT INFLUENZA A (ID NOW RAPID MOLECULAR) Routine 07/12/2024 2:56 PM EDT Cough in adult patient D DIMER HIGH SENSITIVITY Routine 06/06/2024 2:00 [...] 05/25/2024 11:14 AM EDT PMR (polymyalgia rheumatica) (CMS/HCC) BI MAMMOGRAM SCREENING TOMOSYNTHESIS BILATERAL Routine [...] Recently Relevant to Health Maintenance Results * Influenza B (ID NOW Rapid Molecular) (07/12/2024 2:56 PM EDT) Influenza B Negative Negative, Indeterminate [facility] Swab 07/12/2024 2:56 PM EDT us Bandar Snyder MD POINT OF CARE TEST ENTER /EDIT ORDERABLES Final Result [facility] [address] [place] [phone] * Influenza A (ID NOW Rapid Molecular) (07/12/2024 2:56 PM EDT) Influenza A Negative Negative, Indeterminate [facility] Swab 07/12/2024 2:56 PM EDT Bandar Snyder MD POINT OF CARE TEST ENTER /EDIT ORDERABLES Final Result Performing Organization Address [facility] de Phone Number [facility] [address] [place] [phone] * POCT Rapid COVID Ag (07/12/2024 2:56 PM EDT) [facility] Rapid COVID Ag Negative Swab 07/12/2024 2:56 PM EDT Bandar Snyder MD POINT OF CARE TEST ENTER /EDIT ORDERABLES Final Result * D Dimer High Sensitivity (06/06/2024 2:00 PM EDT) [facility] D Dimer High Sensitivity <150 NG/ML [facility] Comment:D-DIMER HS REFERENCE RANGENote: Our assay reports D-Dimer Units (D- DU).The cut-off value for venous thromboembolic (VTE) disease is230 ng/mL. This value has a very high negative predictivevalue when the patient has a low to moderate clinicalprobability of VTE.The upper limit of normal is 243 ng/mL. 06/06/2024 2:00 PM EDT 06/06/2024 2:06 PM EDT Generic External Data Provider LAB BLOOD ORDERAB LES Final Result Performing Organization Address [facility] Co de Phone Number [facility] [address] [place] [phone] * XR Chest 2 Views (06/06/2024 1:53 PM EDT) Anatomical Region Laterality Modality Chest Radiographic Miranda ging 06/06/2024 1:53 PM EDT Narrative 06/06/2024 1:55 PM EDT ? [place] [facility] ?[address] ?[place] [address] ?XRay Report ? Signed ? Patient: Angel,Laila ?MR#: [id number] ?? [id number] ? : 1975 ?Acct:[id number] ? Age/Sex: 49 / F ?ADM Date: 06/06/24 ? Loc: HO.ED ? Attending Dr: ? Ordering Physician: Sri Herrera ?? Date of Service: 06/06/24 ?? Procedure(s): XR chest 2V ?? Accession Number(s): [id number] ? cc: Sri Herrera; JORY LALA NP [...] ? Signed By: ?<Electronically signed by Shraddha Floers MD in OV> ? 06/06/24 1354 ? DD/ 1353 ? TD/TT: 06/06/24 1353 ? Correctional Corporal: ? Procedure Note Jelly, Image - 06/06/2024 [place] [address] XRay Report Signed Patient: Aury Ortiz#: [id number] : 1975Acct:[id number] Age/Sex: 49 / FADM Date: 06/06/24 Loc: HO.ED Attending Dr: Ordering Physician: Sri Herrera Date of Service: 06/06/24 Procedure(s): XR chest 2V Accession Number(s): [id number] cc: Sri Herrera; JORY LALA NP CLINICAL [...] 06/06/24 1354 DD/ 1353 TD/TT: 06/06/24 1353 Correctional Corporal: [facility] External Provider IMG XR PROCEDURES Edited Result - Final * High Sensitivity Troponin I (06/06/2024 12:32 PM EDT) Pathologist [facility] TROPONIN I HIGH SENSITIVITY <2.7 <3.5 - 17.0 ng/L [facility] Comment:The Wolfe high sens itivity Troponin-I results should beused in conjunction with other diagnostic information suchas ECG, clinical observations and information, and patientsymptoms to aid in the diagnosis of LA. 06/06/2024 12:3 2 PM EDT 06/06/2024 12:36 PM EDT Generic External Data Provider LAB BLOOD ORDERAB LES Final Result [facility] [address] [place] [phone] * SARS-CoV-2 RNA, Influenza A/B, and RSV RNA, Ql NAAT (06/06/2024 12:32 PM EDT) Pathologist [facility] Influenza A PCR NEGATIVE Negative [facility] Influenza B PCR NEGATIVE Negative [facility] Resp Syncy Virus RNA Qual PCR NEGATIVE Negative [facility] SARS COV2 PCR NEGATIVE Negative [facility] Comment:All test results mus t be [...] use by authorized laboratories.Testing performed on the [employer] GeneXpert utilizingreal-time RT-PCR.All SARS CoV2 and positive influenza A/B results arereported to [facility]. 06/06/2024 12:3 2 PM EDT 06/06/2024 12:36 PM EDT us Generic External Data Provider LAB MICROBIOLOGY - GENERAL ORDERABLES Final Result [facility] [address] [place] [phone] * (ABNORMAL) CBC auto differential (06/06/2024 12:32 PM EDT) White Blood Count 6.0 4.8 - 10.8 X10*3/uL [facility] Red Blood Count 4.30 4.20 - 5.50 X10*6/uL [facility] Hemoglobin 12.6 12.0 - 16.0 g/dl [facility] Hematocrit 37.9 37.0 - 47.0 % [facility] Mean Corpuscular Volume 88.1 80.0 - 98.0 fL [facility] Mean Corpuscular Hemoglobin 29.3 27.0 - 33.0 pg [facility] Mean Corpuscular HGB Conc 33.2 31.0 - 35.0 g/dl [facility] Red Cell Distribution Width 12.9 11.0 - 16.0 % [facility] Platelet Count 239 160 - 400 X10*3/uL [facility] Mean Platelet Volume 9.8 9.4 - 12.3 fL [facility] Neutrophils Percent Auto 63.3 45 - 73 % [facility] Imm Gran Pct Auto 0.7(H) 0.0 - 0.4 % [facility] Lymphocytes Percent Auto 29.0 20 - 40 % [facility] Monocytes Percent Auto 5.5 2 - 11 % [facility] Eosinophils Percent Auto 0.8 0 - 4 % [facility] Basophils Percent Auto 0.7 0 - 2 % [facility] NRBC Pct Auto 0.0 0.0 - 0.2 /100WBC [facility] Neutrophils Absolute Auto 3.8 2.0 - 8.3 x10*3/uL [facility] Imm Gran Abs Auto 0.04(H) 0.00 - 0.03 X10*3/uL [facility] Lymphocytes Absolute Auto 1.7 1.2 - 4.9 X10*3/uL [facility] Monocytes Absolute Auto 0.3 0.1 - 1.2 X10*3/uL [facility] Eosinophils Absolute Auto 0.1 0.0 - 0.4 X10*3/uL [facility] Basophils Absolute Auto 0.0 0.0 - 0.2 X10*3/uL [facility] NRBC Abs Auto 0.000 0.0 - 0.012 X10*3/uL [facility] 06/06/2024 12:3 2 PM EDT 06/06/2024 12:36 PM EDT us Generic External Data Provider LAB BLOOD ORDERAB LES Final Result Performing Organization Address [facility]/ZIP Co de Phone Number [facility] [address] [place] [phone] * B Type Natriuretic Peptide (BNP) (06/06/2024 12:32 PM EDT) B Type Natriuretic Peptide 14 <100 pg/mL [facility] 06/06/2024 12:3 2 PM EDT 06/06/2024 12:36 PM EDT us Generic External Data Provider LAB BLOOD ORDERAB LES Final Result Performing Organization Address [facility] Co de Phone Number [facility] [address] [place] [phone] * Magnesium (06/06/2024 12:32 PM EDT) Pathologist [facility] Magnesium 2.2 1.6 - 2.6 mg/dL [facility] 06/06/2024 12:3 2 PM EDT 06/06/2024 12:36 PM EDT Generic External Data Provider LAB BLOOD ORDERAB LES Final Result Performing Organization Address City/[facility]/ZIP Co de Phone Number [facility] [address] [place] [phone] * Lipase (06/06/2024 12:32 PM EDT) [facility] Lipase 27 8 - 78 U/L [facility] 06/06/2024 12:3 2 PM EDT 06/06/2024 12:36 PM EDT [employer] External Data Provider LAB BLOOD ORDERAB LES Final Result Performing Organization Address City/[facility]/ZIP Co de Phone Number [facility] [address] [place] [phone] * (ABNORMAL) Comprehensive Metabolic Panel (06/06/2024 12:32 PM EDT) [facility] Sodium 139 135 - 145 mmol/L [facility] Potassium 4.3 3.3 - 5.1 mmol/L [facility] Chloride 108 96 - 108 mmol/L [facility] Carbon Dioxide 24 22 - 29 mmol/L [facility] Anion Gap 11(L) 12 - 20 [facility] Urea Nitrogen (BUN) 18(H) 9 - 16 mg/dL [facility] Creatinine, Serum 0.67 0.5 - 1.4 mg/dL [facility] Creatinine Clr Calc Pharmacy 105.6 [facility] Comment:Provided height and weight: 154.94 cm,91.2 kg.eGFR (calculated from the MDRD study equation) and eCrCl(calculated from the Cockcroft-Gault equation) are based ondifferent parameters and may not yield comparable results.If eCrCl result is absurd, please check patient'sheight/weight. Estimated Glomerular Filt Rate >60 [facility] Comment:Chronic Kidney Disea se: Estimated GFR < 60 mL/min/1.99e4Tkhhdy Kidney Disease: Estimated GFR < 15 mL/min/1.73m2 Glucose 87 60 - 115 mg/dL [facility] Calcium 9.1 8.4 - 10.2 mg/dL [facility] Bilirubin, Total 0.3 0.0 - 1.0 mg/dL [facility] Aspartate Amino Transferase 23 5 - 31 U/L [facility] Alanine Aminotransferase 35(H) 0 - 31 U/L [facility] Total Protein 7.7 6.5 - 8.0 g/dL [facility] Albumin Level 4.0 3.5 - 5.0 g/dL [facility] Alkaline Phosphatase 61 39 - 117 U/L [facility] 06/06/2024 12:3 2 PM EDT 06/06/2024 12:36 PM EDT us Generic External Data Provider LAB BLOOD ORDERAB LES Final Result [facility] [address] [place] [phone] * (ABNORMAL) Vitamin D, 25-Hydroxy, Total, Immunoassay (05/25/2024 11:14 AM EDT) Vitamin D 25-OH Total 14.6(L) >30 ng/mL [facility] Comment:Health Based Referen ce Values*< 20 ng/mL Obotypnbj22-55 ng/mL Insufficient> 30 ng/mL Sufficient*Troy RAMACHANDRAN. N [...] EDT 05/25/2024 11:14 AM EDT Jory Lala [facility] LAB BLOOD ORDERABLES Final Resul t Performing Organization Address [facility] de Phone Number [facility] [address] [place] [phone] * TSH W/Reflex to FT4 (05/25/2024 11:14 AM EDT) TSH reflex Free T4 1.37 0.32 - 4.0 uIU/mL [facility] Blood Venous blood specimen / Unknown 05/25/2024 11:14 AM EDT 05/25/2024 11:14 AM EDT Jory Lala [facility] LAB BLOOD ORDERABLES Final Resul t Performing Organization Address [facility] de Phone Number [facility] [address] [place] [phone] * Cyclic Citrullinated Peptide (CCP) Antibody (IgG) (05/25/2024 11:14 AM EDT) Cyclic Citrullinated Peptide <16 UNITS [facility] Comment:Reference RangeNegat adriana: <20Weak Positive: 20-39Moderate Positive: 40-59Strong Positive: >59THIS TEST WAS PERFORMED AT:[email or web address] [address] [phone] GOLDBERG MD Blood Venous blood specimen / Unknown 05/25/2024 11:14 AM EDT 05/25/2024 11:14 AM EDT Jory Lala ANP LAB BLOOD ORDERABLES Final Resul t Performing Organization Address [facility] de Phone Number [facility] [address] [place] [phone] * (ABNORMAL) Sed Rate by Modified Jasonergren (05/25/2024 11:14 AM EDT) Erythrocyte Sedimentation Rate 21(H) 0 - 20 MM/HR [facility] Comment:Patients with polycy themia and many hemoglobin abnormalitiesmay have depressed sed rates whereas patients with anemiamay have elevated sed rates. Blood Venous blood specimen / Unknown 05/25/2024 11:14 AM EDT 05/25/2024 11:14 AM EDT Jory Lala ANP LAB BLOOD ORDERABLES Final Resul t Performing Organization Address [facility] de Phone Number [facility] [address] [place] [phone] * Rheumatoid Factor (05/25/2024 11:14 AM EDT) Rheumatoid Factor <13.0 <15.0 IU/mL [facility] Blood Venous blood specimen / Unknown 05/25/2024 11:14 AM EDT 05/25/2024 11:14 AM EDT Jory Lala [facility] LAB BLOOD ORDERABLES Final Resul t Performing Organization Address [facility] de Phone Number [facility] [address] [place] [phone] * (ABNORMAL) BANDAR Screen,IFA, with Reflex to Titer and Pattern (05/25/2024 11:14 AM EDT) Anti Nuclear Antibody Screen POSITIV E(A) NEGATIVE [facility] Comment:BANDAR IFA is a first l ine screen for detecting thepresence of up to approximately 150 autoantibodies invarious autoimmune diseases. A positive BANDAR IFA resultis suggestive of autoimmune disease and reflexes totiter and pattern. Further laboratory testing may beconsidered if clinically indicated.For additional information, please refer tohttp://education.[employer]/faq/HOG582(This link is being provided for informational/educational purposes only.) BANDAR Titer 1:40(A) titer [facility] Comment:A low level BANDAR tite r may be present in pre-clinicalautoimmune diseases and normal individuals. Reference Range <1:40 Negative 1:40-1:80 Low Antibody Level >1:80 Elevated Antibody Level BANDAR Pattern Nuclear , Homogen eous(A) [facility] Comment:Homogeneous pattern is associated with systemic lupuserythematosus (SLE), drug-induced lupus and juvenileidiopathic arthritis.AC-1: HomogeneousInternational Consensus on BANDAR Patterns(https://doi.org/10.1515/cawz-4368-6826)THIS TEST WAS PERFORMED AT:[facility] [place] [phone] GOLDBERG MD BANDAR TITER 2 (REF LAB) TNP [facility] BANDAR Pattern 2 TNP [facility] BANDAR TITER 3 TNP [facility] BANDAR PATTERN 3 TNP [facility] Blood Venous blood specimen / Unknown 05/25/2024 11:14 AM EDT 05/25/2024 11:14 AM EDT us Jory Lala [facility] LAB BLOOD ORDERABLES Final Resul t [facility] [address] [place] [phone] * BI Mammogram Screening Tomosynthesis Bilateral (01/19/2024 10:30 AM EST) Anatomical Region Laterality Modality Breast Bilateral Mammography 01/19/2024 10:3 0 AM EST Narrative 01/27/2024 2:08 PM EST ? [facility] ? [address] ?[place] [address] ? Mammography Report ? Signed ? Patient: Angel,Laila ?MR#: [id number] ?? [id number] ? : 1975 ?Acct:[id number] ? Age/Sex: 48 / F ?ADM Date: 11/04/24 ? Loc: HO.MAMMO ? Attending Dr: Jory Lala MENTAL HEALTH WORKER ? Ordering Physician: JORY LALA NP ?Results: 1Negative ? Date of Service: 01/19/24 ?Follow Up: 1 Year From Orig ?? inal Mammogram ? Procedure(s): MM tomosynthesis screening BI ?? Accession Number(s): [id number] ? cc: JORY LALA NP ? EXAMINATION: [...] DD/ 1030 ? TD/TT: 01/19/24 1100 ? Correctional Corporal: ? Procedure Note Donotuseinterpreter, Image - 01/27/2024 Angie [facility] [address] [place] [address] Mammography Report Signed Patient: Aury Ortiz#: [id number] : 1975Acct:[id number] Age/Sex: 48 / FADM Date: 01/19/24 Loc: HOShaunaMAMMO Attending Dr: Jory Lala NP Ordering Physician: JORY LALA NPResults: 1Negative Date of Service: 01/19/24Follow Up: 1 Year From Orig inal Mammogram Procedure(s): MM tomosynthesis screening BI Accession Number(s): [id number] cc: JORY LALA NP EXAMINATION: MM SCREENING [...] by: Michaela Alejo DO 01/27/2024 02:05 PM EST RP Dictated By: Michaela Alejo DO Signed By: <Electronically signed by Michaela Alejo DO in OV> 01/27/24 1405 DD/ 1030 TD/TT: 01/19/24 1100 Correctional Corporal: Jory Lala ANP IMG BI PROCEDURES Final Result * Hepatitis C Ab (12/30/2022 4:01 PM EDT) Hepatitis C Antibody Nonreactive Nonreactive [facility] Comment:Antibodies to HCV no t detected; does not exclude early acuteHCV infection. 12/30/2022 4:01 PM EDT 12/30/2022 4:01 PM EDT [facility] External Provider LAB BLO OD ORDERABLES Final Result [facility] [address] [place] [phone] * HIV Ab/Ag ([facility]) (12/30/2022 4:01 PM EDT) HIV AB/AG Nonreactive Nonreactive [facility] Comment:HIV-1 p24 Ag and/or HIV-1/HIV-2 Ab not detected.A test result that is nonreactive does not exclude thepossibility of exposure to or infection with HIV-1 and/orHIV-2. Nonreactive results in this assay for individualswith prior exposure to HIV-1 and/or HIV-2 may be due toantigen and antibody levels that are below the limit ofdetection of this assay.The appiris HIV Ag/Ab Combo assay result andsupplemental assay results should be interpreted inconjunction with the patient's clinical presentation,history and other laboratory results. If the results areinconsistent with clinical evidence, additional testing issuggested to confirm the result. 12/30/2022 4:01 PM EDT 12/30/2022 4:01 PM EDT Generic External Data Provider LAB BLOOD ORDERAB LES Final Result [facility] [address] [place] [phone] * (ABNORMAL) Hm Colonoscopy (07/04/2021) Colonoscopy Abnormal(A ) Normal Historical Provider MD HEALTH MAINTENANCE Final Result * (ABNORMAL) LIPID PANEL, STANDARD (11/29/2020 10:01 AM EDT) Chol/HDLC Ratio 5.6(H) <5.0 (calc) [facility] [...] the ?? estimation of LDL-C. ?? Ed WITT et al. MATTIE. 2013;310(19): 1855-0584 ?? (http://education.[employer].com/faq/ZMW911) Non-HDL Cholesterol 195(H) <130 mg/dL (calc) [facility] Comment: For patients with diabetes plus 1 major ASCVD risk ?? factor, treating to a non-HDL-C goal of <100 mg/dL ?? (LDL-C of <70 mg/dL) is considered a therapeutic ?? option. Triglycerides 182(H) <150 mg/dL [facility] 11/29/2020 10:0 1 AM EDT Jory Lala [facility] LAB BLOOD ORDERABLES Final Resul t [facility] [address] [place] [address], * THINPREP PAP (08/09/2020 2:03 PM EDT) [...] historic and ?? current clinical information. ?? Tire Trucker : SEE COMMENT [facility] Comment: RK, CT(ASCP) CT screening location: [address] ??[address] Interpretation/R esult: Negative for intraepithelial lesion or malignancy. [facility] LMP: 07/29/20 [facility] Prev. BX: LEEP 2000 [facility] Prev. PAP: NIL 09/2015 [facility] SOURCE: None given [facility] Statement Of Adequacy: SEE COMMENT [facility] Comment: Satisfactory for evaluation. Endocervical/transformation zone component absent. 08/09/2020 2:03 PM EDT Yuly MURPHY LAB PATHOLOGY ORDERABLES Final Result [facility] [address] [place] [address], * HPV mRNA E6/E7 (08/09/2020 2:03 PM EDT) HPV nRNA E6/E7 Not Detected Not Detected [facility] Comment: Methodology: Beet End Supervisor-Mediated Amplification This assay detects E6/E7 viral messenger RNA (mRNA) from 14 high-risk HPV types (16,18,31,33,35,39,45,51,52,56,58,59,66,68). ? The analytical performance characteristics of this assay have been determined by [employer]. The modifications have not been cleared or approved by the FDA. This assay has been validated pursuant to the CLIA regulations and is used for clinical purposes. ?? For additional information, please refer to http://education.Barkibu.SkyWire/faq/FEB341i7 (This link if provided for information/ educational purposes only.) 08/09/2020 2:03 PM EDT us Yuly Mcfarlane CNM LAB BLOOD ORDERABLES Verena l Result [facility] [address] from Last 3 Months or Most Recently Relevant to Health Maintenance Insurance MEDICARE [facility] Care Teams Plant Electrical Engineer Relationship Specialty Start Date End Date Jory Lala ANP [address] [place] [address] PCP - General Family Medicine 11/28/20
--- OUTSIDE RECORDS SUMMARY | 2024-07-15 15:23 | XMS_ITS | Encounter Summary ---
Author Organization [employer] Address [address] [facility] [address] 7t [place] [address] Care Team Providers Care Media Buyer Name Role Phone Glendy Sutton Primary Care Provider [phone] Reason for Visit * Reason Comments Generalized Body Aches Encounter Details Date Type Department Care Team ([facility] Contact Info) Description 07/12/2024 3:40 PM EDT Office Visit [facility] [address] [place], [place] [phone] Echo Snyder MD [address] [place] [address] Fibromyalgia (Primary Dx); Cough in adult patient Social History Tobacco Use Types Packs/Day Years [...] is your housing situation today? I have billyfred dixon 12/11/[address] [...] (205 lb) 07/12/2024 2:47 PM EDT Height - - Body Mass Index 38.73 06/10/2024 11:35 AM EDT documented in this encounter Progress Notes * Echo Snyder MD - 07/12/2024 3:40 PM EDT SUBJECTIVE: Laila Ortiz is a 49 y.o. year old female who presents for Walk In Center/body aches . Denies recent illness, injury, or hospitalization. Acute Concerns: Patient complaining of generalized bodyaches, chills and severe headache for 2 days. She thinks is related to being out of Lyrica since Friday, she ran out of the medication and refill was not ready this morning at the pharmacy. She denies sore throat, runny nose, diarrhea, UTI symptoms, cough orshortness of breath. Per PDMP last time she picked up Lylena was 06/03/2024. She is also on clonazepam and zolpidem. Social History Social History Narrative Not on file Patient Active Problem List Diagnosis Anxiety Bipolar affective disorder, current episode depressed (CMS/HCC) Bipolar disorder ([facility]) Carpal tunnel syndrome Essential hypertension Iron deficiency anemia BMI 36.0-36.9,adult Renal mass Tobacco dependence syndrome Vitamin D deficiency PMR (polymyalgia rheumatica) ([facility]) Hypertensive heart disease with heart failure ([facility]) Swelling Polyarthralgia Gastroesophageal reflux disease with esophagitis without hemorrhage Abdominal distension Fibromyalgia Chronic fatigue Chronic pain of both shoulders Family history of myocardial infarction History of seizure Posttraumatic stress disorder Severe obesity (BMI 35.0-39.9) with comorbidity ([facility]) Family History Problem Relation Name Age of Onset Ovarian cancer Maternal Grandmother Ovarian cancer Paternal Grandmother Review of Systems Constitutional: Positive for fatigue. Negative for chills and fever. HENT: Negative for congestion, ear pain, nosebleeds, rhinorrhea, sinus pressure, sore throat and trouble swallowing. Eyes: Negative for pain and discharge. Respiratory: Negative for cough, chest tightness and shortness of breath. Cardiovascular: Negative for palpitations and leg swelling. Gastrointestinal: Negative for abdominal pain, blood in stool, constipation, diarrhea and nausea. Endocrine: Negative for polydipsia and polyuria. Genitourinary: Negative for dysuria, frequency, genital sores, pelvic pain and vaginal discharge. Musculoskeletal: Positive for myalgias. Negative for back pain and neck pain. Skin: Negative for rash. Allergic/Immunologic: Negative for environmental allergies. Neurological: Negative for seizures, weakness, light-headedness and headaches. Hematological: Negative for adenopathy. Psychiatric/Behavioral: Negative for agitation, behavioral problems, self-injury and suicidal ideas. OBJECTIVE: Vitals: 07/12/24 1447 BP: 112/77 Pulse: 82 Resp: 18 Temp: 98.1 ??F (36.7 ??C) SpO2: 98% Physical Exam HENT: Right Ear: Tympanic membrane and ear canal normal. Left Ear: Tympanic membrane and ear canal normal. Nose: No mucosal edema. Right Turbinates: Not swollen. Left Turbinates: Not swollen. Mouth/Throat: Mouth: Mucous membranes are moist. Pharynx: Oropharynx is clear. No oropharyngeal exudate or posterior oropharyngeal erythema. Eyes: Pupils: Pupils are equal, round, and reactive to light. Cardiovascular: Rate and Rhythm: Regular rhythm. Pulses: Normal pulses. Heart sounds: Normal heart sounds. No murmur heard. Pulmonary: Breath sounds: Normal breath sounds. Abdominal: General: Bowel sounds are normal. Palpations: Abdomen is soft. Tenderness: There is no abdominal tenderness. Musculoskeletal: General: Normal range of motion. Cervical back: Neck supple. Thoracic back: Spasms and tenderness present. Lumbar back: Tenderness present. Comments: Walks with cane Skin: General: Skin is warm. Neurological: General: No focal deficit present. Mental Status: She is alert and oriented to person, place, and time. Psychiatric: Mood and Affect: Mood normal. Behavior: Behavior normal. Problem List Items Addressed This Visit Fibromyalgia - Primary Continue Lyrica, refill sent by her PCP this morning and evaluate the pharmacy for pickup. Discussed about taking Tylenol as needed for mild symptoms whenever she is out of Lyrica, follow-upclosely with mental health provider Advised against prolonged rest in bed for more than 8 hours Advised regarding physical activity as tolerated Other Visit Diagnoses Cough in adult patient Relevant Orders Influenza A (ID NOW Rapid Molecular) (Completed) Influenza B (ID NOW Rapid Molecular) (Completed) POCT Rapid COVID Ag (Completed) Follow Up: Current Outpatient Medications on File Prior to Visit Medication Sig Dispense Refill acetaminophen (Tylenol 8 Hour) 650 MG ER tablet TAKE 1 TO 2 TABLETS BY MOUTH EVERY 8 HOURS NEEDED. DO NOT BREAK, CRUSH, DISSOLVE OR CHEW ARIPiprazole (Abilify) 30 MG tablet Take 1 tablet by mouth Once per day. atorvastatin (Lipitor) 20 MG tablet TAKE 1 TABLET BY MOUTH EVERY DAY 90 tablet 1 cholecalciferol (Vitamin D-3) 1.25 MG (27103 UT) capsule Take 1 capsule (50,000 Units) by mouth 1 (one) time per week. 12 capsule 0 cyclobenzaprine (Flexeril) 5 MG tablet TAKE 1 TABLET BY MOUTH AT BEDTIME diclofenac (Cataflam) 50 MG tablet Take 50 mg by mouth with breakfast and with evening meal. docusate sodium (Colace) 100 MG capsule TAKE 1 CAPSULE BY MOUTH AT BEDTIME DULoxetine (Cymbalta) [address] capsule Take 60 mg by mouth 2 times daily. Ferrous Sulfate (iron) 325 (65 Fe) MG tablet TAKE 1 TABLET BY MOUTH EVERY DAY WITH ORANGE JUICE 90 tablet 1 lamoTRIgine (LaMICtal) 100 MG tablet Take 1 tablet by mouth Once per day. lamoTRIgine (LaMICtal) 200 MG tablet TAKE ONE TABLET BY MOUTH DAILY AT 9PM AT BEDTIME lisinopril-hydroCHLOROthiazide 20-25 MG tablet Take 1 tablet by mouth Once per day. 90 tablet 3 metoprolol succinate XL (Toprol-XL) 25 MG 24 hr tablet Take 1 tablet (25 mg) by mouth Once per day.90 tablet 3 omeprazole (PriLOSEC) [address] capsule TAKE 1 CAPSULE BY MOUTH TWICE A DAY 180 capsule 1 prazosin (Minipress) 2 MG capsule Take 4 mg by mouth at bedtime. pregabalin (Lyrica) 200 MG capsule Take 1 capsule (200 mg) by mouth 3 times daily. 90 capsule 5 QUEtiapine (SEROquel) 100 MG tablet Take 150 mg by mouth at bedtime. prn senna (Senokot) 8.6 MG tablet TAKE 2 TABLETS BY MOUTH AT BEDTIME FOR CONSTIPATION sucralfate (Carafate) 1 g tablet TAKE ONE TABLET BY MOUTH DAILY AT 9PM AT BEDTIME 90 tablet 1 sucralfate (Carafate) 1 GM/10ML suspension TAKE 10 ML BY MOUTH AT BEDTIME, MAY INCREASE TO 4 TIMES DAILY NEEDED 1260 mL 2 zolpidem (Ambien) 10 MG tablet Take 10 mg by mouth if needed at bedtime for sleep. [DISCONTINUED] pregabalin (Lyrica) 200 MG capsule Take 1 capsule (200 mg) by mouth 3 times daily. 90 capsule 5 No current facility-administered medications on file prior to visit. documented in this encounter Miscellaneous Notes * Assessment & Plan Note - Echo Snyder MD - 07/12/2024 3:01 PM EDT Associated Problem(s): Fibromyalgia Continue Lyrica, refill sent by her PCP this morning and evaluate the pharmacy for pickup. Discussed about taking Tylenol as needed for mild symptoms whenever she is out of Lyrica, follow-upclosely with mental health provider Advised against prolonged rest in bed for more than 8 hours Advised regarding physical activity as tolerated documented in this encounter Plan of Treatment Upcoming Encounters Date Type Department Care Team (Late st Contact Info) Description 10/01/2024 10:00 AM EDT Office Visit [facility] [address] [place] [address] VishnuKerline, OD [address] [place] [address] documented as of this encounter Procedures Procedure Name Priority Date/Time Associated Diagnosis Comments POCT INFLUENZA B (ID NOW RAPID MOLECULAR) Routine 07/12/2024 2:56 PM EDT Cough in adult patient POCT INFLUENZA A (ID NOW RAPID MOLECULAR) Routine 07/12/2024 2:56 PM EDT Cough in adult patient POCT RAPID COVID ANTIGEN Routine 07/12/2024 2:56 PM EDT Cough in adult patient documented in this encounter Results * POCT Rapid COVID Ag (07/12/2024 2:56 PM EDT) Rapid COVID Ag Negative Swab 07/12/2024 2:56 PM EDT us Echo Snyder MD POINT OF CARE TEST ENTER /EDIT ORDERABLES Final Result * Influenza B (ID NOW Rapid Molecular) (07/12/2024 2:56 PM EDT) Influenza B Negative Negative, Indeterminate [facility] Swab 07/12/2024 2:56 PM EDT us Echo Snyder MD POINT OF CARE TEST ENTER /EDIT ORDERABLES Final Result [facility] [address] [place] [address] [phone] * Influenza A (ID NOW Rapid Molecular) (07/12/2024 2:56 PM EDT) Influenza A Negative Negative, Indeterminate [facility] Swab 07/12/2024 2:56 PM EDT Echo Snyder MD POINT OF CARE TEST ENTER /EDIT ORDERABLES Final Result [facility] [address] [place] [address] [phone] documented in this encounter Visit Diagnoses Diagnosis Fibromyalgia- Primary Unspecified myalgia and myositis Cough in adult patient documented in this encounter Additional Health Concerns Assessment Noted Time PHQ-9 Depression Total Score: 4 12/11/19 24 9:48 AM EDT documented as of this encounter Care Teams Media Buyer Relationship Specialty Start Date End Date Glendy Sutton ANP [address] [place] [id number] PCP - General Family Medicine 11/28/20 documented as of this encounter
--- OUTSIDE RECORDS SUMMARY | 2024-07-15 15:23 | XMS_ITS | Encounter Summary ---
Author Organization [employer] Address [address] [facility] 7t [place] [address] Care Team Providers Care Sql Architect Name Role Phone Glendy Sutton Primary Care Provider [phone] Encounter Details Date Type Department Care Team (Late st Contact Info) Description 03/20/2022 Orders Only [facility] [address] [place] [address] Rachael Holguin LPN Social History Tobacco Use [...] Description 10/01/2024 10:00 AM EDT Office Visit [facility] [address] [place] [address] Kerline Mares, OD [address] [place] [address] documented as of this encounter Visit Diagnoses Not on filedocumented in this encounter Care Teams Sql Architect Relationship Specialty Start Date End Date Glendy Sutton ANP [address] [place] [address] PCP - General Family Medicine 11/28/20 documented as of this encounter
--- OUTSIDE RECORDS SUMMARY | 2024-07-15 15:23 | XMS_ITS | Encounter Summary ---
Author Organization [employer] Address [address] [facility] [address] [place] [address] Care Team Providers Care Tennis Camp Instructor Name Role Phone Glendy Sutton Primary Care Provider [phone] Reason for Visit * Reason Comments Med Refill Encounter Details Date Type Department Care Team ([facility] st Contact Info) Description 05/28/2024 Refill [facility] [address] [place], [place] [phone] Glendy Sutton ANP [address] [place], [place] [phone] Social History Tobacco Use Types Packs/Day Years [...] Description 10/01/2024 10:00 AM EDT Office Visit [facility] [address] [place] [address] Kerline Mares, OD [address] [place] [address] documented as of this encounter Visit Diagnoses Not on filedocumented in this encounter Additional Health Concerns Assessment Noted Time PHQ-9 Depression Total Score: 4 12/11/19 24 9:48 AM EDT documented as of this encounter Care Teams Tennis Camp Instructor Relationship Specialty Start Date End Date Glendy Sutton ANP [address] [place] [address] PCP - General Family Medicine 11/28/20 documented as of this encounter
--- OUTSIDE RECORDS SUMMARY | 2024-07-15 15:24 | XMS_ITS | Encounter Summary ---
Author Organization [employer] Address [address] [facility] [address]t [place] [address] Care Team Providers Care Teacher Theater Arts Name Role Phone Glendy Sutton Primary Care Provider [phone] Reason for Visit * Reason Onset Date Comments Results 02/19/2023 Encounter Details Date Type Department Care Team ([facility] Contact Info) Description 02/19/2023 Telephone [facility] MED[facility] [address] [place], [place] [phone] Glendy Sutton ANP [address] [place] [address] Results Social History Tobacco Use Types Packs/Day [...] last night and she was evaluated in [facility]. [facility] ED prior to [...] [facility] RN will attempt to obtain [facility] records. * Telephone Encounter - Anju Hawley - 02/19/2023 11:36 AM EST Tc from pt requesting a call in regards to lab results done yesterday (02/18). Please contact pt at [phone] documented in this encounter Plan of Treatment Upcoming Encounters Date Type Department Care Team ([facility] st Contact Info) Description 10/01/2024 10:00 AM EDT Office Visit [facility] [address] [place] [address] Kerline Mares, OD [address] [place] [address] documented as of this encounter Visit Diagnoses Not on filedocumented in this encounter Additional Health Concerns Assessment Noted Time PHQ-9 Depression Total Score: 0 10/04/19 23 9:29 AM EDT documented as of this encounter Care Teams Teacher Theater Arts Relationship Specialty Start Date End Date Glendy Sutton ANP [address] [place] [address] PCP - General Family Medicine 11/28/20 documented as of this encounter
--- OUTSIDE RECORDS SUMMARY | 2024-07-15 15:24 | XMS_ITS | Encounter Summary ---
Author Organization [employer] Address [address] [facility] 7t [place] [address] Care Team Providers Care Pad Assembler Name Role Phone Glendy Sutton Primary Care Provider [phone] Reason for Visit * Reason Onset Date Comments Nurse Triage 07/08/2023 Encounter Details Date Type Department Care Team ([facility] st Contact Info) Description 07/08/2023 Telephone [facility] MEDICINE [address] [place], [place] [phone] Glendy Sutton ANP [address] [place] [address] Nurse Triage Social History Tobacco Use Types [...] No answer LVM to return call to [facility] triage line [phone]. * Telephone Encounter - Sherri Carrillo - [...] Office Visit [facility] [address] [place] [address] Vishnu, Kerline, OD [address] [place] [address] documented as of this encounter Visit Diagnoses Not on filedocumented in this encounter Additional Health Concerns Assessment Noted Time PHQ-9 Depression Total Score: 0 10/04/19 23 9:29 AM EDT documented as of this encounter Care Teams Pad Assembler Relationship Specialty Start Date End Date Glendy Sutton ANP [address] [place] [address] PCP - General Family Medicine 11/28/20 documented as of this encounter
--- OUTSIDE RECORDS SUMMARY | 2024-07-15 15:24 | XMS_ITS | Encounter Summary ---
Author Organization [employer] Address [address] [facility] [address] [place] [address] Care Team Providers Care Senior Procurement Manager Name Role Phone Glendy Sutton Primary Care Provider [phone] Reason for Visit * Reason Onset Date Comments Requested Call Back 07/23/2022 Encounter Details Date Type Department Care Team ([facility] st Contact Info) Description 07/23/2022 Telephone [facility] [address] [place], [place] [phone] Glendy Sutton ANP [address] [place] [address] Requested Call Back Social History Tobacco Use [...] status on US order. Please contact at [phone] * Telephone Encounter - Licha Flor - 07/23/2022 12:31 PM EDT Tc from patient calling in regards to US order for left ovary. States [facility] doesn't have one. Software Controls Engineer didn't see the order. documented in this encounter Plan of Treatment Upcoming Encounters Date Type Department Care Team (Late st Contact Info) Description 10/01/2024 10:00 AM EDT Office Visit [facility] [address] [place], [place] [phone] Kerline Mares, OD [address] [place] [address] documented as of this encounter Visit Diagnoses Not on filedocumented in this encounter Care Teams Senior Procurement Manager Relationship Specialty Start Date End Date Glendy Sutton ANP [address] [place], [place] [phone] PCP - General Family Medicine 11/28/20 documented as of this encounter
--- OUTSIDE RECORDS SUMMARY | 2024-07-15 15:24 | XMS_ITS | Encounter Summary ---
Author Organization [employer] Address [address] [facility] 7t [place] [address] Care Team Providers Care Lounge Car Attendant Name Role Phone Glendy Sutton Primary Care Provider [phone] Reason for Visit * Reason Onset Date Comments Med Refill 07/12/2024 Encounter Details Date Type Department Care Team ([facility] st Contact Info) Description 07/12/2024 Refill [facility] [address] [place], [place] [phone] Glendy Sutton ANP [address] [place], [place] [phone] Other chronic pain Social History Tobacco Use Types Packs/Day Years [...] encounter Miscellaneous Notes * Telephone Encounter - Alycia Duckworth LPN - 07/12/2024 8:56 AM EDT Electrical Engineering Director ck [phone] * Telephone Encounter - Jose Alejandro Grijalva - 07/12/2024 8:48 AM EDT TC from pt requesting medication refill. Medications needing refill : pregabalin (Lyrica) 200 MG capsule To be sent to: [facility] pharmacy documented in this encounter Plan of Treatment Upcoming Encounters Date Type Department Care Team (Late st Contact Info) Description 10/01/2024 10:00 AM EDT Office Visit [facility] [address] [place] [address] Kerline Mares, OD [address] [place] [address] documented as of this encounter Visit Diagnoses Diagnosis Other chronic pain documented in this encounter Additional Health Concerns Assessment Noted Time PHQ-9 Depression Total Score: 4 12/11/19 24 9:48 AM EDT documented as of this encounter Care Teams Lounge Car Attendant Relationship Specialty Start Date End Date Glendy Sutton ANP [address] [place] [address] PCP - General Family Medicine 11/28/20 documented as of this encounter
--- OUTSIDE RECORDS SUMMARY | 2024-07-15 15:24 | XMS_ITS | Encounter Summary ---
Author Organization [employer] Address [address] [facility] [address] [place] [address] Care Team Providers Care Ice Cream Freezer Name Role Phone Glendy Sutton Primary Care Provider [phone] Reason for Visit * Reason Onset Date Comments Med Refill 07/12/2024 Encounter Details Date Type Department Care Team ([facility] st Contact Info) Description 07/12/2024 Telephone [facility] MEDICINE [address] [place], [place] [phone] Glendy Sutton ANP [address] [place], [place] [phone] Med Refill Social History Tobacco Use Types Packs/Day Years [...] encounter Miscellaneous Notes * Telephone Encounter - Isamar Lakhani RN - 07/12/2024 2:55 PM EDT TC placed to the [facility] pharmacy who confirmed that the pt prescription for the pregabalin (Lyrica) 200 MG was approved by the insurance and does not require a PA. The pharmacy confirmed that the medication is ready for pickup and a reminder call was placed to the pt. * Telephone Encounter - Erica Cleaning - 07/12/2024 11:40 AM EDT Pt walked in requesting a refill on lyrica , pt needs a pa for this medication . Fd advised pt to go to walk in enter due to her being in bad pain. documented in this encounter Plan of Treatment Upcoming Encounters Date Type Department Care Team (Late st Contact Info) Description 10/01/2024 10:00 AM EDT Office Visit [facility] [address] [place], [place] [phone] Vishnu, Kerline, OD [address] [place] [address] documented as of this encounter Visit Diagnoses Not on filedocumented in this encounter Additional Health Concerns Assessment Noted Time PHQ-9 Depression Total Score: 4 12/11/19 24 9:48 AM EDT documented as of this encounter Care Teams Ice Cream Freezer Relationship Specialty Start Date End Date Glendy Sutton ANP [address] [place] [address] PCP - General Family Medicine 11/28/20 documented as of this encounter
--- OUTSIDE RECORDS SUMMARY | 2024-07-15 15:24 | XMS_ITS | Encounter Summary ---
Author Organization [employer] Address [address] [facility] [address] [place] [address] Care Team Providers Care Coke Drawer Hand Name Role Phone Glendy Sutton Primary Care Provider [phone] Encounter Details Date Type Department Care Team (Late st Contact Info) Description 05/14/2023 Orders Only [facility] MEDICINE [address] [place], [place] [phone] Glendy Sutton ANP [address] [place], [place] [phone] Social History Tobacco Use Types Packs/Day Years [...] 10:00 AM EDT Office Visit [facility] [address] [place] [address] Kerline Mares, OD [address] [place] [address] documented as of this encounter Visit Diagnoses Not on filedocumented in this encounter Additional Health Concerns Assessment Noted Time PHQ-9 Depression Total Score: 0 10/04/19 23 9:29 AM EDT documented as of this encounter Care Teams Coke Drawer Hand Relationship Specialty Start Date End Date Glendy Sutton ANP [address] [place] [address] PCP - General Family Medicine 11/28/20 documented as of this encounter
== END ==
LOC: HO.CARD 12:48
PROVIDERS: PCP Nurse Practitioner Primary Care; Visit Provider Nurse Practitioner Family
DX: I10 Essential (primary) hypertension (principal)
CPT/HCPCS: 93306

== ENCOUNTER → 2024-07-15 12:51 | Outpatient (BNV) | payer MEDICARE, MEDICAID, SELFPAY | PROVIDERS: PCP Nurse Practitioner Primary Care; Visit Provider Internal Medicine Cardiovascular Disease | DX: I35.8 Other nonrheumatic aortic valve disorders (principal) | CPT/HCPCS: 93306 ==

== ENCOUNTER → 2024-07-22 10:00 | Outpatient (BNV) | payer MEDICARE, MEDICAID, SELFPAY | PROVIDERS: PCP Nurse Practitioner Primary Care; Visit Provider Hospitalist | DX: R06.09 Other forms of dyspnea (principal) | CPT/HCPCS: 94060; 94727; 94729 ==

== ENCOUNTER 2024-07-22 10:07 | Outpatient (REF) | payer MEDICARE, MEDICAID, SELFPAY ==
--- NOTE | 2024-07-22 10:00 | PFT_ITS ---
Indication: Dyspnea Spirometry [FEV1 to FVC 83%; FEV1 1.88 L; FVC 2.28 L. There was a trend response to bronchodilators noted. To note the FEF 08/03/2074 decreased to 68% predicted] Lung Volumes [Total lung capacity 65% predicted; expiratory reserve volume 1% predicted] Diffusion Capacity [DLCO 74% predicted with a DLCO/VA of 101% predicted] Comparisons [none] Interpretation [No obstructive ventilatory defects. The patient does have a trend response to bronchodilators noted. The patient also appears to have some small airways disease. In addition to that there is a restrictive ventilatory defect consistent with moderate restrictive lung disease. In part this is due to an elevated BMI with a significantly low expiratory reserve volume. The patient does not mild diffusion impairment although it does correct to normal when corrected for the alveolar volume. Clinical correlation warranted.] MTDD
[2024-07-22 11:03] VITALS: PULSE 73; O2SAT 98
--- OUTSIDE RECORDS SUMMARY | 2024-07-22 11:15 | XMS_ITS | Encounter Summary ---
Author Organization [employer] Address [address] [place] [address] Care Team Providers Care Gear Machine Operator Name Role Phone Glendy Sutton Primary Care Provider [phone] Reason for Visit * Reason Onset Date Comments Requested Call Back 07/23/2022 Encounter Details Date Type Department Care Team ([facility] st Contact Info) Description 07/23/2022 Telephone [facility] MEDICINE [address] [place] [address] Glendy Sutton ANP [address] [place] [address] Requested Call Back Social History Tobacco Use [...] status on US order. Please contact at [phone] * Telephone Encounter - Licha Flor - 07/23/2022 12:31 PM EDT Tc from patient calling in regards to US order for left ovary. [place] [facility] [place]. Link Assembler didn't see the order. documented in this encounter Plan of Treatment Upcoming Encounters Date Type Department Care Team (Late st Contact Info) Description 10/01/2024 10:00 AM EDT Office Visit [facility] OPTOMETRY [address] [place], [place] [phone] Kerline Mares, ILIR [address] [place] [address] documented as of this encounter Visit Diagnoses Not on filedocumented in this encounter Care Teams Gear Machine Operator Relationship Specialty Start Date End Date Glendy Sutton ANP [address] [place], [place] [phone] PCP - General Family Medicine 11/28/20 documented as of this encounter
--- OUTSIDE RECORDS SUMMARY | 2024-07-22 11:15 | XMS_ITS | Clinical Summary ---
Author Organization [employer] Address [address] [facility] [address] [place] [address] Care Team Providers Care Buhr Mill Operator Name Role Phone Jory Lala EVAN Primary Care Provider [phone] Allergies Active Allergy Reactions Criticality Noted Date [...] tablet by mouth Once per day. Active lamoTRIgine (LaMICtal) 100 MG tablet Take 1 tablet by mouth Once per day. 025 Active prazosin (Minipress) 2 MG capsule Take 4 mg by mouth at bedtime. Active QUEtiapine (SEROquel) 100 MG tablet Take 150 mg by mouth at bedtime. prn 025 Active cholecalciferol (Vitamin D-3) 1.25 MG (32290 UT) capsuleIndicati ons:Vitamin D deficiency Take 1 [...] a lot vs tabs. She follows w/ [facility] and has appt upcoming. Hypertensive heart [...] Description 07/12/2024 3:40 PM EDT Office Visit [facility] [address] Bandar Snyder MD Fibromyalgia (Primary Dx); Cough in adult patient 07/12/[address] [address] Jory Lala ANP Med Refill 07/12/[address] [address] Jory Lala ANP Other chronic pain 06/15/2024 Patient Outreach [address] [address] Enrique Sol Care Coordination (CHW outreach for SDOH PT-1 - LVM ) 06/15/[address] [address] Jory Lala ANP PT1 06/14/[address] [address] Jory Lala ANP Referral 06/10/2024 11:30 AM EDT Office Visit [address] [address] Jory Lala ANP Cardiomegaly (Primary Dx); Shortness of breath; [place] (dyspnea on exertion); Tear of left glenoid labrum, subsequent encounter; Chronic pain of both shoulders 06/10/[address] [address] Jory Lala ANP Appointment Request 06/10/2024 Travel 06/07/[address] [address] Jory Lala ANP Nurse Triage; ER Follow-up 06/06/2024 Orders Only GENERIC EXTERNAL DATA DEPARTMENT Provider, Generic External Data 05/31/[address] [address] Jory Lala ANP FYI 05/30/[address] [address] Jory Lala ANP Anemia, unspecified type 05/28/[address] [facility] [address] [place] [address] Jory Lala ANP 05/28/2024 Population Health Risk Score [facility] () [address] [phone] Provider, Population Health Generic 05/25/[address] [address] Jory Lala ANP Results 05/25/2024 Orders Only [facility] [address] [place] [address] Jory Lala ANP Vitamin D deficiency (Primary Dx) 05/20/2024 10:00 AM EST Office Visit [address] [address] Jory Lala ANP PMR (polymyalgia rheumatica) (CMS/HCC) (Primary Dx); Chronic pain of both shoulders; Limited range of motion (ROM) of shoulder; Polyarthralgia; Chronic fatigue; Vitamin D deficiency; Fibromyalgia 05/20/2024 Travel 05/05/2024 Patient Outreach [address] [address] Jory Lala ANP Care Coordination (CHW outreach for SDOH PT-1 and food needs-LVM ) 05/04/[address] [address] Jory Lala ANP Prior Authorization 05/04/[address] [address] Jory Lala ANP PT-1 04/25/[address] [address] Jory Lala ANP Essential hypertension from Last [...] 10:00 AM EDT Office Visit [facility] [address] [place] [address] Vishnu, Kerline, OD [address] [place] [address] Health Maintenance Due Date Last Done Comments [...] 11/29/2025 11/29/2020, /04/2020, 10/20/2019 Mammogram 01/18/2026 01/19/2024, 06/2023, 01/14/2023, Additional history exists Zoster Vaccines (1 [...] PM EDT) Influenza B Negative Negative, Indeterminate [facility] Swab 07/12/2024 2:56 PM EDT us Bandar Snyder MD POINT OF CARE TEST ENTER /EDIT ORDERABLES Final Result [facility] [address] [place] [phone] * Influenza A (ID NOW Rapid Molecular) (07/12/2024 2:56 PM EDT) Influenza A Negative Negative, Indeterminate [facility] Swab 07/12/2024 2:56 PM EDT Bandar Snyder MD POINT OF CARE TEST ENTER /EDIT ORDERABLES Final Result Performing Organization Address [facility] de Phone Number [facility] [address] [place] [phone] * POCT Rapid COVID Ag (07/12/2024 2:56 PM EDT) [facility] Rapid COVID Ag Negative Swab 07/12/2024 2:56 PM EDT Bandar Snyder MD POINT OF CARE TEST ENTER /EDIT ORDERABLES Final Result * D Dimer High Sensitivity (06/06/2024 2:00 PM EDT) [facility] D Dimer High Sensitivity <150 NG/ML [facility] Comment:D-DIMER HS REFERENCE RANGENote: Our [...] ORDERAB LES Final Result Performing Organization Address [facility] Co de Phone Number [facility] [address] [place] [address] [phone] * XR Chest 2 Views (06/06/2024 1:53 PM EDT) Anatomical Region Laterality Modality Chest Radiographic Miranda ging 06/06/2024 1:53 PM EDT Narrative 06/06/2024 1:55 PM EDT ? [facility] ?[address] ?[place] [address] ?XRay Report ? Signed ? Patient: Angel,Laila ?MR#: [id number] ?? [id number] ? : 1975 ?Acct:[id number] ? Age/Sex: 49 / F ?ADM Date: 06/06/24 ? Loc: HO.ED ? Attending Dr: ? Ordering Physician: Sri Herrera ?? Date of Service: 06/06/24 ?? Procedure(s): XR chest 2V ?? Accession Number(s): [id number] ? cc: Sri Herrera; JORY LALA NP [...] DD/ 1353 ? TD/TT: 06/06/24 1353 ? Gm Video: ? Procedure Note Cruzjohnsonmarshaldang, Image - 06/06/2024 [place] [address] XRay Report Signed Patient: Aury Ortiz#: [id number] : 1975Acct:[id number] Age/Sex: 49 / FADM Date: 06/06/24 Loc: HO.ED Attending Dr: Ordering Physician: Sri Herrera Date of Service: 06/06/24 Procedure(s): XR chest 2V Accession Number(s): [id number] cc: Sri Herrera; JROY LALA NP CLINICAL HISTORY: sob Chest Radiographs, [...] 06/06/24 1354 DD/ 1353 TD/TT: 06/06/24 1353 Gm Video: [facility] External Provider IMG XR PROCEDURES Edited Result - Final * High Sensitivity Troponin I (06/06/2024 12:32 PM EDT) Pathologist [facility] TROPONIN I HIGH SENSITIVITY <2.7 <3.5 - 17.0 ng/L [facility] Comment:The Wolfe high sens itivity Troponin-I results should beused in conjunction with other diagnostic information suchas ECG, clinical observations and information, and patientsymptoms to aid in the diagnosis of [place]. 06/06/2024 12:3 2 PM EDT 06/06/2024 12:36 PM EDT Generic External Data Provider LAB BLOOD ORDERAB LES Final Result [facility] [address] [place] [phone] * SARS-CoV-2 RNA, Influenza A/B, and RSV RNA, Ql NAAT (06/06/2024 12:32 PM EDT) Pathologist [facility] Influenza A PCR NEGATIVE Negative [facility] Influenza B PCR NEGATIVE Negative [facility] Resp Syncy Virus RNA Qual PCR NEGATIVE Negative [facility] SARS COV2 PCR NEGATIVE Negative [facility] Comment:All test results mus t [...] use by authorized laboratories.Testing performed on the [employer] GeneXpert utilizingreal-time RT-PCR.All SARS CoV2 and positive influenza A/B results arereported to [facility]. 06/06/2024 12:3 2 PM EDT 06/06/2024 12:36 PM EDT us Generic External Data Provider LAB MICROBIOLOGY - GENERAL ORDERABLES Final Result [facility] [address] [place] [address] [phone] * (ABNORMAL) CBC auto differential (06/06/2024 12:32 PM EDT) White Blood Count 6.0 4.8 - 10.8 X10*3/uL [facility] Red Blood Count 4.30 4.20 - 5.50 X10*6/uL [facility] Hemoglobin 12.6 12.0 - 16.0 g/dl [facility] Hematocrit 37.9 37.0 - 47.0 % [facility] Mean Corpuscular Volume 88.1 80.0 - 98.0 fL [facility] Mean Corpuscular Hemoglobin 29.3 27.0 - 33.0 pg [facility] Mean Corpuscular HGB Conc 33.2 31.0 - 35.0 g/dl [facility] Red Cell Distribution Width 12.9 11.0 - 16.0 % [facility] Platelet Count 239 160 - 400 X10*3/uL [facility] Mean Platelet Volume 9.8 9.4 - 12.3 fL [facility] Neutrophils Percent Auto 63.3 45 - 73 % [facility] Imm Gran Pct Auto 0.7(H) 0.0 - 0.4 % [facility] Lymphocytes Percent Auto 29.0 20 - 40 % [facility] Monocytes Percent Auto 5.5 2 - 11 % [facility] Eosinophils Percent Auto 0.8 0 - 4 % [facility] Basophils Percent Auto 0.7 0 - 2 % [facility] NRBC Pct Auto 0.0 0.0 - 0.2 /100WBC [facility] Neutrophils Absolute Auto 3.8 2.0 - 8.3 x10*3/uL [facility] Imm Gran Abs Auto 0.04(H) 0.00 - 0.03 X10*3/uL [facility] Lymphocytes Absolute Auto 1.7 1.2 - 4.9 X10*3/uL [facility] Monocytes Absolute Auto 0.3 0.1 - 1.2 X10*3/uL [facility] Eosinophils Absolute Auto 0.1 0.0 - 0.4 X10*3/uL [facility] Basophils Absolute Auto 0.0 0.0 - 0.2 X10*3/uL [facility] NRBC Abs Auto 0.000 0.0 - 0.012 X10*3/uL [facility] 06/06/2024 12:3 2 PM EDT 06/06/2024 12:36 PM EDT us Generic External Data Provider LAB BLOOD ORDERAB LES Final Result Performing Organization Address [facility]/ZIP Co de Phone Number [facility] [address] [place] [phone] * B Type Natriuretic Peptide (BNP) (06/06/2024 12:32 PM EDT) B Type Natriuretic Peptide 14 <100 pg/mL [facility] 06/06/2024 12:3 2 PM EDT 06/06/2024 12:36 PM EDT us Generic External Data Provider LAB BLOOD ORDERAB LES Final Result Performing Organization Address [facility]/ZIP Co de Phone Number [facility] [address] [place] [phone] * Magnesium (06/06/2024 12:32 PM EDT) Pathologist [facility] Magnesium 2.2 1.6 - 2.6 mg/dL [facility] 06/06/2024 12:3 2 PM EDT 06/06/2024 12:36 PM EDT Generic External Data Provider LAB BLOOD ORDERAB LES Final Result Performing Organization Address [facility]/ZIP Co de Phone Number [facility] [address] [place] [phone] * Lipase (06/06/2024 12:32 PM EDT) [facility] Lipase 27 8 - 78 U/L [facility] 06/06/2024 12:3 2 PM EDT 06/06/2024 12:36 PM EDT Generic External Data Provider LAB BLOOD ORDERAB LES Final Result Performing Organization Address [facility]/ZIP Co de Phone Number [facility] [address] [place] [phone] * (ABNORMAL) Comprehensive Metabolic Panel (06/06/2024 12:32 PM EDT) [facility] Sodium 139 135 - 145 mmol/L [facility] Potassium 4.3 3.3 - 5.1 mmol/L [facility] Chloride 108 96 - 108 mmol/L [facility] Carbon Dioxide 24 22 - 29 mmol/L [facility] Anion Gap 11(L) 12 - 20 [facility] Urea Nitrogen (BUN) 18(H) 9 - 16 mg/dL [facility] Creatinine, Serum 0.67 0.5 - 1.4 mg/dL [facility] Creatinine Clr Calc Pharmacy 105.6 [facility] Comment:Provided height and weight: 154.94 cm,91.2 kg.eGFR (calculated from the MDRD study equation) and eCrCl(calculated from the Cockcroft-Gault equation) are based ondifferent parameters and may not yield comparable results.If eCrCl result is absurd, please check patient'sheight/weight. Estimated Glomerular Filt Rate >60 [facility] Comment:Chronic Kidney Disea se: Estimated GFR < 60 mL/min/1.89m0Ajmrwv Kidney Disease: Estimated GFR < 15 mL/min/1.73m2 Glucose 87 60 - 115 mg/dL [facility] Calcium 9.1 8.4 - 10.2 mg/dL [facility] Bilirubin, Total 0.3 0.0 - 1.0 mg/dL [facility] Aspartate Amino Transferase 23 5 - 31 U/L [facility] Alanine Aminotransferase 35(H) 0 - 31 U/L [facility] Total Protein 7.7 6.5 - 8.0 g/dL [facility] Albumin Level 4.0 3.5 - 5.0 g/dL [facility] Alkaline Phosphatase 61 39 - 117 U/L [facility] 06/06/2024 12:3 2 PM EDT 06/06/2024 12:36 PM EDT us Generic External Data Provider LAB BLOOD ORDERAB LES Final Result [facility] [address] [place] [phone] [phone] * (ABNORMAL) Vitamin D, 25-Hydroxy, Total, Immunoassay (05/25/2024 11:14 AM EDT) Vitamin D 25-OH Total 14.6(L) >30 ng/mL [facility] Comment:Health Based Referen ce Values*< 20 ng/mL [id number] ng/mL Insufficient> 30 ng/mL Sufficient*Troy RAMACHANDRAN. N [...] EDT 05/25/2024 11:14 AM EDT Jory Lala [facility] LAB BLOOD ORDERABLES Final Resul t Performing Organization Address [facility] de Phone Number [facility] [address] [place] [phone] * TSH W/Reflex to FT4 (05/25/2024 11:14 AM EDT) TSH reflex Free T4 1.37 0.32 - 4.0 uIU/mL [facility] Blood Venous blood specimen / Unknown 05/25/2024 11:14 AM EDT 05/25/2024 11:14 AM EDT us Jory Lala [facility] LAB BLOOD ORDERABLES Final Resul t Performing Organization Address [facility] de Phone Number [facility] [address] [place] [phone] * Cyclic Citrullinated Peptide (CCP) Antibody (IgG) (05/25/2024 11:14 AM EDT) Cyclic Citrullinated Peptide <16 UNITS [facility] Comment:Reference RangeNegat adriana: <20Weak Positive: 20-39Moderate Positive: 40-59Strong Positive: >59THIS TEST WAS PERFORMED AT:[email or web address] [address] [phone] GOLDBERG MD Blood Venous blood specimen / Unknown 05/25/2024 11:14 AM EDT 05/25/2024 11:14 AM EDT us Jory Lala ANP LAB BLOOD ORDERABLES Final Resul t Performing Organization Address [facility] de Phone Number [facility] [address] [place] [phone] * (ABNORMAL) Sed Rate by Modified Westergren (05/25/2024 11:14 AM EDT) Erythrocyte Sedimentation Rate 21(H) 0 - 20 MM/HR [facility] Comment:Patients with polycy themia and many hemoglobin abnormalitiesmay have depressed sed rates whereas patients with anemiamay have elevated sed rates. Blood Venous blood specimen / Unknown 05/25/2024 11:14 AM EDT 05/25/2024 11:14 AM EDT Jory Lala ANP LAB BLOOD ORDERABLES Final Resul t Performing Organization Address [facility] Phone Number [facility] [address] [place] [phone] * Rheumatoid Factor (05/25/2024 11:14 AM EDT) Rheumatoid Factor <13.0 <15.0 IU/mL [facility] Blood Venous blood specimen / Unknown 05/25/2024 11:14 AM EDT 05/25/2024 11:14 AM EDT Jory Lala [facility] LAB BLOOD ORDERABLES Final Resul t Performing Organization Address [facility] de Phone Number [facility] [address] [place] [phone] * (ABNORMAL) BANDAR Screen,IFA, with Reflex to Titer and Pattern (05/25/2024 11:14 AM EDT) Anti Nuclear Antibody Screen POSITIV E(A) NEGATIVE [facility] Comment:BANDAR IFA is a first l ine screen for detecting thepresence of up to approximately 150 autoantibodies invarious autoimmune diseases. A positive BANDAR IFA resultis suggestive of autoimmune disease and reflexes totiter and pattern. Further laboratory testing may beconsidered if clinically indicated.For additional information, please refer tohttp://education.be2/faq/QUX976(This link is being provided for informational/educational purposes only.) BANDAR Titer 1:40(A) titer [facility] Comment:A low level BANDAR tite r may be present in pre-clinicalautoimmune diseases and normal individuals. Reference Range <1:40 Negative 1:40-1:80 Low Antibody Level >1:80 Elevated Antibody Level BANDAR Pattern Nuclear , Homogen eous(A) [facility] Comment:Homogeneous pattern is associated with systemic lupuserythematosus (SLE), drug-induced lupus and juvenileidiopathic arthritis.AC-1: HomogeneousInternational Consensus on BANDAR Patterns(https://doi.org/10.1515/wbxq-8778-6584)THIS TEST WAS PERFORMED AT:[employer] [place] [phone] GOLDBERG MD BANDAR TITER 2 (REF LAB) TNP [facility] BANDAR Pattern 2 TNP [facility] BANDAR TITER 3 TNP [facility] BANDAR PATTERN 3 TNP [facility] Blood Venous blood specimen / Unknown 05/25/2024 11:14 AM EDT 05/25/2024 11:14 AM EDT Jory Lala [facility] LAB BLOOD ORDERABLES Final Resul t [facility] [address] [place], [place] [phone] * BI Mammogram Screening Tomosynthesis Bilateral (01/19/2024 10:30 AM EST) Anatomical Region Laterality Modality Breast Bilateral Mammography 01/19/2024 10:3 0 AM EST Narrative 01/27/2024 2:08 PM EST ? [facility] ? [address] ?[place] [address] ? Mammography Report ? Signed ? Patient: Angel,Laila ?MR#: [id number] ?? [id number] ? : 1975 ?Acct:[id number] ? Age/Sex: 48 / F ?ADM Date: 11/04/24 ? Loc: HO.MAMMO ? Attending Dr: Jory Lala RAIL MAINTENANCE WORKER ? Ordering Physician: JORY LALA NP ?Results: 1Negative ? Date of Service: 01/19/24 ?Follow Up: 1 Year From Orig ?? inal Mammogram ? Procedure(s): MM tomosynthesis screening BI ?? Accession Number(s): [id number] ? cc: JORY LALA NP ? EXAMINATION: [...] DD/ 1030 ? TD/TT: 01/19/24 1100 ? Gm Video: ? Procedure Note Donotuseinterpreter, Image - 01/27/2024 Angie [facility] [address] [place] [address] Mammography Report Signed Patient: Aury Ortiz#: [id number] : 1975Acct:[id number] Age/Sex: 48 / FADM Date: 01/19/24 Loc: HO.MAMMO Attending Dr: Jory Lala NP Ordering Physician: JORY LALAesults: 1Negative Date of Service: 01/19/24Follow Up: 1 Year From Orig inal Mammogram Procedure(s): MM tomosynthesis screening BI Accession Number(s): [id number] cc: JORY LALA NP EXAMINATION: MM SCREENING [...] 01/27/24 1405 DD/ 1030 TD/TT: 01/19/24 1100 Gm Video: Jory Lala ANP IMG BI PROCEDURES Final Result * Hepatitis C Ab (12/30/2022 4:01 PM EDT) Hepatitis C Antibody Nonreactive Nonreactive [facility] Comment:Antibodies to HCV no t detected; does not exclude early acuteHCV infection. 12/30/2022 4:01 PM EDT 12/30/2022 4:01 PM EDT [facility] External Provider LAB BLO OD ORDERABLES Final Result [facility] [address] [place] [phone] * HIV Ab/Ag ([facility]) (12/30/2022 4:01 PM EDT) HIV AB/AG Nonreactive Nonreactive [facility] Comment:HIV-1 p24 Ag and/or HIV-1/HIV-2 Ab not detected.A test result that is nonreactive does not exclude thepossibility of exposure to or infection with HIV-1 and/orHIV-2. Nonreactive results in this assay for individualswith prior exposure to HIV-1 and/or HIV-2 may be due toantigen and antibody levels that are below the limit ofdetection of this assay.The [employer] HIV Ag/Ab Combo assay result andsupplemental assay results should be interpreted inconjunction with the patient's clinical presentation,history and other laboratory results. If the results areinconsistent with clinical evidence, additional testing issuggested to confirm the result. 12/30/2022 4:01 PM EDT 12/30/2022 4:01 PM EDT Generic External Data Provider LAB BLOOD ORDERAB LES Final Result [facility] [address] [place] [address] [phone] * (ABNORMAL) Hm Colonoscopy (07/04/2021) Colonoscopy [...] ?? Ed WITT et al. MATTIE. 2013;310(19): 1126-9240 ?? (http://education.BookMyForex.com.com/faq/TKZ061) Non-HDL Cholesterol 195(H) <130 mg/dL (calc) [facility] Comment: For patients with diabetes plus 1 major ASCVD risk ?? factor, treating to a non-HDL-C goal of <100 mg/dL ?? (LDL-C of <70 mg/dL) is considered a therapeutic ?? option. Triglycerides 182(H) <150 mg/dL [facility] 11/29/2020 10:0 1 AM EDT Jory GORDON LAB BLOOD ORDERABLES Final Resul t [facility] [address] [place] [address], * THINPREP PAP (08/09/2020 2:03 PM EDT) [...] historic and ?? current clinical information. ?? Supervisor Anodizing : SEE COMMENT [facility] Comment: RK, CT(ASCP) CT screening location: [address] ??[phone] Interpretation/R esult: Negative for intraepithelial lesion or malignancy. [facility] LMP: 07/29/20 [facility] Prev. BX: LEEP 2000 [facility] Prev. PAP: NIL 09/2015 [facility] SOURCE: None given [facility] Statement Of Adequacy: SEE COMMENT [facility] Comment: Satisfactory for evaluation. Endocervical/transformation zone component absent. 08/09/2020 2:03 PM EDT Yuly MURPHY LAB PATHOLOGY ORDERABLES Final Result [facility] [address] [place] [address], * HPV mRNA E6/E7 (08/09/2020 2:03 PM EDT) HPV nRNA E6/E7 Not Detected Not Detected [facility] Comment: Methodology: Right Of Way Worker-Mediated Amplification This assay detects E6/E7 viral messenger RNA (mRNA) from 14 high-risk HPV types (16,18,31,33,35,39,45,51,52,56,58,59,66,68). ? The analytical performance characteristics of this assay have been determined by [employer]. The modifications have not been cleared or approved by the FDA. This assay has been validated pursuant to the CLIA regulations and is used for clinical purposes. ?? For additional information, please refer to http://education.SpotOn.[employer]/faq/QCG158h7 (This link if provided for information/ educational purposes only.) 08/09/2020 2:03 PM EDT us Yuly Manciayareli CN LAB BLOOD ORDERABLES Verena l Result [facility]ly [facility] [address] from Last 3 Months or Most Recently Relevant to Health Maintenance Insurance [place] [phone] [facility] Care Teams Buhr Mill Operator Relationship Specialty Start Date End Date Jory Lala ANP [address] [place] [address] PCP - General Family Medicine 11/28/20
--- OUTSIDE RECORDS SUMMARY | 2024-07-22 11:15 | XMS_ITS | Encounter Summary ---
Author Organization [employer] Address [address] [place] [address] Care Team Providers Care Truck Driver Helper Name Role Phone Glendy Sutton Primary Care Provider [phone] Reason for Visit * Reason Comments Med Refill Encounter Details Date Type Department Care Team (Late st Contact Info) Description 04/02/2022 Refill [facility] [address] [place] [address] Glendy Sutton ANP [address] [place] [address] Anemia, unspecified type Social History Tobacco Use [...] Description 10/01/2024 10:00 AM EDT Office Visit [facility] [address] [place] [address] Vishnu, Kerline, OD [address] [place] [address] documented as of this encounter Visit Diagnoses Diagnosis Anemia, unspecified type documented in this encounter Care Teams Truck Driver Helper Relationship Specialty Start Date End Date Glendy Sutton ANP [address] [place] [address] PCP - General Family Medicine 11/28/20 documented as of this encounter
--- OUTSIDE RECORDS SUMMARY | 2024-07-22 11:15 | XMS_ITS | Encounter Summary ---
Author Organization [employer] Address [address] [facility] 7t [place] [address] Care Team Providers Care Loss Prevention Coordinator Name Role Phone Glendy Sutton Primary Care Provider [phone] Reason for Visit * Reason Onset Date Comments Nurse Triage 07/08/2023 Encounter Details Date Type Department Care Team ([facility] st Contact Info) Description 07/08/2023 Telephone [facility] MEDICINE [address] [place] [address] Glendy Sutton ANP [address] [place] [address] Nurse Triage Social History Tobacco Use Types [...] No answer LVM to return call to [facility] triage line [phone]. * Telephone Encounter - Sherri Carrillo - [...] 10:00 AM EDT Office Visit [facility] OPTOMETRY [address] [place] [address] Vishnu, Kerline, OD [address] [place] [address] documented as of this encounter Visit Diagnoses Not on filedocumented in this encounter Additional Health Concerns Assessment Noted Time PHQ-9 Depression Total Score: 0 10/04/19 23 9:29 AM EDT documented as of this encounter Care Teams Loss Prevention Coordinator Relationship Specialty Start Date End Date Glendy Sutton ANP [address] [place] [address] PCP - General Family Medicine 11/28/20 documented as of this encounter
--- OUTSIDE RECORDS SUMMARY | 2024-07-22 11:15 | XMS_ITS | Encounter Summary ---
Author Organization [employer] Address 75 [facility] 7t [place] [address] Care Team Providers Care Associate Of Science In Nursing Name Role Phone Glendy Sutton Primary Care Provider [phone] Encounter Details Date Type Department Care Team (Late st Contact Info) Description 03/20/2022 Orders Only [facility] MED & PEDS [address] [place] [address] Rachael Holguin LPN Social History Tobacco Use [...] Description 10/01/2024 10:00 AM EDT Office Visit [facility] OPTOMETRY [address] [place] [address] Kerline Mares, OD [address] [place] [address] documented as of this encounter Visit Diagnoses Not on filedocumented in this encounter Care Teams Associate Of Science In Nursing Relationship Specialty Start Date End Date Glendy Sutton ANP [address] [place] [address] PCP - General Family Medicine 11/28/20 documented as of this encounter
--- OUTSIDE RECORDS SUMMARY | 2024-07-22 11:15 | XMS_ITS | Encounter Summary ---
Author Organization [employer] Address 75 [facility] 7t [place] [address] Care Team Providers Care Customer Account Coordinator Name Role Phone Glendy Sutton Primary Care Provider [phone] Reason for Visit * Reason Onset Date Comments PT1 06/15/2024 Encounter Details Date Type Department Care Team ([facility] st Contact Info) Description 06/15/2024 Telephone [facility] MEDICINE [address] [place] [address] Glendy Sutton ANP [address] [place] [address] PT1 Social History Tobacco Use Types Packs/Day [...] Yes Provider name or facility name: [id number] [place], [place] Escort needed: Y/N: No Do you have a wheelchair: Y/N: No (cane) If yes- Manual or electric: N/A Visits: (2x monthly) 2 of 2 Home Address verified: Y/N: Yes Provider name or facility name: [facility] Facility Address: [address] [place] [address] Escort needed: Y/N: No Do you have a wheelchair: Y/N: No (cane) If yes- Manual or electric: Visits: 2-3x monthly documented in this encounter Plan of Treatment Upcoming Encounters Date Type Department Care Team (Late st Contact Info) Description 10/01/2024 10:00 AM EDT Office Visit [facility] OPTOMETRY [address] [place] [address] Vishnu, Kerline, OD [address] [place] [address] documented as of this encounter Visit Diagnoses Not on filedocumented in this encounter Additional Health Concerns Assessment Noted Time PHQ-9 Depression Total Score: 4 12/11/19 24 9:48 AM EDT documented as of this encounter Care Teams Customer Account Coordinator Relationship Specialty Start Date End Date Glendy Sutton ANP [address] [place] [address] PCP - General Family Medicine 11/28/20 documented as of this encounter
--- OUTSIDE RECORDS SUMMARY | 2024-07-22 11:15 | XMS_ITS | Encounter Summary ---
Author Organization [employer] Address 75 [facility] 7t [place] [address] Care Team Providers Care Rehabilitation Attendant Name Role Phone Glendy Sutton Primary Care Provider [phone] Reason for Visit * Reason Onset Date Comments Hospital Follow-up 02/24/2024 Encounter Details Date Type Department Care Team ([facility] st Contact Info) Description 02/24/2024 Telephone [facility] MEDICINE [address] [place], [place] [phone] Glendy Sutton ANP [address] [place], [place] [phone] Hospital Follow-up Social History Tobacco Use Types [...] from pt requesting a HDF appt. Hospital: [facility] Date of admission: 02/15 Discharge date: 02/17 Diagnosed: Crisis, Dehydrated, Kidney Damage. Contact pt at [phone] *Send message to [place] Clinical Care Coordinators documented in this encounter Plan of Treatment Upcoming Encounters Date Type Department Care Team (Late st Contact Info) Description 10/01/2024 10:00 AM EDT Office Visit [facility] OPTOMETRY [address] [place] [address] Kerline Mares, OD [address] [place] [address] documented as of this encounter Visit Diagnoses Not on filedocumented in this encounter Additional Health Concerns Assessment Noted Time PHQ-9 Depression Total Score: 4 12/11/19 24 9:48 AM EDT documented as of this encounter Care Teams Rehabilitation Attendant Relationship Specialty Start Date End Date Glendy Sutton ANP [address] [place] [address] PCP - General Family Medicine 11/28/20 documented as of this encounter
--- OUTSIDE RECORDS SUMMARY | 2024-07-22 11:15 | XMS_ITS | Encounter Summary ---
Author Organization [employer] Address 75 [facility] 7t [place] [address] Care Team Providers Care Punch Hand Name Role Phone Glendy Sutton Primary Care Provider [phone] Reason for Visit * Reason Comments Med Refill Encounter Details Date Type Department Care Team ([facility] st Contact Info) Description 05/28/2024 Refill [facility] MEDICINE [address] [place], [place] [phone] Glendy Sutton ANP [address] [place] [address] Social History Tobacco Use Types Packs/Day Years [...] Description 10/01/2024 10:00 AM EDT Office Visit [facility] OPTOMETRY [address] [place] [address] Kerline Mares, OD [address] [place] [address] documented as of this encounter Visit Diagnoses Not on filedocumented in this encounter Additional Health Concerns Assessment Noted Time PHQ-9 Depression Total Score: 4 12/11/19 24 9:48 AM EDT documented as of this encounter Care Teams Punch Hand Relationship Specialty Start Date End Date Glendy Sutton ANP [address] [place] [address] PCP - General Family Medicine 11/28/20 documented as of this encounter
--- OUTSIDE RECORDS SUMMARY | 2024-07-22 11:15 | XMS_ITS | Encounter Summary ---
Author Organization [employer] Address 75 [facility] 7t [place] [address] Care Team Providers Care Forming Process Worker Name Role Phone Glendy Sutton Primary Care Provider [phone] Reason for Visit * Reason Onset Date Comments PT-1 05/04/2024 Encounter Details Date Type Department Care Team ([facility] st Contact Info) Description 05/04/2024 Telephone [facility] MEDICINE [address] [place], [place] [phone] Glendy Sutton ANP [address] [place] [address] PT-1 Social History Tobacco Use Types Packs/Day [...] Y/N: Yes Provider name or facility name: [facility] Facility Address: [address] [facility] Escort needed: Y/N: No Do you have a wheelchair: Y/N: No If yes- Manual or electric: Visits: 2-3 visits a month 2.)Home Address verified: Y/N: Yes Provider name or facility name: [facility] ([place]) Facility Address: [address] [place] [address] [address] [place] [address] Escort needed: Y/N: No Do you have a wheelchair: Y/N: No If yes- Manual or electric: Visits: Once a month 3.)Home Address verified: Y/N: Yes Provider name or facility name: [facility] (labs , US, MRI) Facility Address: [address] [place] [address] Escort needed: Y/N: No Do you have a wheelchair: Y/N: No If yes- Manual or electric: Visits: 2-3 x a month documented in this encounter Plan of Treatment Upcoming Encounters Date Type Department Care Team ([facility] st Contact Info) Description 10/01/2024 10:00 AM EDT Office Visit [facility] OPTOMETRY [address] [place] [address] Kerline Mares OD [address] [place] [address] documented as of this encounter Visit Diagnoses Not on filedocumented in this encounter Additional Health Concerns Assessment Noted Time PHQ-9 Depression Total Score: 4 12/11/19 24 9:48 AM EDT documented as of this encounter Care Teams Forming Process Worker Relationship Specialty Start Date End Date Glendy Sutton ANP [address] [place] [address] PCP - General Family Medicine 11/28/20 documented as of this encounter
--- OUTSIDE RECORDS SUMMARY | 2024-07-22 11:15 | XMS_ITS | Encounter Summary ---
Author Organization [employer] Address 75 [facility] 7t [place] [address] Care Team Providers Care Middleware Solutions Architect Name Role Phone Glendy Sutton Primary Care Provider [phone] Reason for Visit * Reason Onset Date Comments Results 02/19/2023 Encounter Details Date Type Department Care Team ([facility] Contact Info) Description 02/19/2023 Telephone [facility] MEDICINE [address] [place], [place] [phone] Glendy Sutton ANP [address] [place] [address] Results Social History Tobacco Use Types Packs/Day [...] t he electric, gas, oil or water [employer] threatened to shut off services in your [...] last night and she was evaluated in [facility] ED. States she left ED [...] 03/04/23 at 11:15a. Agrees to come to [facility] for evaluation if symptoms return. Advised request has been sent to [facility] RN will attempt to obtain [facility] ED records. * Telephone Encounter - Anju Hawley - 02/19/2023 11:36 AM EST Tc from pt requesting a call in regards to lab results done yesterday (02/18). Please contact pt at [phone] documented in this encounter Plan of Treatment Upcoming Encounters Date Type Department Care Team ([facility] st Contact Info) Description 10/01/2024 10:00 AM EDT Office Visit [facility] OPTOMETRY [address] [place] [address] Kerline Mares, OD [address] [place] [address] documented as of this encounter Visit Diagnoses Not on filedocumented in this encounter Additional Health Concerns Assessment Noted Time PHQ-9 Depression Total Score: 0 10/04/19 23 9:29 AM EDT documented as of this encounter Care Teams Middleware Solutions Architect Relationship Specialty Start Date End Date Glendy Sutton ANP [address] [place] [address] PCP - General Family Medicine 11/28/20 documented as of this encounter
--- OUTSIDE RECORDS SUMMARY | 2024-07-22 11:15 | XMS_ITS | Encounter Summary ---
Author Organization [employer] Address 75 [facility] 7t [place] [address] Care Team Providers Care Director Machine Name Role Phone Glendy Sutton Primary Care Provider [phone] Encounter Details Date Type Department Care Team (Late st Contact Info) Description 05/14/2023 Orders Only [facility] MEDICINE [address] [place] [address] Glendy Sutton ANP [address] [place] [address] Social History Tobacco Use Types Packs/Day Years [...] 10:00 AM EDT Office Visit [facility] OPTOMETRY [address] [place] [address] Kerline Mares, OD [address] [place] [address] documented as of this encounter Visit Diagnoses Not on filedocumented in this encounter Additional Health Concerns Assessment Noted Time PHQ-9 Depression Total Score: 0 10/04/19 23 9:29 AM EDT documented as of this encounter Care Teams Director Machine Relationship Specialty Start Date End Date Glendy Sutton ANP [address] [place] [address] PCP - General Family Medicine 11/28/20 documented as of this encounter
== END 2024-07-22 10:08 | disposition home or self-care (01) ==
LOC: HO.RESP 10:07
PROVIDERS: PCP Nurse Practitioner Primary Care; Visit Provider Nurse Practitioner Primary Care
DX: R06.02 Shortness of breath (principal)
CPT/HCPCS: 94010; 94640; 94727; 94729

== ENCOUNTER 2024-07-27 14:32 | Emergency (ER) | payer MEDICARE, MEDICAID, SELFPAY ==
--- NOTE | ~2024-07-27 | US_ITS ---
CLINICAL HISTORY: right calf pain Venous duplex ultrasound right lower extremity Comparison: None Findings: The visualized deep veins are fully compressible with normal Doppler color flow and spectral tracings. No popliteal cyst. IMPRESSION: 1. Negative for right lower extremity deep vein thrombosis. This document has been electronically signed by: Oscar Katz MD on 07/27/2024 17:22:54
[2024-07-27 14:48] VITALS: BP 134/84; PULSE 98; RESP 16; TEMP 37.1; O2SAT 94; BMI 39.3
[2024-07-27 14:51] VITALS: BP 132/68; PULSE 107; O2SAT 95
--- NOTE | 2024-07-27 15:07 | ED_ITS ---
HPI - Extremity Problem General Chief complaint: Extremity Problem Stated complaint: SWELLING IN FACE HANDS FEET AND LEGS- FEVER Time Seen by Provider: 07/27/24 15:05 Source: patient Mode of arrival: ambulatory Limitations: no limitations History of Present Illness ED Provider: Dr. Nava HPI Narrative: 49 year old female PMH: bipolar, fibromyalgia, HTN, HLD osteoporosis who presents to the ER for lowere extremity pain and swelling. She denies any falls fever chills cough or shortness of breath. She states she has swelling to her face hands and legs. Pain is worse to right leg but has bilateral pain. Has had symptoms for two weeks walks with a cane at baseline no falls has not taken anything for the pain. Related Data Home Medications ?Medication ?Instructions ?Recorded ?Confirmed duloxetine 60 mg capsule,delayed 60 mg PO BID 04/16/21 06/22/24 release hydrochlorothiazide 25 mg tablet 25 mg PO DAILY 04/16/21 06/22/24 lamotrigine 200 mg tablet 200 mg PO DAILY 04/16/21 06/22/24 lamotrigine 25 mg tablet,extended 25 mg PO DAILY 04/16/21 06/22/24 release 24 hr cholecalciferol (vitamin D3) 1,250 1,250 mcg PO QWEEK 01/30/22 06/22/24 mcg (50,000 unit) capsule pregabalin 75 mg capsule 150 mg PO BID 01/15/23 06/22/24 clonazepam 1 mg tablet 1 mg PO BID 06/14/24 06/22/24 hydroxyzine HCl 50 mg tablet 50 mg PO TID 06/14/24 06/22/24 lisinopril 20 1 tab PO DAILY 06/14/24 06/22/24 mg-hydrochlorothiazide 25 mg tablet zolpidem 10 mg tablet 10 mg PO BEDTIME PRN 06/14/24 06/22/24 prazosin 1 mg capsule mg PO 06/22/24 06/22/24 pregabalin 200 mg capsule 200 mg PO TID 06/22/24 06/22/24 quetiapine 100 mg tablet mg PO 06/22/24 06/22/24 lamotrigine 100 mg tablet 100 mg PO DAILY 06/24/24 (Lamictal) Previous Rx's ?Medication ?Instructions ?Recorded furosemide 20 mg tablet 20 mg PO QAM PRN Edema #7 tabs 02/10/23 metoprolol succinate 25 mg 25 mg PO DAILY #30 tabs 04/26/24 tablet,extended release 24 hr sennosides 8.6 mg tablet (senna) 17.2 mg (2 x 8.6 mg) PO BEDTIME 05/31/24 for constipation #180 tabs oxycodone 5 mg tablet 5 mg PO Q6H PRN pain #15 tabs 06/06/24 docusate sodium 100 mg capsule 100 mg PO BEDTIME #90 caps 06/14/24 esomeprazole magnesium 40 mg 40 mg PO DAILY #30 caps 06/14/24 capsule,delayed release (Nexium) sucralfate 100 mg/mL oral 10 ml PO BID #1,000 mL 06/14/24 suspension diclofenac sodium 1 % topical gel 4 g topical QID #100 grams 06/24/24 Allergies Allergy/AdvReac Type Severity Reaction Status Date / Time cat dander [CATS] Allergy Intermediate Itching Verified 07/27/24 14:49 haloperidol [From HALDOL] Allergy Intermediate SWELLING, Verified 07/27/24 14:49 hives risperidone [From RISPERDAL] Allergy Intermediate HIVES, Verified 07/27/24 14:49 swelling shrimp Allergy Intermediate Swelling Verified 07/27/24 14:49 COCKROACHES Allergy Intermediate Itching Uncoded 06/22/24 08:32 Review of Systems 2 Review of Systems: Review of systems: General: Patient denies any fever chills recent illness or falls Musculoskeletal: Denies back pain or body aches or other injuries HEENT: denies headache, runny nose, ear pain Respiratory: denies shortness of breath, cough Cardiovascular: no chest pain or palpitations : denies dysuria, frequency Abdomen: no nausea vomiting denies abdominal pain Extremities: no swelling, no pain Skin: no diaphoresis Yes all other systems are reviewed and are negative PMFSH Past Medical History Medical History PMR (polymyalgia rheumatica) Knee pain, bilateral Low back pain Ambulates with cane Hx of malignant neoplasm of kidney History of seizure Bipolar disorder Anxiety and depression Fibromyalgia High cholesterol Surgical History History of esophagogastroduodenoscopy (EGD) Hx of colonoscopy History of loop electrical excision procedure (LEEP) History of carpal tunnel surgery of right wrist History of bilateral tubal ligation Family History Family History Mother Kidney failure Diabetes COPD (chronic obstructive pulmonary disease) Heart disease Father Colon cancer Social History Social History Are you a primary healthcare representative to a significant other at home: No Do you presently have visiting nurse or other home services: No Alcohol intake: never Patient Tobacco Use Status: Current everyday Tobacco user Tobacco use type: Cigarette Cigarettes Per Day: 3 Smoked in Last 30 Days: Yes Use of substances other than those prescribed or required for medical reasons: No Advance Directives: No Advance Directives Information Provided: No service: No Current occupational status: disabled Physical Exam 2 Vital Signs: Vital Signs: Last Vital Signs Temp 98.8 F 07/27/24 14:48 Pulse 98 07/27/24 14:48 Resp 16 07/27/24 14:48 BP 134/84 07/27/24 14:48 Pulse Ox 94 07/27/24 14:48 O2 Del Method Room Air 07/27/24 14:48 BMI result Body Mass Index 39.3 Neurological exam: CN II- XII tested. Patient is alert and oriented to person place and time. Patient has no dysphagia or dysarthia, denies good vision in all four vision haque no nystagmus on exam, good strength to upper and lower extremities with normal reflexes to brachioradialis, wrist, patella and achilles. Negative romberg, good finger to nose and heel to sneed. General: Well-appearing well-nourished in no signs of distress HEENT: Normocephalic atraumatic Neck: No signs of JVD, no masses no tenderness or lymphadenopathy Cardiovascular: Regular rate and rhythm Respiratory: Clear to auscultation bilaterally Abdomen: Soft nontender no masses Extremities: Normal pedal pulses no signs of edema Skin: Dry warm no rashes Back: No tenderness full ROM Course Reevaluation(s) Reevaluation #1: I did explain the lab results to the patient her story is non consistent with DVT but she states she needs a US before she goes. US ordere and is negative. I will continue with discharge to home. Medications Administered Discontinued Medications Generic Name Dose Route Start Last Admin Trade Name Zane PRN Reason Stop Dose Admin Acetaminophen 975 mg 07/27/24 15:16 07/27/24 15:32 Acetaminophen 325 Mg Tablet PO 07/27/24 15:17 975 mg ONCE ONE Administration Ibuprofen 400 mg 07/27/24 15:16 07/27/24 15:32 Ibuprofen 400 Mg Tablet PO 07/27/24 15:17 400 mg ONCE ONE Administration Medical Decision Making Medical Decision Making [facility] Narrative: patient is complaining of swelling but there is no appreciable swelling and had a legs hands or face patient looks well I will check some generalized sure there is no signs of dehydration or electrolyte abnormality and reassess. I will give the patient Tylenol and ibuprofen she is waiting. Differential Diagnosis Differential Diagnoses: The differential diagnosis associated with the presentation includes Acute on chronic pain, leg pain Lab Data 07/27/24 15:31 07/27/24 15:31 Labs: Lab Results 07/27/24 Range/Units 15:31 WBC 12.5 H (4.8-10.8) X10*3/uL RBC 4.08 L (4.20-5.50) X10*6/uL Hgb 12.0 (12.0-16.0) g/dl Hct 36.5 L (37.0-47.0) % MCV 89.5 (80.0-98.0) fL MCH 29.4 (27.0-33.0) pg MCHC 32.9 (31.0-35.0) g/dl RDW 12.9 (11.0-16.0) % Plt Count 215 (160-400) X10*3/uL MPV 10.3 (9.4-12.3) fL Immature Gran % (Auto) 0.4 (0.0-0.4) % Neut % (Auto) 83.3 H (45-73) % Lymph % (Auto) 12.5 L (20-40) % Carter % (Auto) 3.4 (2-11) % Eos % (Auto) 0.2 (0-4) % Baso % (Auto) 0.2 (0-2) % Lymph # (Auto) 1.6 (1.2-4.9) X10*3/uL Carter # (Auto) 0.4 (0.1-1.2) X10*3/uL Eos # (Auto) 0.0 (0.0-0.4) X10*3/uL Baso # (Auto) 0.0 (0.0-0.2) X10*3/uL Abs Immat Gran (auto) 0.05 H (0.00-0.03) X10*3/uL Absolute Neuts (auto) 10.4 H (2.0-8.3) x10*3/uL Absolute Nucleated RBC 0.000 (0.0-0.012) X10*3/uL Nucleated RBC % (auto) 0.0 (0.0-0.2) /100WBC Sodium 139 (135-145) mmol/L Potassium 4.7 (3.3-5.1) mmol/L Chloride 101 (96-108) mmol/L Carbon Dioxide 27 (22-29) mmol/L Anion Gap 16 (12-20) BUN 21 H (9-16) mg/dL Creatinine 1.22 (0.5-1.4) mg/dL Estim Creat Clear Calc 59.1 Estimated GFR 47 Random Glucose 84 (60-115) mg/dL Calcium 10.0 D (8.4-10.2) mg/dL Discharge Plan Discharge Clinical Impression: Pain Patient Disposition: Home, Self-Care Instructions: Atypical Facial Pain (ED), Chronic Back Pain (DC), Chronic Neck Pain (DC), Musculoskeletal Pain (ED) Additional Instructions: You were seen today for pain all over includind your legs worse on the right You had labs and a US which were all normal Please call to follow up with your doctor. Prescriptions: No Action furosemide 20 mg tablet 20 mg PO QAM PRN (Reason: Edema) Qty: 7 0RF metoprolol succinate 25 mg tablet extended release 24 hr 25 mg PO DAILY Qty: 30 0RF Rx Instructions: If you are not returning to cardiology, please have pcp fill scripts. If you are then please make a follow up appointment to continue refills. Any questions please call. [phone] option 1 sennosides [senna] 8.6 mg tablet 17.2 mg PO BEDTIME Qty: 180 3RF pregabalin 75 mg capsule 150 mg PO BID oxycodone 5 mg tablet 5 mg PO Q6H PRN (Reason: pain) Qty: 15 0RF Rx Instructions: partial filing upon pt request; Partial Fill upon patient request. hydrochlorothiazide 25 mg tablet 25 mg PO DAILY duloxetine 60 mg capsule,delayed release(DR/EC) 60 mg PO BID lamotrigine 25 mg tablet extended release 24hr 25 mg PO DAILY Patient Comments: total dose 225 q am lamotrigine 200 mg tablet 200 mg PO DAILY Patient Comments: total dose 225 q am cholecalciferol (vitamin D3) 1,250 mcg (50,000 unit) capsule 1,250 mcg PO QWEEK lamotrigine [Lamictal] 100 mg tablet 100 mg PO DAILY diclofenac sodium 1 % gel 4 g topical QID Qty: 100 5RF Rx Instructions: apply to affected area every 4-6 hours PRN lisinopril-hydrochlorothiazide 20-25 mg tablet 1 tab PO DAILY clonazepam 1 mg tablet 1 mg PO BID hydroxyzine HCl 50 mg tablet 50 mg PO TID zolpidem 10 mg tablet 10 mg PO BEDTIME PRN docusate sodium 100 mg capsule 100 mg PO BEDTIME Qty: 90 3RF sucralfate 100 mg/mL suspension 10 ml PO BID Qty: 1000 0RF Rx Instructions: At 14:00 and at bedtime esomeprazole magnesium [Nexium] 40 mg capsule,delayed release(DR/EC) 40 mg PO DAILY Qty: 30 3RF pregabalin 200 mg capsule 200 mg PO TID quetiapine 100 mg tablet PO prazosin 1 mg capsule PO Print Language: [place]
[2024-07-27] MEDS: Ibuprofen 400 MG TABLET PO (15:32)
[2024-07-27] MEDS: Acetaminophen 325 MG TABLET 975 MG PO (15:32)
[2024-07-27 15:34] LABS: MANUAL DIFF FLAG NO
[2024-07-27 15:45] LABS: Basophils Percent Auto 0.2 % (0-2); Eosinophils Percent Auto 0.2 % (0-4); Hematocrit 36.5 % (37.0-47.0); Imm Gran Abs Auto 0.05 X10*3/uL (0.00-0.03); Imm Gran Pct Auto 0.4 % (0.0-0.4); Lymphocytes Absolute Auto 1.6 X10*3/uL (1.2-4.9); Lymphocytes Percent Auto 12.5 % (20-40); Mean Corpuscular HGB Conc 32.9 g/dl (31.0-35.0); Mean Corpuscular Hemoglobin 29.4 pg (27.0-33.0); Mean Corpuscular Volume 89.5 fL (80.0-98.0); Mean Platelet Volume 10.3 fL (9.4-12.3); Monocytes Absolute Auto 0.4 X10*3/uL (0.1-1.2); Monocytes Percent Auto 3.4 % (2-11); Neutrophils Absolute Auto 10.4 x10*3/uL (2.0-8.3); Neutrophils Percent Auto 83.3 % (45-73); Platelet Count 215 X10*3/uL (160-400); Red Blood Count 4.08 X10*6/uL (4.20-5.50); Red Cell Distribution Width 12.9 % (11.0-16.0); White Blood Count 12.5 X10*3/uL (4.8-10.8)
[2024-07-27 16:09] LABS: Anion Gap 16 (12-20); Blood Urea Nitrogen 21 mg/dL (9-16); Carbon Dioxide 27 mmol/L (22-29); Chloride 101 mmol/L (96-108); Creatinine Clr Calc Pharmacy 59.1; Estimated Glomerular Filt Rate 47; Glucose Random 84 mg/dL (60-115); Potassium 4.7 mmol/L (3.3-5.1); Sodium 139 mmol/L (135-145)
--- OUTSIDE RECORDS SUMMARY | 2024-07-27 16:31 | XMS_ITS | Encounter Summary ---
Author Organization [employer] Address [address] [facility] [address] [place] [address] Care Team Providers Care [employer]electric Plant Electrical Engineer Name Role Phone Glendy Sutton Primary Care Provider [phone] Reason for Visit * Reason Onset Date Comments PT-1 05/04/2024 Encounter Details Date Type Department Care Team ([facility] st Contact Info) Description 05/04/2024 Telephone [facility] MEDICINE [address], [place] [phone] Glendy Sutton ANP [address] [place] [address] PT-1 Social History Tobacco Use Types Packs/Day [...] Y/N: Yes Provider name or facility name: [facility] Facility Address: [address] [facility] Escort needed: Y/N: No Do you have a wheelchair: Y/N: No If yes- Manual or electric: Visits: 2-3 visits a month 2.)Home Address verified: Y/N: Yes Provider name or facility name: [facility] ([place]) Facility Address: [address] [place] [address] [address] [place] [address] Escort needed: Y/N: No Do you have a wheelchair: Y/N: No If yes- Manual or electric: Visits: Once a month 3.)Home Address verified: Y/N: Yes Provider name or facility name: [facility] (labs , [place], MRI) Facility Address: [address] [place] [id number] Escort needed: Y/N: No Do you have a wheelchair: Y/N: No If yes- Manual or electric: Visits: 2-3 x a month documented in this encounter Plan of Treatment Upcoming Encounters Date Type Department Care Team ([facility] st Contact Info) Description 10/01/2024 10:00 AM EDT Office Visit [facility] OPTOMETRY [address] [place] [address] Kerline Mares OD [address] [place] [address] documented as of this encounter Visit Diagnoses Not on filedocumented in this encounter Additional Health Concerns Assessment Noted Time PHQ-9 Depression Total Score: 4 12/11/19 24 9:48 AM EDT documented as of this encounter Care Teams Hydroelectric Plant Electrical Engineer Relationship Specialty Start Date End Date Glendy Sutton ANP [address] [place] [address] PCP - General Family Medicine 11/28/20 documented as of this encounter
--- OUTSIDE RECORDS SUMMARY | 2024-07-27 16:32 | XMS_ITS | Encounter Summary ---
Author Organization [employer] Address [address] [facility] [address] [place] [address] Care Team Providers Care Behavioral Assistant Name Role Phone Glendy Sutton Primary Care Provider [phone] Reason for Visit * Reason Comments Med Refill Encounter Details Date Type Department Care Team ([facility] st Contact Info) Description 05/28/2024 Refill [facility] MEDICINE [address] [place], [place] [phone] Glendy Sutton ANP [address] [place] [address] Social History Tobacco Use Types Packs/Day Years [...] Visit [facility] OPTOMETRY [address] [place] [address] Kerline Mares, OD [address] [place] [address] documented as of this encounter Visit Diagnoses Not on filedocumented in this encounter Additional Health Concerns Assessment Noted Time PHQ-9 Depression Total Score: 4 12/11/19 24 9:48 AM EDT documented as of this encounter Care Teams Behavioral Assistant Relationship Specialty Start Date End Date Glendy Sutton ANP [address] [place] [address] PCP - General Family Medicine 11/28/20 documented as of this encounter
--- OUTSIDE RECORDS SUMMARY | 2024-07-27 16:32 | XMS_ITS | Clinical Summary ---
Author Organization [employer] Address [address] [facility] [address] [place] [address] Care Team Providers Care Apprentice Stylist Name Role Phone Jory Lala EVAN Primary Care Provider [phone] Allergies Active Allergy Reactions Criticality Noted Date [...] 025 Active cholecalciferol (Vitamin D-3) 1.25 MG (48328 UT) capsuleIndicati ons:Vitamin D deficiency Take 1 [...] a lot vs tabs. She follows w/ [facility] and has [...] Encounters Date Type Department Care Team Description 07/27/[address] [address] Jory Lala ANP Nurse Triage 07/12/2024 3:40 PM EDT Office Visit [facility] [address] [place] [address] Bandar Snyder MD Fibromyalgia (Primary Dx); Cough in adult patient 07/12/[address] [address] Jory Lala ANP Med Refill 07/12/[address] [address] Jory Lala ANP Other chronic pain 06/15/2024 Patient Outreach [address] [address] Enrique Sol Care Coordination (CHW outreach for SDOH PT-1 - LVM ) 06/15/[address] [address] Jory Lala ANP PT1 06/14/[address] [address] Jory Lala ANP Referral 06/10/2024 11:30 AM EDT Office Visit [address] [address] Jory Lala ANP Cardiomegaly (Primary Dx); Shortness of breath; [place] (dyspnea on exertion); Tear of left glenoid labrum, subsequent encounter; Chronic pain of both shoulders 06/10/[address] [address] Jory Lala ANP Appointment Request 06/10/2024 Travel 06/07/[address] [address] Jory Lala ANP Nurse Triage; ER Follow-up 06/06/2024 Orders Only GENERIC EXTERNAL DATA DEPARTMENT Provider, Generic External Data 05/31/[address] [address] Jory Lala ANP FYI 05/30/2024 Refill [facility] [address] [place] [address] Jory Lala ANP Anemia, unspecified type 05/28/2024 Refill [facility] [address] [place] [address] Jory Lala ANP 05/28/2024 Population Health Risk Score [facility] () [address] [phone] Provider, Population Health Generic 05/25/[address] [address] Jory Lala ANP Results 05/25/2024 Orders Only [address] [address] Jory Lala ANP Vitamin D deficiency (Primary Dx) 05/20/2024 10:00 AM EST Office Visit [address] [address] Jory Lala ANP PMR (polymyalgia rheumatica) ([facility]) (Primary Dx); Chronic pain of both shoulders; Limited range of motion (ROM) of shoulder; Polyarthralgia; Chronic fatigue; Vitamin D deficiency; Fibromyalgia 05/20/2024 Travel 05/05/2024 Patient Outreach [address] [address] Jory Lala ANP Care Coordination (CHW outreach for SDOH PT-1 and food needs-LVM ) 05/04/[address] [address] Jory Lala ANP Prior Authorization 05/04/[address] [address] Jory Lala ANP PT-1 from Last 3 Months Immunizations Name Administration [...] Description 10/01/2024 10:00 AM EDT Office Visit [facility] [address] [place] [address] Vishnu, Kerline, OD [address] [place] [address] Health Maintenance Due Date Last Done Comments [...] Smear 08/09/2025 08/09/2020 Lipid Panel 11/29/2025 11/29/2020, 02/04/2020, 10/20/2019 Mammogram 01/18/2026 01/19/2024, 06/2023, 01/14/2023, Additional [...] PM EDT) Influenza B Negative Negative, Indeterminate [facility] Swab 07/12/2024 2:56 PM EDT us Bandar Snyder MD POINT OF CARE TEST ENTER /EDIT ORDERABLES Final Result [facility] [address] [place] [phone] * Influenza A (ID NOW Rapid Molecular) (07/12/2024 2:56 PM EDT) Influenza A Negative Negative, Indeterminate [facility] Swab 07/12/2024 2:56 PM EDT Bandar Snyder MD POINT OF CARE TEST ENTER /EDIT ORDERABLES Final Result Performing Organization Address [facility] de Phone Number [facility] [address] [place] [phone] * POCT Rapid COVID Ag (07/12/2024 2:56 PM EDT) [facility] Rapid COVID Ag Negative Swab 07/12/2024 2:56 PM EDT Bandar Snyder MD POINT OF CARE TEST ENTER /EDIT ORDERABLES Final Result * D Dimer High Sensitivity (06/06/2024 2:00 PM EDT) [facility] D Dimer High Sensitivity <150 NG/ML [facility] Comment:D-DIMER HS REFERENCE RANGENote: Our [...] Final Result Performing Organization Address [facility] Co de Phone Number [facility] [address] [place] [phone] * XR Chest 2 Views (06/06/2024 1:53 PM EDT) Anatomical Region Laterality Modality Chest Radiographic Miranda ging 06/06/2024 1:53 PM EDT Narrative 06/06/2024 1:55 PM EDT ? [facility] ?[address] ?[place] [address] ?XRay Report ? Signed ? Patient: Angel,Laila ?MR#: [id number] ?? [id number] ? : 1975 ?Acct:[id number] ? Age/Sex: 49 / F ?ADM Date: 06/06/24 ? Loc: HO.ED ? Attending Dr: ? Ordering Physician: Sri Herrera ?? Date of Service: 06/06/24 ?? Procedure(s): XR chest 2V ?? Accession Number(s): [id number] ? cc: Sri Herrera; JORY LALA NP [...] DD/ 1353 ? TD/TT: 06/06/24 1353 ? Options Advisor: ? Procedure Note Jelly, Image - 06/06/2024 [place] [address] XRay Report Signed Patient: Aury Ortiz#: [id number] : 1975Acct:[id number] Age/Sex: 49 / FADM Date: 06/06/24 Loc: HO.ED Attending Dr: Ordering Physician: Sri Herrera Date of Service: 06/06/24 Procedure(s): XR chest 2V Accession Number(s): [id number] cc: Sri Herrera; JORY LALA NP CLINICAL [...] 06/06/24 1354 DD/ 1353 TD/TT: 06/06/24 1353 Options Advisor: [facility] External Provider IMG XR PROCEDURES Edited Result - Final * High Sensitivity Troponin I (06/06/2024 12:32 PM EDT) Pathologist [facility] TROPONIN I HIGH SENSITIVITY <2.7 <3.5 - 17.0 ng/L [facility] Comment:The Wolfe high sens itivity Troponin-I results should beused in conjunction with other diagnostic information suchas ECG, clinical observations and information, and patientsymptoms to aid in the diagnosis of MT. 06/06/2024 12:3 2 PM EDT 06/06/2024 12:36 PM EDT Generic External Data Provider LAB BLOOD ORDERAB LES Final Result [facility] [address] [place] [phone] * SARS-CoV-2 RNA, Influenza A/B, and RSV RNA, Ql NAAT (06/06/2024 12:32 PM EDT) Pathologist [facility] Influenza A PCR NEGATIVE Negative [facility] Influenza B PCR NEGATIVE Negative [facility] Resp Syncy Virus RNA Qual PCR NEGATIVE Negative [facility] SARS COV2 PCR NEGATIVE Negative [facility] Comment:All test results mus t [...] use by authorized laboratories.Testing performed on the [employer] GeneXpert utilizingreal-time RT-PCR.All SARS CoV2 and positive influenza A/B results arereported to [facility]. 06/06/2024 12:3 2 PM EDT 06/06/2024 12:36 PM EDT us Generic External Data Provider LAB MICROBIOLOGY - GENERAL ORDERABLES Final Result [facility] [address] [place] [address] [phone] * (ABNORMAL) CBC auto differential (06/06/2024 12:32 PM EDT) White Blood Count 6.0 4.8 - 10.8 X10*3/uL [facility] Red Blood Count 4.30 4.20 - 5.50 X10*6/uL [facility] Hemoglobin 12.6 12.0 - 16.0 g/dl [facility] Hematocrit 37.9 37.0 - 47.0 % [facility] Mean Corpuscular Volume 88.1 80.0 - 98.0 fL [facility] Mean Corpuscular Hemoglobin 29.3 27.0 - 33.0 pg [facility] Mean Corpuscular HGB Conc 33.2 31.0 - 35.0 g/dl [facility] Red Cell Distribution Width 12.9 11.0 - 16.0 % [facility] Platelet Count 239 160 - 400 X10*3/uL [facility] Mean Platelet Volume 9.8 9.4 - 12.3 fL [facility] Neutrophils Percent Auto 63.3 45 - 73 % [facility] Imm Gran Pct Auto 0.7(H) 0.0 - 0.4 % [facility] Lymphocytes Percent Auto 29.0 20 - 40 % [facility] Monocytes Percent Auto 5.5 2 - 11 % [facility] Eosinophils Percent Auto 0.8 0 - 4 % [facility] Basophils Percent Auto 0.7 0 - 2 % [facility] NRBC Pct Auto 0.0 0.0 - 0.2 /100WBC [facility] Neutrophils Absolute Auto 3.8 2.0 - 8.3 x10*3/uL [facility] Imm Gran Abs Auto 0.04(H) 0.00 - 0.03 X10*3/uL [facility] Lymphocytes Absolute Auto 1.7 1.2 - 4.9 X10*3/uL [facility] Monocytes Absolute Auto 0.3 0.1 - 1.2 X10*3/uL [facility] Eosinophils Absolute Auto 0.1 0.0 - 0.4 X10*3/uL [facility] Basophils Absolute Auto 0.0 0.0 - 0.2 X10*3/uL [facility] NRBC Abs Auto 0.000 0.0 - 0.012 X10*3/uL [facility] 06/06/2024 12:3 2 PM EDT 06/06/2024 12:36 PM EDT us Generic External Data Provider LAB BLOOD ORDERAB LES Final Result Performing Organization Address [facility]/ZIP Co de Phone Number [facility] [address] [place] [phone] * B Type Natriuretic Peptide (BNP) (06/06/2024 12:32 PM EDT) B Type Natriuretic Peptide 14 <100 pg/mL [facility] 06/06/2024 12:3 2 PM EDT 06/06/2024 12:36 PM EDT us Generic External Data Provider LAB BLOOD ORDERAB LES Final Result Performing Organization Address City/[facility]/ZIP Co de Phone Number [facility] [address] [place] [phone] * Magnesium (06/06/2024 12:32 PM EDT) Pathologist [facility] Magnesium 2.2 1.6 - 2.6 mg/dL [facility] 06/06/2024 12:3 2 PM EDT 06/06/2024 12:36 PM EDT Generic External Data Provider LAB BLOOD ORDERAB LES Final Result Performing Organization Address City/[facility]/ZIP Co de Phone Number [facility] [address] [place] [phone] * Lipase (06/06/2024 12:32 PM EDT) [facility] Lipase 27 8 - 78 U/L [facility] 06/06/2024 12:3 2 PM EDT 06/06/2024 12:36 PM EDT Generic External Data Provider LAB BLOOD ORDERAB LES Final Result Performing Organization Address City/[facility]/ZIP Co de Phone Number [facility] [address] [place] [phone] * (ABNORMAL) Comprehensive Metabolic Panel (06/06/2024 12:32 PM EDT) [facility] Sodium 139 135 - 145 mmol/L [facility] Potassium 4.3 3.3 - 5.1 mmol/L [facility] Chloride 108 96 - 108 mmol/L [facility] Carbon Dioxide 24 22 - 29 mmol/L [facility] Anion Gap 11(L) 12 - 20 [facility] Urea Nitrogen (BUN) 18(H) 9 - 16 mg/dL [facility] Creatinine, Serum 0.67 0.5 - 1.4 mg/dL [facility] Creatinine Clr Calc Pharmacy 105.6 [facility] Comment:Provided height and weight: 154.94 cm,91.2 kg.eGFR (calculated from the MDRD study equation) and eCrCl(calculated from the Cockcroft-Gault equation) are based ondifferent parameters and may not yield comparable results.If eCrCl result is absurd, please check patient'sheight/weight. Estimated Glomerular Filt Rate >60 [facility] Comment:Chronic Kidney Disea se: Estimated GFR < 60 mL/min/1.76s3Strhhh Kidney Disease: Estimated GFR < 15 mL/min/1.73m2 Glucose 87 60 - 115 mg/dL [facility] Calcium 9.1 8.4 - 10.2 mg/dL [facility] Bilirubin, Total 0.3 0.0 - 1.0 mg/dL [facility] Aspartate Amino Transferase 23 5 - 31 U/L [facility] Alanine Aminotransferase 35(H) 0 - 31 U/L [facility] Total Protein 7.7 6.5 - 8.0 g/dL [facility] Albumin Level 4.0 3.5 - 5.0 g/dL [facility] Alkaline Phosphatase 61 39 - 117 U/L [facility] 06/06/2024 12:3 2 PM EDT 06/06/2024 12:36 PM EDT us Generic External Data Provider LAB BLOOD ORDERAB LES Final Result [facility] [address] [place] [phone] [phone] * (ABNORMAL) Vitamin D, 25-Hydroxy, Total, Immunoassay (05/25/2024 11:14 AM EDT) Vitamin D 25-OH Total 14.6(L) >30 ng/mL [facility] Comment:Health Based Referen ce Values*< 20 ng/mL Hjjptdiwx58-58 ng/mL Insufficient> 30 ng/mL Sufficient*Troy RAMACHANDRAN. N [...] EDT 05/25/2024 11:14 AM EDT Jory Lala [facility] LAB BLOOD ORDERABLES Final Resul t Performing Organization Address [facility] de Phone Number [facility] [address] [place] [phone] * TSH W/Reflex to FT4 (05/25/2024 11:14 AM EDT) TSH reflex Free T4 1.37 0.32 - 4.0 uIU/mL [facility] Blood Venous blood specimen / Unknown 05/25/2024 11:14 AM EDT 05/25/2024 11:14 AM EDT us Jory Lala [facility] LAB BLOOD ORDERABLES Final Resul t Performing Organization Address [facility] de Phone Number [facility] [address] [place] [phone] * Cyclic Citrullinated Peptide (CCP) Antibody (IgG) (05/25/2024 11:14 AM EDT) Cyclic Citrullinated Peptide <16 UNITS [facility] Comment:Reference RangeNegat adriana: <20Weak Positive: 20-39Moderate Positive: 40-59Strong Positive: >59THIS TEST WAS PERFORMED AT:[employer] [address] [phone] GOLDBERG MD Blood Venous blood specimen / Unknown 05/25/2024 11:14 AM EDT 05/25/2024 11:14 AM EDT us Jory Lala ANP LAB BLOOD ORDERABLES Final Resul t Performing Organization Address [facility] de Phone Number [facility] [address] [place] [phone] * (ABNORMAL) Sed Rate by Modified Westergren (05/25/2024 11:14 AM EDT) Erythrocyte Sedimentation Rate 21(H) 0 - 20 MM/HR [facility] Comment:Patients with polycy themia and many hemoglobin abnormalitiesmay have depressed sed rates whereas patients with anemiamay have elevated sed rates. Blood Venous blood specimen / Unknown 05/25/2024 11:14 AM EDT 05/25/2024 11:14 AM EDT Jory Lala [facility] LAB BLOOD ORDERABLES Final Resul t Performing Organization Address [facility] Number [facility] [address] [place] [phone] * Rheumatoid Factor (05/25/2024 11:14 AM EDT) Rheumatoid Factor <13.0 <15.0 IU/mL [facility] Blood Venous blood specimen / Unknown 05/25/2024 11:14 AM EDT 05/25/2024 11:14 AM EDT Jory Lala [facility] LAB BLOOD ORDERABLES Final Resul t Performing Organization Address [facility] de Phone Number [facility] [address] [place] [phone] * (ABNORMAL) BANDAR Screen,IFA, with Reflex to Titer and Pattern (05/25/2024 11:14 AM EDT) Anti Nuclear Antibody Screen POSITIV E(A) NEGATIVE [facility] Comment:BANDAR IFA is a first l ine screen for detecting thepresence of up to approximately 150 autoantibodies invarious autoimmune diseases. A positive BANDAR IFA resultis suggestive of autoimmune disease and reflexes totiter and pattern. Further laboratory testing may beconsidered if clinically indicated.For additional information, please refer tohttp://education.Jirafe/faq/EVV912(This link is being provided for informational/educational purposes only.) BANDAR Titer 1:40(A) titer [facility] Comment:A low level BANDAR tite r may be present in pre-clinicalautoimmune diseases and normal individuals. Reference Range <1:40 Negative 1:40-1:80 Low Antibody Level >1:80 Elevated Antibody Level BANDAR Pattern Nuclear , Homogen eous(A) [facility] Comment:Homogeneous pattern is associated with systemic lupuserythematosus (SLE), drug-induced lupus and juvenileidiopathic arthritis.AC-1: HomogeneousInternational Consensus on BANDAR Patterns(https://doi.org/10.1515/nhdq-8388-7386)THIS TEST WAS PERFORMED AT:[facility] [place] [phone]LISETTE GOLDBERG MD BANDAR TITER 2 (REF LAB) TNP [facility] BANDAR Pattern 2 TNP [facility] BANDAR TITER 3 TNP [facility] BANDAR PATTERN 3 TNP [facility] Blood Venous blood specimen / Unknown 05/25/2024 11:14 AM EDT 05/25/2024 11:14 AM EDT Jory Lala ANP LAB BLOOD ORDERABLES Final Resul t [facility] [address] [place] [phone] [phone] * BI Mammogram Screening Tomosynthesis Bilateral (01/19/2024 10:30 AM EST) Anatomical Region Laterality Modality Breast Bilateral Mammography 01/19/2024 10:3 0 AM EST Narrative 01/27/2024 2:08 PM EST ? [facility] ? [address] ?[place] [address] ? Mammography Report ? Signed ? Patient: Angel,Laila ?MR#: [id number] ?? [id number] ? : 1975 ?Acct:[id number] ? Age/Sex: 48 / F ?ADM Date: 11/04/24 ? Loc: HO.MAMMO ? Attending Dr: Jory Lala BAG FILLER MACHINE OPERATOR ? Ordering Physician: JORY LALA NP ?Results: 1Negative ? Date of Service: 01/19/24 ?Follow Up: 1 Year From Orig ?? inal Mammogram ? Procedure(s): MM tomosynthesis screening BI ?? Accession Number(s): [id number] ? cc: JORY LALA NP ? EXAMINATION: [...] DD/ 1030 ? TD/TT: 01/19/24 1100 ? Options Advisor: ? Procedure Note Donotuseinterpreter, Image - 01/27/2024 [facility] [address] [place] [address] Mammography Report Signed Patient: Aury Ortzi#: [id number] : 1975Acct:[id number] Age/Sex: 48 / FADM Date: 01/19/24 Loc: HO.MAMMO Attending Dr: Jory Lala NP Ordering Physician: JORY LALAesults: 1Negative Date of Service: 01/19/24Follow Up: 1 Year From Orig inal Mammogram Procedure(s): MM tomosynthesis screening BI Accession Number(s): [id number] cc: JORY LALA NP EXAMINATION: MM SCREENING [...] 01/27/24 1405 DD/ 1030 TD/TT: 01/19/24 1100 Options Advisor: Jory Lala ANP IMG BI PROCEDURES Final Result * Hepatitis C Ab (12/30/2022 4:01 PM EDT) Hepatitis C Antibody Nonreactive Nonreactive [facility] Comment:Antibodies to HCV no t detected; does not exclude early acuteHCV infection. 12/30/2022 4:01 PM EDT 12/30/2022 4:01 PM EDT [facility] External Provider LAB BLO OD ORDERABLES Final Result [facility] [address] [place] [phone] * HIV Ab/Ag ([facility]) (12/30/2022 4:01 PM EDT) HIV AB/AG Nonreactive Nonreactive [facility] Comment:HIV-1 p24 Ag and/or HIV-1/HIV-2 Ab not detected.A test result that is nonreactive does not exclude thepossibility of exposure to or infection with HIV-1 and/orHIV-2. Nonreactive results in this assay for individualswith prior exposure to HIV-1 and/or HIV-2 may be due toantigen and antibody levels that are below the limit ofdetection of this assay.The mgMEDIA HIV Ag/Ab Combo assay result andsupplemental assay results should be interpreted inconjunction with the patient's clinical presentation,history and other laboratory results. If the results areinconsistent with clinical evidence, additional testing issuggested to confirm the result. 12/30/2022 4:01 PM EDT 12/30/2022 4:01 PM EDT us Generic External Data Provider LAB BLOOD ORDERAB LES Final Result [facility] [address] [place] [address] [phone] * (ABNORMAL) Hm Colonoscopy (07/04/2021) Colonoscopy [...] ?? Ed WITT et al. MATTIE. 2013;310(19): 6931-7033 ?? (http://education.clipsync.com/faq/IDW698) Non-HDL Cholesterol 195(H) <130 mg/dL (calc) [facility] Comment: For patients with diabetes plus 1 major ASCVD risk ?? factor, treating to a non-HDL-C goal of <100 mg/dL ?? (LDL-C of <70 mg/dL) is considered a therapeutic ?? option. Triglycerides 182(H) <150 mg/dL [facility] 11/29/2020 10:0 1 AM EDT Jory Lala [facility] LAB BLOOD ORDERABLES Final Resul t [facility] [address] [place] [address], * THINPREP PAP (08/09/2020 2:03 PM EDT) [...] historic and ?? current clinical information. ?? Tool Or Die Drawing Checker : SEE COMMENT [facility] Comment: RK, CT(ASCP) CT screening location: [address] ??[address] Interpretation/R esult: Negative for intraepithelial lesion or malignancy. [facility] LMP: 07/29/20 [facility] Prev. BX: LEEP 2000 [facility] Prev. PAP: NIL 09/2015 [facility] SOURCE: None given [facility] Statement Of Adequacy: SEE COMMENT [facility] Comment: Satisfactory for evaluation. Endocervical/transformation zone component absent. 08/09/2020 2:03 PM EDT Yuly Mcfarlane [facility] LAB PATHOLOGY ORDERABLES Final Result [facility] [address] [place] [address], * HPV mRNA E6/E7 (08/09/2020 2:03 PM EDT) HPV nRNA E6/E7 Not Detected Not Detected [facility] Comment: Methodology: Intelligence Analyst-Mediated Amplification This assay detects E6/E7 viral messenger RNA (mRNA) from 14 high-risk HPV types (16,18,31,33,35,39,45,51,52,56,58,59,66,68). ? The analytical performance characteristics of this assay have been determined by [employer]. The modifications have not been cleared or approved by the FDA. This assay has been validated pursuant to the CLIA regulations and is used for clinical purposes. ?? For additional information, please refer to http://education.Avatrip.Melody Management/faq/KUU014u0 (This link if provided for information/ educational purposes only.) 08/09/2020 2:03 PM EDT us Yuly Manciayareli CN LAB BLOOD ORDERABLES Verena l Result [facility] [address] from Last 3 Months or Most Recently Relevant to Health Maintenance Insurance MEDICARE [facility] Care Teams Apprentice Stylist Relationship Specialty Start Date End Date Jory Lala ANP [address] [place] [address] PCP - General Family Medicine 11/28/20
--- OUTSIDE RECORDS SUMMARY | 2024-07-27 16:32 | XMS_ITS | Encounter Summary ---
Author Organization [employer] Address [address] [facility] [address] [place] [address] Care Team Providers Care Land Management Forester Name Role Phone Glendy Sutton Primary Care Provider [phone] Reason for Visit * Reason Comments Med Refill Encounter Details Date Type Department Care Team (Late st Contact Info) Description 04/02/2022 Refill [facility] [address] [place] [address] Glendy Sutton ANP [address] [place] [address] Anemia, unspecified type Social History Tobacco Use [...] Office Visit [facility] [address] [place] [address] Vishnu, Kerline, OD [address] [place] [address] documented as of this encounter Visit Diagnoses Diagnosis Anemia, unspecified type documented in this encounter Care Teams Land Management Forester Relationship Specialty Start Date End Date Glendy Sutton ANP [address] [place] [address] PCP - General Family Medicine 11/28/20 documented as of this encounter
--- OUTSIDE RECORDS SUMMARY | 2024-07-27 16:32 | XMS_ITS | Encounter Summary ---
Author Organization [employer] Address [address] [facility] 7t [place] [address] Care Team Providers Care Director Of Veterans Affairs Name Role Phone Glendy Sutton Primary Care Provider [phone] Reason for Visit * Reason Onset Date Comments PT1 06/15/2024 Encounter Details Date Type Department Care Team ([facility] st Contact Info) Description 06/15/2024 Telephone [facility] MEDICINE [address] [place] [address] Glendy Sutton ANP [address] [place] [address] PT1 Social History Tobacco Use Types Packs/Day [...] Yes Provider name or facility name: [id number] [place], [place] Escort needed: Y/N: No Do you have a wheelchair: Y/N: No (cane) If yes- Manual or electric: N/A Visits: (2x monthly) 2 of 2 Home Address verified: Y/N: Yes Provider name or facility name: [facility] Facility Address: [address] [place] [address] Escort needed: Y/N: No Do you have a wheelchair: Y/N: No (cane) If yes- Manual or electric: Visits: 2-3x monthly documented in this encounter Plan of Treatment Upcoming Encounters Date Type Department Care Team (Late st Contact Info) Description 10/01/2024 10:00 AM EDT Office Visit [facility] OPTOMETRY [address] [place] [address] Vishnu, Kerline, OD [address] [place] [address] documented as of this encounter Visit Diagnoses Not on filedocumented in this encounter Additional Health Concerns Assessment Noted Time PHQ-9 Depression Total Score: 4 12/11/19 24 9:48 AM EDT documented as of this encounter Care Teams Director Of Veterans Affairs Relationship Specialty Start Date End Date Glendy Sutton ANP [address] [place] [address] PCP - General Family Medicine 11/28/20 documented as of this encounter
--- OUTSIDE RECORDS SUMMARY | 2024-07-27 16:32 | XMS_ITS | Encounter Summary ---
Author Organization [email or web address] Address [address] [facility] 7t [place] [address] Care Team Providers Care Pasting Inspector Name Role Phone Glendy Sutton Primary Care Provider [phone] Encounter Details Date Type Department Care Team (Late st Contact Info) Description 05/14/2023 Orders Only [facility] MEDICINE [address] [place] [address] Glendy Sutton ANP [address] [place] [address] Social History Tobacco Use Types Packs/Day Years [...] 10/01/2024 10:00 AM EDT Office Visit [facility] OPTOMETRY [address] [place] [address] Kerline Mares, OD [address] [place] [address] documented as of this encounter Visit Diagnoses Not on filedocumented in this encounter Additional Health Concerns Assessment Noted Time PHQ-9 Depression Total Score: 0 10/04/19 23 9:29 AM EDT documented as of this encounter Care Teams Pasting Inspector Relationship Specialty Start Date End Date Glendy Stuton ANP [address] [place] [address] PCP - General Family Medicine 11/28/20 documented as of this encounter
--- OUTSIDE RECORDS SUMMARY | 2024-07-27 16:32 | XMS_ITS | Encounter Summary ---
Author Organization [employer] Address [address] [facility] 7t [place] [address] Care Team Providers Care Pet Crematory Worker Name Role Phone Glendy Sutton Primary Care Provider [phone] Reason for Visit * Reason Onset Date Comments Results 02/19/2023 Encounter Details Date Type Department Care Team ([facility] Contact Info) Description 02/19/2023 Telephone [facility] MEDICINE [address] [place], [place] [phone] Glendy Sutton ANP [address] [place] [address] Results Social History Tobacco Use Types Packs/Day [...] t he electric, gas, oil or water [employer] threatened to shut off services in your [...] last night and she was evaluated in [facility] ED. States she left ED prior to [...] 03/04/23 at 11:15a. Agrees to come to [facility] for evaluation if symptoms return. Advised request has been sent to ordering provider [facility] RN will attempt to obtain [facility] ED records. * Telephone Encounter - Anju Hawley - 02/19/2023 11:36 AM EST Tc from pt requesting a call in regards to lab results done yesterday (02/18). Please contact pt at [phone] documented in this encounter Plan of Treatment Upcoming Encounters Date Type Department Care Team ([facility] st Contact Info) Description 10/01/2024 10:00 AM EDT Office Visit [facility] OPTOMETRY [address] [place] [address] Kerline Mares, OD [address] [place] [address] documented as of this encounter Visit Diagnoses Not on filedocumented in this encounter Additional Health Concerns Assessment Noted Time PHQ-9 Depression Total Score: 0 10/04/19 23 9:29 AM EDT documented as of this encounter Care Teams Pet Crematory Worker Relationship Specialty Start Date End Date Glendy Sutton ANP [address] [place] [address] PCP - General Family Medicine 11/28/20 documented as of this encounter
--- OUTSIDE RECORDS SUMMARY | 2024-07-27 16:32 | XMS_ITS | Encounter Summary ---
Author Organization [employer] Address [address] [facility] 7[address] [place] [address] Care Team Providers Care Retail Leasing Agent Name Role Phone Glendy Sutton Primary Care Provider [phone] Encounter Details Date Type Department Care Team (Late st Contact Info) Description 03/20/2022 Orders Only [facility] CHC MED & PEDS [address] [place] [address] Rachael Holguin LPN Social History Tobacco Use [...] Description 10/01/2024 10:00 AM EDT Office Visit [facility] OPTOMETRY [address] [place] [address] Kerline Mares, OD [address] [place] [address] documented as of this encounter Visit Diagnoses Not on filedocumented in this encounter Care Teams Retail Leasing Agent Relationship Specialty Start Date End Date Glendy Sutton ANP [address] [place] [address] PCP - General Family Medicine 11/28/20 documented as of this encounter
--- OUTSIDE RECORDS SUMMARY | 2024-07-27 16:32 | XMS_ITS | Encounter Summary ---
Author Organization [employer] Address [address] [facility] 7[address] [place] [address] Care Team Providers Care Commission Sales Associate Name Role Phone Glendy Sutton Primary Care Provider [phone] Reason for Visit * Reason Onset Date Comments Nurse Triage 07/08/2023 Encounter Details Date Type Department Care Team ([facility] st Contact Info) Description 07/08/[address] [facility] MEDICINE [address] [place] [address] Glendy Sutton ANP [address] [place] [address] Nurse Triage Social History Tobacco Use Types [...] No answer LVM to return call to [facility] triage line [phone]. * Telephone Encounter - Sherri Carrillo - [...] Visit [facility] OPTOMETRY [address] [place] [address] Vishnu, Kerline, OD [address] [place] [address] documented as of this encounter Visit Diagnoses Not on filedocumented in this encounter Additional Health Concerns Assessment Noted Time PHQ-9 Depression Total Score: 0 10/04/19 23 9:29 AM EDT documented as of this encounter Care Teams Commission Sales Associate Relationship Specialty Start Date End Date Glendy Sutton ANP [address] [place] [address] PCP - General Family Medicine 11/28/20 documented as of this encounter
--- OUTSIDE RECORDS SUMMARY | 2024-07-27 16:32 | XMS_ITS | Encounter Summary ---
Author Organization [employer] Address [address] [facility] [address] [place] [address] Care Team Providers Care Buggyman Name Role Phone Glendy Sutton Primary Care Provider [phone] Reason for Visit * Reason Onset Date Comments Hospital Follow-up 02/24/2024 Encounter Details Date Type Department Care Team ([facility] st Contact Info) Description 02/24/2024 Telephone [facility] MEDICINE [address] [place], [place] [phone] Glendy Sutton ANP [address] [place], [place] [phone] Hospital Follow-up Social History Tobacco Use Types [...] from pt requesting a HDF appt. Hospital: [facility] Date of admission: 02/15 Discharge date: 02/17 Diagnosed: Crisis, Dehydrated, Kidney Damage. Contact pt at [phone] *Send message to [facility] Care Coordinators documented in this encounter Plan of Treatment Upcoming Encounters Date Type Department Care Team (Late st Contact Info) Description 10/01/2024 10:00 AM EDT Office Visit [facility] OPTOMETRY [address] [place] [address] Kerline Mares, OD [address] [place] [address] documented as of this encounter Visit Diagnoses Not on filedocumented in this encounter Additional Health Concerns Assessment Noted Time PHQ-9 Depression Total Score: 4 12/11/19 24 9:48 AM EDT documented as of this encounter Care Teams Buggyman Relationship Specialty Start Date End Date Glendy Sutton ANP [address] [place] [address] PCP - General Family Medicine 11/28/20 documented as of this encounter
--- OUTSIDE RECORDS SUMMARY | 2024-07-27 16:32 | XMS_ITS | Encounter Summary ---
Author Organization [employer] Address [address] [facility] [address] [place] [address] Care Team Providers Care Rayon Coner Name Role Phone Glendy Sutton Primary Care Provider [phone] Reason for Visit * Reason Onset Date Comments Requested Call Back 07/23/2022 Encounter Details Date Type Department Care Team ([facility] st Contact Info) Description 07/23/2022 Telephone [facility] MEDICINE [address] [place] [address] Glendy Sutton ANP [address] [place] [address] Requested Call Back Social History Tobacco Use [...] status on US order. Please contact at [phone] * Telephone Encounter - Licha Flor - 07/23/2022 12:31 PM EDT Tc from patient calling in regards to US order for left ovary. States [facility] doesn't have one. Hot Dimpling Machine Operator didn't see the order. documented in this encounter Plan of Treatment Upcoming Encounters Date Type Department Care Team (Late st Contact Info) Description 10/01/2024 10:00 AM EDT Office Visit [facility] OPTOMETRY [address] [place], [place] [phone] Kerline Mares, ILIR [address] [place] [address] documented as of this encounter Visit Diagnoses Not on filedocumented in this encounter Care Teams Rayon Coner Relationship Specialty Start Date End Date Glendy Sutton ANP [address] [place], [place] [phone] PCP - General Family Medicine 11/28/20 documented as of this encounter
--- OUTSIDE RECORDS SUMMARY | 2024-07-27 16:32 | XMS_ITS | Encounter Summary ---
Author Organization [employer] Address [address] [facility] [address] [place] [address] Care Team Providers Care Track Inspecting Supervisor Name Role Phone Glendy Sutton Primary Care Provider [phone] Reason for Visit * Reason Onset Date Comments Nurse Triage 07/27/2024 Encounter Details Date Type Department Care Team ([facility] st Contact Info) Description 07/27/2024 Telephone [facility] MEDICINE [address] [place] [address] Glendy Sutton ANP [address] [place] [address] Nurse Triage Social History Tobacco Use Types [...] encounter Miscellaneous Notes * Telephone Encounter - Mi Valderrama RN - 07/27/2024 1:11 PM EDT Call returned to Laila Ortiz to triage below. Reports having lower leg edema and pain bilateral. No redness. No weeping fluid. Reports having swelling of hands and face. Pt also having SOB. Pt states that having bilatearl foot pain but not sure if related to fibromyalgia or as result of swelling. Pt advised of dispiosition, refusing to have this entry writer to call EMS for ER transport. States does not want to have police in the home. Pt advised if calls 911 for ambulance unless their is concern for safety only Paramedics to be dispatched. Pt again declines to call self or have entry writer [email or web address]. Pt advised of risks of not receiving prompt medical attention. Pt advised again that strongly recommend ER , if does not want to call EMS to go by private vehicle. Will forward note to PCP and team to update and follow up with pt PRN. Protocol Used: Leg Swelling and Edema (Adult) Protocol-Based Disposition: Go to Office or Video Visit Now Positive Triage Questions: * Thigh, calf, or ankle swelling in both legs, but one side is definitely more swollen (Exception: Longstanding difference between legs.) * Difficulty breathing with exertion AND new-onset or getting worse * All higher-acuity triage questions were negative * Telephone Encounter - Boubacar Correia - 07/27/2024 12:53 PM EDT Symptom: Leg Swelling - Not From Injury Outcome: Schedule an urgent appointment (within 1 hour) or talk to a nurse or provider soon Reason: Severe leg pain now The caller accepted this outcome. Pt reports medication no longer working for the past 2x weeks documented in this encounter Plan of Treatment Upcoming Encounters Date Type Department Care Team (Late st Contact Info) Description 10/01/2024 10:00 AM EDT Office Visit [facility] OPTOMETRY [address] [place], [place] [phone] Kerline Mares, ILIR [address] [place] [address] documented as of this encounter Visit Diagnoses Not on filedocumented in this encounter Additional Health Concerns Assessment Noted Time PHQ-9 Depression Total Score: 4 12/11/19 24 9:48 AM EDT documented as of this encounter Care Teams Track Inspecting Supervisor Relationship Specialty Start Date End Date Glendy Sutton ANP [address] [place], [place] [phone] PCP - General Family Medicine 11/28/20 documented as of this encounter
[2024-07-27 17:43] VITALS: BP 109/59; PULSE 88; RESP 16; TEMP 37.2; O2SAT 96
== END 2024-07-27 17:44 | disposition home or self-care (01) ==
PROVIDERS: Emergency Provider Student in an Organized Health Care Education/Training Program; PCP Nurse Practitioner Primary Care
DX: M79.604 Pain in right leg (principal); G89.29 Other chronic pain; F17.210 Nicotine dependence, cigarettes, uncomplicated
CPT/HCPCS: 36415; 80048; 85025; 93971; 99284

== ENCOUNTER → 2024-07-27 16:27 | Outpatient (BNV) | payer MEDICARE, MEDICAID, SELFPAY | PROVIDERS: Emergency Provider Student in an Organized Health Care Education/Training Program; PCP Nurse Practitioner Primary Care; Visit Provider Radiology Diagnostic Radiology | DX: M79.661 Pain in right lower leg (principal) | CPT/HCPCS: 93971 ==

== ENCOUNTER 2024-08-22 10:25 | Emergency (ER) | payer MEDICARE, MEDICAID, SELFPAY ==
--- NOTE | ~2024-08-22 | CT_ITS ---
CLINICAL HISTORY: abdominal pain CT Abdomen and Pelvis W Contrast COMPARISON: US/SR - US ABDOMEN COMPLETE - 03/21/23 09:[address]/REG/HI/SR - CT ABDOMEN PELVIS WO IV CON - 02/19/23 19:15 EST FINDINGS: Hepatomegaly. Normal spleen. Normal kidneys. Normal adrenal glands. Normal pancreas. No visible cholelithiasis. No biliary dilation. No evidence of bowel obstruction or colitis. No evidence of acute appendicitis. Physiologic distention of the bladder. Left ovarian cyst or prominent follicle measuring 3.7 cm (previously 4.7 cm when measured in the same way). The right ovary is not well visualized. Heterogeneous mass in the anterior uterine fundus measuring 3.8 cm (series 6, image 62), more conspicuous than on the prior study. No ascites. No pneumoperitoneum. No lymphadenopathy. No acute fracture. Degenerative changes in the spine. No abdominal aortic aneurysm. IMPRESSION: No acute findings. Left ovarian cyst or prominent follicle decreased from prior. Consider nonemergent pelvic ultrasound if indicated. More conspicuous anterior fundal uterine mass, possibly a fibroid. This could also be assessed on nonemergent ultrasound. Nonemergent/incidental findings above. This document has been electronically signed by: Emery Mathew MD on 08/22/2024 16:15:08
[2024-08-22 10:30] VITALS: BP 114/70; PULSE 88; RESP 18; TEMP 37.1; O2SAT 97; BMI 37.2
[2024-08-22 10:54] LABS: MANUAL DIFF FLAG NO
[2024-08-22 10:55] LABS: Basophils Percent Auto 0.5 % (0-2); Eosinophils Absolute Auto 0.1 X10*3/uL (0.0-0.4); Eosinophils Percent Auto 1.9 % (0-4); Hematocrit 37.9 % (37.0-47.0); Hemoglobin 12.4 g/dl (12.0-16.0); Imm Gran Abs Auto 0.04 X10*3/uL (0.00-0.03); Imm Gran Pct Auto 0.5 % (0.0-0.4); Lymphocytes Absolute Auto 1.8 X10*3/uL (1.2-4.9); Lymphocytes Percent Auto 23.6 % (20-40); Mean Corpuscular HGB Conc 32.7 g/dl (31.0-35.0); Mean Corpuscular Hemoglobin 29.5 pg (27.0-33.0); Mean Corpuscular Volume 90.2 fL (80.0-98.0); Mean Platelet Volume 9.8 fL (9.4-12.3); Monocytes Absolute Auto 0.3 X10*3/uL (0.1-1.2); Monocytes Percent Auto 4.5 % (2-11); Neutrophils Absolute Auto 5.1 x10*3/uL (2.0-8.3); Platelet Count 219 X10*3/uL (160-400); Red Cell Distribution Width 12.3 % (11.0-16.0); White Blood Count 7.4 X10*3/uL (4.8-10.8)
[2024-08-22 10:57] LABS: Appearance Urine Clear; Color Urine Yellow; Glucose Urine UA Negative (Negative); Leukocyte Esterase Urine Negative (Negative); Nitrite Urine Negative (Negative); PH 5.5 (5.0-9.0); UMIC TRIGGER UACC YES; UPreg QC Valid YES; Urine Blood Trace (Negative); Urine Ketones Negative (Negative); Urine Pregnancy NEGATIVE (NEGATIVE); Urine Protein Negative (Neg-Trace)
[2024-08-22 11:01] LABS: Bacteria Urine None Seen (None Seen); Hyaline Casts Urine 0-2 /LPF (0-2); Squamous Epithelial Cell Urine 0-2 /HPF (0-2); WBC Urine 0-5 /HPF (0-5)
[2024-08-22 11:13] LABS: Alanine Aminotransferase 18 U/L (0-31); Albumin Level 4.5 g/dL (3.5-5.0); Alkaline Phosphatase 72 U/L (39-117); Anion Gap 13 (12-20); Aspartate Amino Transferase 21 U/L (5-31); Bilirubin Direct 0.1 mg/dL (0.0-0.5); Bilirubin Total 0.3 mg/dL (0.0-1.0); Blood Urea Nitrogen 32 mg/dL (9-16); Calcium 9.6 mg/dL (8.4-10.2); Carbon Dioxide 24 mmol/L (22-29); Chloride 103 mmol/L (96-108); Creatinine Clr Calc Pharmacy 49.9; Estimated Glomerular Filt Rate 40; Glucose Random 87 mg/dL (60-115); Lipase 24 U/L (8-78); Potassium 4.6 mmol/L (3.3-5.1); Sodium 135 mmol/L (135-145); Total Protein 8.2 g/dL (6.5-8.0)
[2024-08-22 12:31] LABS: HCG Quantitative < 2 mIU/mL
--- NOTE | 2024-08-22 13:59 | ED_ITS ---
HPI - Abdominal Pain General Chief Complaint: Abdominal Pain Stated Complaint: ovary pain Time Seen by Provider: 08/22/24 13:46 Source: patient Mode of arrival: ambulatory Limitations: no limitations History of Present Illness ED Provider: HPI narrative: Patient with a history of fibromyalgia, reports some type of ovarian pain likely due to ovarian cysts, history of tubal ligation, no vaginal bleeding or discharge no fevers or chills presenting with right lower quadrant abdominal pain for the past 3 days. No obstipation reported. Related Data Home Medications ?Medication ?Instructions ?Recorded ?Confirmed duloxetine 60 mg capsule,delayed 60 mg PO BID 04/16/21 06/22/24 release hydrochlorothiazide 25 mg tablet 25 mg PO DAILY 04/16/21 06/22/24 lamotrigine 200 mg tablet 200 mg PO DAILY 04/16/21 06/22/24 lamotrigine 25 mg tablet,extended 25 mg PO DAILY 04/16/21 06/22/24 release 24 hr cholecalciferol (vitamin D3) 1,250 1,250 mcg PO QWEEK 01/30/22 06/22/24 mcg (50,000 unit) capsule pregabalin 75 mg capsule 150 mg PO BID 01/15/23 06/22/24 clonazepam 1 mg tablet 1 mg PO BID 06/14/24 06/22/24 hydroxyzine HCl 50 mg tablet 50 mg PO TID 06/14/24 06/22/24 lisinopril 20 1 tab PO DAILY 06/14/24 06/22/24 mg-hydrochlorothiazide 25 mg tablet zolpidem 10 mg tablet 10 mg PO BEDTIME PRN 06/14/24 06/22/24 prazosin 1 mg capsule mg PO 06/22/24 06/22/24 pregabalin 200 mg capsule 200 mg PO TID 06/22/24 06/22/24 quetiapine 100 mg tablet mg PO 06/22/24 06/22/24 lamotrigine 100 mg tablet 100 mg PO DAILY 06/24/24 (Lamictal) Previous Rx's ?Medication ?Instructions ?Recorded furosemide 20 mg tablet 20 mg PO QAM PRN Edema #7 tabs 02/10/23 metoprolol succinate 25 mg 25 mg PO DAILY #30 tabs 04/26/24 tablet,extended release 24 hr sennosides 8.6 mg tablet (senna) 17.2 mg (2 x 8.6 mg) PO BEDTIME 05/31/24 for constipation #180 tabs oxycodone 5 mg tablet 5 mg PO Q6H PRN pain #15 tabs 06/06/24 docusate sodium 100 mg capsule 100 mg PO BEDTIME #90 caps 06/14/24 esomeprazole magnesium 40 mg 40 mg PO DAILY #30 caps 06/14/24 capsule,delayed release (Nexium) sucralfate 100 mg/mL oral 10 ml PO BID #1,000 mL 06/14/24 suspension diclofenac sodium 1 % topical gel 4 g topical QID #100 grams 06/24/24 Allergies Allergy/AdvReac Type Severity Reaction Status Date / Time cat dander [CATS] Allergy Intermediate Itching Verified 08/22/24 10:31 haloperidol [From HALDOL] Allergy Intermediate SWELLING, Verified 08/22/24 10:31 hives risperidone [From RISPERDAL] Allergy Intermediate HIVES, Verified 08/22/24 10:31 swelling shrimp Allergy Intermediate Swelling Verified 08/22/24 10:31 COCKROACHES Allergy Intermediate Itching Uncoded 08/22/24 10:31 Review of Systems Constitutional: Reports as per [facility] Past Medical History Medical History PMR (polymyalgia rheumatica) Knee pain, bilateral Low back pain Ambulates with cane Hx of malignant neoplasm of kidney History of seizure Bipolar disorder Anxiety and depression Fibromyalgia High cholesterol Surgical History History of esophagogastroduodenoscopy (EGD) Hx of colonoscopy History of loop electrical excision procedure (LEEP) History of carpal tunnel surgery of right wrist History of bilateral tubal ligation Family History Family History Mother Kidney failure Diabetes COPD (chronic obstructive pulmonary disease) Heart disease Father Colon cancer Social History Social History Are you a primary care professionals to a significant other at home: No Do you presently have visiting nurse or other home services: No Alcohol intake: never Patient Tobacco Use Status: Current everyday Tobacco user Tobacco use type: Cigarette Cigarettes Per Day: 3 Advance Directives: No Advance Directives Information Provided: No Do you have a plan to hurt others: No Plan service: No Current occupational status: disabled Physical Exam ED Vital Signs: Vital Signs - 24 hr 08/22/24 10:30 08/22/24 15:01 Temperature 98.7 F 97.9 F Pulse Rate 88 72 Respiratory Rate 18 16 Blood Pressure 114/70 106/73 Pulse Oximetry 97 96 Oxygen Delivery Method Room Air Room Air BMI result Body Mass Index 37.2 Const Other: * Gen: ?Overall well-appearing patient * HEENT: PERRLA, EOMI, MMM, * Neck: Supple, no LAD * CV: RRR, no obvious murmurs appreciated * Resp: ?No wheezing rales rhonchi no stridor moving air well * Abd: ?Bowel sounds are present, right lower quadrant tenderness no rebound no rigidity * MSK: FROM, strength 5/5 all extremities * Skin: Warm, dry, intact, * Neuro: ?Alert and oriented x3, moving upper and lower extremities symmetrically, no obvious facial asymmetry noted Medical Decision Making Medical Decision Making [facility] Narrative: We will obtain imaging to evaluate for the following, we will medicate for pain we will re-evaluate, disposition to be determined. 17:04 patient re-evaluated, she is feeling better I discussed CT findings with her, as far as CT report she is not having any CT findings to suspect underlying ovarian torsion, symptoms and exam has improved, she has had this in the past, primarily was obtaining CT to evaluate for appendicitis and there were no obvious significant ovarian masses Differential Diagnosis Differential Diagnoses: The differential diagnosis associated with the presentation includes Appendicitis, colitis, ovarian cysts, ovarian torsion, SBO Admission/Observation Consideration of admission/observation: Escalation of care including admission/observation considered Lab Data [facility] Lab Attestation statement: I reviewed the patient's lab results. 08/22/24 10:49 08/22/24 10:49 Labs: Lab Results 08/22/24 Range/Units 10:49 WBC 7.4 (4.8-10.8) X10*3/uL RBC 4.20 (4.20-5.50) X10*6/uL Hgb 12.4 (12.0-16.0) g/dl Hct 37.9 (37.0-47.0) % MCV 90.2 (80.0-98.0) fL MCH 29.5 (27.0-33.0) pg MCHC 32.7 (31.0-35.0) g/dl RDW 12.3 (11.0-16.0) % Plt Count 219 (160-400) X10*3/uL MPV 9.8 (9.4-12.3) fL Immature Gran % (Auto) 0.5 H (0.0-0.4) % Neut % (Auto) 69.0 (45-73) % Lymph % (Auto) 23.6 (20-40) % [place] % (Auto) 4.5 (2-11) % Eos % (Auto) 1.9 (0-4) % Baso % (Auto) 0.5 (0-2) % Lymph # (Auto) 1.8 (1.2-4.9) X10*3/uL [place] # (Auto) 0.3 (0.1-1.2) X10*3/uL Eos # (Auto) 0.1 (0.0-0.4) X10*3/uL Baso # (Auto) 0.0 (0.0-0.2) X10*3/uL Abs Immat Gran (auto) 0.04 H (0.00-0.03) X10*3/uL Absolute Neuts (auto) 5.1 (2.0-8.3) x10*3/uL Absolute Nucleated RBC 0.000 (0.0-0.012) X10*3/uL Nucleated RBC % (auto) 0.0 (0.0-0.2) /100WBC Sodium 135 (135-145) mmol/L Potassium 4.6 (3.3-5.1) mmol/L Chloride 103 (96-108) mmol/L Carbon Dioxide 24 (22-29) mmol/L Anion Gap 13 (12-20) BUN 32 H (9-16) mg/dL Creatinine 1.40 (0.5-1.4) mg/dL Estim Creat Clear Calc 49.9 Estimated GFR 40 Random Glucose 87 (60-115) mg/dL Calcium 9.6 (8.4-10.2) mg/dL Total Bilirubin 0.3 (0.0-1.0) mg/dL Direct Bilirubin 0.1 (0.0-0.5) mg/dL AST 21 (5-31) U/L ALT 18 (0-31) U/L Alkaline Phosphatase 72 (39-117) U/L Total Protein 8.2 H (6.5-8.0) g/dL Albumin 4.5 (3.5-5.0) g/dL Lipase 24 (8-78) U/L Beta HCG, Quant < 2 mIU/mL Urine Color Yellow Urine Appearance Clear Urine pH 5.5 (5.0-9.0) Ur Specific [place] 1.010 (1.005-1.025) Urine Protein Negative (Neg-Trace) mg/dL Urine Glucose (UA) Negative (Negative) mg/dL Urine Ketones Negative (Negative) mg/dL Urine Blood Trace H (Negative) Urine Nitrite Negative (Negative) Ur Leukocyte Esterase Negative (Negative) Urine RBC 3-5 H (0-2) /HPF Urine WBC 0-5 (0-5) /HPF Ur Squamous Epith Cells 0-2 (0-2) /HPF Urine Bacteria None Seen (None Seen) Hyaline Casts 0-2 (0-2) /LPF Urine Test NEGATIVE (NEGATIVE) Radiology Impression Discussion of test interpretation with radiology: I have reviewed the radiologist's reading. Radiologist Impression: No acute findings. Left ovarian cyst or prominent follicle decreased from prior. Consider nonemergent pelvic ultrasound if indicated. More conspicuous anterior fundal uterine mass, possibly a fibroid. This could also be assessed on nonemergent ultrasound. Nonemergent/incidental findings above. Medications Administered Discontinued Medications Generic Name Dose Route Start Last Admin Trade Name Sesarq PRN Reason Stop Dose Admin Iohexol 100 ml 08/22/24 15:16 08/22/24 15:16 Iohexol 350 Mg/Ml 100 Ml Infus..Btl IV 08/22/24 15:17 85 ml ONCE ONE Administration Ketorolac Tromethamine 15 mg 08/22/24 14:03 08/22/24 15:17 Ketorolac Tromethamine 15 Mg/Ml Vial IVPUSH 08/22/24 14:04 15 mg ONCE ONE Administration Morphine Sulfate 4 mg 08/22/24 14:03 08/22/24 15:17 Morphine Sulfate 4 Mg/Ml Cartridge IVPUSH 08/22/24 14:04 4 mg ONCE ONE Administration Protocol Discharge Plan Discharge Clinical Impression: Cyst of left ovary Patient Disposition: Home, Self-Care Additional Instructions: Evaluated with lower quadrant abdominal pain, you do have left ovarian cyst and follicles which actually decreased from prior CAT so that you have had, you also have a uterine mass that is appearing to be a fibroid, these findings can be further followed with a nonemergent ultrasounds bio keyseater operator, for pain I would like you to use warm compresses, and [id number] Tylenol and ibuprofen, the rest of the workup has been reassuring, any other issues concerns come back to the ER Prescriptions: No Action furosemide 20 mg tablet 20 mg PO QAM PRN (Reason: Edema) Qty: 7 0RF metoprolol succinate 25 mg tablet extended release 24 hr 25 mg PO DAILY Qty: 30 0RF Rx Instructions: If you are not returning to cardiology, please have pcp fill scripts. If you are then please make a follow up appointment to continue refills. Any questions please call. [phone] option 1 sennosides [senna] 8.6 mg tablet 17.2 mg PO BEDTIME Qty: 180 3RF pregabalin 75 mg capsule 150 mg PO BID oxycodone 5 mg tablet 5 mg PO Q6H PRN (Reason: pain) Qty: 15 0RF Rx Instructions: partial filing upon pt request; Partial Fill upon patient request. hydrochlorothiazide 25 mg tablet 25 mg PO DAILY duloxetine 60 mg capsule,delayed release(DR/EC) 60 mg PO BID lamotrigine 25 mg tablet extended release 24hr 25 mg PO DAILY Patient Comments: total dose 225 q am lamotrigine 200 mg tablet 200 mg PO DAILY Patient Comments: total dose 225 q am cholecalciferol (vitamin D3) 1,250 mcg (50,000 unit) capsule 1,250 mcg PO QWEEK lamotrigine [Lamictal] 100 mg tablet 100 mg PO DAILY diclofenac sodium 1 % gel 4 g topical QID Qty: 100 5RF Rx Instructions: apply to affected area every 4-6 hours PRN lisinopril-hydrochlorothiazide 20-25 mg tablet 1 tab PO DAILY clonazepam 1 mg tablet 1 mg PO BID hydroxyzine HCl 50 mg tablet 50 mg PO TID zolpidem 10 mg tablet 10 mg PO BEDTIME PRN docusate sodium 100 mg capsule 100 mg PO BEDTIME Qty: 90 3RF sucralfate 100 mg/mL suspension 10 ml PO BID Qty: 1000 0RF Rx Instructions: At 14:00 and at bedtime esomeprazole magnesium [Nexium] 40 mg capsule,delayed release(DR/EC) 40 mg PO DAILY Qty: 30 3RF pregabalin 200 mg capsule 200 mg PO TID quetiapine 100 mg tablet PO prazosin 1 mg capsule PO Print Language: Italian
[2024-08-22 15:01] VITALS: BP 106/73; PULSE 72; RESP 16; TEMP 36.6; O2SAT 96
[2024-08-22] MEDS: iohexoL 350 MG/ML 100 ML INFUS..BTL IV (15:16)
[2024-08-22] MEDS: Ketorolac Tromethamine 15 MG/ML VIAL IVPUSH (15:17)
[2024-08-22] MEDS: Morphine Sulfate 4 MG/ML CARTRIDGE IVPUSH (15:17)
--- NOTE | 2024-08-22 17:11 | PC.NURSE ---
Pt ripped out IV on her own and refused to wait for discharge paperwork. Stated doctor already told her what she needed to do and did not want to wait to sign
[2024-08-22 17:13] VITALS: BP 106/73; PULSE 72; RESP 16; TEMP 36.6; O2SAT 96
== END 2024-08-22 17:13 | disposition home or self-care (01) ==
PROVIDERS: Physician Assistant; Emergency Provider Emergency Medicine; PCP Nurse Practitioner Primary Care
DX: N83.202 Unspecified ovarian cyst, left side (principal); R10.31 Right lower quadrant pain; F17.210 Nicotine dependence, cigarettes, uncomplicated; Z98.51 Tubal ligation status; Z79.899 Other long term (current) drug therapy
CPT/HCPCS: 36415; 74177; 80048; 80076; 81001; 81025; 83690; 84702; 85025; 96374; 96375; 99284; J1885; J2270; Q9967

== ENCOUNTER → 2024-08-22 14:04 | Outpatient (BNV) | payer MEDICARE, MEDICAID, SELFPAY | PROVIDERS: Emergency Provider Emergency Medicine; PCP Nurse Practitioner Primary Care; Visit Provider Radiology Diagnostic Radiology | DX: N83.202 Unspecified ovarian cyst, left side (principal) | CPT/HCPCS: 74177 ==

== ENCOUNTER 2024-08-30 10:37 | Outpatient (AMB) | payer MEDICARE, MEDICAID, SELFPAY ==
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
[2024-08-30 10:54] VITALS: BMI 37.2
--- OUTSIDE RECORDS SUMMARY | 2024-08-30 11:55 | XMS_ITS | Encounter Summary ---
Author Organization [facility] Address [address] [facility] [address] [place] [address] Care Team Providers Care Wire Border Assembler Name Role Phone Glendy Sutton Primary Care Provider [phone] Reason for Visit * Reason Onset Date Comments PT-1 05/04/2024 Encounter Details Date Type Department Care Team ([facility] st Contact Info) Description 05/04/2024 Telephone [facility] MEDICINE [address] [place], [place] [phone] Glendy Sutton ANP [address] [place] [address] PT-1 Social History Tobacco Use Types Packs/Day [...] Y/N: Yes Provider name or facility name: [facility] Facility Address: [address] [facility] Escort needed: Y/N: No Do you have a wheelchair: Y/N: No If yes- Manual or electric: Visits: 2-3 visits a month 2.)Home Address verified: Y/N: Yes Provider name or facility name: [facility] ([place]) Facility Address: [address] [place] [address] [address] [place] [address] Escort needed: Y/N: No Do you have a wheelchair: Y/N: No If yes- Manual or electric: Visits: Once a month 3.)Home Address verified: Y/N: Yes Provider name or facility name: [facility] (labs , [place], [place]) Facility Address: [address] [place] [address] Escort needed: Y/N: No Do you have a wheelchair: Y/N: No If yes- Manual or electric: Visits: 2-3 x a month documented in this encounter Plan of Treatment Upcoming Encounters Date Type Department Care Team ([facility] st Contact Info) Description 10/01/2024 10:00 AM EDT Office Visit [facility] OPTOMETRY [address] [place] [address] Kerline Mares, OD [address] [place] [address] 10/26/2024 11:30 AM EDT Office Visit [facility] MEDICINE [address] [place] [address] Glendy Sutton ANP [address] [place] [address] documented as of this encounter Visit Diagnoses Not on filedocumented in this encounter Additional Health Concerns Assessment Noted Time PHQ-9 Depression Total Score: 4 12/11/19 24 9:48 AM EDT documented as of this encounter Care Teams Wire Border Assembler Relationship Specialty Start Date End Date Glendy Sutton ANP [address] [place] [address] PCP - General Family Medicine 11/28/20 documented as of this encounter
== END 2024-08-30 11:59 | disposition home or self-care (01) ==
LOC: HO.HOS 10:38
PROVIDERS: PCP Nurse Practitioner Primary Care; Visit Provider Physician Assistant
DX: M77.8 Other enthesopathies, not elsewhere classified (principal)
CPT/HCPCS: 99203; G2211

== ENCOUNTER → 2024-08-30 10:37 | Outpatient (BNVA) | payer MEDICARE, MEDICAID, SELFPAY | PROVIDERS: PCP Nurse Practitioner Primary Care; Visit Provider Physician Assistant | DX: M77.8 Other enthesopathies, not elsewhere classified (principal) | CPT/HCPCS: 99202 ==

== ENCOUNTER 2024-09-08 09:05 | Outpatient (REF) | payer MEDICARE, MEDICAID, SELFPAY ==
--- NOTE | ~2024-09-08 | FL_ITS ---
EXAMINATION: XR FLUOROSCOPY UPPER GI SERIES CLINICAL INFORMATION: Patient complaining of globus sensation. GERD without esophagitis. COMPARISON: None TECHNIQUE: Fluoroscopic air contrast upper GI examination was performed utilizing standard techniques with thin and thick barium and effervescent granules. Numerous spot images were obtained. Several fluoroscopic image hold cine sequences were also obtained. FINDINGS: UPPER GI SERIES: Lateral cine images of the oropharynx and hypopharynx demonstrate normal swallow mechanism with normal epiglottic inversion and soft palate elevation. No laryngeal penetration, glottic or subglottic aspiration identified. No nasopharyngeal reflux present. Hypopharyngeal structures appear normal without evidence of mass or diverticulum. There was no significant cricopharyngeal achalasia. Dual and single contrast images of the esophagus demonstrate normal caliber, contour, and mucosal pattern. No evidence of stricture, mass, or ulcerations identified. Mildly disordered esophageal peristalsis was noted. Feline contraction pattern, indicating chronic reflux. Tiny type I hiatus hernia present. There was significant gastroesophageal reflux noted during the exam to the level of the thoracic inlet. Normal GE junction. Dual contrast and single contrast images of the stomach demonstrated normal contour and mucosal pattern without evidence of mass, ulceration, or other abnormality. Mildly thickened gastric rugal folds present, suggestive of mild gastritis. Contrast freely passed into the gastric antrum and duodenal bulb without delay. Single and air-contrast images of the duodenal bulb demonstrate no abnormality. The duodenal sweep has a normal appearance, course, and mucosal fold appearance. FLUOROSCOPY TIME: 2 minutes, 35 seconds Number of Spot Images:9 Number of cines obtained: 8 DOSE AREA PRODUCT: 3510 uGy-m2 (microgray-meter squared) FL/FL upper GI w air w Ba Swallow IMPRESSION: 1. Mildly disordered esophageal peristalsis. Feline contraction pattern, in keeping with chronic reflux. 2. No imaging explanation for globus sensation. 3. Gastroesophageal reflux present to the level of the thoracic inlet. 4. Tiny type I hiatus hernia. 5. Mildly thickened gastric rugal folds present, suggestive of mild gastritis. Electronically signed by: Enrique Vaca MD 09/08/2024 10:30 AM EDT
--- OUTSIDE RECORDS SUMMARY | 2024-09-08 09:51 | XMS_ITS | Encounter Summary ---
Author Organization [address] Address [address] [facility] [address] [place] [address] Care Team Providers Care Gate Shear Operator Name Role Phone Glendy Sutton Primary Care Provider [phone] Reason for Visit * Reason Onset Date Comments PT-1 05/04/2024 Encounter Details Date Type Department Care Team ([facility] st Contact Info) Description 05/04/2024 Telephone [facility] MEDICINE [address] [place], [place] [phone] Glendy Sutton ANP [address] [place] [address] PT-1 Social History Tobacco Use Types Packs/Day [...] Y/N: Yes Provider name or facility name: [facility] Facility Address: [address] [facility] Escort needed: Y/N: No Do you have a wheelchair: Y/N: No If yes- Manual or electric: Visits: 2-3 visits a month 2.)Home Address verified: Y/N: Yes Provider name or facility name: [facility] ([place]) Facility Address: [address] [place] [address] [address] [place] [address] Escort needed: Y/N: No Do you have a wheelchair: Y/N: No If yes- Manual or electric: Visits: Once a month 3.)Home Address verified: Y/N: Yes Provider name or facility name: [facility] (labs , [place], MRI) Facility Address: [address] [place] [address] Escort needed: Y/N: No Do you have a wheelchair: Y/N: No If yes- Manual or electric: Visits: 2-3 x a month documented in this encounter Plan of Treatment Upcoming Encounters Date Type Department Care Team ([facility] st Contact Info) Description 10/01/2024 10:00 AM EDT Office Visit [facility] OPTOMETRY [address] [place] [address] Kerline Mares, OD [address] [place] [address] 10/26/2024 11:30 AM EDT Office Visit [facility] MEDICINE [address] [place] [address] Glendy Sutton ANP [address] [place] [address] documented as of this encounter Visit Diagnoses Not on filedocumented in this encounter Additional Health Concerns Assessment Noted Time PHQ-9 Depression Total Score: 4 12/11/19 24 9:48 AM EDT documented as of this encounter Care Teams Gate Shear Operator Relationship Specialty Start Date End Date Glendy Sutton ANP [address] [place] [address] PCP - General Family Medicine 11/28/20 documented as of this encounter
== END 2024-09-08 09:06 | disposition home or self-care (01) ==
LOC: HO.XRAY 09:05
PROVIDERS: PCP Nurse Practitioner Primary Care; Visit Provider Nurse Practitioner Family
DX: K21.9 Gastro-esophageal reflux disease without esophagitis (principal)
CPT/HCPCS: 74246

== ENCOUNTER → 2024-09-08 09:07 | Outpatient (BNV) | payer MEDICARE, MEDICAID, SELFPAY | PROVIDERS: PCP Nurse Practitioner Primary Care; Visit Provider Radiology Diagnostic Radiology | DX: K21.9 Gastro-esophageal reflux disease without esophagitis (principal); K44.9 Diaphragmatic hernia without obstruction or gangrene | CPT/HCPCS: 74246 ==

== ENCOUNTER 2024-09-14 09:31 | Outpatient (AMB) | payer MEDICARE, MEDICAID, SELFPAY ==
--- NOTE | 2024-09-14 09:33 | MHC.OFFVIS ---
Vital Signs 09/14/24 09:40 Height 5 ft 1 in Weight 198 lb BMI 37.4 BP 102/58 L Blood Pressure Location Rt brachial Position Sitting Pulse 84 Pulse Source Pulse Oximeter Pulse Oximetry (%) 97 Oxygen Delivery Method Room Air Intake Visit Reasons: 3 mo GERD Intake Note: Est pt for mgmt of GERD. Imaging 09/08. CC: Pt denies any GI sx changes or new concerns. Pt would like to review BA FL information and why it needs to be repeated in the fall. Hydraulic Operator Required: No Accompanied by: Self / Same As Patient Allergies cat dander (CATS) Allergy (Intermediate, Verified 09/14/24 09:33) Itching haloperidol (From HALDOL) Allergy (Intermediate, Verified 09/14/24 09:33) SWELLING, hives risperidone (From RISPERDAL) Allergy (Intermediate, Verified 09/14/24 09:33) HIVES, swelling shrimp Allergy (Intermediate, Verified 09/14/24 09:33) Swelling meloxicam Allergy (Mild, Verified 09/14/24 09:33) Swelling COCKROACHES Allergy (Intermediate, Uncoded 09/14/24 09:33) Itching HPI HPI 3 mo GERD: Details: LAST VISIT: GERD (gastroesophageal reflux disease) Epigastric discomfort Dysphagia Plan Patient will start taking Nexium every morning half an hour before breakfast. Continue taking sucralfate twice a day at 14:00 and at bedtime. Avoid dietary triggers and late night snacking. Staying upright for minimum 3 hours after meals discussed with patient. Patient will go for upper GI with barium swallow. Patient continues to smoke cigarettes. Smoking cessation advised. Follow-up in 3 months, sooner on as needed basis. Patient is agreeable to this plan and verbalizes understanding of instructions. She was given the opportunity to ask questions and all questions answered. ? Thank you for allowing me to participate in her care Orders FL upper GI w Ba Swallow Today K21.9 New esomeprazole magnesium (Nexium) 40 mg PO DAILY 30 caps 3RF K21.9 Changed Changed From sucralfate 10 mL PO DAILY Changed To sucralfate At 14:00 and at bedtime 10 mL PO BID 1,000 mL 0RF Refilled docusate sodium 100 mg PO BEDTIME 90 caps 3RF K59.00 Discontinued omeprazole Discontinued Reason: Doctor's Order 40 mg PO DAILY 90 caps 2RF K21.9 TODAY'S VISIT Patient is here today for follow-up and to discuss upper GI series with barium swallow results. Patient reports that she has been feeling well after starting her on Nexium and sucralfate. Patient denies dyspepsia, dysphagia or odynophagia. Patient reports that she is feeling much better since starting her on Nexium. Denies any GI concerning symptoms. Reports that she is moving her bowels without any issues. Patient is reporting body pain and feet pain. Patient has been seeing her PCP for this. Treated for fibromyalgia. [facility] Medical History PMR (polymyalgia rheumatica) Knee pain, bilateral Low back pain Ambulates with cane Hx of malignant neoplasm of kidney History of seizure Bipolar disorder Anxiety and depression Fibromyalgia High cholesterol Surgical History History of esophagogastroduodenoscopy (EGD) Hx of colonoscopy History of loop electrical excision procedure (LEEP) History of carpal tunnel surgery of right wrist History of bilateral tubal ligation Family History Mother Kidney failure Diabetes COPD (chronic obstructive pulmonary disease) Heart disease Father Colon cancer Social History Are you a primary personal care attendant to a significant other at home: No Do you presently have visiting nurse or other home services: No Alcohol intake: never Patient Tobacco Use Status: Current everyday Tobacco user Tobacco use type: Cigarette Cigarettes Per Day: 3 service: No Current occupational status: disabled Review of Systems Const Denies weight gain and Denies weight loss ENT Reports no additional complaints, Reports dysphagia and Denies odynophagia Card Reports no additional complaints Resp Reports no additional complaints GI Denies abdominal pain, Denies belching, Denies melena, Denies bloating, Denies change in bowel habits, Reports dysphagia, Denies excessive flatus, Denies dyspepsia, Reports heartburn, Denies diarrhea, Denies loose stools, Denies nausea, Denies odynophagia and Denies vomiting Reports no additional complaints Musc Reports no additional complaints Neuro Reports no additional complaints Psych Reports no additional complaints Endo Reports no additional complaints Physical Exam Vital Signs: Last Vital Signs Pulse 84 09/14/24 09:40 BP 102/58 L 09/14/24 09:40 Pulse Ox 97 09/14/24 09:40 Oxygen Delivery Method Room Air 09/14/24 09:40 BMI result Body Mass Index 37.4 Const General: healthy appearing, no acute distress and well developed Nutritional Appearance: well nourished Orientation/consciousness: patient oriented x3 Resp Effort & Inspection: normal respiratory effort, able to speak in complete sentences, no tracheal deviation and symmetric chest movement Auscultation: clear to auscultation bilaterally Cardio Rate: regular rate GI Inspection: Yes normal to inspection and No distended Palpation (GI): Soft to palpation, not firm, nontender and No hepatosplenomegaly present Auscultation: normal bowel sounds General: Yes no CVA tenderness Back/Spine/Pelvis Back: no CVA tenderness Skin General skin exam: elasticity normal, turgor normal and dry skin Neuro General: patient oriented x3 Psych Appearance: grossly normal Mental Status: mental status grossly normal Results Reviewed Results Reviewed: UPPER GI WITH BARIUM SWALLOW IMPRESSION: 1. Mildly disordered esophageal peristalsis. Feline contraction pattern, in keeping with chronic reflux. 2. No imaging explanation for globus sensation. 3. Gastroesophageal reflux present to the level of the thoracic inlet. 4. Tiny type I hiatus hernia. 5. Mildly thickened gastric rugal folds present, suggestive of mild gastritis. Assessment & Plan Assessment & Plan (1) Gastroesophageal reflux disease: Code(s): K21.9 - Gastro-esophageal reflux disease without esophagitis Qualifiers: Esophagitis presence: esophagitis presence not specified Qualified Code(s): K21.9 - Gastro-esophageal reflux disease without esophagitis (2) Epigastric discomfort: Code(s): R10.13 - Epigastric pain (3) Dysphagia: Code(s): R13.10 - Dysphagia, unspecified Qualifiers: Dysphagia type: pharyngoesophageal phase Qualified Code(s): R13.14 - Dysphagia, pharyngoesophageal phase Plan Continue Nexium and sucralfate. Avoid dietary triggers and late night snacking. Staying upright for minimum 3 hours after meals discussed with patient. Upper GI with barium swallow discussed with patient. Patient is having less trouble feeling like food is getting stuck in her throat. Looks like reflux is well controlled now. Continue current therapy. Follow-up in the office in 6 months, sooner on as needed basis. She is agreeable to this plan and verbalizes understanding of instructions. She was given the opportunity to ask questions and all questions answered. Thank you for allowing me to participate in her care Coding Level of Care Code Est Pt Level 3 (32771) Diagnoses Gastroesophageal reflux disease, unspecified whether esophagitis present K21.9 Esophagitis presence: esophagitis presence not specified Epigastric discomfort R10.13 Pharyngoesophageal dysphagia R13.14 Dysphagia type: pharyngoesophageal phase Time Spent (min) 30 Comment 20 minutes spent with patient and additional 10 minutes spent reviewing her records
[2024-09-14 09:40] VITALS: BP 102/58; PULSE 84; O2SAT 97; BMI 37.4
--- OUTSIDE RECORDS SUMMARY | 2024-09-14 10:13 | XMS_ITS | Encounter Summary ---
Author Organization [employer] Address [address] [facility] [address] [facility] [place] [address] Care Team Providers Care Hand Box Folder Name Role Phone Glendy Sutton Primary Care Provider [phone] Reason for Visit * Reason Onset Date Comments PT-1 05/04/2024 Encounter Details Date Type Department Care Team ([facility] st Contact Info) Description 05/04/2024 Telephone [facility] MEDICINE [address] [place], [place] [phone] Glendy Sutton ANP [address] [place] [address] PT-1 Social History Tobacco Use Types Packs/Day [...] Y/N: Yes Provider name or facility name: [facility] Facility Address: [address] [facility] Escort needed: Y/N: No Do you have a wheelchair: Y/N: No If yes- Manual or electric: Visits: 2-3 visits a month 2.)Home Address verified: Y/N: Yes Provider name or facility name: [facility] ([place]) Facility Address: [address] [place] [address] [address] [place] [address] Escort needed: Y/N: No Do you have a wheelchair: Y/N: No If yes- Manual or electric: Visits: Once a month 3.)Home Address verified: Y/N: Yes Provider name or facility name: [facility] ([facility] , [place] [place]) Facility Address: [address] [place] [address] Escort needed: Y/N: No Do you have a wheelchair: Y/N: No If yes- Manual or electric: Visits: 2-3 x a month documented in this encounter Plan of Treatment Upcoming Encounters Date Type Department Care Team ([facility] st Contact Info) Description 10/01/2024 10:00 AM EDT Office Visit [facility] OPTOMETRY [address] [place] [address] Kerline Mares, OD [address] [place] [address] 10/26/2024 11:30 AM EDT Office Visit [facility] MEDICINE [address] [place] [address] Glendy Sutton ANP [address] [place] [address] documented as of this encounter Visit Diagnoses Not on filedocumented in this encounter Additional Health Concerns Assessment Noted Time PHQ-9 Depression Total Score: 4 12/11/19 24 9:48 AM EDT documented as of this encounter Care Teams Hand Box Folder Relationship Specialty Start Date End Date Glendy Sutton ANP [address] [place] [address] PCP - General Family Medicine 11/28/20 documented as of this encounter
== END 2024-09-14 09:54 | disposition home or self-care (01) ==
LOC: HO.HGI 09:32
PROVIDERS: PCP Nurse Practitioner Primary Care; Visit Provider Nurse Practitioner Family
DX: K21.9 Gastro-esophageal reflux disease without esophagitis (principal); R10.13 Epigastric pain; R13.14 Dysphagia, pharyngoesophageal phase
CPT/HCPCS: 99213

== ENCOUNTER → 2024-09-14 09:31 | Outpatient (BNVA) | payer MEDICARE, MEDICAID, SELFPAY | PROVIDERS: PCP Nurse Practitioner Primary Care; Visit Provider Nurse Practitioner Family | DX: K21.9 Gastro-esophageal reflux disease without esophagitis (principal); R10.13 Epigastric pain; R13.14 Dysphagia, pharyngoesophageal phase; F17.210 Nicotine dependence, cigarettes, uncomplicated; Z79.899 Other long term (current) drug therapy | CPT/HCPCS: 99212 ==

== ENCOUNTER 2024-09-30 10:12 | Outpatient (AMB) | payer MEDICARE, MEDICAID, SELFPAY ==
--- NOTE | 2024-09-30 10:17 | A.OFFVIS_ITS ---
Vital Signs 09/30/24 10:18 Height 5 ft 1 in Weight 200 lb 2.876 oz BMI 37.8 BP 90/52 L Blood Pressure Location Lt brachial Position Sitting Pulse 82 Pulse Source Pulse Oximeter Intake Visit Reasons: 3m follow up/echo prior Integration Architect Required: No Allergies cat dander (CATS) Allergy (Intermediate, Verified 09/30/24 10:20) Itching haloperidol (From HALDOL) Allergy (Intermediate, Verified 09/30/24 10:20) SWELLING, hives risperidone (From RISPERDAL) Allergy (Intermediate, Verified 09/30/24 10:20) HIVES, swelling shrimp Allergy (Intermediate, Verified 09/30/24 10:20) Swelling meloxicam Allergy (Mild, Verified 09/30/24 10:20) Swelling COCKROACHES Allergy (Intermediate, Uncoded 09/30/24 10:20) Itching Medication List - Last Reconciled 09/30/24 by ALICIA Miranda cholecalciferol (vitamin D3) (Vitamin D3) 25 mcg PO DAILY clonazepam 1 mg PO BID diclofenac sodium 1% 4 grams topical QID docusate sodium 100 mg PO BEDTIME duloxetine 60 mg PO BID esomeprazole magnesium (Nexium) 40 mg PO DAILY furosemide 20 mg PO QAM PRN hydroxyzine HCl 50 mg PO TID lamotrigine 400 mg PO DAILY lisinopril-hydrochlorothiazide 20-25 mg 1 tab PO DAILY metoprolol succinate ER 25 mg PO DAILY oxycodone 5 mg PO Q6H PRN prazosin mg PO pregabalin 200 mg PO TID pregabalin 150 mg PO BID quetiapine mg PO sennosides (senna) 17.2 mg (2 x 8.6 mg) PO BEDTIME sucralfate 10 mL PO BID zolpidem 10 mg PO BEDTIME PRN HPI HPI 3m follow up/echo prior: Details: Laila is a 49-year-old female with past medical history hypertension, hyperlipidemia, obesity, fibromyalgia, PFO, CXR that showed enlarged cardiac silhouette who recently had echocardiogram and now presents for follow up. Today she reports that is currently having a flare of her fibromyalgia and polymyalgia rheumatica. She has been mostly sedentary and ambulates only short distances with the use of her cane. She tells me her shortness of breath symptom was recently diagnosed as asthma and she now has inhalers to use. No PND, orthopnea or recent issues with edema. No chest discomfort at rest or with activity. No heart palpitations, lightheadedness, presyncope, syncope, falls. She reports compliance with her medications. [facility] Medical History PMR (polymyalgia rheumatica) Knee pain, bilateral Low back pain Ambulates with cane Hx of malignant neoplasm of kidney History of seizure Bipolar disorder Anxiety and depression Fibromyalgia High cholesterol Surgical History History of esophagogastroduodenoscopy (EGD) Hx of colonoscopy History of loop electrical excision procedure (LEEP) History of carpal tunnel surgery of right wrist History of bilateral tubal ligation Family History Mother Kidney failure Diabetes COPD (chronic obstructive pulmonary disease) Heart disease Father Colon cancer Social History Are you a primary hospice patient care secretary to a significant other at home: No Do you presently have visiting nurse or other home services: No Alcohol intake: never Patient Tobacco Use Status: Current everyday Tobacco user Tobacco use type: Cigarette Cigarettes Per Day: 3 service: No Current occupational status: disabled Review of Systems Const Details: body pain from fibromyalgia and PMR All systems reviewed & are unremarkable except as noted in HPI and below ENT Denies dizziness Card Denies chest pain, Denies chest pain at rest, Denies chest pain with activity, Denies rapid heart rate, Denies pedal edema, Denies edema, Denies leg edema, Denies lightheadedness, Denies palpitations, Denies dyspnea, Denies dyspnea on exertion and Denies orthopnea Resp Denies cough, Denies dyspnea and Denies dyspnea on exertion GI Denies hematochezia and Denies change in stool character Musc Reports abnormal gait (uses cane), Reports limited range of motion, Denies muscle cramps, Reports muscle weakness, Denies numbness, Denies radiating pain into limb, Denies stiffness and Denies tingling Neuro Reports abnormal gait (uses cane), Denies dizziness, Denies numbness and Denies tingling Endo Denies palpitations Physical Exam Vital Signs: BMI result Body Mass Index 37.8 Const Other: obesity, uncomfortable with movement General: cooperative and no acute distress Orientation/consciousness: patient oriented x3 Neck Neck: Yes normal visual inspection and Yes no JVD Resp Effort & Inspection: normal respiratory effort Auscultation: clear to auscultation bilaterally, no rales, no rhonchi and no wheezes Cardio Rate: regular rate Rhythm: regular rhythm Heart sounds: S1 normal heart sound present, S2 normal heart sound present, no murmurs and no rubs Neuro General: patient oriented x3 Extrem General: Yes normal to inspection, No no pedal edema and No calf tenderness Psych Appearance: grossly normal Mental Status: mental status grossly normal Speech and movement: Normal speech and movement present Results Reviewed Results Reviewed: Echo 07/15/24 Conclusions: - Normal left ventricular size and systolic function. There is mildly increased left ventricular wall thickness. The visually estimated ejection fraction is between 60-65%. There is no evidence of regional wall motion abnormalities. Diastolic function is normal for age. - Normal right ventricular cavity size and systolic function. Assessment & Plan Assessment & Plan (1) Mild concentric left ventricular hypertrophy (LVH): Code(s): I51.7 - Cardiomegaly Category: Medical Plan: History of hypertension, currently well controlled. Recent echocardiogram showing EF 60-65%, no regional wall motion abnormalities and mild increase in the LV wall thickness, unchanged from 01/2023. This finding was reviewed with her. She had previously been quite concern since her chest x-ray showed enlarged cardiac silhouette. Offered reassurance. Continue management for hypertension including lisinopril/hydrochlorothiazide and metoprolol. (2) PFO (patent foramen ovale): Code(s): Q21.12 - Patent foramen ovale Category: Medical Plan: A CTA of the coronary arteries was done on 03/12/2023 showing no significant coronary artery disease, incidental finding of patent Nuñez ovale. Echo from 07/15/2024 does not mention PFO finding though bubble study not completed. No neurological changes or symptoms. (3) Precordial chest pain: Code(s): R07.2 - Precordial pain Category: Medical Plan: Prior reports of chest discomfort with cardiac evaluation showing no significant findings. She does have cardiac risk factors of hypertension, hyperlipidemia, obesity and family history. Mother had [place] in her 50s. Nuclear stress test done 05/17/2022 showed normal myocardial perfusion imaging. A CTA of the coronary arteries was done on 03/12/2023 showing no significant coronary artery disease, incidental finding of patent Nuñez ovale. She does have history of fibromyalgia which may contribute to her symptoms. (4) Essential hypertension: Code(s): I10 - Essential (primary) hypertension Category: Medical Plan: Blood pressure goal less than 130/80. On low side today, asymptomatic. Reviewed need for good hydration. No medication changes made. Plan I discussed with the patient the importance of continuing her current asthma and hypertension management to maintain control of these conditions. We reviewed the results of her recentcardiac ultrasound, which showed mild left ventricular hypertrophy, and I reassured her that this finding is not concerning at this time and goal will be to keep BP controlled. We also talked about the benefits of staying active to manage her fibromyalgia and polymyalgia rheumatica symptoms. I advised her to follow up in cardiology in two years, or sooner if she experiences new symptoms such as chest pain or significant fluid retention. Patient Instructions: - Continue using daily inhalers, including albuterol, for asthma management. - Take metoprolol and lisinopril-hydrochlorothiazide as prescribed for blood pressure control. - Stay active as much as possible to help manage symptoms and prevent swelling. - Follow up with cardiology in two years, or sooner if new symptoms develop. Patient was informed and verbally consented to the use of an ambient scribe for clinic note documentation during this visit. Visit time spent on chart review, interview, assessment, orders, documentation. Coding Level of Care Code Est Pt Level 3 (32252) Complex EM visit Add On G2211 Diagnoses Mild concentric left ventricular hypertrophy (LVH) I51.7 PFO (patent foramen ovale) Q21.12 Precordial chest pain R07.2 Essential hypertension I10 Time Spent (min) 24
[2024-09-30 10:18] VITALS: BP 90/52; PULSE 82; BMI 37.8
--- OUTSIDE RECORDS SUMMARY | 2024-09-30 10:41 | XMS_ITS | Encounter Summary ---
Author Organization [employer] Address [address] [facility] [address] [place] [address] Care Team Providers Care Grade Foreman Name Role Phone Glendy Sutton Primary Care Provider [phone] Reason for Visit * Reason Onset Date Comments PT-1 05/04/2024 Encounter Details Date Type Department Care Team ([facility] st Contact Info) Description 05/04/2024 Telephone [facility] MEDICINE [address] [place], [place] [phone] Glendy Sutton ANP [address] [place] [address] PT-1 Social History Tobacco Use Types Packs/Day [...] Y/N: Yes Provider name or facility name: [facility] Facility Address: [address] [facility] Escort needed: Y/N: No Do you have a wheelchair: Y/N: No If yes- Manual or electric: Visits: 2-3 visits a month 2.)Home Address verified: Y/N: Yes Provider name or facility name: [facility] ([place]) Facility Address: [address] [place] [address] [address] [place] [address] Escort needed: Y/N: No Do you have a wheelchair: Y/N: No If yes- Manual or electric: Visits: Once a month 3.)Home Address verified: Y/N: Yes Provider name or facility name: [facility] ([place] , [place] [place]) Facility Address: [address] [place] [address] Escort needed: Y/N: No Do you have a wheelchair: Y/N: No If yes- Manual or electric: Visits: 2-3 x a month documented in this encounter Plan of Treatment Upcoming Encounters Date Type Department Care Team ([facility] st Contact Info) Description 10/01/2024 10:00 AM EDT Office Visit [facility] OPTOMETRY [address] [place] [address] Kerline Mares, OD [address] [place] [address] 10/26/2024 11:30 AM EDT Office Visit [facility] MEDICINE [address] [place] [address] Glendy Sutton ANP [address] [place] [address] documented as of this encounter Visit Diagnoses Not on filedocumented in this encounter Additional Health Concerns Assessment Noted Time PHQ-9 Depression Total Score: 4 12/11/19 24 9:48 AM EDT documented as of this encounter Care Teams Grade Foreman Relationship Specialty Start Date End Date Glendy Sutton ANP [address] [place] [address] PCP - General Family Medicine 11/28/20 documented as of this encounter
== END 2024-09-30 10:44 | disposition home or self-care (01) ==
LOC: HO.HCS 10:13
PROVIDERS: PCP Nurse Practitioner Primary Care; Visit Provider Nurse Practitioner Family
DX: I51.7 Cardiomegaly (principal); Q21.12 Patent foramen ovale; R07.2 Precordial pain; I10 Essential (primary) hypertension
CPT/HCPCS: 99213; G2211

== ENCOUNTER → 2024-09-30 10:12 | Outpatient (BNVA) | payer MEDICARE, MEDICAID, SELFPAY | PROVIDERS: PCP Nurse Practitioner Primary Care; Visit Provider Nurse Practitioner Family | DX: I51.7 Cardiomegaly (principal); I10 Essential (primary) hypertension; R07.2 Precordial pain; Q21.12 Patent foramen ovale | CPT/HCPCS: 99212 ==

== ENCOUNTER 2024-10-12 07:46 | Outpatient (AMB) | payer MEDICARE, MEDICAID, SELFPAY ==
--- OUTSIDE RECORDS SUMMARY | 2024-10-12 07:50 | XMS_ITS | Clinical Summary ---
Author Organization [employer] Address [address] [place] [address] Care Team Providers Care Shipfitter Helper Name Role Phone Jory Lala Primary Care Provider [phone] Allergies Active Allergy Reactions Criticality Noted Date Comments Haloperidol 07/19/2020 Other reaction(s): tongue swells Other Reaction(s): Oral dystonia, tongue swells Meloxicam Swelling Medium 01/28/2023 facial swelling Risperidone Swelling 05/29/2010 Other reaction(s): tongue swells Flavoring Agent (Non-Screening) 11/14/2022 Medications cyclobenzaprine (Flexeril) 5 MG tablet 3 Active docusate sodium (Colace) 100 MG capsule 3 Active lamoTRIgine (LaMICtal) 200 MG tablet 3 Active senna (Senokot) 8.6 MG tablet 3 Active atorvastatin (Lipitor) 20 MG tablet TAKE 1 TABLET BY MOUTH EVERY DAY 90 tablet 1 3 Active DULoxetine (Cymbalta) [address] capsule Take 60 mg by mouth in the morning and 60 mg in the evening. 3 Active omeprazole (PriLOSEC) [address] capsule TAKE 1 CAPSULE BY MOUTH TWICE A DAY 180 capsule 1 3 Active sucralfate (Carafate) 1 g tablet TAKE ONE TABLET BY MOUTH DAILY AT 9PM AT BEDTIME 90 tablet 1 3 Active acetaminophen (Tylenol 8 Hour) 650 MG ER tablet 4 Active zolpidem (Ambien) 10 MG tablet Take 10 mg by mouth if needed at bedtime for sleep. 4 Active sucralfate (Carafate) 1 GM/10ML suspension TAKE 10 ML BY MOUTH AT BEDTIME, MAY INCREASE TO 4 TIMES DAILY NEEDED 1260 mL 2 5 Active diclofenac (Cataflam) 50 MG tablet Take 50 mg by mouth with breakfast and with evening meal. 5 Active ARIPiprazole (Abilify) 30 MG tablet Take 1 tablet by mouth Once per day. 5 Active lamoTRIgine (LaMICtal) 100 MG tablet Take 1 tablet by mouth Once per day. 5 Active prazosin (Minipress) 2 MG capsule Take 4 mg by mouth at bedtime. 5 Active QUEtiapine (SEROquel) 100 MG tablet Take 150 mg by mouth at bedtime. prn 5 Active Ferrous Sulfate (iron) 325 (65 Fe) MG tabletIndication s:Anemia, unspecified type TAKE 1 TABLET BY MOUTH EVERY DAY WITH ORANGE JUICE 90 tablet 1 5 Active metoprolol succinate XL (Toprol-XL) 25 MG 24 hr tabletIndication s:Essential hypertension Take 1 tablet (25 mg) by mouth Once per day. 90 tablet 3 5 Active lisinopril-hydro CHLOROthiazide 20-25 MG tabletIndication s:Essential hypertension Take 1 tablet by mouth Once per day. 90 tablet 3 5 026 Active pregabalin (Lyrica) 200 MG capsuleIndicatio ns:Other chronic pain Take 1 capsule (200 mg) by mouth 3 times daily. 90 capsule 5 5 Active cholecalciferol (Vitamin D-3) 25 MCG (1000 UT) capsuleIndicatio ns:Vitamin D deficiency Take 1 capsule (25 mcg) by mouth Once per day. 90 capsule 5 025 Active Spacer/Aero-Hold ing Chambers deviceIndication s:Moderate asthma without complication, unspecified whether persistent Use w/ albuterol 1 each 5 Active albuterol 108 (90 Base) MCG/ACT inhalerIndicatio ns:Moderate asthma without complication, unspecified whether persistent Inhale 2 puffs every 6 (six) hours if needed for wheezing or shortness of breath. 6.7 g 1 5 026 Active fluticasone furoate (Arnuity Ellipta) 100 MCG/ACT inhalerIndicatio ns:Shortness of breath Inhale 1 puff Once per day. Rinse mouth with water after use to reduce aftertaste and incidence of candidiasis. Do not swallow. 30 each 2 5 Active Mometasone Furoate (Asmanex HFA) 100 MCG/ACT aerosolIndicatio ns:Moderate asthma without complication, unspecified whether persistent Inhale 2 Act (200 mcg) 2 times daily. Rinse mouth after use 13 g 2 5 025 Discontin ued(Haileyu lisa change) Active Problems Problem Noted Date Diagnosed Date Family history of myocardial infarction 06/11/19 25 History of seizure 06/10/2024 Posttraumatic stress disorder [...] a lot vs tabs. She follows w/ [facility] and has appt upcoming. 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; Age-related nuclear cataract of both eyes; Presbyopia of both eyes 10/01/2024 Travel 09/14/2024 Orders Only [address] [address] Jory Lala ANP Shortness of breath (Primary Dx) 09/13/[address] [address] Jory Lala ANP Prior Authorization 09/08/2024 Orders Only [facility] External Provider, [facility] 09/06/[address] [address] Jory Lala ANP 09/06/2024 Orders Only [address] [address] Jory Lala ANP Moderate asthma without complication, unspecified whether persistent (Primary Dx) 08/23/2024 Patient Outreach [address] [address] Jory Lala ANP Transition Of Care (Tcm) 08/22/2024 Orders Only GENERIC EXTERNAL DATA DEPARTMENT Provider, Generic External Data 08/18/2024 Telephone [facility] [address] [place], [place] [phone] Jory Lala ANP Med Refill 08/04/2024 3:15 PM EDT Office Visit [facility] MEDIC[facility] [address] [place] [address] Jory Lala ANP Diarrhea, unspecified type (Primary Dx); Gastroenteritis; Generalized abdominal tenderness without rebound tenderness; Diarrhea of presumed infectious origin 08/04/2024 Travel 08/04/2024 Telephone [facility] MEDIC[facility] [address] [place] [address] Jory Lala ANP Nurse Triage 07/27/2024 Orders Only [facility] External Provider, [facility] 07/27/2024 Telephone [facility] [address] [place] [address] Jory Lala ANP Nurse Triage from Last 3 Months Immunizations Immunization Administration Dates Next Due Hep B, adult [...] Sign Reading Time Taken Comments Blood Pressure 130/80 08/04/2024 3:14 PM EDT Pulse 82 08/04/2024 3:14 PM EDT Temperature 36.7 C (98.1 F) 07/12/2024 2:47 PM EDT Respiratory Rate 16 08/04/2024 3:14 PM EDT Oxygen Saturation 98% 07/12/2024 2:47 PM EDT Inhaled Oxygen Concentration - - Weight 90.7 kg (200 lb) 08/04/2024 3:14 PM EDT Height 154.9 cm (5' 1 ) 08/04/2024 3:14 PM EDT Body Mass Index 37.79 08/04/2024 3:14 PM EDT Plan of Treatment Upcoming Encounters Date Type Department Care Team (Late st Contact Info) Description 10/26/2024 11:30 AM EDT Office Visit [facility] MEDIC[facility] [address] [place], [place] [phone] Jory Lala ANP [address] [place] [address] Health Maintenance Due Date Last Done Comments CT Colonography 1975 FIT DNA/Cologuard 1975 FIT 1975 FOBT 1975 Sigmoidoscopy 1975 Family Planning (PISQ) 01/24/1991 Influenza Vaccine (#1) 2024 , 01/23/2024, 11/28/2022, Additional history exists COVID-19 Vaccine ( season) 2024 01/19/2022, 10/15/2021, 09/04/2020, Additional history exists Postponed from 11/16/2023 (Patient Refused) Depression Screening 12/10/2024 12/11/2023, 12/11/19 24 SDOH Screening 12/10/2024 12/11/2023 Alcohol/Substance Use Screening 05/20/2025 05/20/2024 Disability Screening 06/10/2025 06/10/2024 Tobacco Screening 08/04/2025 08/04/2024 Cervical Cancer Screening 08/09/2025 HPV/Cotest 08/09/2025 08/09/2020 Pap Smear 08/09/2025 08/09/2020 Lipid Panel 11/29/2025 11/29/2020, 0204/2020, 10/20/2019 Mammogram 01/18/2026 01/19/2024, 1106/2023, 01/14/2023, Additional [...] Years) and At-Risk Patients (6 to 49) Years Completed 05/20/2022, 08/18/2014 HIV Screening Completed 12/30/2022 Hepatitis C Screening Completed 12/30/2022, 021 HIB Vaccines Aged Out No longer eligi [...] patient's age to complete this topic Meningococcal B Vaccine Aged Out No l onger eligible based on patient's age to complete [...] Procedure Name Priority Date/Time Associated Diagnosis Comments FL UPPER GI W AIR W BARIUM SWALLOW Routine 09/08/2024 9:[address] ABDOMEN PELVIS W CONTRAST Routine 08/22/2024 4:15 PM EDT HCG, TOTAL, QN Routine 08/22/2024 10:49 AM EDT LIPASE Routine 08/22/2024 10:49 AM EDT BASIC METABOLIC PANEL Routine 08/22/2024 10:49 AM EDT HEPATIC FUNCTION PANEL Routine 10:49 AM EDT HCG, QL, URINE Routine 08/22/2024 10:49 AM EDT URINALYSIS, COMPLETE, WITH REFLEX TO CULTURE Routine 08/22/2024 10:49 AM EDT CBC WITH AUTO DIFFERENTIAL Routine 08/22/2024 10:49 AM EDT US VENOUS DUPLEX LE RT Routine 5:22 PM EDT BI MAMMOGRAM SCREENING TOMOSYNTHESIS BILATERAL Routine 01/19/2024 [...] Recently Relevant to Health Maintenance Results * FL Upper GI w/air w/Barium Swallow (09/08/2024 9:25 AM EDT) Anatomical Region Laterality Modality Body Radiographic Miranda ging 09/08/2024 9:25 AM EDT Narrative 09/08/2024 10:33 AM EDT [place] [address] Fluoroscopy Report Signed Patient: Laila Ortiz MR#: [id number] : 1975 Acct:[id number] Age/Sex: 49 / F ADM Date: 09/08/24 Loc: [facility] Attending Dr: Mica DELGADO Ordering Physician: Mica Dodd Date of Service: 09/08/24 Procedure(s): FL upper GI w air w Ba Swallow Accession Number(s): [id number] cc: Mica Dodd; JORY LALA NP EXAMINATION: XR FLUOROSCOPY UPPER GI SERIES CLINICAL INFORMATION: Patient complaining of globus sensation. GERD without esophagitis. COMPARISON: None TECHNIQUE: Fluoroscopic air contrast upper GI examination was performed utilizing standard techniques with thin and thick barium and effervescent granules. Numerous spot images were obtained. Several fluoroscopic image hold cine sequences were also obtained. FINDINGS: UPPER GI SERIES: Lateral cine images of the oropharynx and hypopharynx demonstrate normal swallow mechanism with normal epiglottic inversion and soft palate elevation. No laryngeal penetration, glottic or subglottic aspiration identified. No nasopharyngeal reflux present. Hypopharyngeal structures appear normal without evidence of mass or diverticulum. There was no significant cricopharyngeal achalasia. Dual and single contrast images of the esophagus demonstrate normal caliber, contour, and mucosal pattern. No evidence of stricture, mass, or ulcerations identified. Mildly disordered esophageal peristalsis was noted. Feline contraction pattern, indicating chronic reflux. Tiny type I hiatus hernia present. There was significant gastroesophageal reflux noted during the exam to the level of the thoracic inlet. Normal GE junction. Dual contrast and single contrast images of the stomach demonstrated normal contour and mucosal pattern without evidence of mass, ulceration, or other abnormality. Mildly thickened gastric rugal folds present, suggestive of mild gastritis. Contrast freely passed into the gastric antrum and duodenal bulb without delay. Single and air-contrast images of the duodenal bulb demonstrate no abnormality. The duodenal sweep has a normal appearance, course, and mucosal fold appearance. FLUOROSCOPY TIME: 2 minutes, 35 seconds Number of Spot Images:9 Number of cines obtained: 8 DOSE AREA PRODUCT: 3510 uGy-m2 (microgray-meter squared) FL/FL upper GI w air w Ba Swallow IMPRESSION: 1. Mildly disordered esophageal peristalsis. Feline contraction pattern, in keeping with chronic reflux. 2. No imaging explanation for globus sensation. 3. Gastroesophageal reflux present to the level of the thoracic inlet. 4. Tiny type I hiatus hernia. 5. Mildly thickened gastric rugal folds present, suggestive of mild gastritis. Electronically signed by: Enrique Vaca MD 09/08/2024 10:30 AM EDT Dictated By: Enrique Vaca MD Signed By: <Electronically signed by Enrique Vaca MD in OV> 09/08/24 1030 DD/ 4 TD/TT: 09/08/24 0940 Director Of Accounts Payable: Procedure Note Donotuseinterpreter, Image - 09/08/[address] [address] Fluoroscopy Report Signed Patient: Aury Ortiz#: [id number] : 1975Acct:[id number] Age/Sex: 49 / FADM Date: 09/08/24 Loc: HO.XRAY Attending Dr: Mica YOST-ASHLY Ordering Physician: Mica Dodd Date of Service: 09/08/24 Procedure(s): FL upper GI w air w Ba Swallow Accession Number(s): [id number] cc: Mica Dodd; JORY LALA NP EXAMINATION: XR FLUOROSCOPY UPPER GI SERIES CLINICAL INFORMATION: Patient complaining of globus sensation. GERD without esophagitis. COMPARISON: None TECHNIQUE: Fluoroscopic air contrast upper GI examination was performed utilizing standard techniques with thin and thick barium and effervescent granules. Numerous spot images were obtained. Several fluoroscopic image hold cine sequences were also obtained. FINDINGS: UPPER GI SERIES: Lateral cine images of the oropharynx and hypopharynx demonstrate normal swallow mechanism with normal epiglottic inversion and soft palate elevation. No laryngeal penetration, glottic or subglottic aspiration identified. No nasopharyngeal reflux present. Hypopharyngeal structures appear normal without evidence of mass or diverticulum. There was no significant cricopharyngeal achalasia. Dual and single contrast images of the esophagus demonstrate normal caliber, contour, and mucosal pattern. No evidence of stricture, mass, or ulcerations identified. Mildly disordered esophageal peristalsis was noted. Feline contraction pattern, indicating chronic reflux. Tiny type I hiatus hernia present. There was significant gastroesophageal reflux noted during the exam to the level of the thoracic inlet. Normal GE junction. Dual contrast and single contrast images of the stomach demonstrated normal contour and mucosal pattern without evidence of mass, ulceration, or other abnormality. Mildly thickened gastric rugal folds present, suggestive of mild gastritis. Contrast freely passed into the gastric antrum and duodenal bulb without delay. Single and air-contrast images of the duodenal bulb demonstrate no abnormality. The duodenal sweep has a normal appearance, course, and mucosal fold appearance. FLUOROSCOPY TIME: 2 minutes, 35 seconds Number of Spot Images:9 Number of cines obtained: 8 DOSE AREA PRODUCT: 3510 uGy-m2 (microgray-meter squared) FL/FL upper GI w air w Ba Swallow IMPRESSION: 1. Mildly disordered esophageal peristalsis. Feline contraction pattern, in keeping with chronic reflux. 2. No imaging explanation for globus sensation. 3. Gastroesophageal reflux present to the level of the thoracic inlet. 4. Tiny type I hiatus hernia. 5. Mildly thickened gastric rugal folds present, suggestive of mild gastritis. Electronically signed by: Enrique Vaca MD 09/08/2024 10:30 AM EDT Dictated By: Enrique Vaca MD Signed By: <Electronically signed by Enrique Vaca MD in OV> 09/08/24 1030 DD/ 0925 TD/TT: 09/08/24 0940 Director Of Accounts Payable: [facility] External Provider IMG FLU OROSCOPY PROCEDURES Final Result * CT Abdomen Pelvis w/ Contrast (08/22/2024 4:15 PM EDT) Anatomical Region Laterality Modality Body, Pelvis, Abdomen Computed T omography 08/22/2024 4:15 PM EDT Narrative 08/22/2024 4:16 PM EDT [place] [address] CT Scan Report Signed Patient: Laila Ortiz MR#: [id number] : 1975 Acct:[id number] Age/Sex: 49 / F ADM Date: 08/22/24 Loc: HO.ED Attending Dr: Ordering Physician: Arie Maldonado DO Date of Service: 08/22/24 Procedure(s): CT abdomen pelvis w IV con Accession Number(s): [id number] cc: JORY LALA NP; Arie Maldonado DO Report Number: [id number]: Total DLP = 1067.00 mGy-cm CLINICAL HISTORY: abdominal pain CT Abdomen and Pelvis W Contrast COMPARISON: US/SR - US ABDOMEN COMPLETE - 03/21/23 09:[address]/REG/LA/SR - CT ABDOMEN PELVIS WO IV CON - 02/19/23 19:15 EST FINDINGS: Hepatomegaly. Normal spleen. Normal kidneys. Normal adrenal glands. Normal pancreas. No visible cholelithiasis. No biliary dilation. No evidence of bowel obstruction or colitis. No evidence of acute appendicitis. Physiologic distention of the bladder. Left ovarian cyst or prominent follicle measuring 3.7 cm (previously 4.7 cm when measured in the same way). The right ovary is not well visualized. Heterogeneous mass in the anterior uterine fundus measuring 3.8 cm (series 6, image 62), more conspicuous than on the prior study. No ascites. No pneumoperitoneum. No lymphadenopathy. No acute fracture. Degenerative changes in the spine. No abdominal aortic aneurysm. IMPRESSION: No acute findings. Left ovarian cyst or prominent follicle decreased from prior. Consider nonemergent pelvic ultrasound if indicated. More conspicuous anterior fundal uterine mass, possibly a fibroid. This could also be assessed on nonemergent ultrasound. Nonemergent/incidental findings above. This document has been electronically signed by: Eemry Mathew MD on 08/22/2024 16:15:08 Dictated By: Emery Mathew MD Signed By: <Electronically signed by mEery Mathew MD in OV> 08/22/24 1615 DD/ 1615 TD/TT: 08/22/24 1615 Director Of Accounts Payable: Procedure Note Donotuseinterpreter, Image - 08/22/[address] [address] [address] Scan Report Signed Patient: Aury Ortiz#: [id number] : 1975Acct:[id number] Age/Sex: 49 / FADM Date: 08/22/24 Loc: HO.ED Attending Dr: Ordering Physician: Arie Maldonado DO Date of Service: 08/22/24 Procedure(s): CT abdomen pelvis w IV con Accession Number(s): [id number] cc: JORY LALA NP; Arie Maldonado DO Report Number: [id number]: Total DLP = 1067.00 mGy-cm CLINICAL HISTORY: abdominal pain CT Abdomen and Pelvis W Contrast COMPARISON: US/SR - US ABDOMEN COMPLETE - 03/21/23 09:[address]/REG/LA/SR - CT ABDOMEN PELVIS WO IV CON - 02/19/23 19:15 EST FINDINGS: Hepatomegaly. Normal spleen. Normal kidneys. Normal adrenal glands. Normal pancreas. No visible cholelithiasis. No biliary dilation. No evidence of bowel obstruction or colitis. No evidence of acute appendicitis. Physiologic distention of the bladder. Left ovarian cyst or prominent follicle measuring 3.7 cm (previously 4.7 cm when measured in the same way). The right ovary is not well visualized. Heterogeneous mass in the anterior uterine fundus measuring 3.8 cm (series 6, image 62), more conspicuous than on the prior study. No ascites. No pneumoperitoneum. No lymphadenopathy. No acute fracture. Degenerative changes in the spine. No abdominal aortic aneurysm. IMPRESSION: No acute findings. Left ovarian cyst or prominent follicle decreased from prior. Consider nonemergent pelvic ultrasound if indicated. More conspicuous anterior fundal uterine mass, possibly a fibroid. This could also be assessed on nonemergent ultrasound. Nonemergent/incidental findings above. This document has been electronically signed by: Emery Mathew MD on 08/22/2024 16:15:08 Dictated By: Emery Mathew MD Signed By: <Electronically signed by Emery Mathew MD in OV> 08/22/24 1615 DD/ 1615 TD/TT: 08/22/24 1615 Director Of Accounts Payable: us [facility] External Provider IMG CT PROCEDURES Edited Result - Final * (ABNORMAL) Urinalysis, Complete, with Reflex to Culture (08/22/2024 10:49 AM EDT) Color Urine Yellow [facility] Appearance Urine Clear [facility] PH 5.5 5.0 - 9.0 [facility] Glucose Urine UA Negative Negative mg/dL [facility] Urine Blood Trace(A) Negative [facility] Specific [place] - Urine 1.010 1.005 - 1.025 [facility] Urine Protein Negative Neg-Trace mg/dL [facility] Urine Ketones Negative Negative mg/dL [facility] Nitrite Urine Negative Negative [facility] Leukocyte Esterase Urine Negative Negative [facility] RBC Urine 3-5(A) 0 - 2 /HPF [facility] Urine WBC 0-5 0 - 5 /HPF [facility] Urine Squamous Epithelial Cell 0-2 0 - 2 /HPF [facility] Urine Bacteria None Seen None Seen [facility] Hyaline Casts, Urine 0-2 0 - 2 /LPF [facility] 08/22/2024 10:4 9 AM EDT 08/22/2024 10:52 AM EDT Narrative [facility] - 08/22/2024 11:02 AM EDT Urine, Clean Catch us Generic External Data Provider LAB URINE ORDERAB LES Final Result [facility] [address] [place] [phone] * (ABNORMAL) CBC auto differential (08/22/2024 10:49 AM EDT) White Blood Count 7.4 4.8 - 10.8 X10*3/uL [facility] Red Blood Count 4.20 4.20 - 5.50 X10*6/uL [facility] Hemoglobin 12.4 12.0 - 16.0 g/dl [facility] Hematocrit 37.9 37.0 - 47.0 % [facility] Mean Corpuscular Volume 90.2 80.0 - 98.0 fL [facility] Mean Corpuscular Hemoglobin 29.5 27.0 - 33.0 pg [facility] Mean Corpuscular HGB Conc 32.7 31.0 - 35.0 g/dl [facility] Red Cell Distribution Width 12.3 11.0 - 16.0 % [facility] Platelet Count 219 160 - 400 X10*3/uL [facility] Mean Platelet Volume 9.8 9.4 - 12.3 fL [facility] Neutrophils Percent Auto 69.0 45 - 73 % [facility] Imm Gran Pct Auto 0.5(H) 0.0 - 0.4 % [facility] Lymphocytes Percent Auto 23.6 20 - 40 % [facility] Monocytes Percent Auto 4.5 2 - 11 % [facility] Eosinophils Percent Auto 1.9 0 - 4 % [facility] Basophils Percent Auto 0.5 0 - 2 % [facility] NRBC Pct Auto 0.0 0.0 - 0.2 /100WBC [facility] Neutrophils Absolute Auto 5.1 2.0 - 8.3 x10*3/uL [facility] Imm Gran Abs Auto 0.04(H) 0.00 - 0.03 X10*3/uL [facility] Lymphocytes Absolute Auto 1.8 1.2 - 4.9 X10*3/uL [facility] Monocytes Absolute Auto 0.3 0.1 - 1.2 X10*3/uL [facility] Eosinophils Absolute Auto 0.1 0.0 - 0.4 X10*3/uL [facility] Basophils Absolute Auto 0.0 0.0 - 0.2 X10*3/uL [facility] NRBC Abs Auto 0.000 0.0 - 0.012 X10*3/uL [facility] 08/22/2024 10:4 9 AM EDT 08/22/2024 10:52 AM EDT us Generic External Data Provider LAB BLOOD ORDERAB LES Final Result [facility] [address] [place] [phone] * HCG, Qualitative, Urine (08/22/2024 10:49 AM EDT) Urine NEGATIVE NEGATIVE [facility] Comment:This test was develo ped to detect early . Falsenegative results may occur after the 5th - 7th week ofpregnancy when using this test method. If clinicallyindicated, consider a serum hCG. 08/22/2024 10:4 9 AM EDT 08/22/2024 10:52 AM EDT Generic External Data Provider LAB URINE ORDERAB LES Final Result Performing Organization Address City/[facility]/ZIP Co de Phone Number [facility] [address] [place] [phone] * hCG, Total, Quantitative (08/22/2024 10:49 AM EDT) HCG Quantitative <2 mIU/mL [facility] Comment:Weeks post LMP Appro ximate hCG(Last Menstrual Period) Range (mIU/ml)3 - 4 weeks 9 - 1304 - 5 weeks 75 - 2,6005 - 6 weeks 850 - 20,8006 - 7 weeks 4000 - 100,2007 - 12 weeks 11,500 - 289,70636 - 16 weeks 18,300 - 137,94069 - 29 weeks (2nd trimester) 1,400 - 53,44944 - 41 weeks (3rd trimester) 940 - 60,000The Wolfe B- hCG assay is used for the early detection ofpregnancy; it cannot be used to diagnose any conditionunrelated to . If a B-hCG level is not supportedby the clinical evidence, results should be confirmed by analternative method (qualitative urine hCG, for example). 08/22/2024 10:4 9 AM EDT 08/22/2024 10:52 AM EDT us Generic External Data Provider LAB BLOOD ORDERAB LES Final Result Performing Organization Address City/[facility]/ZIP Co de Phone Number [facility] [address] [place] [phone] * Lipase (08/22/2024 10:49 AM EDT) Lipase 24 8 - 78 U/L [facility] 08/22/2024 10:4 9 AM EDT 08/22/2024 10:52 AM EDT us Generic External Data Provider LAB BLOOD ORDERAB LES Final Result Performing Organization Address [facility]/ZIP Co de Phone Number [facility] [address] [place] [phone] * (ABNORMAL) Hepatic Function Panel (08/22/2024 10:49 AM EDT) Bilirubin, Total 0.3 0.0 - 1.0 mg/dL [facility] Bilirubin, Direct 0.1 0.0 - 0.5 mg/dL [facility] Aspartate Amino Transferase 21 5 - 31 U/L [facility] Alanine Aminotransferase 18 0 - 31 U/L [facility] Total Protein 8.2(H) 6.5 - 8.0 g/dL [facility] Albumin Level 4.5 3.5 - 5.0 g/dL [facility] Alkaline Phosphatase 72 39 - 117 U/L [facility] 08/22/2024 10:4 9 AM EDT 08/22/2024 10:52 AM EDT us Generic External Data Provider LAB BLOOD ORDERAB LES Final Result Performing Organization Address [facility] Co de Phone Number [facility] [address] [place] [phone] * (ABNORMAL) Basic Metabolic Panel (08/22/2024 10:49 AM EDT) Sodium 135 135 - 145 mmol/L [facility] Potassium 4.6 3.3 - 5.1 mmol/L [facility] Chloride 103 96 - 108 mmol/L [facility] Carbon Dioxide 24 22 - 29 mmol/L [facility] Anion Gap 13 12 - 20 [facility] Urea Nitrogen (BUN) 32(H) 9 - 16 mg/dL [facility] Creatinine, Serum 1.40 0.5 - 1.4 mg/dL [facility] Creatinine Clr Calc Pharmacy 49.9 [facility] Comment:Provided height and weight: 154.94 cm,89.358 kg.eGFR (calculated from the MDRD study equation) and eCrCl(calculated from the Cockcroft-Gault equation) are based ondifferent parameters and may not yield comparable results.If eCrCl result is absurd, please check patient'sheight/weight. Estimated Glomerular Filt Rate 40 [facility] Comment:Chronic Kidney Disea se: Estimated GFR < 60 mL/min/1.26i6Oexodt Kidney Disease: Estimated GFR < 15 mL/min/1.73m2 Glucose 87 60 - 115 mg/dL [facility] Calcium 9.6 8.4 - 10.2 mg/dL [facility] 08/22/2024 10:4 9 AM EDT 08/22/2024 10:52 AM EDT us Generic External Data Provider LAB BLOOD ORDERAB LES Final Result Performing Organization Address City/State/[facility] Co de Phone Number [facility] [address] [place] [phone] * US VENOUS DUPLEX LE RT (07/27/2024 5:22 PM EDT) Anatomical Region Laterality Modality Abdomen Ultrasound 07/27/2024 5:22 PM EDT Narrative 07/27/2024 5:24 PM EDT [address] [address] Ultrasound Report Signed Patient: Laila Ortiz MR#: [id number] : 1975 Acct:[id number] Age/Sex: 49 / F ADM Date: 07/27/24 Loc: HO.ED Attending Dr: Ordering Physician: Chad Nava DO Date of Service: 07/27/24 Procedure(s): US venous duplex LE RT Accession Number(s): [id number] cc: Chad Nava DO; JORY LALA NP CLINICAL HISTORY: right calf pain Venous duplex ultrasound right lower extremity Comparison: None Findings: The visualized deep veins are fully compressible with normal Doppler color flow and spectral tracings. No popliteal cyst. IMPRESSION: 1. Negative for right lower extremity deep vein thrombosis. This document has been electronically signed by: Oscar Katz MD on 07/27/2024 17:22:54 Dictated By: Oscar Katz MD Signed By: <Electronically signed by Oscar Katz MD in OV> 07/27/241723 DD/ 21 TD/TT: 07/27/241721 Director Of Accounts Payable: Procedure Note Donotuseinterpreter, Image - 07/27/[address] [place] [address] Ultrasound Report Signed Patient: Aury Ortiz#: [id number] : 1975Acct:[id number] Age/Sex: 49 / FADM Date: 07/27/24 Loc: .ED Attending Dr: Ordering Physician: Chad Nava DO Date of Service: 07/27/24 Procedure(s): US venous duplex LE RT Accession Number(s): [id number] cc: Chad Nava DO; JORY LALA NP CLINICAL HISTORY: right calf pain Venous duplex ultrasound right lower extremity Comparison: None Findings: The visualized deep veins are fully compressible with normal Doppler color flow and spectral tracings. No popliteal cyst. IMPRESSION: 1. Negative for right lower extremity deep vein thrombosis. This document has been electronically signed by: Oscar Katz MD on 07/27/2024 17:22:54 Dictated By: Oscar Katz MD Signed By: <Electronically signed by Oscar Katz MD in OV> 07/27/241723 DD/ 21 TD/TT: 07/27/241721 Director Of Accounts Payable: us [facility] External Provider IMG US PROCEDURES Final Result * BI Mammogram Screening Tomosynthesis Bilateral (01/19/2024 10:30 AM EST) Anatomical Region Laterality Modality Breast Bilateral Mammography 01/19/2024 10:3 0 AM EST Narrative 01/27/2024 2:08 PM EST [address] [place] [address] Mammography Report Signed Patient: Laila Ortiz MR#: [id number] : 1975 Acct:[id number] Age/Sex: 48 / F ADM Date: 01/19/24 Loc: MAMMO Attending Dr: Jory Lala NP Ordering Physician: JORY LALA NP Results: 1Negative Date of Service: 01/19/24 Follow Up: 1 Year From Orig inal Mammogram Procedure(s): MM tomosynthesis screening BI Accession Number(s): [id number] cc: JORY LALA NP EXAMINATION: MM SCREENING [...] 02:05 PM [facility] Dictated By: Michaela Alejo DO Signed By: <Electronically signed by Michaela Alejo DO in OV> 01/27/24 1405 DD/ 1030 TD/TT: 01/19/24 1100 Director Of Accounts Payable: Procedure Note Donotuseinterpreter, Image - 01/27/2024 [facility] [address] [place] [address] [place] [address] Mammography Report Signed Patient: Jasmina OrtizR#: [id number] : 1975Acct:[id number] Age/Sex: 48 / FADM Date: 01/19/24 Loc: HO.MAMMO Attending Dr: Jory Lala PRODUCT INTRODUCTION MANAGER Ordering Physician: JORY LALA NPResults: 1Negative Date of Service: 01/19/24Follow Up: 1 Year From Orig inal Mammogram Procedure(s): MM tomosynthesis screening BI Accession Number(s): [id number] cc: JORY LALA PRODUCT INTRODUCTION MANAGER EXAMINATION: MM SCREENING DIGITAL BREAST TOMOSYNTHESIS, BILATERAL [...] 02:05 PM [facility] Dictated By: Michaela Alejo DO Signed By: <Electronically signed by Michaela Alejo DO in OV> 01/27/24 1405 DD/ 1030 TD/TT: 01/19/24 1100 Director Of Accounts Payable: Jory Lala ANP IMG BI PROCEDURES Final Result * Hepatitis C Ab (12/30/2022 4:01 PM EDT) Hepatitis C Antibody Nonreactive Nonreactive [facility] Comment:Antibodies to HCV no t detected; does not exclude early acuteHCV infection. 12/30/2022 4:01 PM EDT 12/30/2022 4:01 PM EDT [facility] External Provider LAB BLO OD ORDERABLES Final Result [facility] [address] [place] [phone] * HIV Ab/Ag (YVETTE HARRY) (12/30/2022 4:01 PM EDT) [facility] HIV AB/AG Nonreactive Nonreactive [facility] Comment:HIV-1 p24 Ag and/or HIV-1/HIV-2 Ab not detected.A test result that is nonreactive does not exclude thepossibility of exposure to or infection with HIV-1 and/orHIV-2. Nonreactive results in this assay for individualswith prior exposure to HIV-1 and/or HIV-2 may be due toantigen and antibody levels that are below the limit ofdetection of this assay.[employer] HIV Ag/Ab Combo assay result andsupplemental assay results should be interpreted inconjunction with the patient's clinical presentation,history and other laboratory results. If the results areinconsistent with clinical evidence, additional testing issuggested to confirm the result. 12/30/2022 4:01 PM EDT 12/30/2022 4:01 PM EDT us Generic External Data Provider LAB BLOOD ORDERAB LES Final Result Performing Organization Address [facility] Co de Phone Number [facility] [address] [place] [address] [phone] * (ABNORMAL) Colonoscopy (07/04/2021) [facility] Colonoscopy Abnormal(A ) Normal Historical Provider HEALTH MAINTENANCE Final Result * (ABNORMAL) LIPID PANEL, STANDARD (11/29/2020 10:01 AM EDT) [facility] Chol/HDLC Ratio 5.6(H) <5.0 (calc) [facility] Cholesterol, Total 237(H) <200 mg/dL [facility] HDL Cholesterol 42(L) > OR = 50 mg/dL [facility] LDL Cholesterol 161(H) mg/dL (calc) [facility] Comment: Reference range: <100 Desirable range <100 mg/dL for primary prevention; <70 mg/dL for patients with CHD or diabetic patients with > or = 2 CHD risk factors. LDL-C is now calculated using the Cassandra calculation, which is a validated novel method providing better accuracy than the Friedewald equation in the estimation of LDL-C. Ed WITT et al. MATTIE. 2013;310(19): 0938-5913 (http://education.[employer] Watch/faq/BWF559) Non-HDL Cholesterol 195(H) <130 mg/dL (calc) [facility] Comment: For patients with diabetes plus 1 major ASCVD risk factor, treating to a non-HDL-C goal of <100 mg/dL (LDL-C of <70 mg/dL) is considered a therapeutic option. Triglycerides 182(H) <150 mg/dL [facility] 11/29/2020 10:0 1 AM EDT [facility] LAB BLOOD ORDERABLES Final Resul t [facility] [address] * THINPREP PAP (08/09/2020 2:03 PM EDT) Clinical Information: None given [facility] COMMENT SEE COMMENT [facility] Comment: EXPLANATORY NOTE: The Pap is a screening test for cervical cancer. It is not a diagnostic test and is subject to false negative and false positive results. It is most reliable when a satisfactory sample, regularly obtained, is submitted with relevant clinical findings and history, and when the Pap result is evaluated along with historic and current clinical information. Bowling Alley Operator : SEE COMMENT [facility] Comment: RK, CT(ASCP) CT screening location: [place] [address] Interpretation/R esult: Negative for intraepithelial lesion or malignancy. [facility] LMP: 07/29/20 [facility] Prev. BX: LEEP 2000 [facility] Prev. PAP: NIL 09/2015 [facility] SOURCE: None given [facility] Statement Of Adequacy: SEE COMMENT [facility] Comment: Satisfactory for evaluation. Endocervical/transformation zone component absent. 08/09/2020 2:03 PM EDT Yuly MURPHY LAB PATHOLOGY ORDERABLES Final Result Performing Organization Address [facility] Co de Phone Number [facility] [address] * HPV mRNA E6/E7 (08/09/2020 2:03 PM EDT) HPV nRNA E6/E7 Not Detected Not Detected [facility] Comment: Methodology: Business Unit Controller-Mediated Amplification This assay detects E6/E7 viral messenger RNA (mRNA) from 14 high-risk HPV types (16,18,31,33,35,39,45,51,52,56,58,59,66,68). The analytical performance characteristics of this assay have been determined by [employer]. The modifications have not been cleared or approved by the FDA. This assay has been validated pursuant to the CLIA regulations and is used for clinical purposes. For additional information, please refer to http://education.[employer]/faq/DHN779e0 (This link if provided for information/ educational purposes only.) 08/09/2020 2:03 PM EDT Yuly Mcfarlane [facility] LAB BLOOD ORDERABLES Verena l Result Performing Organization Address [facility] de Phone Number [facility] [address] from Last 3 Months or Most Recently Relevant to Health Maintenance Insurance MEDICARE [facility] STANDARD Care Teams Shipfitter Helper Relationship Specialty Start Date End Date Jory Lala ANP [address] [place] [phone] PCP - General Family Medicine 11/28/20
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
[2024-10-12 08:00] VITALS: BP 90/60; PULSE 76; O2SAT 95; BMI 35.2
== END 2024-10-12 09:02 | disposition home or self-care (01) ==
LOC: HO.RHES 07:47
PROVIDERS: PCP Nurse Practitioner Primary Care; Visit Provider Internal Medicine Rheumatology
DX: I95.9 Hypotension, unspecified (principal); M25.511 Pain in right shoulder; M25.512 Pain in left shoulder; G89.29 Other chronic pain; M19.011 Primary osteoarthritis, right shoulder; M19.012 Primary osteoarthritis, left shoulder
CPT/HCPCS: 99214; G2211

== ENCOUNTER → 2024-10-12 07:46 | Outpatient (BNVA) | payer MEDICARE, MEDICAID, SELFPAY | PROVIDERS: PCP Nurse Practitioner Primary Care; Visit Provider Internal Medicine Rheumatology | DX: M25.511 Pain in right shoulder (principal); M25.512 Pain in left shoulder; M19.011 Primary osteoarthritis, right shoulder; M19.012 Primary osteoarthritis, left shoulder; G89.29 Other chronic pain; I95.9 Hypotension, unspecified | CPT/HCPCS: 99212 ==

== ENCOUNTER 2024-11-05 09:27 | Outpatient (REF) | payer MEDICARE, MEDICAID, SELFPAY ==
--- OUTSIDE RECORDS SUMMARY | 2024-11-05 09:32 | XMS_ITS | Clinical Summary ---
Author Organization [employer] Address [address] [facility] [address] [place] [address] Care Team Providers Care Combo Welder Name Role Phone Jory Lala Primary Care Provider [phone] Allergies Active Allergy Reactions Criticality Noted Date Comments Haloperidol 07/19/2020 Other reaction(s): tongue swells Other Reaction(s): Oral dystonia, tongue swells Meloxicam Swelling Medium 01/28/2023 facial swelling Risperidone Swelling 05/29/2010 Other reaction(s): tongue swells Flavoring Agent (Non-Screening) 11/14/2022 Medications cyclobenzaprine (Flexeril) 5 MG tablet 03/19/19 23 Active docusate sodium (Colace) 100 MG capsule 04/15/19 23 Active senna (Senokot) 8.6 MG tablet 04/15/19 23 Active atorvastatin (Lipitor) 20 MG tablet TAKE 1 TABLET BY MOUTH EVERY DAY 90 tablet 1 07/10/19 23 Active acetaminophen (Tylenol 8 Hour) 650 MG ER tablet 05/30/19 24 Active zolpidem (Ambien) 10 MG tablet Take 10 mg by mouth if needed at bedtime for sleep. 01/28/20 24 Active sucralfate (Carafate) 1 GM/10ML suspension TAKE 10 ML BY MOUTH AT BEDTIME, MAY INCREASE TO 4 TIMES DAILY NEEDED 1260 mL 2 03/31/19 25 Active ARIPiprazole (Abilify) 30 MG tablet Take 1 tablet by mouth Once per day. 04/23/19 25 Active prazosin (Minipress) 2 MG capsule Take 4 mg by mouth at bedtime. 04/23/19 25 Active QUEtiapine (SEROquel) 100 MG tablet Take 150 mg by mouth at bedtime. prn 05/04/19 25 Active Ferrous Sulfate (iron) 325 (65 Fe) MG tabletIndicatio ns:Anemia, unspecified type TAKE 1 TABLET BY MOUTH EVERY DAY WITH ORANGE JUICE 90 tablet 1 06/01/19 25 Active metoprolol succinate XL (Toprol-XL) 25 MG 24 hr tabletIndicatio ns:Essential hypertension Take 1 tablet (25 mg) by mouth Once per day. 90 tablet 3 06/01/19 25 Active pregabalin (Lyrica) 200 MG capsuleIndicati ons:Other chronic pain Take 1 capsule (200 mg) by mouth 3 times daily. 90 capsule 5 07/13/19 25 Active cholecalciferol (Vitamin D-3) 25 MCG (1000 UT) capsuleIndicati ons:Vitamin D deficiency Take 1 capsule (25 mcg) by mouth Once per day. 90 capsule 08/20/19 25 025 Active Spacer/Aero-Hol ding Chambers deviceIndicatio ns:Moderate asthma without complication, unspecified whether persistent Use w/ albuterol 1 each 09/07/19 25 Active fluticasone furoate (Arnuity Ellipta) 100 MCG/ACT inhalerIndicati ons:Shortness of breath Inhale 1 puff Once per day. Rinse mouth with water after use to reduce aftertaste and incidence of candidiasis. Do not swallow. 30 each 2 09/15/19 25 Active clonazePAM (KlonoPIN) 1 MG tablet TAKE 1 & 1/2 TABLETS BY MOUTH TWICE DAILY NEEDED Active esomeprazole (NexIUM) [address] capsule Take 1 capsule by mouth Once per day. 09/07/19 25 Active lamoTRIgine (LaMICtal) 200 MG tablet Take 2 tablets by mouth Once per day. 10/14/19 25 Active Diclofenac Sodium 1 % gel APPLY 4 GRAMS TOPICALLY TO AFFECTED AREA(S) FOUR TIMES DAILY EVERY 4 TO 6 HOURS NEEDED 10/19/19 25 Active DULoxetine (Cymbalta) [address] capsule Take 1 capsule by mouth 2 times daily. 10/20/19 25 Active albuterol 108 (90 Base) MCG/ACT inhalerIndicati ons:Moderate asthma without complication, unspecified whether persistent INHALE 2 PUFFS BY MOUTH EVERY 6 HOURS NEEDED FOR WHEEZING OR SHORTNESS OF BREATH 8.5 g 1 10/26/19 25 Active lamoTRIgine (LaMICtal) 200 MG tablet 04/18/19 025 Discontinued(T herapy completed) DULoxetine (Cymbalta) [address] capsule Take 60 mg by mouth in the morning and 60 mg in the evening. 09/24/19 025 Discontinued(M ed list cleanup (will not trigger notification to Pharmacy)) omeprazole (PriLOSEC) [address] capsule TAKE 1 CAPSULE BY MOUTH TWICE A DAY 180 capsule 10/31/19 025 Discontinued(M ed list cleanup (will not trigger notification to Pharmacy)) sucralfate (Carafate) 1 g tablet TAKE ONE TABLET BY MOUTH DAILY AT 9PM AT BEDTIME 90 tablet 10/31/19 025 Discontinued(M ed list cleanup (will not trigger notification to Pharmacy)) diclofenac (Cataflam) 50 MG tablet Take 50 mg by mouth with breakfast and with evening meal. 05/04/19 025 Discontinued(M ed list cleanup (will not trigger notification to Pharmacy)) lamoTRIgine (LaMICtal) 100 MG tablet Take 1 tablet by mouth Once per day. 05/14/19 025 Discontinued(T herapy completed) lisinopril-hydr oCHLOROthiazide 20-25 MG tabletIndicatio ns:Essential hypertension Take 1 tablet by mouth Once per day. 90 tablet 3 06/01/19 025 Discontinued(M ed list cleanup (will not trigger notification to Pharmacy)) albuterol 108 (90 Base) MCG/ACT inhalerIndicati ons:Moderate asthma without complication, unspecified whether persistent Inhale 2 puffs every 6 (six) hours if needed for wheezing or shortness of breath. 6.7 g 1 09/07/19 025 Discontinued lamoTRIgine (LaMICtal) 25 MG tablet Take 2 tablets by mouth Once per day. 09/07/19 025 Discontinued(M ed list cleanup (will not trigger notification to Pharmacy)) Active [...] a lot vs tabs. She follows w/ [facility] and has appt upcoming. Hypertensive heart [...] Encounters Date Type Department Care Team Description 10/26/2024 11:15 AM EDT Office Visit [facility] [address] [place] [phone] Jory Lala ANP Hypotension, unspecified hypotension type (Primary Dx); Hypokalemia; Hospital discharge follow-up; PILAR (acute kidney injury) ([facility]); Prolonged QT interval; Hypertensive heart disease with heart failure ([facility]); Tobacco dependence syndrome; Bipolar disorder, current episode mixed, moderate ([facility]) 10/26/2024 Travel 10/25/2024 Telephone [facility] [place] [address] Jory Lala ANP CHART PREP 10/24/2024 Refill [facility] [place] [address] Jory Lala ANP Moderate asthma without complication, unspecified whether persistent 10/14/[address] [address] Jory Lala ANP Nurse Triage; ER Follow-up 10/01/2024 10:00 AM EDT Office Visit [facility] [address] [place] [address] Vishnu, Kerline, OD White without pressure of peripheral retina of left eye (Primary Dx); Suspicious optic nerve cupping of both eyes; Age-related nuclear cataract of both eyes; Presbyopia of both eyes 10/01/2024 Travel 09/14/2024 Orders Only [address] [address] Jory Lala ANP Shortness of breath (Primary Dx) 09/13/[address] [address] Jory Lala ANP Prior Authorization 09/08/2024 Orders Only [facility] External Provider, [facility] 09/06/[address] [address] Jory Lala ANP 09/06/2024 Orders Only [address] [address] Jory Lala ANP Moderate asthma without complication, unspecified whether persistent (Primary Dx) 08/23/2024 Patient Outreach [address] [address] Jory Lala ANP Transition Of Care (Tcm) 08/22/2024 Orders Only GENERIC EXTERNAL DATA DEPARTMENT Provider, Generic External Data 08/18/2024 Telephone [facility] [address] [place] [address] Jory Lala ANP Med Refill from Last 3 Months Immunizations Immunization Administration [...] Date Recorded Patient Health Questionnaire-9 Score 0 10/26/2024 Patient Health Questionnaire-9 Score 0 10/26/2024 Last PHQ-9: Questionnaire Data Not on file 0 10/26/2024 Housing Stability Answer Date Recorded What is your housing situation today? I have billy dixon 10/26/[address] you li ve. Do you have problems with any of the following? None of the above 10/26/2024 Food Insecurity Answer Date Recorded Within the [...] Date Recorded Patient Health Questionnaire-2 Score 0 10/26/2024 Internet Access Answer Date Recorded Internet Access [...] Sign Reading Time Taken Comments Blood Pressure 124/78 10/26/2024 11:38 AM EDT Pulse 74 10/26/2024 11:38 AM EDT Temperature 36.7 C (98.1 F) 07/12/2024 2:47 PM EDT Respiratory Rate 16 10/26/2024 11:38 AM EDT Oxygen Saturation 98% 07/12/2024 2:47 PM EDT Inhaled Oxygen Concentration - - Weight 84.8 kg (187 lb) 10/26/2024 11:38 AM EDT Height 154.9 cm (5' 1 ) 10/26/2024 11:38 AM EDT Body Mass Index 35.33 10/26/2024 11:38 AM EDT Plan of Treatment Health Maintenance Due Date Last Done Comments CT Colonography 1975 FIT DNA/Cologuard 1975 FIT 1975 FOBT 1975 Sigmoidoscopy 1975 Family Planning (PISQ) 01/24/1991 Influenza Vaccine (#1) 2024 , 01/23/2024, 11/28/2022, Additional history exists COVID-19 Vaccine ( season) 2024 01/19/2022, 10/15/2021, 09/04/2020, Additional history exists Postponed from 11/16/2023 (Patient Refused) Alcohol/Substance Use Screening 05/20/2025 05/20/2024 Disability Screening 06/10/2025 06/10/2024 Cervical Cancer Screening 08/09/2025 HPV/Cotest 08/09/2025 08/09/2020 Pap Smear 08/09/2025 08/09/2020 Depression Screening 10/26/2025 10/26/2024, 10/27/19 SDOH Screening 10/26/2025 10/26/2024 Tobacco Screening 10/26/2025 10/26/2024 Lipid Panel 11/29/2025 11/29/2020, 04/18, 10/20/2019 Mammogram 01/18/2026 01/19/2024, 06/2023, 01/14/2023, Additional [...] Procedure Name Priority Date/Time Associated Diagnosis Comments ECG 12-LEAD Routine 10/26/2024 1:06 PM EDT Prolonged QT interval OCT, OPTIC NERVE - OU - BOTH EYES Routine 10/01/2024 10:00 AM EDT Suspicious optic nerve cupping of both eyes FL UPPER GI W AIR W BARIUM [...] AUTO DIFFERENTIAL Routine 08/22/2024 10:49 AM EDT BI MAMMOGRAM SCREENING TOMOSYNTHESIS BILATERAL Routine [...] Recently Relevant to Health Maintenance Results * ECG 12 lead (10/26/2024 1:06 PM EDT) Jory Art ANP - 10/26/2024 1:06 PM EDT EKG today w/ artifact in I, II, III, aVR, aVL, aVF but overall appears similar to multiple previous. HR 66, QTc 480 us Jory GORDON ECG ORDERABLES Final Result * OCT, Optic Nerve - OU - Both Eyes (10/01/2024 10:00 AM EDT) Kerline Flores, OD - 10/13/2024 4:08 PM EDT Images from the original result were not included. Right Eye Images reviewed. To assess optic nerve function and for use in future follow-up. Reliability: good and adequate. Left Eye Images reviewed. To assess optic nerve function and for use in future follow-up. Reliability: good and adequate. Notes OCT OPTIC NERVE INTERPRETATION Optical Coherence Tomography Interpretation Report Test Details: OCT Optic nerve Measurements: OD OS C/D Horizontal 0.54 0.66 C/D Vertical 0.66 0.72 Disc area 2.24mm 2 2.22mm 2 RNFL Average 104 microns 100 microns Test findings: OD: RNFL thickness is WNL in all quadrants. OS: RNFL thickness is WNL in all quadrants. Impression and Plan: Monitor in 1 year. us Kerline Mares OD OPHTH TOMOGRAPHY Final Result * FL Upper GI w/air w/Barium Swallow (09/08/2024 9:25 AM EDT) Anatomical Region Laterality Modality Body Radiographic Miranda ging 09/08/2024 9:25 AM EDT Narrative 09/08/2024 10:33 AM EDT [address] [address] Fluoroscopy Report Signed Patient: Laila Ortiz MR#: [id number] : 1975 Acct:[id number] Age/Sex: 49 / F ADM Date: 09/08/24 Loc: HO.XRAY Attending Dr: Mica Dodd [facility] Ordering Physician: Mica Dodd [facility] Date of Service: 09/08/24 Procedure(s): FL upper GI w air w Ba Swallow Accession Number(s): [id number] cc: Mica Dodd [employer]; JORY LALA NP EXAMINATION: XR FLUOROSCOPY UPPER [...] in OV> 09/08/24 1030 DD/ 4 TD/TT: 09/08/24939 Hardwood Floor Installation Helper: Procedure Note Donotuseinterpreter, Image - 09/08/2024 [place] [address] Fluoroscopy Report Signed Patient: Aury Ortiz#: [id number] : 1975Acct:[id number] Age/Sex: 49 / FADM Date: 09/08/24 Loc: ROME[facility] Attending Dr: Mica DELGADO Ordering Physician: Mica Dodd Date of Service: 09/08/24 Procedure(s): FL upper GI w air w Ba Swallow Accession Number(s): [id number] cc: Mica Dodd; JORY LALA NP EXAMINATION: [...] 09/08/24 1030 DD/ 0925 TD/TT: 09/08/24 0940 Hardwood Floor Installation Helper: us [facility] External Provider IMG FLU OROSCOPY PROCEDURES Final Result * CT Abdomen Pelvis w/ Contrast (08/22/2024 4:15 PM EDT) Anatomical Region Laterality Modality Body, Pelvis, Abdomen Computed T omography 08/22/2024 4:15 PM EDT Narrative 08/22/2024 4:16 PM EDT [address] [address] [address] Scan Report Signed Patient: Laila Ortiz MR#: [id number] : 1975 Acct:[id number] Age/Sex: 49 / F ADM Date: 08/22/24 Loc: HO.ED Attending Dr: Ordering Physician: Arie Maldonado DO Date of Service: 08/22/24 Procedure(s): CT abdomen pelvis w IV con Accession Number(s): [id number] cc: JORY LALA SAILING MASTER; Arie Maldonado DO Report Number: [id number]: Total DLP = 1067.00 mGy-cm CLINICAL HISTORY: abdominal pain CT Abdomen and Pelvis W Contrast COMPARISON: US/SR - US ABDOMEN COMPLETE - 03/21/23 09:[address]/REG/IA/SR - CT ABDOMEN PELVIS WO IV CON [...] signed by Emery Mathew MD in OV> 08/22/241614 DD/ 14 TD/TT: 08/22/241614 Hardwood Floor Installation Helper: Procedure Note Donotuseinterpreter, Image - 08/22/[address] [address] [address] Scan Report Signed Patient: Aury Ortiz#: [id number] : 1975Acct:[id number] Age/Sex: 49 / FADM Date: 08/22/24 Loc: HO.ED Attending Dr: Ordering Physician: Arie Maldonado DO Date of Service: 08/22/24 Procedure(s): CT abdomen pelvis w IV con Accession Number(s): [id number] cc: JORY LALA SAILING MASTER; Arie Maldonado DO Report Number: [id number]: Total DLP = 1067.00 mGy-cm CLINICAL HISTORY: abdominal pain CT Abdomen and Pelvis W Contrast COMPARISON: US/SR - US ABDOMEN COMPLETE - 03/21/23 09:[address]/REG/IA/SR - CT ABDOMEN PELVIS WO IV CON [...] Mathew MD in OV> 08/22/24 1615 DD/ 14 TD/TT: 08/22/241614 Hardwood Floor Installation Helper: us [facility] External Provider IMG CT PROCEDURES Edited Result - Final * (ABNORMAL) Urinalysis, Complete, with Reflex to Culture (08/22/2024 10:49 AM EDT) Color Urine Yellow [facility] Appearance Urine Clear [facility] PH 5.5 5.0 - 9.0 [facility] Glucose Urine UA Negative Negative mg/dL [facility] Urine Blood Trace(A) Negative [facility] Specific [place] - Urine 1.010 1.005 - 1.025 [facility] Urine Protein Negative Neg-Trace mg/dL [facility] Urine Ketones Negative Negative mg/dL [facility] Nitrite Urine Negative Negative [facility] Leukocyte Esterase Urine Negative Negative [facility] RBC Urine 3-5(A) 0 - 2 /HPF [facility] Urine WBC 0-5 0 - 5 /HPF [facility] Urine Squamous Epithelial Cell 0-2 0 - 2 /HPF [facility] Urine Bacteria None Seen None Seen [facility] Hyaline Casts, Urine 0-2 0 - 2 /LPF [facility] 08/22/2024 10:4 9 AM EDT 08/22/2024 10:52 AM EDT Narrative [facility] - 08/22/2024 11:02 AM EDT Urine, Clean Catch Generic External Data Provider LAB URINE ORDERAB LES Final Result [facility] [address] [place] [phone] * (ABNORMAL) CBC auto differential (08/22/2024 10:49 AM EDT) White Blood Count 7.4 4.8 - 10.8 X10*3/uL [facility] Red Blood Count 4.20 4.20 - 5.50 X10*6/uL [facility] Hemoglobin 12.4 12.0 - 16.0 g/dl [facility] Hematocrit 37.9 37.0 - 47.0 % [facility] Mean Corpuscular Volume 90.2 80.0 - 98.0 fL [facility] Mean Corpuscular Hemoglobin 29.5 27.0 - 33.0 pg [facility] Mean Corpuscular HGB Conc 32.7 31.0 - 35.0 g/dl [facility] Red Cell Distribution Width 12.3 11.0 - 16.0 % [facility] Platelet Count 219 160 - 400 X10*3/uL [facility] Mean Platelet Volume 9.8 9.4 - 12.3 fL [facility] Neutrophils Percent Auto 69.0 45 - 73 % [facility] Imm Gran Pct Auto 0.5(H) 0.0 - 0.4 % [facility] Lymphocytes Percent Auto 23.6 20 - 40 % [facility] Monocytes Percent Auto 4.5 2 - 11 % [facility] Eosinophils Percent Auto 1.9 0 - 4 % [facility] Basophils Percent Auto 0.5 0 - 2 % [facility] NRBC Pct Auto 0.0 0.0 - 0.2 /100WBC [facility] Neutrophils Absolute Auto 5.1 2.0 - 8.3 x10*3/uL [facility] Imm Gran Abs Auto 0.04(H) 0.00 - 0.03 X10*3/uL [facility] Lymphocytes Absolute Auto 1.8 1.2 - 4.9 X10*3/uL [facility] Monocytes Absolute Auto 0.3 0.1 - 1.2 X10*3/uL [facility] Eosinophils Absolute Auto 0.1 0.0 - 0.4 X10*3/uL [facility] Basophils Absolute Auto 0.0 0.0 - 0.2 X10*3/uL [facility] NRBC Abs Auto 0.000 0.0 - 0.012 X10*3/uL [facility] 08/22/2024 10:4 9 AM EDT 08/22/2024 10:52 AM EDT us Generic External Data Provider LAB BLOOD ORDERAB LES Final Result Performing Organization Address [facility] Co de Phone Number [facility] [address] [place] [phone] * HCG, Qualitative, Urine (08/22/2024 10:49 AM EDT) Urine NEGATIVE NEGATIVE [facility] Comment:This test was develo ped to detect early . Falsenegative results may occur after the 5th - 7th week ofpregnancy when using this test method. If clinicallyindicated, consider a serum hCG. 08/22/2024 10:4 9 AM EDT 08/22/2024 10:52 AM EDT [facility] External Data Provider LAB URINE ORDERAB LES Final Result Performing Organization Address [facility] Co de Phone Number [facility] [address] [place] [phone] * hCG, Total, Quantitative (08/22/2024 10:49 AM EDT) HCG Quantitative <2 mIU/mL [facility] Comment:Weeks post LMP Appro ximate hCG(Last Menstrual Period) Range (mIU/ml)3 - 4 weeks 9 - 1304 - 5 weeks 75 - 2,6005 - 6 weeks 850 - 20,8006 - 7 weeks 4000 - 100,2007 - 12 weeks 11,500 - 289,69282 - 16 weeks 18,300 - 137,98732 - 29 weeks (2nd trimester) 1,400 - 53,59998 - 41 weeks (3rd trimester) 940 - [...] AM EDT Generic External Data Provider LAB BLOOD ORDERAB LES Final Result Performing Organization Address [facility]/ZIP Co de Phone Number [facility] [address] [place] [phone] * Lipase (08/22/2024 10:49 AM EDT) Pathologist [facility] Lipase 24 8 - 78 U/L [facility] 08/22/2024 10:4 9 AM EDT 08/22/2024 10:52 AM EDT Generic External Data Provider LAB BLOOD ORDERAB LES Final Result Performing Organization Address [facility] Phone Number [facility] [address] [place] [phone] * (ABNORMAL) Hepatic Function Panel (08/22/2024 10:49 AM EDT) [facility] Bilirubin, Total 0.3 0.0 - 1.0 mg/dL [facility] Bilirubin, Direct 0.1 0.0 - 0.5 mg/dL [facility] Aspartate Amino Transferase 21 5 - 31 U/L [facility] Alanine Aminotransferase 18 0 - 31 U/L [facility] Total Protein 8.2(H) 6.5 - 8.0 g/dL [facility] Albumin Level 4.5 3.5 - 5.0 g/dL [facility] Alkaline Phosphatase 72 39 - 117 U/L [facility] 08/22/2024 10:4 9 AM EDT 08/22/2024 10:52 AM EDT Generic External Data Provider LAB BLOOD ORDERAB LES Final Result Performing Organization Address [facility] de Phone Number [facility] [address] [place] [phone] * (ABNORMAL) Basic Metabolic Panel (08/22/2024 10:49 AM EDT) Sodium 135 135 - 145 mmol/L [facility] Potassium 4.6 3.3 - 5.1 mmol/L [facility] Chloride 103 96 - 108 mmol/L [facility] Carbon Dioxide 24 22 - 29 mmol/L [facility] Anion Gap 13 12 - 20 [facility] Urea Nitrogen (BUN) 32(H) 9 - 16 mg/dL [facility] Creatinine, Serum 1.40 0.5 - 1.4 mg/dL [facility] Creatinine Clr Calc Pharmacy 49.9 [facility] Comment:Provided height and weight: 154.94 cm,89.358 kg.eGFR (calculated from the MDRD study equation) and eCrCl(calculated from the Cockcroft-Gault equation) are based ondifferent parameters and may not yield comparable results.If eCrCl result is absurd, please check patient'sheight/weight. Estimated Glomerular Filt Rate 40 [facility] Comment:Chronic Kidney Disea se: Estimated GFR < 60 mL/min/[id number] Kidney Disease: Estimated GFR < 15 mL/min/1.73m2 Glucose 87 60 - 115 mg/dL [facility] Calcium 9.6 8.4 - 10.2 mg/dL [facility] 08/22/2024 10:4 9 AM EDT 08/22/2024 10:52 AM EDT us Generic External Data Provider LAB BLOOD ORDERAB LES Final Result [facility] [address] [place] [phone] * BI Mammogram Screening Tomosynthesis Bilateral (01/19/2024 10:30 AM EST) Anatomical Region Laterality Modality Breast Bilateral Mammography 01/19/2024 10:3 0 AM EST Narrative 01/27/2024 2:08 PM EST [facility] [address] [place] [address] Mammography Report Signed Patient: Laila Ortiz MR#: [id number] : 1975 Acct:[id number] Age/Sex: 48 / F ADM Date: 01/19/24 Loc: JOSE MARIA Attending Dr: Jory Lala NP Ordering Physician: JORY LALA NP Results: 1Negative Date of Service: 01/19/24 Follow Up: 1 Year From Orig ina Mammogram Procedure(s): MM tomosynthesis screening BI Accession Number(s): [id number] cc: JORY LALA NP EXAMINATION: MM SCREENING [...] by: Michaela Alejo DO 01/27/2024 02:05 PM [facility] Dictated By: Michaela Alejo DO Signed By: <Electronically signed by Michaela Alejo DO in OV> 01/27/24 1405 DD/ 1030 TD/TT: 01/19/24 [address] Installation Helper: Procedure Note Donotuseinterpreter, Image - 01/27/[facility] [address] [place] [address] Mammography Report Signed Patient: Aury Ortiz#: [id number] : 1975Acct:[id number] Age/Sex: 48 / FADM Date: 01/19/24 Loc: JOSE MARIA Attending Dr: Jory Lala NP Ordering Physician: JORY LALA NPResults: 1Negative Date of Service: 01/19/24Follow Up: 1 Year From Orig inal Mammogram Procedure(s): MM tomosynthesis screening BI Accession Number(s): [id number] cc: JORY LALA SAILING MASTER EXAMINATION: MM SCREENING DIGITAL BREAST TOMOSYNTHESIS, BILATERAL [...] by: Michaela Alejo DO 01/27/2024 02:05 PM [facility] Dictated By: Michaela Alejo DO Signed By: <Electronically signed by Michaela Alejo DO in OV> 01/27/24 1405 DD/ 1030 TD/TT: 01/19/24 [address] Installation Helper: Jory Lala ANP IMG BI PROCEDURES Final Result * Hepatitis C Ab (12/30/2022 4:01 PM EDT) Hepatitis C Antibody Nonreactive Nonreactive [facility] Comment:Antibodies to HCV no t detected; does not exclude early acuteHCV infection. 12/30/2022 4:01 PM EDT 12/30/2022 4:01 PM EDT [facility] External Provider LAB BLO OD ORDERABLES Final Result [facility] [address] [place] [phone] * HIV Ab/Ag (YVETTE MATOS) (12/30/2022 4:01 PM EDT) [facility] HIV AB/AG Nonreactive Nonreactive [facility] Comment:HIV-1 p24 Ag and/or HIV-1/HIV-2 Ab not detected.A test result that is nonreactive does not exclude thepossibility of exposure to or infection with HIV-1 and/orHIV-2. Nonreactive results in this assay for individualswith prior exposure to HIV-1 and/or HIV-2 may be due toantigen and antibody levels that are below the limit ofdetection of this assay.The [employer] HIV Ag/Ab Combo assay result andsupplemental assay results should be interpreted inconjunction with the patient's clinical presentation,history and other laboratory results. If the results areinconsistent with clinical evidence, additional testing issuggested to confirm the result. 12/30/2022 4:01 PM EDT 12/30/2022 4:01 PM EDT us Generic External Data Provider LAB BLOOD ORDERAB LES Final Result [facility] [address] [place] [address] [phone] * (ABNORMAL) Colonoscopy (07/04/2021) [facility] Colonoscopy Abnormal(A ) Normal us Historical Provider HEALTH MAINTENANCE Final Result * (ABNORMAL) LIPID PANEL, STANDARD (11/29/2020 10:01 AM EDT) [facility] Chol/HDLC Ratio 5.6(H) <5.0 (calc) [facility] [...] LDL-C. Ed WITT et al. MATTIE. 2013;310(19): 5076-1342 (http://education.Fashioholic/faq/BNW466) Non-HDL Cholesterol 195(H) <130 mg/dL (calc) [facility] Comment: For patients with diabetes plus 1 major ASCVD risk factor, treating to a non-HDL-C goal of <100 mg/dL (LDL-C of <70 mg/dL) is considered a therapeutic option. Triglycerides 182(H) <150 mg/dL [facility] 11/29/2020 10:0 1 AM EDT us [facility] LAB BLOOD ORDERABLES Final Resul t [facility] [address] * THINPREP PAP (08/09/2020 2:03 PM EDT) Clinical Information: None given [facility] COMMENT SEE COMMENT [facility] [...] along with historic and current clinical information. Advice Clerk : SEE COMMENT [facility] Comment: RK, CT(ASCP) CT screening location: [place] [address] Interpretation/R esult: Negative for intraepithelial lesion or malignancy. [facility] LMP: 07/29/20 [facility] Prev. BX: LEEP 2000 [facility] Prev. PAP: NIL 09/2015 [facility] SOURCE: None given [facility] Statement Of Adequacy: SEE COMMENT [facility] Comment: Satisfactory for evaluation. Endocervical/transformation zone component absent. 08/09/2020 2:03 PM EDT Yuly Mcfarlane [facility] LAB PATHOLOGY ORDERABLES Final Result Performing Organization Address [facility] Co de Phone Number [facility] [address] * HPV mRNA E6/E7 (08/09/2020 2:03 PM EDT) HPV nRNA E6/E7 Not Detected Not Detected [facility] Comment: Methodology: [employer]-Mediated Amplification This assay detects E6/E7 viral messenger RNA (mRNA) from 14 high-risk HPV types (16,18,31,33,35,39,45,51,52,56,58,59,66,68). The analytical performance characteristics of this assay have been determined by [employer]. The modifications have not been cleared or approved by the FDA. This assay has been validated pursuant to the CLIA regulations and is used for clinical purposes. For additional information, please refer to http://education.[employer]/faq/ELF281v0 (This link if provided for information/ educational purposes only.) 08/09/2020 2:03 PM EDT Yuly Mcfarlane [facility] LAB BLOOD ORDERABLES Verena l Result Performing Organization Address [facility] Co de Phone Number [facility] [address] from Last 3 Months or Most Recently Relevant to Health Maintenance Insurance MEDIC[facility] STANDARD Care Teams Combo Welder Relationship Specialty Start Date End Date Jory Lala ANP [address] [place] [address] PCP - General Family Medicine 11/28/20
[2024-11-05 12:29] LABS: Anion Gap 12 (12-20); Blood Urea Nitrogen 14 mg/dL (9-16); Calcium 9.5 mg/dL (8.4-10.2); Carbon Dioxide 28 mmol/L (22-29); Chloride 103 mmol/L (96-108); Estimated Glomerular Filt Rate 58; Potassium 3.9 mmol/L (3.3-5.1); Sodium 139 mmol/L (135-145)
== END 2024-11-05 09:28 | disposition home or self-care (01) ==
LOC: HO.HHCL 09:27
PROVIDERS: PCP Nurse Practitioner Primary Care; Visit Provider Nurse Practitioner Primary Care
DX: E87.6 Hypokalemia (principal); N17.9 Acute kidney failure, unspecified
CPT/HCPCS: 36415; 80048

== ENCOUNTER 2025-01-19 09:02 | Outpatient (AMB) | payer MEDICARE, MEDICAID, SELFPAY ==
--- NOTE | 2025-01-19 09:06 | MHC.OFFVIS ---
Vital Signs 01/19/25 09:07 Height 5 ft 1 in Weight 192 lb 14.472 oz BMI 36.4 BP 110/80 Blood Pressure Location Lt brachial Position Sitting Pulse 69 Pulse Source Pulse Oximeter Pulse Oximetry (%) 96 Oxygen Delivery Method Room Air Intake Visit Reasons: 3 Months Intake Note: Patient presents for Tendinopathy of left rotator cuff follow up. Patient states that she has been having a lot of feet pain. Accompanied by: Self / Same As Patient Allergies cat dander (CATS) Allergy (Intermediate, Verified 01/19/25 09:06) Itching haloperidol (From HALDOL) Allergy (Intermediate, Verified 01/19/25 09:06) SWELLING, hives risperidone (From RISPERDAL) Allergy (Intermediate, Verified 01/19/25 09:06) HIVES, swelling shrimp Allergy (Intermediate, Verified 01/19/25 09:06) Swelling meloxicam Allergy (Mild, Verified 01/19/25 09:06) Swelling COCKROACHES Allergy (Intermediate, Uncoded 09/30/24 10:20) Itching HPI HPI 3 Months: Details: Shoulder pain is unchanged. 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 She was told to avoid NSAIDs and tylenol due to being on lyrica. [facility] Medical History (Updated 01/19/25 @ 09:56 by Abel Tee MD) Vasovagal syncope PMR (polymyalgia rheumatica) Knee pain, bilateral Low back pain Ambulates with cane Hx of malignant neoplasm of kidney History of seizure Bipolar disorder Anxiety and depression Fibromyalgia High cholesterol Surgical History History of esophagogastroduodenoscopy (EGD) Hx of colonoscopy History of loop electrical excision procedure (LEEP) History of carpal tunnel surgery of right wrist History of bilateral tubal ligation Family History Mother Kidney failure Diabetes COPD (chronic obstructive pulmonary disease) Heart disease Father Colon cancer Social History Are you a primary inpatient care manager rn to a significant other at home: No Do you presently have visiting nurse or other home services: No Alcohol intake: never Patient Tobacco Use Status: Current everyday Tobacco user Tobacco use type: Cigarette Cigarettes Per Day: 3 service: No Current occupational status: disabled Physical Exam Vital Signs: Last Vital Signs Pulse 69 01/19/25 09:07 BP 110/80 01/19/25 09:07 Pulse Ox 96 01/19/25 09:07 Oxygen Delivery Method Room Air 01/19/25 09:07 BMI result Body Mass Index 36.4 Const Other: General: Comfortable Skin: No lesions seen MSK: Bilateral anterior shoulder tenderness on palpation. No effusion seen. Active shoulder abduction 90 degrees. It improves 120 degrees with passive range of motion. She has limited internal and external rotation actively due pain but it is preserved with passive range of motion. Shoulder range of motion is limited due to pain. Office Procedures AMB Joint Injection/Aspiration Joint Injection/Aspiration Details: Bilateral shoulder joints Prep: site was prepped using aseptic technique Injected into each joint: 40 mg of, Kenalog, with 1 mL of and 1% plain lidocaine Procedure: Informed verbal consent was obtained. The patient tolerated the procedure well. Postprocedure protocol was discussed with patient. Coding 54156 - Bilateral Large Joint Procedure code (CPT) selection complete AMB Joint Injection/Aspiration Coding 69129 - Large joint Procedure code (CPT) selection complete Office Meds lidocaine (PF) 10 mg/mL (1 %) injection solution Performing Provider: Abel Tee MD Performing Location: [facility] Administered by: Isamar Rahman RN on 01/19/25 10:27 Dose Route Admin Location Dispensed Lot Number Expiration Date [facility] Printer Floor Covering Assistant 1 mL Infiltration 2 mL [id number] 08/14/26 47923-323-24 [employer] Total Dispensed Waste 2 mL 50 % Kenalog 40 mg/mL suspension for injection Performing Provider: Abel Tee MD Performing Location: [facility] Administered by: Isamar Rahman RN on 01/19/25 10:27 Dose Route Admin Location Dispensed Lot Number Expiration Date [facility] Pr[employer] Floor Covering Assistant 40 mg intrabursal 1 mL [id number] 09/13/26 [address]-3 [employer] Total Dispensed Waste 1 mL 0 % lidocaine (PF) 10 mg/mL (1 %) injection solution Performing Provider: Abel Tee MD Performing Location: [facility] Administered by: Isamar Rahman RN on 01/19/25 10:27 Dose Route Admin Location Dispensed Lot Number Expiration Date [place] [employer] Floor Covering Assistant 1 mL Infiltration 2 mL [id number] 08/14/26 49666-505-98 [employer] Total Dispensed Waste 2 mL 50 % Kenalog 40 mg/mL suspension for injection Performing Provider: Abel Tee MD Performing Location: [facility] Administered by: Isamar Rahman RN on 01/19/25 10:27 Dose Route Admin Location Dispensed Lot Number Expiration Date [facility] Printer Floor Covering Assistant 40 mg intrabursal 1 mL [id number] 09/13/26 [address]-0 [employer] Total Dispensed Waste 1 mL 0 % Assessment & Plan Assessment & Plan (1) Bilateral shoulder pain: Comment: Onset January 2024 after she was restrained by police during manic episode. X-rays of bilateral shoulder reveal bilateral glenohumeral osteoarthritis, left AC joint arthritis and right mild widening of AC joint noted to be due to possible prior decompression procedure but patient has not had any surgical procedures to her right shoulder. AC joint widening may be related to injury from January. She also had MRI left shoulder, which reveals supraspinatus tendinopathy and labral tear. Ortho confirmed osteoarthritis but not feel patient has a labral tear. Home PT was recommended but was not started. She is unable to do outpatient PT because of cancellations due to her medical co-morbidities (depression and feeling unwell). Failed tylenol. I offered her cortisone injections to control pain with goal of home exercise program. Code(s): M25.511 - Pain in right shoulder; M25.512 - Pain in left shoulder Category: Medical Qualifiers: Chronicity: chronic Qualified Code(s): M25.511 - Pain in right shoulder; M25.512 - Pain in left shoulder; G89.29 - Other chronic pain Plan: Patient recieved bilateral cortisone injections today Continue home exercise program. [employer] shoulder strengthening program printed for patient Contact ortho to start home PT Call PCP to find out if she can use oral NSAIDs to control pain Start diclofenac gel 1% applied to affected area QID. She has OTC voltaren at home RTC 3-4 months (2) Osteoarthritis of shoulders, bilateral: Comment: Mild right osteoarthritis with mild widening of AC joint. Mild superior spurring of the distal clavicle. Left [id number] glenohumeral osteoarthritis, mild AC joint arthritis on x-rays. Code(s): M19.011 - Primary osteoarthritis, right shoulder; M19.012 - Primary osteoarthritis, left shoulder Category: Medical Qualifiers: Osteoarthritis type: primary Qualified Code(s): M19.011 - Primary osteoarthritis, right shoulder; M19.012 - Primary osteoarthritis, left shoulder Plan: See above Orders: Orders AMB Joint Injection/Aspiration Today G89.29 - Other chronic pain, M25.511 - Pain in right shoulder, M25.512 - Pain in left shoulder AMB Joint Injection/Aspiration Today G89.29 - Other chronic pain, M25.511 - Pain in right shoulder, M25.512 - Pain in left shoulder Coding Level of Care Code Est Pt Level 3 (29531) Complex EM visit Add On G2211 Diagnoses Chronic pain of both shoulders M25.511; M25.512; G89.29 Chronicity: chronic Primary osteoarthritis of both shoulders M19.011; M19.012 Osteoarthritis type: primary CPT Codes Coding - 74001 Large joint: 75967 - Large joint ([id number]) Coding - 02660 - Bilateral Large Joint: 33822 - Bilateral Large Joint ([id number])
[2025-01-19 09:07] VITALS: BP 110/80; PULSE 69; O2SAT 96; BMI 36.4
--- OUTSIDE RECORDS SUMMARY | 2025-01-19 09:38 | XMS_ITS | Encounter Summary ---
Author Organization [employer] Address [address] [facility] [address] [facility] [address] [place] [address] Care Team Providers Care Pattern Chain Builder Name Role Phone Glendy Sutton Primary Care Provider [phone] Reason for Visit * Reason Comments Med Refill Encounter Details Date Type Department Care Team ([facility] st Contact Info) Description 05/28/2024 Refill [facility] [address] [place], [place] [phone] Glendy Sutton ANP [address] [place] [address] Social History Tobacco Use Types Packs/Day Years [...] documented as of this encounter Care Teams Pattern Chain Builder Relationship Specialty Start Date End Date Glendy Sutton ANP [address] [place] [id number] PCP - General Family Medicine 11/28/20 documented as of this encounter
--- OUTSIDE RECORDS SUMMARY | 2025-01-19 09:38 | XMS_ITS | Clinical Summary ---
Author Organization [employer] Address [address] [place] [address] 7t [place] [address] Care Team Providers Care Delicatessen Store Manager Name Role Phone Jory Lala EVAN Primary Care Provider [phone] Allergies Active Allergy Reactions Criticality Noted Date [...] mouth at bedtime. prn 05/04/19 25 Active metoprolol succinate XL (Toprol-XL) 25 MG 24 hr tabletIndication s:Essential hypertension Take 1 tablet (25 mg) by mouth Once per day. 90 tablet 3 06/01/19 25 Active Spacer/Aero-Hold ing Chambers deviceIndication s:Moderate asthma without complication, unspecified whether persistent Use w/ albuterol 1 each 09/07/19 25 Active clonazePAM (KlonoPIN) 1 MG tablet [...] 25 Active albuterol 108 (90 Base) MCG/ACT inhalerIndicatio ns:Moderate asthma without complication, unspecified whether persistent INHALE 2 PUFFS BY MOUTH EVERY 6 HOURS NEEDED FOR WHEEZING OR SHORTNESS OF BREATH 8.5 g 1 10/26/19 25 Active D3-1000 25 MCG (1000 UT) capsuleIndicatio ns:Vitamin D deficiency TAKE 1 CAPSULE BY MOUTH DAILY 90 capsule 11/20/19 25 Active Arnuity Ellipta 100 MCG/ACT inhalerIndicatio ns:Shortness of breath INHALE 1 PUFF BY MOUTH EVERY DAY AT THE SAME TIME RINSE MOUTH AFTER USING 30 each 2 12/04/19 25 Active Ferrous Sulfate (iron) 325 (65 Fe) MG tabletIndication s:Anemia, unspecified type TAKE 1 TABLET BY MOUTH EVERY DAY WITH ORANGE JUICE 90 tablet 1 12/29/19 25 Active pregabalin (Lyrica) 200 MG capsuleIndicatio ns:Other chronic pain TAKE 1 CAPSULE BY MOUTH THREE TIMES DAILY 90 capsule 2 01/14/20 25 Active Ferrous Sulfate (iron) 325 (65 Fe) MG tabletIndication s:Anemia, unspecified type TAKE 1 TABLET BY MOUTH EVERY DAY WITH ORANGE JUICE 90 tablet 1 06/01/19 25 025 Discontinued pregabalin (Lyrica) 200 MG capsuleIndicatio ns:Other chronic pain Take 1 capsule (200 mg) by mouth 3 times daily. 90 capsule 5 07/13/19 25 025 Discontinued Active Problems Problem Noted Date Diagnosed Date Family history of myocardial infarction 06/11/19 History of seizure 06/10/2024 Posttraumatic stress disorder 06/10/2024 Severe obesity (BMI 35.0-39.9) with comorbidity (CMS/HCC) 06/10/2024 Fibromyalgia 05/27/2024 Assessment & Plan (07/12/2024 [...] a lot vs tabs. She follows / [facility] and has appt upcoming. Hypertensive heart [...] rheumatica) 05/20/2022 Bipolar affective disorder, current episode depressed ([facility]) 07/16/2018 Essential hypertension 07/16/2018 Overview (03/19/2024): Suspect [...] Encounters Date Type Department Care Team Description 01/12/2025 Refill [facility] [address] [place] [address] Sonali Kate MD Other chronic pain 12/28/2024 Refill [facility] [address] [place] [address] Jory Lala ANP Anemia, unspecified type 12/14/2024 Patient Outreach [address] [address] Jory Lala ANP Care Coordination ([facility] outreach for SDOH PT-1 and food needs-referral completed /) 12/14/[address] [address] Jory Lala ANP pt1 12/03/2024 Refill [facility] [address] [place] [address] Jory Lala ANP Shortness of breath 11/17/2024 Refill [facility] [address] [place] [address] Jory Lala ANP Vitamin D deficiency 11/05/2024 9:00 AM EDT Office Visit [facility] [address] [place] [address] Vishnu, Kerline, OD Presbyopia of both eyes (Primary Dx) 11/05/2024 Results Follow-Up [address] [address] Jory Lala ANP Basic Metabolic Panel 10/26/2024 11:15 AM EDT Office Visit [facility] [address] [place] [address] Jory Lala ANP Hypotension, unspecified hypotension type (Primary Dx); Hypokalemia; Hospital discharge follow-up; PILAR (acute kidney injury) (CMS/HCC); Prolonged QT interval; Hypertensive heart disease with heart failure (CMS/HCC); Tobacco dependence syndrome; Bipolar disorder, current episode mixed, moderate (CMS/HCC) 10/26/2024 Travel 10/25/2024 Telephone [facility] [address] [place] [address] Jory Lala ANP CHART PREP 10/24/2024 Refill [facility] [address] [place] [address] Jory Lala ANP Moderate asthma without complication, unspecified whether persistent from Last 3 Months Immunizations Immunization Administration [...] 2024 01/19/2022, 10/15/2021, 09/04/2020, Additional history exists Influenza Vaccine (#1) 2024 , 01/23/2024, 11/28/2022, Additional history exists Alcohol/Substance Use Screening 05/20/2025 05/20/2024 Disability Screening [...] Procedure Name Priority Date/Time Associated Diagnosis Comments BASIC METABOLIC PANEL Routine 11/05/2024 9:31 AM EDT Hypokalemia PILAR (acute kidney injury) (CMS/HCC) ECG 12-LEAD Routine 10/26/2024 1:06 PM EDT Prolonged QT interval BI MAMMOGRAM SCREENING TOMOSYNTHESIS BILATERAL Routine 01/19/2024 [...] Relevant to Health Maintenance Results * (ABNORMAL) Basic Metabolic Panel (11/05/2024 9:31 AM EDT) Sodium 139 135 - 145 mmol/L [facility] Potassium 3.9 3.3 - 5.1 mmol/L [facility] Chloride 103 96 - 108 mmol/L [facility] Carbon Dioxide 28 22 - 29 mmol/L [facility] Anion Gap 12 12 - 20 [facility] Urea Nitrogen (BUN) 14 9 - 16 mg/dL [facility] Creatinine, Serum 1.02 0.5 - 1.4 mg/dL [facility] Estimated Glomerular Filt Rate 58 [facility] Comment:Chronic Kidney Disea se: Estimated GFR < 60 mL/min/1.26t3Yktqvq Kidney Disease: Estimated GFR < 15 mL/min/1.73m2 Glucose 122(H) 60 - 115 mg/dL [facility] Calcium 9.5 8.4 - 10.2 mg/dL [facility] Blood Venous blood specimen / Unknown 11/05/2024 9:31 AM EDT 11/05/2024 11:54 AM EDT Jory Lala ANP LAB BLOOD ORDERABLES Final Resul t [facility] [address] [place] [address] [phone] * ECG 12 lead (10/26/2024 1:06 PM EDT) Narrative Jory Lala ANP - 10/26/2024 1:06 PM EDT EKG today w/ artifact in I, II, III, aVR, aVL, aVF but overall appears similar to multiple previous. HR 66, QTc 480 Jory Lala ANP ECG ORDERABLES Final Result * BI Mammogram Screening Tomosynthesis Bilateral (01/19/2024 10:30 AM EST) Anatomical Region Laterality Modality Breast Bilateral Mammography 01/19/2024 10:3 0 AM EST Narrative 01/27/2024 2:08 PM EST [facility] [address] [place] [address] Mammography Report Signed Patient: Laila Ortiz MR#: [id number] : 1975 Acct:[id number] Age/Sex: 48 / F ADM Date: 01/19/24 Loc: [facility] Attending Dr: Jory Lala NP Ordering Physician: JORY LALA NP Results: 1Negative Date of Service: 01/19/24 Follow Up: 1 Year From Orig inal Mammogram Procedure(s): MM tomosynthesis screening BI Accession Number(s): [id number] cc: JORY LALA NP EXAMINATION: MM SCREENING [...] by: Michaela Alejo DO 01/27/2024 02:05 PM [facility] Dictated By: Michaela Alejo DO Signed By: <Electronically signed by Michaela Alejo DO in OV> 01/27/24 1405 DD/ 1030 TD/TT: 01/19/24 1100 Umbrella Tipper: Procedure Note Donotuseinterpreter, Image - 01/27/2024 [facility] [address] [place], [place] [address] Mammography Report Signed Patient: Aury Ortiz#: [id number] : 1975Acct:[id number] Age/Sex: 48 / FADM Date: 01/19/24 Loc: HO.MAMMO Attending Dr: Jory Lala NP Ordering Physician: JORY LALA NPResults: 1Negative Date of Service: 01/19/24Follow Up: 1 Year From Orig inal Mammogram Procedure(s): MM tomosynthesis screening BI Accession Number(s): [id number] cc: JORY LALA NP EXAMINATION: MM SCREENING [...] Michaela Alejo DO 01/27/2024 02:05 PM EST Dictated By: Michaela Alejo DO Signed By: <Electronically signed by Michaela Alejo DO in OV> 01/27/24 1405 DD/ 1030 TD/TT: 01/19/24 1100 Umbrella Tipper: [facility] BI PROCEDURES Final Result * Hepatitis C Ab (12/30/2022 4:01 PM EDT) Hepatitis C Antibody Nonreactive Nonreactive [facility] Comment:Antibodies to HCV no t detected; does not exclude early acuteHCV infection. 12/30/2022 4:01 PM EDT 12/30/2022 4:01 PM EDT [facility] External Provider LAB BLO OD ORDERABLES Final Result [facility] [address], [place] [phone] * HIV Ab/Ag ([facility]) (12/30/2022 4:01 PM EDT) HIV AB/AG Nonreactive Nonreactive [facility] Comment:HIV-1 p24 Ag and/or HIV-1/HIV-2 Ab not detected.A test result that is nonreactive does not exclude thepossibility of exposure to or infection with HIV-1 and/orHIV-2. Nonreactive results in this assay for individualswith prior exposure to HIV-1 and/or HIV-2 may be due toantigen and antibody levels that are below the limit ofdetection of this assay.The liveMag.roniTier 1 Performance HIV Ag/Ab Combo assay result andsupplemental assay results should be interpreted inconjunction with the patient's clinical presentation,history and other laboratory results. If the results areinconsistent with clinical evidence, additional testing issuggested to confirm the result. 12/30/2022 4:01 PM EDT 12/30/2022 4:01 PM EDT us Generic External Data Provider LAB BLOOD ORDERAB LES Final Result [facility] [address] [place] [phone] * (ABNORMAL) Colonoscopy (07/04/2021) [facility] Colonoscopy Abnormal(A ) Normal Historical Provider MD HEALTH MAINTENANCE Final Result * (ABNORMAL) LIPID PANEL, STANDARD (11/29/2020 10:01 AM EDT) [facility] Chol/HDLC Ratio 5.6(H) <5.0 (calc) [facility] LDL-C. Ed WITT et al. MATTIE. 2013;310(19): 5557-3201 (http://education.Vir-Sec.AVA Solar/faq/FNM336) Non-HDL Cholesterol 195(H) <130 mg/dL (calc) [facility] Comment: For patients with diabetes plus 1 major ASCVD risk factor, treating to a non-HDL-C goal of <100 mg/dL (LDL-C of <70 mg/dL) is considered a therapeutic option. Triglycerides 182(H) <150 mg/dL [facility] 11/29/2020 10:0 1 AM EDT Jory GORDON LAB BLOOD ORDERABLES Final Resul t Performing Organization Address [facility] Co de Phone Number [facility] [address] * THINPREP PAP (08/09/2020 2:03 PM EDT) Clinical Information: None given [facility] COMMENT SEE COMMENT [facility] [...] along with historic and current clinical information. Moth Proofer : SEE COMMENT [facility] Comment: RK, CT(ASCP) CT screening location: [place] [address] Interpretation/R esult: Negative for intraepithelial lesion or malignancy. [facility] LMP: 07/29/20 [facility] Prev. BX: LEEP 2000 [facility] Prev. PAP: NIL 09/2015 [facility] SOURCE: None given [facility] Statement Of Adequacy: SEE COMMENT [facility] Comment: Satisfactory for evaluation. Endocervical/transformation zone component absent. 08/09/2020 2:03 PM EDT Yuly MURPHY LAB PATHOLOGY ORDERABLES Final Result Performing Organization Address [facility] Co de Phone Number [facility] [address] * HPV mRNA E6/E7 (08/09/2020 2:03 PM EDT) HPV nRNA E6/E7 Not Detected Not Detected [facility] Comment: Methodology: Soaker Soda Worker-Mediated Amplification This assay detects E6/E7 viral messenger RNA (mRNA) from 14 high-risk HPV types (16,18,31,33,35,39,45,51,52,56,58,59,66,68). The analytical performance characteristics of this assay have been determined by [employer]. The modifications have not been cleared or approved by the FDA. This assay has been validated pursuant to the CLIA regulations and is used for clinical purposes. For additional information, please refer to http://education.Kuliza/faq/XJM276t5 (This link if provided for information/ educational purposes only.) 08/09/2020 2:03 PM EDT us Yuly Mcfarlane [facility] LAB BLOOD ORDERABLES Verena carbajal Result [facility] [address] from Last 3 Months or Most Recently Relevant to Health Maintenance Insurance MEDICARE [facility] STANDARD Care Teams Delicatessen Store Manager Relationship Specialty Start Date End Date Jory Lala ANP [address] [place] [phone] PCP - General Family Medicine 11/28/20
--- OUTSIDE RECORDS SUMMARY | 2025-01-19 09:38 | XMS_ITS | Encounter Summary ---
Author Organization [employer] Address [address] [facility] 7t [place] [address] Care Team Providers Care Gridcap Machine Operator Name Role Phone Glendy Sutton Primary Care Provider Reason for Visit * Reason Onset Date Comments Requested Call Back 07/23/2022 Encounter Details Date Type Department Care Team ([facility] Contact Info) Description 07/23/2022 Telephone [facility] [address] [place] [address] Glendy Sutton ANP [address] [place] [address] Requested Call Back Social History Tobacco Use [...] status on US order. Please contact at [phone] * Telephone Encounter - Licha Flor - 07/23/2022 12:31 PM EDT Tc from patient calling in regards to US order for left ovary. States [facility] doesn't have one. [employer] didn't see the order. documented in this encounter Plan of Treatment Not on file documented as of this encounter Visit Diagnoses Not on filedocumented in this encounter Care Teams Gridcap Machine Operator Relationship Specialty Start Date End Date Glendy Sutton ANP [address] [place] [address] PCP - General Family Medicine 11/28/20 documented as of this encounter
--- OUTSIDE RECORDS SUMMARY | 2025-01-19 09:38 | XMS_ITS | Encounter Summary ---
Author Organization [employer] Address [address] [facility] 7t [place] [address] Care Team Providers Care Lumber Sales Supervisor Name Role Phone Glendy Sutton Primary Care Provider [phone] Reason for Visit * Reason Onset Date Comments pt1 12/14/2024 Encounter Details Date Type Department Care Team ([facility] st Contact Info) Description 12/14/2024 Telephone [facility] [address] [place], [place] [phone] Glendy Sutton ANP [address] [place] [address] pt1 Social History Tobacco Use Types Packs/Day Years [...] encounter Miscellaneous Notes * Telephone Encounter - Bruce Kuhn - 12/14/2024 11:11 AM EDT Patient calling requesting PT1 Home Address verified: Y/N: Yes Provider name or facility name: [address] [place] [address] Escort needed: Y/N: No Do you have a wheelchair: Y/N: No If yes- Manual or electric: Visits: 3x a month documented in this encounter Plan of Treatment Not on file documented as of this encounter Visit Diagnoses Not on filedocumented in this encounter Additional Health Concerns Assessment Noted Time PHQ-9 Depression Total Score: 0 10/27/19 25 11:39 AM EDT documented as of this encounter Care Teams Lumber Sales Supervisor Relationship Specialty Start Date End Date Glendy Sutton ANP [address] [place] [address] PCP - General Family Medicine 11/28/20 documented as of this encounter
--- OUTSIDE RECORDS SUMMARY | 2025-01-19 09:38 | XMS_ITS | Encounter Summary ---
Author Organization [employer] Address [address] [facility] 7t [place] [address] Care Team Providers Care Lift Builder Whole Name Role Phone Glendy Sutton Primary Care Provider [phone] Reason for Visit * Reason Onset Date Comments PT1 06/15/2024 Encounter Details Date Type Department Care Team ([facility] st Contact Info) Description 06/15/2024 Telephone [facility] [address] [place], [place] [phone] Glendy Sutton ANP [address] [place] [address] PT1 Social History Tobacco Use Types Packs/Day [...] Y/N: Yes Provider name or facility name: [address] [place] [address] Escort needed: Y/N: No Do you have a wheelchair: Y/N: No (cane) If yes- Manual or electric: N/A Visits: (2x monthly) 2 of 2 Home Address verified: Y/N: Yes Provider name or facility name: [facility] Facility Address: [address] [place] [address] Escort needed: Y/N: No Do you have [...] documented as of this encounter Care Teams Lift Builder Whole Relationship Specialty Start Date End Date Glendy Sutton ANP [address] [place] [address] PCP - General Family Medicine 11/28/20 documented as of this encounter
--- OUTSIDE RECORDS SUMMARY | 2025-01-19 09:38 | XMS_ITS | Encounter Summary ---
Author Organization [employer] Address [address] [facility] [address]t [place] [address] Care Team Providers Care Aircraft Designer Name Role Phone Glendy Sutton Primary Care Provider [phone] Reason for Visit * Reason Comments Med Refill Encounter Details Date Type Department Care Team ([facility] st Contact Info) Description 04/02/2022 Refill [facility] [address] [place] [address] Glendy Sutton ANP [address] [place] [address] Anemia, unspecified type Social History Tobacco Use [...] type documented in this encounter Care Teams Aircraft Designer Relationship Specialty Start Date End Date Glendy Sutton ANP [address] [place] [address] PCP - General Family Medicine 11/28/20 documented as of this encounter
--- OUTSIDE RECORDS SUMMARY | 2025-01-19 09:38 | XMS_ITS | Encounter Summary ---
Author Organization [employer] Address [address] [facility] 7t [place] [address] Care Team Providers Care Psychologist Educational Name Role Phone Glendy Sutton Primary Care Provider [phone] Reason for Visit * Reason Onset Date Comments Results 02/19/2023 Encounter Details Date Type Department Care Team ([facility] Contact Info) Description 02/19/2023 Telephone [facility] MEDICINE [address] [place], [place] [phone] Glendy Sutton ANP [address] [place] [address] Results Social History Tobacco Use Types Packs/Day [...] last night and she was evaluated in [facility]. States she left ED prior to [...] 03/04/23 at 11:15a. Agrees to come to [facility] for evaluation if symptoms return. Advised request has been sent to [facility] RN will attempt to obtain [facility] records. * Telephone Encounter - Anju Hawley - 02/19/2023 11:36 AM EST Tc from pt requesting a call in regards to lab results done yesterday (02/18). Please contact pt at [phone] documented in this encounter Plan of Treatment Not on file documented as of this encounter Visit Diagnoses Not on filedocumented in this encounter Additional Health Concerns Assessment Noted Time PHQ-9 Depression Total Score: 0 10/04/19 23 9:29 AM EDT documented as of this encounter Care Teams Psychologist Educational Relationship Specialty Start Date End Date Glendy Sutton ANP [address] [place] [address] PCP - General Family Medicine 11/28/20 documented as of this encounter
--- OUTSIDE RECORDS SUMMARY | 2025-01-19 09:38 | XMS_ITS | Encounter Summary ---
Author Organization [employer] Address [address] [facility] [address]t [place] [address] Care Team Providers Care Quality Control Tech Raw Materials Name Role Phone Glendy Sutton Primary Care Provider [phone] Reason for Visit * Reason Onset Date Comments Nurse Triage 10/14/2024 ER Follow-up 10/14/2024 Encounter Details Date Type Department Care Team ([facility] st Contact Info) Description 10/14/2024 Telephone [facility] MEDICINE [address] [place], [place] [phone] Glendy Sutton ANP [address] [place], [place] [phone] Nurse Triage; ER Follow-up Social History Tobacco Use Types Packs/Day [...] encounter Miscellaneous Notes * Telephone Encounter - Maxine Tsai RN - 10/14/2024 1:06 PM EDT called pt to triage, spoke to pt. pt states was sent to the ER at [facility] from MD office after passing out. pt states had been having some pain bottom of both feet and was walking a lot. all of the sudden, she felt sweaty and faint and sat down. pt state very brief LOC and was sent to the ER and admitted over night for observation. pt was told she had vasavagal syncope and requesting appt. looking inthe chart, the notes from the hospital are not yet in the chart and will task to clinical coordinators to obtain. advised to pt some general recommendations regarding preventing a recurrence: lots offluids, avoid getting over heated, avoid skipping meals, manage pain as needed, if symptomatic, liedown, and call back as needed. given appt with PCP 10/26 for exam and any needed follow up or referrals. pt understands and agrees with plan. insurance verified. Protocol Used: Fainting (Adult) Protocol-Based Disposition: Home Care Positive Triage Questions: * Sudden standing caused simple fainting, and now alert and feels fine * Prolonged standing caused simple fainting, and now alert and feels fine * Fear, stress, or pain caused simple fainting, and now alert and feels fine * All higher-acuity triage questions were negative Care Advice Discussed: * Treatment - Fainting * Expected Course - Fainting * Prevention - Fainting * Warning Symptoms for Fainting * Reasons To Call Back - You become worse * Telephone Encounter - Annia Rodriguez - 10/14/2024 12:29 PM EDT Patient calling to report ED visit on : Date: 10/12-10/13 Hospital: [facility] Seen for: Pt stated diagnosed with vasovagal syncope Symptomatic Yes Contact pt at [phone] documented in this encounter Plan of Treatment Not on file documented as of this encounter Visit Diagnoses Not on filedocumented in this encounter Additional Health Concerns Assessment Noted Time PHQ-9 Depression Total Score: 4 12/11/19 24 9:48 AM EDT documented as of this encounter Care Teams Quality Control Tech Raw Materials Relationship Specialty Start Date End Date Glendy Sutton ANP [address] [place] [address] PCP - General Family Medicine 11/28/20 documented as of this encounter
--- OUTSIDE RECORDS SUMMARY | 2025-01-19 09:38 | XMS_ITS | Encounter Summary ---
Author Organization [employer] Address [address] [facility] [address]t [place] [address] Care Team Providers Care Operations Superintendent Name Role Phone Glendy Sutton Primary Care Provider [phone] Reason for Visit * Reason Onset Date Comments Hospital Follow-up 02/24/2024 Encounter Details Date Type Department Care Team ([facility] Contact Info) Description 02/24/2024 Telephone [facility] MEDICINE [address] [place], [place] [phone] Glendy Sutton ANP [address] [place] [address] Hospital Follow-up Social History Tobacco Use Types [...] from pt requesting a HDF appt. Hospital: [facility] Date of admission: 02/15 Discharge date: 02/17 Diagnosed: Crisis, Dehydrated, Kidney Damage. Contact pt at [phone] *Send message to [place] Clinical Care Coordinators documented in this encounter Plan of Treatment Not on file documented as of this encounter Visit Diagnoses Not on filedocumented in this encounter Additional Health Concerns Assessment Noted Time PHQ-9 Depression Total Score: 4 12/11/19 24 9:48 AM EDT documented as of this encounter Care Teams Operations Superintendent Relationship Specialty Start Date End Date Glendy Sutton ANP [address] [place] [address] PCP - General Family Medicine 11/28/20 documented as of this encounter
--- OUTSIDE RECORDS SUMMARY | 2025-01-19 09:38 | XMS_ITS | Encounter Summary ---
Author Organization [employer] Address 75 [facility] 7t [place] [address] Care Team Providers Care Laundry Aid Name Role Phone Glendy Sutton Primary Care Provider [phone] Reason for Visit * Reason Onset Date Comments PT-1 05/04/2024 Encounter Details Date Type Department Care Team ([facility] st Contact Info) Description 05/04/2024 Telephone [facility] MEDICINE 230 [place], [place] [phone] Glendy Sutton ANP 230 [place] [address] PT-1 Social History Tobacco Use Types Packs/Day [...] Y/N: Yes Provider name or facility name: [facility] Facility Address: [address] [facility] Escort needed: Y/N: No Do you have a wheelchair: Y/N: No If yes- Manual or electric: Visits: 2-3 visits a month 2.)Home Address verified: Y/N: Yes Provider name or facility name: [facility] ([place]) Facility Address: [address] [place] [address] [address] [place] [address] Escort needed: Y/N: No Do you have a wheelchair: Y/N: No If yes- Manual or electric: Visits: Once a month 3.)Home Address verified: Y/N: Yes Provider name or facility name: [facility] (labs , US, MRI) Facility Address: [address] [place] [address] Escort needed: Y/N: No Do you have [...] documented as of this encounter Care Teams Laundry Aid Relationship Specialty Start Date End Date Glendy Sutton ANP 230 [place] [address] PCP - General Family Medicine 11/28/20 documented as of this encounter
--- OUTSIDE RECORDS SUMMARY | 2025-01-19 09:38 | XMS_ITS | Encounter Summary ---
Author Organization [employer] Address [address] [facility] [address] 7t [place] [address] Care Team Providers Care Cloth Bin Packer Name Role Phone Glendy Sutton Primary Care Provider [phone] Encounter Details Date Type Department Care Team ([facility] st Contact Info) Description 05/14/2023 Orders Only [facility] MEDICINE 230 [place], [place] [phone] Glendy Sutton ANP 230 [place] [address] Social History Tobacco Use Types Packs/Day Years [...] documented as of this encounter Care Teams Cloth Bin Packer Relationship Specialty Start Date End Date Glendy Sutton ANP 230 [place] [address] PCP - General Family Medicine 11/28/20 documented as of this encounter
--- OUTSIDE RECORDS SUMMARY | 2025-01-19 09:38 | XMS_ITS | Encounter Summary ---
Author Organization [employer] Address [address] [facility] [address] 7t [place] [address] Care Team Providers Care Clay Processing Labourer Name Role Phone Glendy Sutton Primary Care Provider [phone] Encounter Details Date Type Department Care Team (Late st Contact Info) Description 03/20/2022 Orders Only [facility] MED & PEDS [address] [place], [place] [phone] Rachael Holguin LPN Social History Tobacco Use [...] on filedocumented in this encounter Care Teams Clay Processing Labourer Relationship Specialty Start Date End Date Glendy Sutton ANP 230 [place] [address] PCP - General Family Medicine 11/28/20 documented as of this encounter
--- OUTSIDE RECORDS SUMMARY | 2025-01-19 09:38 | XMS_ITS | Encounter Summary ---
Author Organization [employer] Address 75 [facility] 7t [place] [address] Care Team Providers Care Optical Engineering Technician Name Role Phone Glendy Sutton Primary Care Provider [phone] Reason for Visit * Reason Onset Date Comments Nurse Triage 07/08/2023 Encounter Details Date Type Department Care Team ([facility] st Contact Info) Description 07/08/2023 Telephone [facility] MEDICINE [address] [place], [place] [phone] Glendy Sutton ANP 230 [place] [address] Nurse Triage Social History Tobacco Use Types [...] No answer LVM to return call to [facility] triage line [phone]. * Telephone Encounter - Sherri Carrillo - [...] documented as of this encounter Care Teams Optical Engineering Technician Relationship Specialty Start Date End Date Glendy Sutton ANP 230 [place] [address] PCP - General Family Medicine 11/28/20 documented as of this encounter
== END 2025-01-19 10:09 | disposition home or self-care (01) ==
LOC: HO.RHES 09:03
PROVIDERS: PCP Nurse Practitioner Primary Care; Visit Provider Internal Medicine Rheumatology
DX: M25.511 Pain in right shoulder (principal); M25.512 Pain in left shoulder; M19.011 Primary osteoarthritis, right shoulder; M19.012 Primary osteoarthritis, left shoulder; G89.29 Other chronic pain
CPT/HCPCS: 20610; 99213

== ENCOUNTER → 2025-01-19 09:02 | Outpatient (BNVA) | payer MEDICARE, MEDICAID, SELFPAY | PROVIDERS: PCP Nurse Practitioner Primary Care; Visit Provider Internal Medicine Rheumatology | DX: M25.511 Pain in right shoulder (principal); M25.512 Pain in left shoulder; G89.29 Other chronic pain; M19.011 Primary osteoarthritis, right shoulder; M19.012 Primary osteoarthritis, left shoulder; M67.814 Other specified disorders of tendon, left shoulder; S43.402S Unspecified sprain of left shoulder joint, sequela | CPT/HCPCS: 20610; 99212; J2003; J3301 ==

== ENCOUNTER 2025-03-09 10:06 | Outpatient (REF) | payer MEDICARE, MEDICAID, SELFPAY ==
--- OUTSIDE RECORDS SUMMARY | 2025-03-09 09:00 | XMS_ITS | Encounter Summary ---
Author Organization [employer] Address [address] [place] [address] 7t [place] [address] Care Team Providers Care Field Artillery Operations Specialist Name Role Phone Lesley Glendy GORDON Primary Care Provider [phone] Reason for Referral * Imaging (Routine) - Pending Review Specialty Diagnoses / Procedures Referred By Umu yi Referred To Contact Radiology Diagnoses Renal mass Procedures US Renal Complete Scar Rainey FNP 230 [place] [address] Phone: tel: fax: Referral ID Status Reason Start Date Expiration Date V isits Requested Visits Authorized [id number] Pending Review 03/09/2025 03/09/2026 1 1 Encounter Details Date Type Department Care Team (Late st Contact Info) Description 03/09/2025 9:[address] EST [address] [facility] MEDICINE 230 [place] [address] Scar Rainey FNP 230 [place] [address] Rash (Primary Dx); Renal mass; Cervical cancer screening; Encounter for immunization Social History Tobacco Use Types Packs/Day Years [...] Sign Reading Time Taken Comments Blood Pressure 124/88 03/09/2025 9:12 AM EST Pulse 76 03/09/2025 9:12 AM EST Temperature 36.8 C (98.2 F) 03/09/2025 9:12 AM EST Respiratory Rate 19 03/09/2025 9:12 AM EST Oxygen Saturation 95% 03/09/2025 9:12 AM EST Inhaled Oxygen Concentration - - Weight 87.7 kg (193 lb 6.4 oz) 03/09/2025 9:12 A M EST Height 154.9 cm (5' 1 ) 03/09/2025 9:12 AM EST Body Mass Index 36.54 03/09/2025 9:12 AM EST documented in this encounter Plan of Treatment Upcoming Encounters Date Type Department Care Team (Late st Contact Info) Description 03/16/2025 10:30 AM EST Procedure [facility] MEDICINE 230 [place], [place] [phone] Scar Rainey FNP 230 [place] [address] Scheduled Orders Name Type Priority Associated Diagnoses Orde r Schedule CBC auto differential Lab Routine Rash Expected: 03/09/2025 (Approximate), Expires: 03/09/2026 C-reactive Protein Lab Routine Rash Expected: 03/09/2025 (Approximate), Expires: 03/09/2026 Uric acid Lab Routine Rash Expected: 03/09/2025 (Approximate), Expires: 03/09/2026 Sed Rate by Modified [place] Lab Routine Rash Expected: 03/09/2025, Expires: 03/09/2026 Rheumatoid Factor Lab Routine Rash Expected: 03/09/2025, Expires: 03/09/2026 Cyclic Citrullinated Peptide (CCP) Antibody (IgG) Lab Routine Rash Expected: 03/09/2025 (Approximate), Expires: 03/09/2026 Herpes Simple Virus Culture Microbiology Routine Rash Expected: 03/09/2025 (Approximate), Expires: 03/09/2026 Syphilis Screen Lab Routine Rash Expected: 03/09/2025, Expires: 03/09/2026 US Renal Complete Imaging Routine Renal mass Expected: 03/09/2025, Expires: 03/09/2026 documented as of this encounter Visit Diagnoses Diagnosis Rash- Primary Rash and other nonspecific skin eruption Renal mass Unspecified disorder of kidney and ureter Cervical cancer screening Screening for malignant neoplasm of the cervix Encounter for immunization documented in this encounter Additional Health Concerns Assessment Noted Time PHQ-9 Depression Total Score: 0 10/27/19 25 11:39 AM EDT documented as of this encounter Care Teams Field Artillery Operations Specialist Relationship Specialty Start Date End Date Glendy Sutton ANP 230 [place] [address] PCP - General Family Medicine 11/28/20 documented as of this encounter
--- OUTSIDE RECORDS SUMMARY | 2025-03-09 10:15 | XMS_ITS | Encounter Summary ---
Author Organization [employer] Address 75 [facility] 7t [place] [address] Care Team Providers Care Automotive Service Advisor Name Role Phone Glendy Sutton Primary Care Provider [phone] Reason for Visit * Reason Onset Date Comments PT-1 05/04/2024 Encounter Details Date Type Department Care Team ([facility] st Contact Info) Description 05/04/2024 Telephone [facility] MEDICINE 230 [place], [place] [phone] Glendy Sutton ANP 230 [place] [address] PT-1 Social History Tobacco Use Types Packs/Day [...] Y/N: Yes Provider name or facility name: [facility] Facility Address: 230 [facility] Escort needed: Y/N: No Do you have a wheelchair: Y/N: No If yes- Manual or electric: Visits: 2-3 visits a month 2.)Home Address verified: Y/N: Yes Provider name or facility name: [facility] ([place]) Facility Address: [address] [place] [address] [address] [place] [address] Escort needed: Y/N: No Do you have a wheelchair: Y/N: No If yes- Manual or electric: Visits: Once a month 3.)Home Address verified: Y/N: Yes Provider name or facility name: [facility] (labs , US, MRI) Facility Address: [address] [place] [address] Escort needed: Y/N: No Do you have a wheelchair: Y/N: No If yes- Manual or electric: Visits: 2-3 x a month documented in this encounter Plan of Treatment Upcoming Encounters Date Type Department Care Team (Late st Contact Info) Description 03/16/2025 10:30 AM EST Procedure Visit [facility] MEDICINE 230 [place], [place] [phone] Scar Rainey FNP 230 [place] [address] documented as of this encounter Visit Diagnoses Not on filedocumented in this encounter Additional Health Concerns Assessment Noted Time PHQ-9 Depression Total Score: 4 12/11/19 24 9:48 AM EDT documented as of this encounter Care Teams Automotive Service Advisor Relationship Specialty Start Date End Date Glendy Sutton ANP 230 [place], [place] [phone] PCP - General Family Medicine 11/28/20 documented as of this encounter
--- OUTSIDE RECORDS SUMMARY | 2025-03-09 10:15 | XMS_ITS | Encounter Summary ---
Author Organization [employer] Address [address] [place] [address] 7 [place] [address] Care Team Providers Care Awning Maker Name Role Phone Glendy Sutton Primary Care Provider [phone] Reason for Visit * Reason Comments Med Refill Encounter Details Date Type Department Care Team ([facility] Contact Info) Description 04/02/2022 Refill [facility] MED & PEDS [address] [place], [place] [phone] Glendy Sutton ANP 230 [place] [address] Anemia, unspecified type Social History Tobacco Use [...] Department Care Team (Late Contact Info) Description 03/16/2025 10:30 AM EST Procedure Visit [facility] MEDICINE 230 [place] [address] Scar Rainey FNP 230 [place] [address] documented as of this encounter Visit Diagnoses Diagnosis Anemia, unspecified type documented in this encounter Care Teams Awning Maker Relationship Specialty Start Date End Date Glendy Sutton ANP [address] [place] [address] PCP - General Family Medicine 11/28/20 documented as of this encounter
--- OUTSIDE RECORDS SUMMARY | 2025-03-09 10:15 | XMS_ITS | Encounter Summary ---
Author Organization [employer] Address 75 [facility] 7t [place] [address] Care Team Providers Care Legal Billing Analyst Name Role Phone Glendy Sutton Primary Care Provider [phone] Reason for Visit * Reason Onset Date Comments Nurse Triage 03/07/2025 Encounter Details Date Type Department Care Team ([facility] st Contact Info) Description 03/07/2025 Telephone [facility] MEDICINE 230 [place], [place] [phone] Glendy Sutton ANP 230 [place] [address] Nurse Triage Social History Tobacco Use Types [...] encounter Miscellaneous Notes * Telephone Encounter - Sarah Banks RN - 03/07/2025 10:14 AM EST TC placed to patient. Patient reported she has bumps on her right elbow and her right-hand x 1 month. Denies any pain, pruritus or open areas. Patient mentioned that she was in the hospital and hada positive blood culture that was not retested. Patient reported she does not think the areas are contagious because her daughter bathes her w/o any gloves. RN scheduled an appt. RN advised patient if the areas worsen prior to her appt to go to [facility] or the for further evaluation. Patient verbalized understanding. Protocol Used: Skin Lesion - Moles or Growths (Adult) Protocol-Based Disposition: See in Office or Video Visit within 3 Days Video visit not offered Positive Triage Questions: * Patient wants to be seen * Caller is uncertain what lesion is * All higher-acuity triage questions were negative. * Telephone Encounter - Bruce Kuhn - 03/07/2025 8:30 AM EST Tc from pt stating she had some bumps come out on her elbow which now have popped up on the palm ofher hand . She states they do not hurt and are not itchy . Contact pt at [phone] documented in this encounter Plan of Treatment Upcoming Encounters Date Type Department Care Team (Late st Contact Info) Description 03/16/2025 10:30 AM EST Procedure Visit [facility] MEDICINE 230 [place], [place] [phone] Scar Rainey FNP 230 [place], [place] [phone] documented as of this encounter Visit Diagnoses Not on filedocumented in this encounter Additional Health Concerns Assessment Noted Time PHQ-9 Depression Total Score: 0 10/27/19 25 11:39 AM EDT documented as of this encounter Care Teams Legal Billing Analyst Relationship Specialty Start Date End Date Glendy Sutton ANP [address] [place] [phone] PCP - General Family Medicine 11/28/20 documented as of this encounter
--- OUTSIDE RECORDS SUMMARY | 2025-03-09 10:15 | XMS_ITS | Encounter Summary ---
Author Organization [employer] Address 75 [facility] 7t [place] [address] Care Team Providers Care Boot Liner Maker Name Role Phone Glendy Sutton Primary Care Provider Reason for Visit * Reason Onset Date Comments Nurse Triage 10/14/2024 ER Follow-up 10/14/2024 Encounter Details Date Type Department Care Team ([facility] st Contact Info) Description 10/14/2024 Telephone [facility] MEDICINE 230 [place], [place] [phone] Glendy Sutton ANP 230 [place], [place] [phone] Nurse Triage; ER Follow-up Social History Tobacco [...] states was sent to the ER at [facility] from MD office after passing out. pt [...] ED visit on : Date: 10/12-10/13 Hospital: [facility] Seen for: Pt stated diagnosed with vasovagal syncope Symptomatic Yes Contact pt at [phone] documented in this encounter Plan of Treatment Upcoming Encounters Date Type Department Care Team (Late st Contact Info) Description 03/16/2025 10:30 AM EST Procedure Visit [facility] MEDICINE 230 [place] [address] Scar Rainey FNP 230 [place] [address] documented as of this encounter Visit Diagnoses Not on filedocumented in this encounter Additional Health Concerns Assessment Noted Time PHQ-9 Depression Total Score: 4 12/11/19 24 9:48 AM EDT documented as of this encounter Care Teams Boot Liner Maker Relationship Specialty Start Date End Date Glendy Sutton ANP [address] [place] [address] PCP - General Family Medicine 11/28/20 documented as of this encounter
--- OUTSIDE RECORDS SUMMARY | 2025-03-09 10:15 | XMS_ITS | Encounter Summary ---
Author Organization [employer] Address 75 [facility] 7t [place] [address] Care Team Providers Care Civil Engineering Technician Name Role Phone Glendy Sutton Primary Care Provider [phone] Reason for Visit * Reason Onset Date Comments Requested Call Back 07/23/2022 Encounter Details Date Type Department Care Team ([facility] Contact Info) Description 07/23/2022 Telephone [facility] MEDICINE 230 [place] [address] Glendy Sutton ANP 230 [place] [address] Requested Call Back Social History Tobacco Use [...] status on US order. Please contact at [phone] * Telephone Encounter - Licha Flor - 07/23/2022 12:31 PM EDT Tc from patient calling in regards to US order for left ovary. States [facility] doesn't have one. Applications Development Consultant didn't see the order. documented in this encounter Plan of Treatment Upcoming Encounters Date Type Department Care Team (Late st Contact Info) Description 03/16/2025 10:30 AM EST Procedure Visit [facility] MEDICINE [address] [place], [place] [phone] Scar Rainey FNP 230 [place], [place] [phone] documented as of this encounter Visit Diagnoses Not on filedocumented in this encounter Care Teams Civil Engineering Technician Relationship Specialty Start Date End Date Glendy Sutton ANP 230 [place] [address] PCP - General Family Medicine 11/28/20 documented as of this encounter
--- OUTSIDE RECORDS SUMMARY | 2025-03-09 10:15 | XMS_ITS | Encounter Summary ---
Author Organization [employer] Address 75 [facility] 7t [place] [address] Care Team Providers Care Brand Manager Name Role Phone Glendy Sutton Primary Care Provider [phone] Reason for Visit * Reason Onset Date Comments Results 02/19/2023 Encounter Details Date Type Department Care Team ([facility] Contact Info) Description 02/19/2023 Telephone [facility] MEDICINE 230 [place], [place] [phone] Glendy Sutton ANP 230 [place] [address] Results Social History Tobacco Use Types Packs/Day [...] last night and she was evaluated in [facility] ED. States she left ED prior to [...] MEDICAL CENTER. RN will attempt to obtain [facility] ED records. * Telephone Encounter - Anju Hawley - 02/19/2023 11:36 AM EST Tc from pt requesting a call in regards to lab results done yesterday (02/18). Please contact pt at [phone] documented in this encounter Plan of Treatment Upcoming Encounters Date Type Department Care Team (Late st Contact Info) Description 03/16/2025 10:30 AM EST Procedure Visit [facility] MEDICINE [address] [place] [address] Scar Rainey FNP [address] [place] [address] documented as of this encounter Visit Diagnoses Not on filedocumented in this encounter Additional Health Concerns Assessment Noted Time PHQ-9 Depression Total Score: 0 10/04/19 23 9:29 AM EDT documented as of this encounter Care Teams Brand Manager Relationship Specialty Start Date End Date Glendy Sutton ANP [address] [place] [address] PCP - General Family Medicine 11/28/20 documented as of this encounter
--- OUTSIDE RECORDS SUMMARY | 2025-03-09 10:15 | XMS_ITS | Encounter Summary ---
Author Organization [employer] Address 75 [facility] 7t [place] [address] Care Team Providers Care Donor Relations Associate Name Role Phone Glendy Sutton Primary Care Provider [phone] Reason for Visit * Reason Onset Date Comments PT1 06/15/2024 Encounter Details Date Type Department Care Team ([facility] st Contact Info) Description 06/15/2024 Telephone [facility] MEDICINE 230 [place], [place] [phone] Glendy Sutton ANP 230 [place] [address] PT1 Social History Tobacco Use Types Packs/Day [...] Y/N: Yes Provider name or facility name: [address] [place] [address] Escort needed: Y/N: No Do you have a wheelchair: Y/N: No (cane) If yes- Manual or electric: N/A Visits: (2x monthly) 2 of 2 Home Address verified: Y/N: Yes Provider name or facility name: [facility] Facility Address: [address] [place] [address] Escort needed: Y/N: No Do you have a wheelchair: Y/N: No (cane) If yes- Manual or electric: Visits: 2-3x monthly documented in this encounter Plan of Treatment Upcoming Encounters Date Type Department Care Team ([facility] Contact Info) Description 03/16/2025 10:30 AM EST Procedure Visit [facility] MEDICINE 230 [place], [place] [phone] Scar Rainey FNP 230 [place], [place] [phone] documented as of this encounter Visit Diagnoses Not on filedocumented in this encounter Additional Health Concerns Assessment Noted Time PHQ-9 Depression Total Score: 4 12/11/19 24 9:48 AM EDT documented as of this encounter Care Teams Donor Relations Associate Relationship Specialty Start Date End Date Glendy Sutton ANP [address] [place] [address] PCP - General Family Medicine 11/28/20 documented as of this encounter
--- OUTSIDE RECORDS SUMMARY | 2025-03-09 10:15 | XMS_ITS | Encounter Summary ---
Author Organization [employer] Address [address] [facility] 7t [place] [address] Care Team Providers Care Office Services Coordinator Name Role Phone Glendy Sutton Primary Care Provider [phone] Encounter Details Date Type Department Care Team ([facility] st Contact Info) Description 05/14/2023 Orders Only [facility] MEDICINE [address] [place], [place] [phone] Glendy Sutton ANP 230 [place], [place] [phone] Social History Tobacco Use Types Packs/Day Years [...] Description 03/16/2025 10:30 AM EST Procedure Visit [facility] MEDICINE [address] [place], [place] [phone] Scar Rainey FNP 230 [place] [address] documented as of this encounter Visit Diagnoses Not on filedocumented in this encounter Additional Health Concerns Assessment Noted Time PHQ-9 Depression Total Score: 0 10/04/19 23 9:29 AM EDT documented as of this encounter Care Teams Office Services Coordinator Relationship Specialty Start Date End Date Glendy Sutton ANP 230 [place], [place] [phone] PCP - General Family Medicine 11/28/20 documented as of this encounter
--- OUTSIDE RECORDS SUMMARY | 2025-03-09 10:15 | XMS_ITS | Encounter Summary ---
Author Organization [employer] Address 75 [facility] 7t [place] [address] Care Team Providers Care Punch Press Operator Name Role Phone Glendy Sutton Primary Care Provider [phone] Reason for Visit * Reason Onset Date Comments Hospital Follow-up 02/24/2024 Encounter Details Date Type Department Care Team ([facility] [address] Contact Info) Description 02/24/[address] [facility] MEDICINE 230 [place], [place] [phone] Glendy Sutton ANP 230 [place] [address] Hospital Follow-up Social History Tobacco Use Types [...] from pt requesting a HDF appt. Hospital: [facility] Date of admission: 02/15 Discharge date: 02/17 Diagnosed: Crisis, Dehydrated, Kidney Damage. Contact pt at [phone] *Send message to [facility] Clinical Care Coordinators documented in this encounter Plan of Treatment Upcoming Encounters Date Type Department Care Team (Late st Contact Info) Description 03/16/2025 10:30 AM EST Procedure Visit [facility] MEDICINE [address] [place] [address] Scar Rainey FNP 230 [place] [address] documented as of this encounter Visit Diagnoses Not on filedocumented in this encounter Additional Health Concerns Assessment Noted Time PHQ-9 Depression Total Score: 4 12/11/19 24 9:48 AM EDT documented as of this encounter Care Teams Punch Press Operator Relationship Specialty Start Date End Date Glendy Sutton ANP 230 [place] [address] PCP - General Family Medicine 11/28/20 documented as of this encounter
--- OUTSIDE RECORDS SUMMARY | 2025-03-09 10:15 | XMS_ITS | Encounter Summary ---
Author Organization [employer] Address [address] [facility] 7t [place] [address] Care Team Providers Care Core Measures Abstractor Name Role Phone Glendy Sutton Primary Care Provider [phone] Reason for Visit * Reason Comments Med Refill Encounter Details Date Type Department Care Team ([facility] st Contact Info) Description 05/28/2024 Refill [facility] [address] [place], [place] [phone] Glendy Sutton ANP [address] [place] [address] Social History Tobacco Use Types Packs/Day Years [...] Description 03/16/2025 10:30 AM EST Procedure Visit [facility] [address] [place] [address] Scar Rainey FNP [address] [place] [address] documented as of this encounter Visit Diagnoses Not on filedocumented in this encounter Additional Health Concerns Assessment Noted Time PHQ-9 Depression Total Score: 4 12/11/19 24 9:48 AM EDT documented as of this encounter Care Teams Core Measures Abstractor Relationship Specialty Start Date End Date Glendy Sutton ANP [address] [place] [address] PCP - General Family Medicine 11/28/20 documented as of this encounter
--- OUTSIDE RECORDS SUMMARY | 2025-03-09 10:15 | XMS_ITS | Clinical Summary ---
Author Organization [employer] Address [address] [place] [address] 7t [place] [address] Care Team Providers Care Police Sergeant Precinct Name Role Phone Jory Lala EVAN Primary Care Provider [phone] Allergies Active Allergy Reactions Criticality Noted Date [...] Once per day. 90 tablet 3 5 8:53 AM EST 06/01/19 25 Active Spacer/Aero-Hol ding Chambers deviceIndicatio ns:Moderate asthma [...] OR SHORTNESS OF BREATH 8.5 g 1 5 8:53 AM EST 10/26/19 25 Active Arnuity Ellipta 100 MCG/ACT inhalerIndicati ons:Shortness of breath INHALE 1 PUFF BY MOUTH EVERY DAY AT THE SAME TIME RINSE MOUTH AFTER USING 30 each 2 5 8:53 AM EST 12/04/19 25 Active Ferrous Sulfate (iron) 325 (65 Fe) MG tabletIndicatio ns:Anemia, unspecified type TAKE 1 TABLET BY MOUTH EVERY DAY WITH ORANGE JUICE 90 tablet 1 5 11:22 AM EST 12/29/19 25 Active pregabalin (Lyrica) 200 MG capsuleIndicati ons:Other chronic pain TAKE 1 CAPSULE BY MOUTH THREE TIMES DAILY 90 capsule 2 5 8:33 AM EST 01/14/20 25 Active cholecalciferol (D3-1000) 25 MCG (1000 UT) capsuleIndicati ons:Vitamin D deficiency Take 1 capsule (25 mcg) by mouth Once per day. 90 capsule 10:18 AM EST 02/25/20 25 Active D3-1000 25 MCG (1000 UT) capsuleIndicati ons:Vitamin D deficiency TAKE 1 CAPSULE BY MOUTH DAILY 90 capsule 11/20/19 25 025 Discontinued(Re order (will not trigger notification to Pharmacy)) Active [...] a lot vs tabs. She follows w/ [facility] and has appt upcoming. Hypertensive heart [...] 05/20/2022 Bipolar affective disorder, current episode depressed ([facility]) 07/16/2018 Essential hypertension 07/16/2018 Overview (03/19/2024): Suspect [...] anemia 12/09/2016 Renal mass 09/21/2014 Overview (10/03/2022): 05/2022: IMPRESSION: 1. No evidence of recurrence [...] Encounters Date Type Department Care Team Description 03/09/2025 9:00 AM EST Office Visit [address] [address] Scar Rainey, PRIYANK Rash (Primary Dx); Renal mass; Cervical cancer screening; Encounter for immunization 03/09/2025 Travel 03/07/[address] [address] Jory Lala ANP Nurse Triage 02/24/2025 Refill [facility] [address] [place], [place] [phone] Jroy Lala ANP Vitamin D deficiency 01/12/2025 Refill [facility] [address] [place] [phone] Sonali Kate MD Other chronic pain 12/28/2024 Refill [facility] [address] [place] [address] Jory Lala ANP Anemia, unspecified type 12/14/2024 Patient Outreach [address] [address] Jory Lala ANP Care Coordination ([facility] outreach for SDOH PT-1 and food needs-referral completed /) 12/14/[address] [address] Jory Lala ANP pt1 from Last 3 Months Immunizations Immunization Administration [...] Mass Index 36.54 03/09/2025 9:12 AM EST Plan of Treatment Upcoming Encounters Date Type Department Care Team (Late st Contact Info) Description 03/16/2025 10:30 AM EST Procedure Visit [facility] [address] [place] [address] Scar Rainey, PRIYANK [address] [place] [address] Health Maintenance Due Date Last Done Comments [...] Screening 10/26/2025 10/26/2024 Lipid Panel 11/29/2025 11/29/2020, 0204/2020, 10/20/2019 Mammogram [...] Procedure Name Priority Date/Time Associated Diagnosis Comments BI MAMMOGRAM SCREENING TOMOSYNTHESIS BILATERAL Routine 01/19/2024 [...] Recently Relevant to Health Maintenance Results * BI Mammogram Screening Tomosynthesis Bilateral (01/19/2024 10:30 AM EST) Anatomical Region Laterality Modality Breast Bilateral Mammography 01/19/2024 10:3 0 AM EST Narrative 01/27/2024 2:08 PM EST [facility] [address] [place] [address] Mammography Report Signed Patient: Laila Ortiz MR#: [id number] : 1975 Acct:[id number] Age/Sex: 48 / F ADM Date: 01/19/24 Loc: HO.MAMMO Attending Dr: Jory Lala NP Ordering Physician: JORY LALA NP Results: 1Negative Date of Service: 01/19/24 Follow Up: 1 Year From Orig ina Mammogram Procedure(s): MM tomosynthesis screening BI Accession Number(s): [id number] cc: JORY LALA NP EXAMINATION: MM SCREENING [...] by: Michaela Alejo DO 01/27/2024 02:05 PM [facility] Dictated By: Michaela Alejo DO Signed By: <Electronically signed by Michaela Alejo DO in OV> 01/27/24 1405 DD/ 1030 TD/TT: 01/19/24 1100 Fisher Seal: Procedure Note Donotuseinterpreter, Image - 01/27/2024 [facility] [address] [place] [address] Mammography Report Signed Patient: Aury Ortiz#: [id number] : 1975Acct:[id number] Age/Sex: 48 / FADM Date: 01/19/24 Loc: HO.MAMMO Attending Dr: Jory Lala NP Ordering Physician: JORY LALA NPResults: 1Negative Date of Service: 01/19/24Follow Up: 1 Year From Orig inal Mammogram Procedure(s): MM tomosynthesis screening BI Accession Number(s): [id number] cc: JORY LALA NP EXAMINATION: MM SCREENING [...] 01/27/24 1405 DD/ 1030 TD/TT: 01/19/24 1100 Fisher Seal: Jory Lala ANP IMG BI PROCEDURES Final Result * Hepatitis C Ab (12/30/2022 4:01 PM EDT) Hepatitis C Antibody Nonreactive Nonreactive [facility] Comment:Antibodies to HCV no t detected; does not exclude early acuteHCV infection. 12/30/2022 4:01 PM EDT 12/30/2022 4:01 PM EDT [facility] External Provider LAB BLO OD ORDERABLES Final Result [facility] [address] [place] [phone] * HIV Ab/Ag ([facility]) (12/30/2022 4:01 PM EDT) HIV AB/AG Nonreactive Nonreactive [facility] Comment:HIV-1 p24 Ag and/or HIV-1/HIV-2 Ab not detected.A test result that is nonreactive does not exclude thepossibility of exposure to or infection with HIV-1 and/orHIV-2. Nonreactive results in this assay for individualswith prior exposure to HIV-1 and/or HIV-2 may be due toantigen and antibody levels that are below the limit ofdetection of this assay.The [employer] HIV Ag/Ab Combo assay result andsupplemental assay results should be interpreted inconjunction with the patient's clinical presentation,history and other laboratory results. If the results areinconsistent with clinical evidence, additional testing issuggested to confirm the result. 12/30/2022 4:01 PM EDT 12/30/2022 4:01 PM EDT Generic External Data Provider LAB BLOOD ORDERAB LES Final Result [facility] [address] [place] [phone] * (ABNORMAL) Hm Colonoscopy (07/04/2021) Colonoscopy Abnormal(A ) Normal Historical Provider HEALTH MAINTENANCE Final Result * (ABNORMAL) LIPID PANEL, STANDARD (11/29/2020 10:01 AM EDT) Chol/HDLC Ratio 5.6(H) <5.0 (calc) [facility] Cholesterol, Total 237(H) <200 mg/dL [facility] HDL Cholesterol 42(L) > OR = 50 mg/dL [facility] LDL Cholesterol 161(H) mg/dL (calc) [facility] Comment: Reference range: <100 Desirable range <100 mg/dL for primary prevention; <70 mg/dL for patients with CHD or diabetic patients with > or = 2 CHD risk factors. LDL-C is now calculated using the Ed-Villafana calculation, which is a validated novel method providing better accuracy than the Friedewald equation in the estimation of LDL-C. Ed SS et al. MATTIE. 2013;310(19): 4643-7941 (http://education.Mobile Automation.Limtel/faq/HNS860) Non-HDL Cholesterol 195(H) <130 mg/dL (calc) [facility] Comment: For patients with diabetes plus 1 major ASCVD risk factor, treating to a non-HDL-C goal of <100 mg/dL (LDL-C of <70 mg/dL) is considered a therapeutic option. Triglycerides 182(H) <150 mg/dL [facility] 11/29/2020 10:0 1 AM EDT us [facility] LAB BLOOD ORDERABLES Final Resul t Performing Organization Address [facility] Co de Phone Number [facility] [address] * THINPREP PAP (08/09/2020 2:03 PM EDT) Clinical Information: None given [facility] COMMENT SEE COMMENT [facility] [...] along with historic and current clinical information. Dietary Services Director : SEE COMMENT [facility] Comment: RK, CT(ASCP) CT screening location: [place] [address] Interpretation/R esult: Negative for intraepithelial lesion or malignancy. [facility] LMP: 07/29/20 [facility] Prev. BX: LEEP 2000 [facility] Prev. PAP: NIL 09/2015 [facility] SOURCE: None given [facility] Statement Of Adequacy: SEE COMMENT [facility] Comment: Satisfactory for evaluation. Endocervical/transformation zone component absent. 08/09/2020 2:03 PM EDT Yuly Mcfarlane CNM LAB PATHOLOGY ORDERABLES Final Result Performing Organization Address [facility] de Phone Number [facility] [address] [place] [address], * HPV mRNA E6/E7 (08/09/2020 2:03 PM EDT) HPV nRNA E6/E7 Not Detected Not Detected [facility] Comment: Methodology: Caramel Maker-Mediated Amplification This assay detects E6/E7 viral messenger RNA (mRNA) from 14 high-risk HPV types (16,18,31,33,35,39,45,51,52,56,58,59,66,68). The analytical performance characteristics of this assay have been determined by [employer]. The modifications have not been cleared or approved by the FDA. This assay has been validated pursuant to the CLIA regulations and is used for clinical purposes. For additional information, please refer to http://education.Moov [employer]..Limtel/faq/MLG668d9 (This link if provided for information/ educational purposes only.) 08/09/2020 2:03 PM EDT us Yuly Phillipsnicole CN LAB BLOOD ORDERABLES Verena l Result [facility] [address] from Last 3 Months or Most Recently Relevant to Health Maintenance Insurance MEDICARE Member Subscriber Plan / Payer (Ef fective 2022-Present) Name:Laila Ortiz Member ID:[id number] Relation to Subscriber:Self Name:Laila Ortiz Subscriber ID:[id number] Payer ID:[id number] Group ID:Not on file Type:Medicare Address: [facility] [address] [id number] [facility] Care Teams Police Sergeant Precinct Relationship Specialty Start Date End Date Jory Lala ANP [address] [place] [address] PCP - General Family Medicine 11/28/20
--- OUTSIDE RECORDS SUMMARY | 2025-03-09 10:15 | XMS_ITS | Encounter Summary ---
Author Organization [employer] Address [address] [facility] 7t [place] [address] Care Team Providers Care Hand Reamer Name Role Phone Glendy Sutton Primary Care Provider [phone] Reason for Visit * Reason Onset Date Comments Nurse Triage 07/08/2023 Encounter Details Date Type Department Care Team ([facility] st Contact Info) Description 07/08/2023 Telephone [facility] [address] [place], [place] [phone] Glendy Sutton ANP [address] [place] [address] Nurse Triage Social History Tobacco Use Types [...] No answer LVM to return call to [facility] triage line [phone]. * Telephone Encounter - Sherri Carrillo - [...] Description 03/16/2025 10:30 AM EST Procedure Visit [facility] [address] [place] [address] Scar Rainey FNP [address] [place] [address] documented as of this encounter Visit Diagnoses Not on filedocumented in this encounter Additional Health Concerns Assessment Noted Time PHQ-9 Depression Total Score: 0 10/04/19 9:29 AM EDT documented as of this encounter Care Teams Hand Reamer Relationship Specialty Start Date End Date Glendy Sutton ANP [address] [place] [address] PCP - General Family Medicine 11/28/20 documented as of this encounter
--- OUTSIDE RECORDS SUMMARY | 2025-03-09 10:15 | XMS_ITS | Encounter Summary ---
Author Organization [employer] Address [address] [place] [address] 7t [place] [address] Care Team Providers Care Senior Python Developer Name Role Phone Glendy Sutton Primary Care Provider [phone] Encounter Details Date Type Department Care Team (Late st Contact Info) Description 03/20/2022 Orders Only [facility] [address] [place], [place] [phone] Rachael Holguin LPN Social History Tobacco Use [...] Description 03/16/2025 10:30 AM EST Procedure Visit [facility] [address] [place] [address] Scar Rainey FNP [address] [place] [address] documented as of this encounter Visit Diagnoses Not on filedocumented in this encounter Care Teams Senior Python Developer Relationship Specialty Start Date End Date Glendy Sutton ANP [address] [place] [address] PCP - General Family Medicine 11/28/20 documented as of this encounter
--- OUTSIDE RECORDS SUMMARY | 2025-03-09 10:15 | XMS_ITS | Encounter Summary ---
Author Organization [employer] Address [address] [facility] 7t [place] [address] Care Team Providers Care Body And Fender Mechanic Apprentice Name Role Phone Glendy Sutton EVAN Primary Care Provider [phone] Encounter Details Date Type Department Care Team (Latest Contact Info) Description 03/09/2025 Travel Social History Tobacco Use Types Packs/Day [...] 10:30 AM EST Procedure Visit [facility] [address] [place], [place] [phone] Scar Rainey FNP [address] [place] [address] documented as of this encounter Visit Diagnoses Not on filedocumented in this encounter Additional Health Concerns Assessment Noted Time PHQ-9 Depression Total Score: 0 10/27/19 25 11:39 AM EDT documented as of this encounter Care Teams Body And Fender Mechanic Apprentice Relationship Specialty Start Date End Date Glendy Sutton ANP [address] [place], [place] [phone] PCP - General Family Medicine 11/28/20 documented as of this encounter
[2025-03-09 11:06] LABS: MANUAL DIFF FLAG NO
[2025-03-09 11:13] LABS: Hematocrit 44.0 % (37.0-47.0); Hemoglobin 13.9 g/dl (12.0-16.0); Imm Gran Abs Auto 0.02 X10*3/uL (0.00-0.03); Imm Gran Pct Auto 0.3 % (0.0-0.4); Lymphocytes Absolute Auto 1.7 X10*3/uL (1.2-4.9); Mean Corpuscular HGB Conc 31.6 g/dl (31.0-35.0); Mean Corpuscular Hemoglobin 28.3 pg (27.0-33.0); Mean Corpuscular Volume 89.6 fL (80.0-98.0); NRBC Abs Auto 0.000 X10*3/uL (0.0-0.012); NRBC Pct Auto 0.0 /100WBC (0.0-0.2); Platelet Count 266 X10*3/uL (160-400); Red Blood Count 4.91 X10*6/uL (4.20-5.50); White Blood Count 6.2 X10*3/uL (4.8-10.8)
[2025-03-09 15:41] LABS: Uric Acid 4.7 mg/dL (2.4-5.7)
[2025-03-11 03:25] LABS: Syphilis Screen Nonreactive (Nonreactive)
== END 2025-03-09 10:07 | disposition home or self-care (01) ==
LOC: HO.HHCL 10:06
PROVIDERS: PCP Nurse Practitioner Primary Care
DX: R21 Rash and other nonspecific skin eruption (principal)
CPT/HCPCS: 36415; 84550; 85025; 85652; 86140; 86200; 86431; 86780; 87255